=== PATIENT | female | born 1980 | race Caucasian/White ===

== ENCOUNTER → 2018-04-22 07:14 | Outpatient (CLI) | payer OTHER, SELFPAY ==
[2018-04-22 08:16] LABS: T4 Free Direct 1.27 ng/dL (0.76-1.46); Thyroid Stim Hormone (TSH) 2.04 uIU/mL (0.358-3.74)
== END ==
PROVIDERS: Family Provider Family Medicine; PCP Family Medicine; Visit Provider Family Medicine
DX: E03.9 Hypothyroidism, unspecified (principal); F32.9 Major depressive disorder, single episode, unspecified
CPT/HCPCS: 36415; 82306; 84439; 84443

== ENCOUNTER → 2019-04-21 | Outpatient (CLI) | payer OTHER, SELFPAY ==
[2018-11-03 13:17] VITALS: BMI 27.0
--- NOTE | 2019-04-21 08:15 | BI_ITS ---
MAMMOGRAPHY - BILATERAL SCREENING REASON FOR EXAM: Female, 38 years old. Routine annual screening examination. PERTINENT HISTORY: Non-contributory. Bilateral breast implants. TECHNIQUE: Digital bilateral breast denise (3D mammographic acquisition) in the CC and MLO projections. 2-D mediolateral oblique (MLO) and craniocaudad (CC) views of both breasts were obtained. CAD: Full Field Digital Mammography with Computer Added Detection was performed. COMPARISON: None. Baseline examination. FINDINGS: Breast Composition: There are scattered areas of fibroglandular density. There are no dominant masses or suspicious calcifications. The breast implants are unremarkable. No other significant abnormalities are identified. BI/SCREEN MAMM (CAD) W/DENISE BILAT IMPRESSION: Negative screening mammogram. Yearly followup mammogram recommended. (A) ASSESSMENT CATEGORY: BIRADS Category 2: Benign. A letter regarding these results will be sent to the patient by the facility within 30 days. Approximately 10% of breast cancers are not detected by mammography. A normal mammogram should not delay biopsy of a clinically suspicious abnormality. [id number] Electronically Signed: Arsh Lancaster, at 10:00 EDT , Service support ,
== END | disposition home or self-care (01) ==
LOC: OPBI 08:11
PROVIDERS: Family Provider Family Medicine; PCP Family Medicine; Referring Provider Nurse Practitioner Women's Health; Visit Provider Nurse Practitioner Women's Health
DX: Z12.31 Encounter for screening mammogram for malignant neoplasm of breast (principal)
CPT/HCPCS: 77063; 77067

== ENCOUNTER → 2019-05-07 | Outpatient (CLI) | payer OTHER, SELFPAY ==
[2018-11-03 13:17] VITALS: BMI 27.0
[2019-05-07 08:12] LABS: Thyroid Stim Hormone (TSH) 1.82 uIU/mL (0.358-3.74)
== END | disposition home or self-care (01) ==
LOC: LAB 07:04
PROVIDERS: Family Provider Family Medicine; PCP Family Medicine; Referring Provider Family Medicine; Visit Provider Family Medicine
DX: Z79.899 Other long term (current) drug therapy (principal)
CPT/HCPCS: 36415; 84443

== ENCOUNTER → 2019-11-05 10:30 | Outpatient (CLI) | payer OTHER, SELFPAY ==
[2019-11-05 08:07] VITALS: BMI 27.0
[2019-11-08 03:06] LABS: Beef <0.10 kU/L (Class 0); Corn <0.10 kU/L (Class 0); Egg, Whole <0.10 kU/L (Class 0); Milk (Cow) <0.10 kU/L (Class 0); Peanut <0.10 kU/L (Class 0); Pork <0.10 kU/L (Class 0); Soybean <0.10 kU/L (Class 0); Wheat <0.10 kU/L (Class 0)
[2019-11-08 09:10] LABS: Chocolate <0.10 kU/L (Class 0)
[2019-11-10 17:10] LABS: HPV APTIMA, High Risk Negative (Negative)
== END ==
PROVIDERS: PCP Family Medicine; Referring Provider Obstetrics & Gynecology; Visit Provider Obstetrics & Gynecology
DX: Z12.4 Encounter for screening for malignant neoplasm of cervix (principal); R14.0 Abdominal distension (gaseous)
CPT/HCPCS: 36415; 86003; 86005; 87624; 88175; G0145

== ENCOUNTER → 2020-04-06 12:48 | Outpatient (CLI) | payer OTHER, SELFPAY ==
[2019-11-05 08:07] VITALS: BMI 27.0
--- NOTE | 2020-04-06 13:02 | RAD_ITS ---
STUDY: X-RAY - RIGHT KNEE REASON FOR EXAM: Female, 39 years old. RIGHT KNEE PAIN. TECHNIQUE: 4 view(s) of the knee. COMPARISON: None. FINDINGS: Normal visualized distal femur. Normal visualized proximal tibia and fibula. Normal proximal tibiofibular articulation. Normal medial femorotibial compartment. Normal lateral femorotibial compartment. Normal patellofemoral articulation. The soft tissue structures are unremarkable. RAD/Knee 4 or More Views IMPRESSION: Normal x-ray examination of the knee. Electronically Signed: William Bonilla MD at 13:25 EDT , Service support ,
== END ==
PROVIDERS: PCP Family Medicine; Referring Provider Family Medicine; Visit Provider Family Medicine
DX: M25.561 Pain in right knee (principal)
CPT/HCPCS: 73564

== ENCOUNTER → 2020-04-20 08:59 | Outpatient (CLI) | payer OTHER, SELFPAY ==
[2020-04-11 10:43] VITALS: BMI 27.2
--- NOTE | 2020-04-20 09:05 | MRI_ITS ---
STUDY: MRI RIGHT KNEE REASON FOR EXAM: Right knee pain for 3 months, no specific injury. TECHNIQUE: Standardized fat and water weighted pulse sequences were obtained in all 3 orthogonal planes. COMPARISON: Radiographs 04/06/2020. FINDINGS: Normal medial meniscus. Normal hyaline cartilage of the medial femorotibial compartment. Normal medial femoral condyle and tibial plateau. Normal medial collateral ligamentous complex (MCL). Normal distal semimembranosus, gracilis and semitendinosus tendons. There is a small horizontal tear of the free margin of the posterior horn of the lateral meniscus (proton-density sagittal images 13, 14). Normal hyaline cartilage of the lateral femorotibial compartment. Normal lateral femoral condyle and tibial plateau. Normal proximal tibiofibular articulation. Normal lateral collateral (fibular) ligament. Normal popliteus tendon. Normal biceps femoris tendon. Normal anterior cruciate ligament (ACL). Normal posterior cruciate ligament (PCL). Normal congruent patellofemoral articulation. There is low-grade chondromalacia of the lateral patellar facet (T2 axial images 8, 9). Normal medial and lateral patellar retinaculum. Normal visualized quadriceps tendon. Normal patellar tendon. Normal Hoffa''s fat pad. There is no joint effusion. There is a small popliteal cyst (T2 sagittal images 16-19). The otherwise visualized osseous structures are unremarkable. MRI/Lower Ext Joint Only (Routine) IMPRESSION: Small lateral meniscal tear. Low-grade chondromalacia patellae. Small popliteal cyst. Electronically Signed: Cristi Youssef MD at 10:14 EDT Tel , Service support ,
--- NOTE | 2020-04-20 13:00 | BI_ITS ---
MAMMOGRAPHY - BILATERAL SCREENING REASON FOR EXAM: Female, 39 years old. Routine annual screening examination. PERTINENT HISTORY: Non-contributory. Bilateral breast implants. TECHNIQUE: Digital bilateral breast denise (3D mammographic acquisition) in the CC and MLO projections. 2-D mediolateral oblique (MLO) and craniocaudad (CC) views of both breasts were obtained. CAD: Full Field Digital Mammography with Computer Added Detection was performed. COMPARISON: Comparison is made with prior examination of 04/21/2019 FINDINGS: Breast Composition: There are scattered areas of fibroglandular density. There are no dominant masses or suspicious calcifications. Stable appearance of the bilateral breast implants. No other significant abnormalities are identified. There has been no significant change since the prior study. BI/SCREEN MAMM (CAD) W/DENISE BILAT IMPRESSION: Stable bilateral screening mammogram. Yearly follow-up mammogram recommended. (A) ASSESSMENT CATEGORY: BIRADS Category 2: Benign. A letter regarding these results will be sent to the patient by the facility within 30 days. Approximately 10% of breast cancers are not detected by mammography. A normal mammogram should not delay biopsy of a clinically suspicious abnormality. [id number] Electronically Signed: Arsh Lancaster, at 14:09 EDT , Service support ,
== END ==
PROVIDERS: PCP Family Medicine; Referring Provider Family Medicine; Visit Provider Obstetrics & Gynecology
DX: Z12.31 Encounter for screening mammogram for malignant neoplasm of breast (principal); M25.561 Pain in right knee
CPT/HCPCS: 73721; 77063; 77067

== ENCOUNTER → 2020-05-11 07:10 | Outpatient (CLI) | payer OTHER, SELFPAY ==
[2020-05-02 09:15] VITALS: BMI 27.9
[2020-05-11 11:48] LABS: T4 Free Direct 1.16 ng/dL (0.76-1.46); Thyroid Stim Hormone (TSH) 2.44 uIU/mL (0.358-3.74)
== END ==
PROVIDERS: PCP Family Medicine; Referring Provider Family Medicine; Visit Provider Family Medicine
DX: E03.9 Hypothyroidism, unspecified (principal)
CPT/HCPCS: 36415; 84439; 84443

== ENCOUNTER 2020-06-21 05:37 | Day surgery (SDC) | payer OTHER, SELFPAY ==
[2020-05-25 07:54] VITALS: BMI 27.9
[2020-06-21 06:22] LABS: Internal QC Validated? YES +Cl - CLEAR BKGD; Pregnancy, Urine Negative Negative
[2020-06-21 06:25] VITALS: BP 126/79; PULSE 69; RESP 16; TEMP 37.2; O2SAT 100; BMI 27.6
[2020-06-21] MEDS: Lactated Ringers 1,000 ML 100 ML IV (06:48)
[2020-06-21] MEDS: Cefazolin 2 GM in 0.9% Normal Saline 100 ML IV (07:13)
--- NOTE | 2020-06-21 07:22 | PCM.HP.BLA ---
History and Physical Date of Admission: 06/21/20 Intake Vital Signs 05/25/20 BMI 27.9 Intake Visit Reasons: RIGHT KNEE Chief Complaint: right knee Allergies Sulfa (Sulfonamide Antibiotics) Allergy (Verified 11/05/19 08:06) Unknown Medications pantoprazole 40 mg tablet,delayed release 40 mg PO QAM 11/13/17 [History Confirmed 05/25/20] bupropion HCl 150 mg tablet,12 hr sustained-release 150 mg PO DAILY 11/05/19 [History Confirmed 05/25/20] Lactobacillus acidophilus 1 billion cell capsule 10 mg PO DAILY 04/11/20 [History Confirmed 05/25/20] levothyroxine 13 mcg capsule 125 mcg PO DAILY cap 04/11/20 [History Confirmed 05/25/20] meloxicam 15 mg tablet 15 mg PO DAILY #30 tab 05/02/20 [Rx Confirmed 05/25/20] PFSH Social History (Updated 05/25/20 @ 16:[address] 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 Bigg Lucero, 05/25/20 [id number]. MAHESH CHING is a 39 year old F here today for F/U on right knee. States that the steroid injection was only effective for about 1 week then the pain returned. She is having painful popping of the medial and lateral knee. Denies numbness, tingling or other associated symptoms.States that the mobic has not been effective. She is unable to preform squats secondary to pain and feeling of instability of the right knee. Does have a painful pop posterior lateral knee with knee range of motion ROS Const Denies weakness Musc Reports joint pain, Reports limited joint movement, Denies numbness, Denies radiating pain into limb, Denies tingling Skin/Breast Denies lesions, Denies rash, Denies skin pain, Denies skin swelling Neuro No numbness, No tingling, No weakness Ortho Exam Right Knee Skin/Wound: No erythema, No ecchymosis, No swelling Homans Sign: No Knee ROM: Yes ROM-Extension -20 to 0, Yes ROM-Flexion 0-140 Examination: Yes Crepitus, Yes Leroy's Test (lateral) Stability: NML: Anterior Drawer, NML: Melani, NML: Posterior Drawer, NML: Valgus 30, NML: Varus 30 Patella Grind: No KNEE: no joint effusion Supplemental Info 04/20/2020 MRI right knee: small horizontal posterior horn lateral meniscus tear 04/06/2020 x-ray right knee: No acute findings Assessment & Plan Problems 1. Acute lateral meniscus tear of right knee, subsequent encounter S83.281D 2. Mechanical pain of right knee M25.561 Plan Patient educated that since the conservative measures were not effective then we can discuss the surgical options. Patient educated that the lateral sided knee pain is from the lateral meniscus tear and we can preform a right knee scope for meniscus repair vs meniscectomy. Educated that if her meniscus is repairable then she will be NWB for 6 weeks post op and she will require PT. Educated that she could be off work for any where from 2-6 weeks. She can return with restrictions of NWB if she wishes. Reviewed the pre-operative plans with the patient. Risks and benefits of the procedure were fully explained, including but not limited to infection, neurovascular injury, continued pain, arthritis, stiffness, need for further surgery, re-injury, DVT, PE, general risks of anesthesia, and loss of limb or life. The patient understands all the risks and does wish to proceed with written consent. Wishes to proceed with right knee arthroscopy lateral meniscus repair vs partial lateral meniscectomy, repair as indicated. DOS scheduled for 06/21/2020. Follow up 2 weeks post op or sooner if pain, swelling, numbness or associated symptoms, or concerns develop. All questions answered. Patient in agreement of plan. Plan Detail Goals Decrease spasm Decrease inflammation Improve HAs Coding Level of Care Code Off vis,est,level 3 Diagnoses Acute lateral meniscus tear of right knee, subsequent encounter S83.281D ??Encounter type: subsequent encounter Mechanical pain of right knee M25.561 I have re-examined the patient. There are no clinical changes since date of exam
[2020-06-21] MEDS: Bupiv/Epi 0.5% Mpf 30 ML Vial (07:31)
[2020-06-21] MEDS: Epinephrine (1 mg/ml) 1 MG/ML VIAL (07:31)
[2020-06-21] MEDS: morphine PF (epidural) 5 MG/10 ML Vial (08:00)
[2020-06-21] MEDS: Bupivacaine Mpf 0.5% 30 ML VIAL (08:00)
[2020-06-21 08:14] VITALS: BP 112/66; BP 126/79; PULSE 85; RESP 20; TEMP 36.1; O2SAT 100
--- NOTE | 2020-06-21 08:22 | DCINST_ITS ---
Discharge Diet: No Restrictions Discharge Activity: Use Crutches Weight Bearing Status: Toe touch weight bearing Call your doctor if you observe: Shortness of breath, Chest pain Suture Line Care: Avoid Pulling/Pushing Additional Instructions: Ice and elevate next 72 hours .keep dressing on clean and dry for 48 hours then may remove begin showering daily but do not submerge in tub or pool. After shower may apply Band-Aids . Encourage knee range of motion toe touch weight bearing only, use crutches . No strenuous activity. When not ambulating keep iced and elevated next 72 hours. Call with any questions or concerns. Allergies/Adverse Reactions: Allergies Sulfa (Sulfonamide Antibiotics) Allergy (Verified 06/13/20 13:48) Unknown Medications to take at Discharge pantoprazole 40 mg tablet,delayed release 40 mg PO QAM 11/13/17 bupropion HCl 150 mg tablet,12 hr sustained-release 150 mg PO DAILY 11/05/19 Lactobacillus acidophilus 1 billion cell capsule 10 mg PO DAILY 04/11/20 levothyroxine 13 mcg capsule 137 mcg PO DAILY cap 04/11/20 Oxycodone [Oxyir] 5 mg PO Q4H PRN PRN #60 tablet 06/21/20 The following prescriptions were given: Oxycodone [Oxyir] 5 mg PO Q4H PRN PRN #60 tablet PRN Reason: Pain Score 4-5/10 Transmission Status: Sent to [facility] Primary Care Physician: Sumit Reid MD [Primary Care Provider] - Test Results: Test results from this visit will be discussed in further detail at your follow- up appointment, if applicable.
[2020-06-21 08:30] VITALS: BP 126/79; BP 132/90; PULSE 75; RESP 16; O2SAT 100
[2020-06-21 08:42] VITALS: BP 126/79; BP 137/92; PULSE 72; RESP 16; TEMP 36.2; O2SAT 100
[2020-06-21] MEDS: oxyCODONE 5 MG Tablet PO (09:42)
[2020-06-21] MEDS: Acetaminophen 325 MG Tablet PO (09:43)
[2020-06-21 09:45] VITALS: BP 115/74; BP 126/79; PULSE 67; RESP 16; TEMP 36.8; O2SAT 100
[2020-06-21 10:15] VITALS: BP 126/79
--- NOTE | 2020-06-21 10:34 | OP.PCM_ITS ---
Report of Operation Date of Procedure: 06/21/20 Description of Surgical Findings:: Preop diagnosis: Right knee posterior horn lateral meniscus tear Postoperative diagnosis: Right knee cartilage defect medial femoral condyle lateral femoral condyle and posterior lateral tibial plateau Procedure: Arthroscopic evaluation microfracture of medial femoral condyle and lateral femoral condyle Anesthesia: General Estimated blood loss: 5 mL Tourniquet time: 35 minutes 300 mmHg Complications: none Indication for procedure: 39-year-old female patient who is having mechanical sided knee pain of her right knee who did have MRI which had a questionable posterior horn lateral meniscus tear the patient did wish to proceed with an elective arthroscopic surgery to attempt to alleviate the symptoms. Risk benefits and alternatives of the procedure were reviewed including risk of bleeding infection nerve artery tissue damage need for further surgery continued pain and expected postoperative course, and possibilities of weightbearing restrictions 6 weeks postop Procedure: The patient was met in the preoperative holding area. The operative extremity was identified by both patient and physician and family and marked. Patient was brought back to the operating room on a wheeled cart and transferred to the operating table in the supine position. Anesthesia was started. A well- padded tourniquet was placed on the operative extremity. A lower extremity leg hammond was secured to the operative extremity. The contralateral extremity was well-padded and the end of the bed was flexed to 90 degrees. The patient was prepped and draped in the usual sterile fashion. A timeout was called to ensure the proper patient, procedure, and extremity were being contemplated. 0.5% Marcaine with epinephrine was injected into the planned incisional areas under the skin only. An Esmarch was used to exsanguinate the extremity and the tourniquet was inflated. An 11 blade scalpel was used to make a stab incision in the anterior lateral portal. The arthroscope was inserted into the intercondylar notch and inflow and outflow tubes were attached. Arthroscopic visualization began. The medial compartment was entered. An 18-gauge spinal needle was used to establish the placement for anterior medial portal. An 11 blade scalpel was used to make a stab incision. Blunt probe was inserted followed by a meniscal probe. The meniscus was evaluated with probing and was found to be intact however there was noted to be a defect of the medial femoral condyle cartilage that was full-thickness that measured 5 mm medial to lateral on the posterior side 8 mm medial lateral on the anterior side and was about 15 mm from anterior to posterior the ACL was found to be intact. The lateral compartment was entered the lateral meniscus was thoroughly probed to evaluate for any tearing but there was not however there was grade 3 cartilage wear of the posterior aspect of the lateral tibial plateau in addition there was a full- thickness cartilage defect of the lateral femoral condyle measuring 5 x 15 mm there was good cartilage rim around both lesions and at this point microfracture awls were used to create microfracture holes within both defects The arthroscope was switched to the medial portal to complete the procedure. The medial and lateral gutters were inspected and were free of loose bodies. The patellofemoral joint was inspected and was free of cartilage pathology. There was good patellar tracking. The knee was thoroughly irrigated and drained. An intra-articular injection with 5 cc 0.5% Marcaine plain 2.5 mg of morphine was injected intra-articularly. The arthroscope was removed the portals were closed with 3-0 nylon arthroscopic stitches. Followed by Xeroform 4 x 4's ABDs web roll and an Pratik wrap. The tourniquet was let down and the drapes were removed. All counts were correct. The patient was brought back to the PACU in stable condition.
== END 2020-06-21 10:33 | disposition home or self-care (01) ==
LOC: SDC 05:37 → AC 05:37
PROVIDERS: Anesthesiology; PCP Family Medicine; Referring Provider Orthopaedic Surgery; Visit Provider Orthopaedic Surgery
PROC: (CPT 29870; principal; 2020-06-21 06:55)
DX: S83.281A Other tear of lateral meniscus, current injury, right knee, initial encounter (principal); X58.XXXA Exposure to other specified factors, initial encounter; Y93.9 Activity, unspecified; Y92.9 Unspecified place or not applicable; Z11.59 Encounter for screening for other viral diseases; Z79.899 Other long term (current) drug therapy; K21.9 Gastro-esophageal reflux disease without esophagitis; E07.9 Disorder of thyroid, unspecified; K58.9 Irritable bowel syndrome, unspecified
CPT/HCPCS: 29879; 81025; 87635; C9803; J7120; J2405; U0003

== ENCOUNTER → 2020-11-07 14:23 | Outpatient (CLI) | payer OTHER, SELFPAY ==
[2020-10-27 16:15] VITALS: BMI 27.9
[2020-11-07 17:39] LABS: T4 Free Direct 1.33 ng/dL (0.76-1.46); Thyroid Stim Hormone (TSH) 0.23 uIU/mL (0.358-3.74)
== END ==
PROVIDERS: PCP Family Medicine; Referring Provider Family Medicine; Visit Provider Family Medicine
DX: E03.9 Hypothyroidism, unspecified (principal)
CPT/HCPCS: 36415; 84439; 84443

== ENCOUNTER → 2021-02-21 07:13 | Outpatient (CLI) | payer OTHER, SELFPAY ==
[2021-01-25 11:12] VITALS: BMI 27.9
[2021-02-21 08:18] LABS: T4 Free Direct 1.18 ng/dL (0.76-1.46); Thyroid Stim Hormone (TSH) 2.36 uIU/mL (0.358-3.74)
== END ==
PROVIDERS: PCP Family Medicine; Referring Provider Family Medicine; Visit Provider Family Medicine
DX: E07.9 Disorder of thyroid, unspecified (principal)
CPT/HCPCS: 36415; 84439; 84443

== ENCOUNTER → 2021-04-24 08:34 | Outpatient (CLI) | payer OTHER, SELFPAY ==
[2020-10-27 16:15] VITALS: BMI 27.9
[2021-03-27 15:47] VITALS: BMI 27.9
--- NOTE | 2021-04-24 08:36 | BI_ITS ---
MAMMOGRAPHY - BILATERAL SCREENING REASON FOR EXAM: Female, 40 years old. Routine annual screening examination. PERTINENT HISTORY: Non-contributory. History of bilateral breast implants. TECHNIQUE: Digital bilateral breast denise (3D mammographic acquisition) in the CC and MLO projections. 2-D mediolateral oblique (MLO) and craniocaudad (CC) views of both breasts were obtained. CAD: Full Field Digital Mammography with Computer Added Detection was performed. COMPARISON: Comparison is made with prior study 04/20/2020 and 04/21/2019. FINDINGS: Breast Composition: There are scattered areas of fibroglandular density. There are no dominant masses or suspicious calcifications. Stable appearance of the bilateral breast implants. No other significant abnormalities are identified. There has been no significant change since the prior study. BI/SCRN MAMM (CAD)W/DENISE BILAT IMPRESSION: Stable bilateral screening mammogram. Yearly follow-up mammogram recommended. (A) ASSESSMENT CATEGORY: BIRADS Category 2: Benign. A letter regarding these results will be sent to the patient by the facility within 30 days. Approximately 10% of breast cancers are not detected by mammography. A normal mammogram should not delay biopsy of a clinically suspicious abnormality. [id number] Electronically Signed: Arsh Lancaster MD at 10:34 EDT , Service support ,
== END ==
PROVIDERS: PCP Family Medicine; Referring Provider Obstetrics & Gynecology; Visit Provider Obstetrics & Gynecology
DX: Z12.31 Encounter for screening mammogram for malignant neoplasm of breast (principal)
CPT/HCPCS: 77063; 77067

== ENCOUNTER 2021-10-19 07:10 | Day surgery (SDC) | payer OTHER, SELFPAY ==
[2021-10-19] VITALS (7 sets, daily range): BP systolic 103–119; BP diastolic 61–76; PULSE 50–78; RESP 15–18; TEMP 36.4–36.7; O2SAT 100; BMI 27.9
[2021-10-19] MEDS: Lactated Ringers 1,000 ML 15 ML IV (07:20)
[2021-10-19 08:12] LABS: Internal QC Validated? YES +Cl - CLEAR BKGD; Pregnancy, Serum, hCG Quali. NEGATIVE Negative
--- NOTE | 2021-10-19 08:19 | PCM.HP.BLA ---
History and Physical Date of Admission: 10/19/21 40 F who presents to the office today for Last seen 08/14/21 for initial consultation of constipation, acid reflux, LGIB. Symptoms last visit included occasional bloating, cramping and constipation alternating with normal BM. Previously prescribed Linzess 145mcg. Constipation ? Start benefiber BID with digestive enzyme with progressive increase to QID. Acid reflux ? maintain PPI therapy with future evaluation for Breen?s. LGIB ? will evaluate over the next four weeks and determine at that time if endoscopy is necessary. Feels symptoms have remained the same overall with resolution of bloating. Noticed blood three times since last visit following alcohol or grape/raisin intake. Had difficulty finding the digestive enzyme and is taking it four times a day for the last week but has not felt this made much difference. Reports that she has not started the benefiber at this time per office recommendation. Continues Protonix 20mg QD. ROS Const Constitutional: No anorexia, fatigue, fever(s), weight change or sleep problems Eyes Eyes: No change in vision ENT ENT: No abnormal hearing, difficulty swallowing, mouth lesions, tongue swelling or throat swelling Resp Respiratory: No cough or shortness of breath Cardio Cardiology: No chest pain at rest, chest pain with exertion, shortness of breath or dyspnea on exertion Gastro GI: No difficulty swallowing Genitourinary-Female: No difficulty urinating or burning urination Musc Musculoskeletal: No joint pain, joint swelling, muscle weakness or decreased muscle mass Skin Skin: No hair loss in leg, yellowing of the eye, itchy eyes, rash, skin ulcer or skin swelling Neuro Neurology: No abnormal hearing, abnormal movements, confusion, unsteady gait/balance or memory loss Psych Psychiatric: No anxiety, No confusion and No memory loss Endo Endocrine: No fatigue or weight change Aller/Imm Allergy/Immunologic: No itchy eyes, throat swelling or tongue swelling Chucky/Lymp Hematologic/Lymphatic: No easy bleeding, easy bruising or enlarged lymph nodes Exam Const General: cooperative and comfortable Nutritional Appearance: average body habitus and well nourished HENIN Head: normal to inspection Ears: hearing grossly normal bilaterally Nose: external nose normal Face and sinus: normal facial exam Mouth: oral mucosae normal Throat: posterior oropharynx normal Eyes General: appearance normal, both eyes and all related structures Neck Neck: normal visual inspection Chest Chest palpation & inspection: normal inspection of the chest and normal palpation of entire chest wall Resp Effort & Inspection: normal respiratory effort Auscultation: Bilateral: Clear to Auscultation Cardio Palpation: normal PMI Rate: regular rate Rhythm: regular rhythm GI Inspection: normal to inspection Auscultation: normal bowel sounds Percussion: normal to percussion Palpation: no hepatosplenomegaly Skin General: no rashes or lesions noted Neuro General: patient alert Extrem General: normal to inspection Psych Affect: normal affect Quality Reporting Tobacco Screening ([facility] 138) Smoking Status: Never smoker Assessment and Plan Assessment and Plan (1) Lower GI bleeding: Status: Acute Orders: Orders: Colonoscopy Today EGD Today Plan - Dr. Kirkpatrick Friend, DO: She will undergo colonoscopy to evaluate her lower GI tract. The differential diagnosis from a GI bleeding could be anal fissure, hemorrhoids, stercoral ulcer, diverticular disease or less likely neoplasia. She was explained alternatives, risk, benefits including not withstanding bleeding, infection, sepsis, perforation, need for urgent surgery and . She will have an ASA 1 (2) Constipation: Status: Acute Orders: Orders: Colonoscopy Today EGD Today Plan - Dr. Kirkpatrick Friend, DO: She will take a tablespoon of mineral oil and a tablespoon of MiraLAX q. nightly. If this makes her too loose then she will only do it Every other day. if this is not effective then she can increase it to twice a day. (3) Acid reflux: Status: Chronic Plan Details Other Medications: New: bisacodyl (Bisa-Lax (bisacodyl)) as directed for bowel prep 5 mg PO ONCE 4 tabs 0RF polyethylene glycol 3350 (Miralax) as directed for bowel prep 17 grams PO DAILY 238 grams 0RF I have re-examined the patient. There are no clinical changes since date of exam.
--- NOTE | 2021-10-19 08:30 | IMM_PTH ---
PATIENT: MAHESH CHING LOC: EN U#:[id number] AGE/SX: 40/F ROOM: RE10/19/[address]: Dr. Casimiro Deutsch DO : 1980 BED: DIS: 10/19/2021 SPEC #: [id number] RECD: 10/19/21 14:56 STATUS: BOBO REStacey #: [id number] DELBERT: 10/19/21 08:[address]: Casimiro Deutsch DEPT: IMMUNOHISTOCHEMISTRY RECD BY: Elaine Yan ENTERED: 10/19/21 14:56 SP TYPE: IMMUNO OT DR: Dr. Peyman Reid MD Tissues: B - Stomach, NOS Procedures: H Pylori (initial) PHYSICIAN & INSTITUTION [place] [id number] SPECIMEN INFORMATION: Tissue Source: B ? Antrum biopsy Clinical Info: Lower GI bleeding, constipation, acid reflux Specimen Number: [id number] CPT code: 47202 METHODOLOGY: Deparaffinized sections of prefer/formalin-fixed tissue or PAP/DQ stained slides are incubated with monoclonal/polyclonal antibodies/oligonucleotide probes. Localization is made via biotin free immunoperoxidase method. Appropriate controls are performed and reacted as expected. Results on target cell population are indicated in the following table: RESULTS: ANTIBODY / CLONE RESULT Block B H Pylori (polyclonal) negative These tests were developed and their performance characteristics determined by [facility]. They may not have been cleared or approved by the U.S. Food and Drug Administration. The FDA has determined that such clearance or approval is not necessary. INTERPRETATION: B. Antrum biopsy: Negative for Helicobacter pylori organisms. AM:ro 10/20/2021
--- NOTE | 2021-10-19 08:30 | EGD_PTH ---
PATIENT: MAHESH CHING LOC: EN U#:[id number] AGE/SX: 40/F ROOM: RE10/19/[address]: Dr. Casimiro Deutsch DO : 1980 BED: DIS: 10/19/2021 SPEC #: [id number] RECD: 10/19/21 12:19 STATUS: BOBO TEA #: [id number] DELBERT: 10/19/21 08:[address]: Casimiro Deutsch DEPT: SURGICAL PATHOLOGY RECD BY: Yolanda Aviles ENTERED: 10/19/21 13:11 SP TYPE: EGD BIOPSY OT DR: Dr. Peyman Reid MD Tissues: A - Duodenum, NOS B - Gastric mucous membrane C - Gastric mucous membrane D - Esophagus, NOS E - Esophagus, NOS F - COLON BIOPSY G - Ileum, NOS H - COLON BIOPSY Procedures: Special Stain Group II Surgery Specimen Level IV Alcian Blue/PAS (control) HEADER OPERATION: Colonoscopy, EGD ([facility]) with biopsies PRE-OP DIAGNOSIS: Lower GI bleeding, constipation, acid reflux TISSUE SUBMITTED: A ? Duodenum biopsy, B ? Antrum biopsy for H. pylori, C ? Gastric body biopsy, D ? Distal esophagus biopsy, E ? Random esophagus biopsy, F ? Splenic flexure polyp, G ? Terminal ileum biopsy, H ? Random colon biopsy MICROSCOPIC DIAGNOSIS A. 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 B. Antrum, biopsy: Chronic gastritis. C. Gastric body biopsy: Minimal chronic inflammation. D. Distal esophagus, biopsy: Junctional mucosa with mild chronic inflammation. No evidence of goblet cell metaplasia. See Comment. E. Random esophagus, biopsy: No pathologic change. F. Splenic flexure polyp: Tubular adenoma. G. Terminal ileum biopsy: No pathologic change. H. Random colon biopsy: Melanosis coli. AM/am 10/4221 COMMENT B. The results of immunohistochemistry for Helicobacter pylori will be reported separately ([id number]). D. AB/PAS stain with matched control supports the above diagnosis. MICROSCOPIC DESCRIPTION Slides are reviewed. GROSS DESCRIPTION A. Received is one container labeled with the patient name and designated duodenum. The specimen consists of two irregular fragments of light puentes soft tissue that together measure 1 x 0.2 x 0.1 cm. The specimen is totally submitted in one cassette. B. Received is one container labeled with the patient name and designated antrum. The specimen consists of multiple irregular fragments of light puentes soft tissue that together measure 1 x 0.3 x 0.1 cm. The specimen is totally submitted in one cassette. C. Received is one container labeled with the patient name and designated gastric body. The specimen consists of two irregular fragment of light puentes soft tissue that together measure 0.6 x 0.3 x 0.1 cm. The specimen is totally submitted in one cassette. D. Received is one container labeled with the patient name and designated distal esophagus. The specimen consists of two irregular fragment of light puentes soft tissue that together measure 0.7 x 0.3 x 0.1 cm. The specimen is totally submitted in one cassette. E. Received is one container labeled with the patient name and designated random esophagus. The specimen consists two irregular fragment of light puentes soft tissue that together measure 0.5 x 0.5 x 0.1 cm. The specimen is totally submitted in one cassette. F. Received is one container labeled with the patient name and designated splenic flexure polyp. The specimen consists of a single polypoid fragment of puentes tissue that together measure 1 x 0.8 x 0.5 cm. The tissue is bisected and totally submitted in one cassette. G. Received is one container labeled with the patient name and designated terminal ileum. The specimen consists of multiple irregular fragment of light puentes soft tissue that together measure 0.9 x 0.7 x 0.1 cm. The specimen is totally submitted in one cassette. H. Received is one container labeled with the patient name and designated random colon biopsy. The specimen consists of multiple irregular fragments of light puentes soft tissue that together measure 2 x 1 x 0.1 cm. The specimen is totally submitted in one cassette. /AM:cc 10/19/2021 TC:4 CPT:77171o1, 08763
--- NOTE | 2021-10-19 08:42 | OP.EGD_ITS ---
Patient Name: Oly Pepper Procedure Date: 10/19/2021 8:22 AM Date of : 1980 Age: 40 Procedure: Upper GI endoscopy Indications: Functional Dyspepsia, Heartburn Providers: Casimiro Deutsch DO Medicines: See the Anesthesia note for documentation of the administered medications Patient Profile: This is a 40 year old female. Refer to note in patient chart for documentation of history and physical. Patient has symptoms of chronic heartburn. Complications: No immediate complications. Procedure: Pre-Anesthesia Assessment: - Prior to the procedure, a History and Physical was performed, and patient medications and allergies were reviewed. The patient is competent. The risks and benefits of the procedure and the sedation options and risks were discussed with the patient. All questions were answered and informed consent was obtained. Patient identification and proposed procedure were verified in the pre-procedure area. Mental Status Examination: alert and oriented. Airway Examination: normal oropharyngeal airway and neck mobility. Respiratory Examination: clear to auscultation. CV Examination: normal. Prophylactic Antibiotics: The patient does not require prophylactic antibiotics. Prior Anticoagulants: The patient has taken no previous anticoagulant or antiplatelet agents. ASA Grade Assessment: II - A patient with mild systemic disease. After reviewing the risks and benefits, the patient was deemed in satisfactory condition to undergo the procedure. The anesthesia plan was to use moderate sedation / analgesia (conscious sedation). Immediately prior to administration of medications, the patient was re-assessed for adequacy to receive sedatives. The heart rate, respiratory rate, oxygen saturations, blood pressure, adequacy of pulmonary ventilation, and response to care were monitored throughout the procedure. The physical status of the patient was re-assessed after the procedure. After obtaining informed consent, the endoscope was passed under direct vision. Throughout the procedure, the patient's blood pressure, pulse, and oxygen saturations were monitored continuously. The Endoscope was introduced through the mouth, and advanced to the second part of duodenum. The upper GI endoscopy was accomplished without difficulty. The patient tolerated the procedure well. Moderate Sedation: Moderate (conscious) sedation was administered by the endoscopy nurse and supervised by the endoscopist. The following parameters were monitored: oxygen saturation, heart rate, blood pressure, and response to care. Total physician intraservice time was 15 minutes. Scope In: 8:31:01 AM Scope Out: 8:39:09 AM Total Procedure Duration Time 0 hours 8 minutes 8 seconds Findings: The Z-line was irregular and was found 35 cm from the incisors. Biopsies were obtained from the proximal and distal esophagus with cold forceps for histology of suspected eosinophilic esophagitis. Patchy mildly erythematous mucosa without bleeding was found in the gastric body and in the gastric antrum. Biopsies were taken with a cold forceps for histology. Verification of patient identification for the specimen was done. Estimated blood loss was minimal. The second portion of the duodenum was normal. Biopsies were taken with a cold forceps for histology. Verification of patient identification for the specimen was done. Estimated blood loss was minimal. Impression: - Z-line irregular, 35 cm from the incisors. Biopsied. - Erythematous mucosa in the gastric body and antrum. Biopsied. - Normal second portion of the duodenum. Biopsied. Recommendation: - Discharge patient to home. - Resume previous diet. - Continue present medications. - Await pathology results. - Return to my office. Procedure Code(s): --- Professional --- 01122, Esophagogastroduodenoscopy, flexible, transoral; with biopsy, single or multiple 40746, 59, Moderate sedation services provided by the same physician or other qualified health career manager performing the diagnostic or therapeutic service that the sedation supports, requiring the presence of an independent trained observer to assist in the monitoring of the patient's level of consciousness and physiological status; initial 15 minutes of intraservice time, patient age 5 years or older CPT copyright 2017 [employer]. All rights reserved. The codes documented in this report are preliminary and upon brush material preparer review may be revised to meet current compliance requirements. Casimiro Deutsch DO 10/19/2021 8:42:36 AM This report has been signed electronically. Number of Addenda: 1 Note Initiated On: 10/19/2021 8:22 AM Addendum Number: 1 Addendum Date: 06/04/2022 6:55:26 AM MAC was used for sedation during this procedure. Casimiro Deutsch DO 06/04/2022 6:55:30 AM This report has been signed electronically.
--- NOTE | 2021-10-19 08:43 | OP.CCLET_ITS ---
06/04/2022 Sumit Reid [address] [place] [address] Re : Upper GI endoscopy procedure for Oly Pepper Dear Dr. Reid This procedure was performed on October. My impressions and recommendations are as follows: Impressions : - Z-line irregular, 35 cm from the incisors. Biopsied. - Erythematous mucosa in the gastric body and antrum. Biopsied. - Normal second portion of the duodenum. Biopsied. Recommendations : - Discharge patient to home. - Resume previous diet. - Continue present medications. - Await pathology results. - Return to my office. My findings are described in the full procedure note, which is enclosed. If I can be of further assistance, please feel free to contact me at . Sincerely, Casimiro Deutsch, 10/19/2021 8:42:36 AM This report has been signed electronically.
--- NOTE | 2021-10-19 09:18 | OP.COLON_ITS ---
Patient Name: Oly Pepper Procedure Date: 10/19/2021 8:42 AM Date of : 1980 Age: 40 Procedure: Colonoscopy Indications: Hematochezia Providers: Casimiro Deutsch DO Medicines: See the Anesthesia note for documentation of the administered medications Patient Profile: This is a 40 year old female. Refer to note in patient chart for documentation of history and physical. Patient has symptoms of chronic heartburn. Last Colonoscopy: none. The patient's first colonoscopy is today. Complications: No immediate complications. Procedure: Pre-Anesthesia Assessment: - Prior to the procedure, a History and Physical was performed, and patient medications and allergies were reviewed. The patient is competent. The risks and benefits of the procedure and the sedation options and risks were discussed with the patient. All questions were answered and informed consent was obtained. Patient identification and proposed procedure were verified in the pre-procedure area. Mental Status Examination: alert and oriented. Airway Examination: normal oropharyngeal airway and neck mobility. Respiratory Examination: clear to auscultation. CV Examination: normal. Prophylactic Antibiotics: The patient does not require prophylactic antibiotics. Prior Anticoagulants: The patient has taken no previous anticoagulant or antiplatelet agents. ASA Grade Assessment: II - A patient with mild systemic disease. After reviewing the risks and benefits, the patient was deemed in satisfactory condition to undergo the procedure. The anesthesia plan was to use moderate sedation / analgesia (conscious sedation). Immediately prior to administration of medications, the patient was re-assessed for adequacy to receive sedatives. The heart rate, respiratory rate, oxygen saturations, blood pressure, adequacy of pulmonary ventilation, and response to care were monitored throughout the procedure. The physical status of the patient was re-assessed after the procedure. After I obtained informed consent, the scope was passed under direct vision. Throughout the procedure, the patient's blood pressure, pulse, and oxygen saturations were monitored continuously. The colonoscope was introduced through the anus and advanced to the terminal ileum. The colonoscopy was performed without difficulty. The patient tolerated the procedure well. The quality of the bowel preparation was good. Moderate Sedation: Moderate (conscious) sedation was administered by the endoscopy nurse and supervised by the endoscopist. The patient's oxygen saturation, heart rate, blood pressure and response to care were monitored. Total physician intraservice time was 15 minutes. Scope In: 8:45:54 AM Scope Withdrawal Time 0 hours 11 minutes 59 seconds Scope Out: 9:08:47 AM Total Procedure Duration Time 0 hours 22 minutes 53 seconds Findings: A 13 mm polyp was found in the splenic flexure. The polyp was sessile. The polyp was removed with a hot snare. Resection and retrieval were complete. Verification of patient identification for the specimen was done. Estimated blood loss was minimal. An area of mildly congested mucosa was found in the descending colon. Biopsies were taken with a cold forceps for histology. Estimated blood loss was minimal. A patchy area of the distal ileum and terminal ileum was congested. Biopsies were taken with a cold forceps for histology. Hemorrhoids were found on perianal exam. External and internal hemorrhoids were found during retroflexion, during perianal exam and during digital exam. The hemorrhoids were moderate, medium-sized and Grade II (internal hemorrhoids that prolapse but reduce spontaneously). Impression: - One 5 mm polyp in the sigmoid colon, removed with a hot snare. Resected and retrieved. - Congested mucosa in the descending colon. Biopsied. - Congested mucosa in the distal ileum and in the terminal ileum. Biopsied. - Hemorrhoids found on perianal exam. - External and internal hemorrhoids. Recommendation: - Repeat colonoscopy in 5 years for surveillance. - Return to GI office. - Continue present medications. Procedure Code(s): --- Professional --- 05188, Colonoscopy, flexible; with removal of tumor(s), polyp(s), or other lesion(s) by snare technique 36922, 59, Colonoscopy, flexible; with biopsy, single or multiple 68848, 59, Moderate sedation services provided by the same physician or other qualified health home health care respiratory therapist performing the diagnostic or therapeutic service that the sedation supports, requiring the presence of an independent trained observer to assist in the monitoring of the patient's level of consciousness and physiological status; initial 15 minutes of intraservice time, patient age 5 years or older CPT copyright 2017 [employer]. All rights reserved. The codes documented in this report are preliminary and upon physician ophthalmologist review may be revised to meet current compliance requirements. Casimiro Deutsch DO 10/19/2021 9:17:20 AM This report has been signed electronically. Number of Addenda: 1 Note Initiated On: 10/19/2021 8:42 AM Addendum Number: 1 Addendum Date: 06/04/2022 6:55:37 AM MAC was used for sedation during this procedure. Casimiro Deutsch DO 06/04/2022 6:55:41 AM This report has been signed electronically.
--- NOTE | 2021-10-19 09:18 | OP.CCLET_ITS ---
06/04/2022 Sumit Reid [address] [place] [address] Re : Colonoscopy procedure for Oly Pepper Dear Dr. Reid This procedure was performed on October. My impressions and recommendations are as follows: Impressions : - One 5 mm polyp in the sigmoid colon, removed with a hot snare. Resected and retrieved. - Congested mucosa in the descending colon. Biopsied. - Congested mucosa in the distal ileum and in the terminal ileum. Biopsied. - Hemorrhoids found on perianal exam. - External and internal hemorrhoids. Recommendations : - Repeat colonoscopy in 5 years for surveillance. - Return to GI office. - Continue present medications. My findings are described in the full procedure note, which is enclosed. If I can be of further assistance, please feel free to contact me at . Sincerely, Casimiro Deutsch, DO 10/19/2021 9:17:20 AM This report has been signed electronically.
== END 2021-10-19 23:59 | disposition home or self-care (01) ==
LOC: EN 07:11 → AC 07:11
PROVIDERS: Anesthesiology; PCP Family Medicine; Referring Provider Family Medicine; Visit Provider Internal Medicine Gastroenterology
PROC: 0DJD8ZZ Inspection of Lower Intestinal Tract, Via Natural or Artificial Opening Endoscopic (ICD-10-PCS; CPT 45378; principal; 2021-10-19 08:25)
DX: K29.50 Unspecified chronic gastritis without bleeding (principal); K31.89 Other diseases of stomach and duodenum; D12.3 Benign neoplasm of transverse colon; K64.1 Second degree hemorrhoids; K64.4 Residual hemorrhoidal skin tags; E07.9 Disorder of thyroid, unspecified; K21.00 Gastro-esophageal reflux disease with esophagitis, without bleeding; F41.9 Anxiety disorder, unspecified; K58.9 Irritable bowel syndrome, unspecified; Z86.16 Personal history of COVID-19; Z79.899 Other long term (current) drug therapy
CPT/HCPCS: 45385; 45380; 43239; 84703; 88305; 88313; 88342; J7120; J2405

== ENCOUNTER 2022-01-01 07:07 | Outpatient (CLI) | payer OTHER, SELFPAY ==
--- NOTE | 2022-01-01 07:11 | RAD_ITS ---
EXAM: XR ABDOMEN, 1 VIEW CLINICAL INDICATION: Sitz marker test day 3, constipation TECHNIQUE: Frontal supine view of the abdomen/pelvis. This report was created using [employer] report generation technology. COMPARISON: None. FINDINGS: LOWER THORAX: No acute pathology. GASTROINTESTINAL TRACT: There is a single sitz marker in the ascending colon. There are 3 sitz marker in the descending colon. There are 5 sitz marker in the rectal vault. Non-obstructive. No bowel or stomach distention. ORGANS: Unremarkable as visualized. No organomegaly. No abnormal calcifications. BONES/JOINTS: No acute pathology. SOFT TISSUES: There are bilateral tubal ligation clips. RAD/Abdomen Single View IMPRESSION: Sitz markers as noted above. There are no prior studies for comparison to detail the progression. Electronically Signed: Hung Loja MD at 14:48 EDT ,
== END 2022-01-01 23:59 | disposition home or self-care (01) ==
LOC: RAD 07:09
PROVIDERS: PCP Family Medicine; Referring Provider Nurse Practitioner Adult Health; Visit Provider Nurse Practitioner Adult Health
DX: K59.00 Constipation, unspecified (principal)
CPT/HCPCS: 74018

== ENCOUNTER → 2022-01-03 | Outpatient (CLI) | payer OTHER, SELFPAY ==
--- NOTE | 2022-01-03 07:35 | RAD_ITS ---
[employer] Unformatted Report Format: Options: n 2f 2i act cap dr barroso wm wcta sl lj Gender: Female Age: 41 years Exam: XR Abdomen 1 View Comparison: January 01, 2022 History: sitz marker day 5, constipation Contrast: Previously noted Sitz markers throughout the large bowel are no longer identified. Mild retained fecal material throughout the colon. IMPRESSION: Complete evacuation of the Sitz markers on day 5. Electronically Signed: Jez Gonzales MD at 8:23 EDT , RAD/Abdomen Single View
== END | disposition home or self-care (01) ==
LOC: RAD 07:34
PROVIDERS: PCP Family Medicine; Visit Provider Nurse Practitioner Adult Health
DX: K59.00 Constipation, unspecified (principal)
CPT/HCPCS: 74018

== ENCOUNTER → 2022-05-28 | Outpatient (CLI) | payer OTHER, SELFPAY ==
[2022-05-28 14:15] LABS: T4 Free Direct 1.18 ng/dL (0.76-1.46)
== END | disposition home or self-care (01) ==
LOC: LABSPEC 13:35
PROVIDERS: PCP Family Medicine; Visit Provider Family Medicine
DX: E03.9 Hypothyroidism, unspecified (principal)
CPT/HCPCS: 84439; 84443

== ENCOUNTER → 2022-06-07 | Outpatient (CLI) | payer OTHER, SELFPAY | END | disposition home or self-care (01) | LOC: LAB 11:06 | PROVIDERS: PCP Family Medicine; Referring Provider Internal Medicine Cardiovascular Disease; Visit Provider Internal Medicine Cardiovascular Disease | DX: E87.6 Hypokalemia (principal) | CPT/HCPCS: 36415; 83735; 84132 ==

== ENCOUNTER → 2022-07-16 | Outpatient (CLI) | payer OTHER, SELFPAY ==
--- NOTE | 2022-07-16 07:12 | BI_ITS ---
MAMMOGRAPHY - BILATERAL SCREENING REASON FOR EXAM: Female, 41 years old. Routine annual screening examination. PERTINENT HISTORY: Non-contributory. History of bilateral breast implants. TECHNIQUE: Digital bilateral breast denise (3D mammographic acquisition) in the CC and MLO projections. 2-D mediolateral oblique (MLO) and craniocaudad (CC) views of both breasts were obtained. CAD: Full Field Digital Mammography with Computer Added Detection was performed. COMPARISON: Comparison is made with prior study 04/24/2021 and 04/20/2020. FINDINGS: Breast Composition: There are scattered areas of fibroglandular density. There are no dominant masses or suspicious calcifications. Stable appearance of the bilateral breast implants. No other significant abnormalities are identified. There has been no significant change since the prior study. BI/SCRN MAMM (CAD)W/DENISE BILAT IMPRESSION: Stable bilateral screening mammogram. Yearly follow-up mammogram recommended. (A) ASSESSMENT CATEGORY: BIRADS Category 2: Benign. A letter regarding these results will be sent to the patient by the facility within 30 days. Approximately 10% of breast cancers are not detected by mammography. A normal mammogram should not delay biopsy of a clinically suspicious abnormality. [id number] Electronically Signed: Arsh Lancaster MD at 10:40 EDT ,
== END | disposition home or self-care (01) ==
LOC: OPBI 07:10
PROVIDERS: PCP Family Medicine; Visit Provider Nurse Practitioner Women's Health
DX: Z12.31 Encounter for screening mammogram for malignant neoplasm of breast (principal)
CPT/HCPCS: 77063; 77067

== ENCOUNTER 2022-12-18 09:17 | Day surgery (SDC) | payer OTHER, SELFPAY ==
[2022-12-18 09:45] VITALS: BP 128/86; PULSE 74; RESP 18; TEMP 37.1; O2SAT 100; BMI 26.8
--- NOTE | 2022-12-18 09:47 | HP.PCM_ITS ---
History and Physical Date of Admission: 12/18/22 Date of Service:? 11/20/22 MR#: [id number] Acct: [id number] Name:MAHESH HOLDEN Rep #: [id number] : 1980 ? ? Provider: Dr. Jamaica Goss MD Age/Sex:? 41/F ? ? [place] [facility] [place] [facility] [place] Status: Signed Intake Intake Visit Reasons:?HEMORRHOIDS Chief Complaint: hemorrhoids Is patient in pain?: No Allergies Sulfa (Sulfonamide Antibiotics) Allergy (Verified 11/20/22 09:15) Unknownzinc Adverse Reaction (Intermediate, Verified 11/20/22 09:15) rash Medications bupropion HCl 150 mg tablet,12 hr sustained-release (Wellbutrin SR) 150 mg PO DAILY 11/05/19 [History Confirmed 11/20/22] levothyroxine 13 mcg capsule 137 mcg PO DAILY 04/11/20 [History Confirmed 11/20/22] cetirizine 10 mg tablet (Zyrtec) 10 mg PO DAILY 10/19/21 [History Confirmed 11/20/22] pantoprazole 40 mg tablet,delayed release 40 mg PO DAILY #90 tabs 12/20/21 [Rx Confirmed 11/20/22] Saccharomyces boulardii 250 mg capsule (Daily Probiotic (S. boulardii)) 250 mg PO BID 01/31/22 [History Confirmed 11/20/22] potassium chloride 20 mEq tablet,extended release(part/cryst) 20 meq PO DAILY #90 tabs 07/09/22 [Rx Confirmed 11/20/22] Hydrocortisone 2.5%/lidocaine 5% suppository (cmpd) (hydrocortisone 2.5%/lidocaine 5% suppository (compound)) #1 ea 11/01/22 [Rx Confirmed 11/20/22] hydrocortisone 2.5 % topical cream with perineal applicator (Proctosol HC) 1 applic [place] BID-QID PRN hemorrhoids #30 grams 11/01/22 [Rx Confirmed 11/20/22] sucralfate 100 mg/mL oral suspension 10 ml PO QACHS 11/01/22 [History Confirmed 11/20/22] PFSH Medical History? Acid reflux Alcohol use Constipation Frequent headaches Gastric reflux Gastritis History of hiatal hernia Injury of left shoulder Irritable bowel syndrome Left shoulder pain Lower GI bleeding Non-smoker Other serum reaction due to vaccination Other serum reaction due to vaccination, initial encounter Thyroid disease Thyroid disease Unspecified injury of left shoulder and upper arm, initial encounter Surgical History? Breast implant status H/O right knee surgery History of delivery S/P endometrial ablation Family History? Mother Hypertension HyperlipidemiaFather Hypertension Hyperlipidemia Thyroid disorder Social History? Smoking Status:? Never smoker alcohol intake:? current details:? occasionally substance use type:? does not use caffeine:? Yes what type of physical activity do you participate in:? aerobics frequency:? 3-4 times per week seatbelt use:? always do you feel safe at home:? Yes additional social history:? 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 Patient states she did try the suppositories first it was great.? However following days patient states it was a mess patient states she had bleeding on looser stools and was having issues with leakage.? Patient states she is back to her normal but states she does have the occasional leakage still and is interested in possible hemorrhoidectomy.? Patient states she did track her fiber and she was usually around 20 daily. ROS General General: No weight change, appetite, fatigue, colon cancer, breast cancer or weakness HEENT HEENT: No difficulty swallowing, eye injury, eye surgery, swollen glands or hoarseness Endo Endocrine: No thyroid disease, diabetes mellitus, thyroid cancer, Hair loss, heat intolerance or cold intolerance Skin Skin: No rash or changing moles Breast Breast: No left breast lump, right breast lump, nipple discharge, breast pain, abnormal mammogram, abnormal US or breast enlargement Musc Musculoskeletal: No back problems, arthritis, rheumatoid arthritis, gout or joint pain Cardio Cardiovascular: No murmur, pacemaker, heart disease, atrial fibrillation, high blood pressure, heart attack, heart stent, palpitations, shortness of breat with exertion or chest pain Psych Psychiatric: Yes depression; No anxiety or hearing voices Resp Respiratory: No shortness of breath, No sleep apnea, No cough, No COPD, No asthma, No emphysema and No wheezing Gastro Gastrointestinal: No abdominal pain, No nausea or vomiting, No diarrhea, No constipation, No blood in stool, Yes acid reflux, Yes hemorrhoids, No ulcers, No gallbladder problem and No black,tarry stools Chucky Hematologic: No blood thinners, No blood disorders, No bleeding, No anemia and No blood clots Neuro Neurologic: No system reviewed and no additional complaints, except as documented, No as per HPI, No abnormal gait, No abnormal hearing, No abnormal movements, No abnormal speech, No behavioral changes, No burning sensations, No confusion, No convulsions, No disequilibrium, No dizziness, No localized weakness, No frequent falls, No headache(s), No lack of coordination, No loss of vision, No memory loss, No numbness, No other visual disturbances, No radicular pain, No restless legs, No sensory deficit, No syncope, No tingling, No tremor(s), No weakness and No other Exam Const General: cooperative, healthy appearing and no acute distress HENMT Head: normal to inspection Resp Effort & Inspection: normal respiratory effort Cardio Rate: regular rate GI Inspection: non-distended Palpation: soft Other: Rectal inspection only?right posterior external/internal component hemorrhoid, minimal residual tissue anteriorly Skin General: no rashes or lesions noted Neuro General: patient oriented x3 Extrem General: no clubbing, cyanosis or edema Psych Affect: normal affect Assessment and Plan Assessment and Plan (1) Hemorrhoids: ?Status:?Acute Plan Plan for hemorrhoidectomy.? Discussed with patient the risk including but not limited to bleeding, infection, pain, need for additional surgery if continues to have constipation/diarrhea.? Patient was agreeable with plan and wanted to proceed. Jamaica oGss M.D. Pager: [phone] [facility] [address] [place] [address], [facility], [address] [place] [address] Office: [phone] Plan Details Goals & Barriers: Goals Decrease spasm Decrease inflammation Improve HAs Coding Level of Care Code Off vis,est,level 3 Diagnoses Hemorrhoids? K64.9 11/22/22 0737 <Electronically signed by Jamaica Goss MD> Date Jamaica Goss MD
[2022-12-18] MEDS: Lactated Ringers 1,000 ML 15 ML IV ×2 (09:51→12:10)
--- NOTE | 2022-12-18 11:00 | HEM_PTH ---
PATIENT: MAHESH CHING LOC: [facility] [place] U#:[id number] AGE/SX: 41/F ROOM: RE12/18/[address]: Dr. Jamaica Goss MD : 1980 BED: DIS: 12/18/2022 SPEC #: [id number] RECD: 12/18/22 12:34 STATUS: BOBO REStacey #: [id number] DELBERT: 12/18/22 11:[address]: Jamaica Goss DEPT: SURGICAL PATHOLOGY RECD BY: Yolanda Aviles ENTERED: 12/18/22 12:56 SP TYPE: HEMORRHOID OTHR DR: Dr. Peyman Reid MD Tissues: HEMORRHOIDS Procedures: Surgery Specimen Level III HEADER OPERATION: EUA, hemorrhoidectomy PRE-OP DIAGNOSIS: Hemorrhoids TISSUE SUBMITTED: Hemorrhoids MICROSCOPIC DIAGNOSIS Hemorrhoids, hemorrhoidectomy: Pieces of anorectal mucosa with dilated and congested blood vessels, consistent with hemorrhoids. SJ:destiny 12/19/2022 MICROSCOPIC DESCRIPTION Slides are reviewed. GROSS DESCRIPTION Received in fixative is one container labeled with the patient's name and designated hemorrhoids. The specimen consists of three variable sized pieces of puentes mucosal tissue measuring in aggregate 3.0 x 3.5 x 1.5 cm. Sections reveal congested and hemorrhagic cut surfaces. Heating And Refrigeration Inspector sections are submitted in two cassettes. / COLLEEN:destiny 12/18/2022 TC:5 CPT: 21827
[2022-12-18] MEDS: BUPIVACAINE LIPOSOME/PF 20 ML VIAL OPERA.SITE (11:16)
[2022-12-18] MEDS: Dibucaine 30 GM Tube 1 APPLIC (11:38)
[2022-12-18] MEDS: Lubricating Jelly 60 GM Tube 30 GM (11:39)
--- NOTE | 2022-12-18 11:54 | OP.PCM_ITS ---
Report of Operation Date of Procedure: 12/18/22 Pre-Operative Diagnosis: Hemorrhoids external and internal?grade 3 Post-Operative Diagnosis: Same Surgery/Procedure Performed:: Hemorrhoidectomy Surgeon: Jamaica Goss global sourcing manager: Olivia Johansen Type of Anesthesia: General/Supplemental Anesthesiologist: Alex More Special Medications: None Specimen's removed: Hemorrhoid Estimated Blood Loss (mL): 10 cc Description of Procedure: The patient was brought into the operating room and general anesthesia was induced. She was placed in prone jackknife lithotomy position. A timeout was completed verifying correct patient, procedure, site, position, and special equipment prior to beginning the procedure. The buttocks were taped apart. Perineum was prepared prepped and draped in standard sterile fashion. Exparel was used for local anesthesia was injected as a perianal nerve and perianal block-total of 20 cc. Anus carefully dilated. Small Hill-Lehman retractor was introduced and 3 marginal pedicles identified. She was noted to have internal and external hemorrhoids at the right posterior location. Right posterior pedicle was excised in turn in the following fashion. 2-0 Vicryl suture was placed at the base of the pedicle and retracted externally to exteriorize the hemorrhoidal pedicles. An elliptical incision was made extending from perianal skin to anal rectal ring including both internal and external hemorrhoids and excising a minimal amount of anoderm with the hand-held harmonic. Cautery was used to separate the hemorrhoid from the underlying tissue. Careful not to involve any of the sphincter muscle. The pedicle was indicated from the base and sent to pathology. Hemostasis was achieved using electrocautery. Following the hemostasis the skin and mucosal incisions were closed with the running lock stitch of 2-0 chromic. A Surgifoam with dibucaine was placed in the anus. A gauze pad tucked between the gluteal folds and mesh underwear was placed. The patient tolerated procedure well and was extubated and taken to the posta nesthesia care unit in stable condition. Complications none
--- NOTE | 2022-12-18 11:59 | DCINST_ITS ---
Discharge Instructions Diet Discharge Diet: No restrictions Activity Discharge Activity: May Not Drive (On narcotics) Lifting Restrictions: No lifting greater than 20 pounds x 2 weeks Dressing / Incision Call your doctor if your incision/area has: Sudden Increased Bleeding, Increased Pain/ Swelling and Swelling at the incision site Call your doctor if you observe: Fever of 101 or Higher Additional Dressing/Incision Instructions:: Sitz bath's daily and as needed Follow Up Care Please Follow Up With: Jamaica Goss MD When: Call the office for follow-up appointment in about 3 weeks. Test Results: Test results from this visit will be discussed in further detail at your follow- up appointment, if applicable. Discharge Plan Admission Attending Provider: Jamaica Goss Primary Care Provider: Sumit Reid Instructions Additional Instructions / Restrictions: Sitz bath's daily and as needed. Try to avoid directly sitting straight down the on 1 side more than the other as the incisions in the midline. Take stool softeners daily and laxatives if needed. If you do have diarrhea cut back on stool softeners. Discharge Orders/Prescriptions Prescriptions: New oxycodone-acetaminophen 5-325 mg tablet 1 - 2 tab PO Q6H PRN (Reason: pain) 4 Days Qty: 20 0RF Continued levothyroxine 13 mcg capsule 13 mcg capsule 137 mcg PO DAILY bupropion HCl [Wellbutrin SR] 150 mg tablet sustained-release 12 hr 150 mg PO DAILY Saccharomyces boulardii [Daily Probiotic (S. boulardii)] 250 mg capsule 250 mg PO DAILY pantoprazole 40 mg tablet,delayed release (DR/EC) 40 mg PO DAILY Qty: 90 3RF hydrocortisone [Proctosol HC] 2.5 % cream with perineal applicator 1 applic [place] BID-QID PRN (Reason: hemorrhoids) Qty: 30 0RF (DME) hydrocortisone 2.5%/lidocaine 5% suppository (compound) Suppository See Rx Instructions .Route Qty: 1 1RF Rx Instructions: rectally BID fluticasone propionate [Flonase Allergy Relief] 50 mcg/actuation [place],Suspension 1 spray INTRANASAL DAILY Rx Instructions: administer into each nostril potassium chloride 20 mEq tablet,ER particles/crystals 20 meq PO DAILY Qty: 90 3RF Referrals / Follow Up: Sumit Reid MD [Primary Care Provider] - Disposition Disposition (needs filled in before D/C Order can be placed): Home, Self Care
[2022-12-18 12:05] VITALS: BP 128/86; BP 130/84; PULSE 76; RESP 16; TEMP 36.2; O2SAT 100
[2022-12-18 12:15] VITALS: BP 125/87; BP 128/86; PULSE 71; RESP 16; O2SAT 100
[2022-12-18 12:30] VITALS: BP 119/80; BP 128/86; PULSE 58; RESP 16; O2SAT 100
[2022-12-18 12:45] VITALS: BP 119/83; BP 128/86; PULSE 53; RESP 16; TEMP 36.3; O2SAT 100
[2022-12-18 13:28] VITALS: BP 128/86
== END 2022-12-18 13:33 | disposition home or self-care (01) ==
LOC: SDC 09:18 → AC 09:19
PROVIDERS: PCP Family Medicine; Referring Provider Surgery; Visit Provider Surgery
PROC: (CPT 46260; principal; 2022-12-18 10:45)
DX: K64.2 Third degree hemorrhoids (principal); K64.4 Residual hemorrhoidal skin tags; K21.9 Gastro-esophageal reflux disease without esophagitis; F41.9 Anxiety disorder, unspecified; M99.01 Segmental and somatic dysfunction of cervical region; M99.02 Segmental and somatic dysfunction of thoracic region; M99.03 Segmental and somatic dysfunction of lumbar region; M99.05 Segmental and somatic dysfunction of pelvic region; E07.9 Disorder of thyroid, unspecified; Z86.010 Personal history of colon polyps; Z86.16 Personal history of COVID-19; Z79.899 Other long term (current) drug therapy
CPT/HCPCS: 46260; 00902; 88304; J7120; J2405

== ENCOUNTER → 2023-02-04 | Outpatient (CLI) | payer OTHER, SELFPAY ==
[2023-02-04 15:33] LABS: Estradiol 246.2 pg/mL; Follicle Stimulating Hormone 4.5 mIU/mL; Thyroid Stim Hormone (TSH) 1.87 uIU/mL (0.358-3.74)
== END | disposition home or self-care (01) ==
LOC: LAB 13:54
PROVIDERS: PCP Family Medicine; Referring Provider Obstetrics & Gynecology; Visit Provider Obstetrics & Gynecology
DX: N94.6 Dysmenorrhea, unspecified (principal)
CPT/HCPCS: 36415; 82670; 83001; 84443

== ENCOUNTER → 2023-05-06 | Outpatient (CLI) | payer OTHER, SELFPAY ==
[2023-05-06 11:15] LABS: Thyroid Stim Hormone (TSH) 1.56 uIU/mL (0.358-3.74)
== END | disposition home or self-care (01) ==
LOC: LAB 08:57
PROVIDERS: PCP Family Medicine; Referring Provider Obstetrics & Gynecology; Visit Provider Obstetrics & Gynecology
DX: N94.6 Dysmenorrhea, unspecified (principal); E07.9 Disorder of thyroid, unspecified
CPT/HCPCS: 36415; 84443

== ENCOUNTER → 2023-05-08 | Outpatient (CLI) | payer OTHER, SELFPAY ==
--- NOTE | 2023-05-08 13:43 | US_ITS ---
EXAM: US PELVIS TRANSABDOMINAL AND TRANSVAGINAL, COMPLETE CLINICAL INDICATION: pelvic pain TECHNIQUE: Transabdominal and transvaginal pelvic ultrasound was performed with grayscale and color Doppler imaging. Transvaginal imaging was used for better evaluation of the endometrium and adnexa. COMPARISON: No relevant prior studies available. FINDINGS: UTERUS/CERVIX: Heterogeneous fibroid uterus containing at least 4 small fibroids. The largest of these measures up to 1.3 cm. The second largest measures up to 1.1 cm. These are all myometrial. Uterus measures 9.9 x 6.1 x 4.4 cm with normal endometrial complex appearance and thickness of 4 mm. Anteverted uterus. Nabothian cysts are identified. No IUD. RIGHT OVARY: Right ovary measures 3.0 x 2.2 x 1.9 cm. Blood flow is present in the right ovary. LEFT OVARY: Left ovary measures 3.0 2.6 x 1.3 cm. Blood flow is present in the left ovary. FREE FLUID: Ovaries are unremarkable with no solid masses. No adnexal masses an no significant free pelvic fluid. BLADDER: Bladder shows no wall thickening or intraluminal calculi. Bladder volume = 861 mL. US/Pelvic w/ Transvaginal IMPRESSION: 1. Fibroid uterus. 2. Normal endometrial complex. 3. No ovarian or adnexal masses or free fluid. Electronically Signed: Amador Wilburn MD at 2:32 EDT ,
== END | disposition home or self-care (01) ==
LOC: OPUS 13:42
PROVIDERS: PCP Family Medicine; Referring Provider Obstetrics & Gynecology; Visit Provider Obstetrics & Gynecology
DX: R10.2 Pelvic and perineal pain (principal)
CPT/HCPCS: 76830; 76856

== ENCOUNTER 2023-07-02 08:14 | Day surgery (SDC) | payer OTHER, SELFPAY ==
[2023-06-28 16:41] LABS: Magnesium 2.2 mg/dL (1.6-2.6)
--- NOTE | 2023-07-01 13:48 | HP.PCM_ITS ---
History and Physical Date of Admission: 07/02/23 Vital Signs 02/05/2308:48 06/03/2314:00 06/03/2314:02 Height 5 ft 8 in 5 ft 8 in 5 ft 8 in Weight: 188 lb 6 oz BMI 28.6 BP 122/79 H Intake Visit Reasons: pelvic pain Avionics Shop Supervisor Required: No Is patient in pain?: No Allergies Sulfa (Sulfonamide Antibiotics) Allergy (Verified 06/03/23 14:01) Unknownzinc Adverse Reaction (Intermediate, Verified 06/03/23 14:01) rash Medications bupropion HCl 150 mg tablet,12 hr sustained-release (Wellbutrin SR) 150 mg PO DAILY 11/05/19 [History Confirmed 06/03/23] levothyroxine 13 mcg capsule 137 mcg PO DAILY 04/11/20 [History Confirmed ] Saccharomyces boulardii 250 mg capsule (Daily Probiotic (S. boulardii)) 250 mg PO DAILY 01/31/22 [History Confirmed 06/03/23] potassium chloride 20 mEq tablet,extended release(part/cryst) 20 meq PO DAILY #90 tabs 07/09/22 [Rx Confirmed 06/03/23] Hydrocortisone 2.5%/lidocaine 5% suppository (cmpd) (hydrocortisone 2.5%/lidocaine 5% suppository (compound)) #1 ea 11/01/22 [Rx Confirmed 04/29/23] fluticasone propionate 50 mcg/actuation nasal spray,suspension (Flonase Allergy Relief) 1 spray intranasal DAILY 12/11/22 [History Confirmed 06/03/23] magnesium oxide 420 mg tablet 420 mg PO DAILY 02/04/23 [History Confirmed 06/03/23] pantoprazole 40 mg tablet,delayed release 40 mg PO DAILY #90 tabs 02/12/23 [Rx Confirmed 06/03/23] [facility] Medical History Acid reflux Alcohol use Constipation Frequent headaches Gastric reflux Gastritis History of IBS Injury of left shoulder Left shoulder pain Lower GI bleeding Non-smoker Other serum reaction due to vaccination Other serum reaction due to vaccination, initial encounter Thyroid disease Thyroid disease Unspecified injury of left shoulder and upper arm, initial encounter Surgical History Breast implant status H/O right knee surgery History of delivery Hx of colonoscopy with polypectomy S/P endometrial ablation S/P hemorrhoidectomy Family History Mother Hypertension HyperlipidemiaFather Hypertension Hyperlipidemia Thyroid disorder Social History Smoking Status: Never smoker alcohol intake: current details: occasionally substance use type: does not use caffeine: Yes what type of physical activity do you participate in: aerobics frequency: 3-4 times per week seatbelt use: always do you feel safe at home: Yes additional social history: [employer] 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 she has a history of an endometrial ablation and cycles are 1-2 weeks and painful not too heavy, more bleeding than before but not severe. lining was 4 mm. she has 4 fibroids present. she denies any pain with intercourse. History 2 Elective abortions Hx Para 2 Spontaneous abortions Hx # Term Pregnancies Ectopic pregnancies Hx # Pregnancies Multiple births # of living children Past Pregnancies Del. Date Name GA/Weeks Outcome Route Bth Weight Gen Labor Lgth Anesthesia Del Locatn Provider FOB Unknown Nicole-2001 Unknown Jamarcus-2006 ROS Const Constitutional: Denies fatigue, weight gain or weight loss ENT ENT: Reports system reviewed and no additional complaints, except as documented Cardio Card: Denies chest pain Resp Resp: Denies cough or dyspnea GI GI: Reports as per HPI; Denies abdominal pain, constipation, nausea or vomiting : Denies nipple discharge, urinary frequency, urinary incontinence, urinary hesitancy, urinary urgency, vaginal discharge, vaginal dryness, vaginal odor or vaginal pruritus Musc Musc: Denies arthralgias, back pain or muscle weakness Skin Skin/Breast: Denies alopecia, change in hair, dry skin, breast mass, breast pain, breast skin changes or nipple discharge Neuro Neuro: Reports system reviewed and no additional complaints, except as documented Psych Psych: Reports system reviewed and no additional complaints, except as documented Endo Endo: Denies cold intolerance, excessive sweating, heat intolerance or polydipsia Chucky/Lymph Hematologic/Lymphatic: Denies easy bleeding, Denies easy bruising and Denies lymphadenopathy Exam Const General: cooperative, healthy appearing, comfortable and no acute distress Orientation: alert [facility] Head: normal to inspection and normocephalic Ears: hearing grossly normal bilaterally and external ears normal Nose: external nose normal and nares normal Face and sinus: normal facial exam Neck Neck: normal visual inspection and no lymphadenopathy Thyroid: thyroid normal Chest Chest palpation & inspection: normal inspection of the chest Resp Effort & Inspection: normal respiratory effort Auscultation: clear to auscultation bilaterally Cardio Rate: regular rate Rhythm: regular rhythm Heart Sounds: S1 normal and S2 normal GI Inspection: normal to inspection and non-distended Palpation: soft and no hepatosplenomegaly Musc Other: gross motor intact no deficits, full bilateral strength Skin General: no rashes or lesions noted Neuro General: patient alert, patient awake, moves all extremities and no focal motor deficits Motor: muscle tone normal throughout Extrem General: normal to inspection and no pedal edema Psych Appearance: grossly normal Mental Status: mental status grossly normal Affect: normal affect Speech and Movement: speech and movement normal Coding Level of Care Code Off vis,est,level 5 Diagnoses Pelvic pain R10.2 Dysmenorrhea N94.6 Assessment and Plan Assessment and Plan (1) Pelvic pain: Status: Acute Comment: s/p US proceed with lavhbs. 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 (2) Dysmenorrhea: Status: Acute Comment: post ablation, discussed NSAIDs, fibroids, discussed Myfembree with LAV. proceed with LAVHBS. Plan After discussing the patient's diagnosis and treatment plan options, patient wishes to proceed with surgical management. I have discussed with the patient the risks, benefits, and alternatives of the procedure which include but are not limited to risks of anesthesia, bleeding, infection, possible damage to bowel, bladder, or surrounding vasculature which could lead to additional surgery to evaluate any complications. Patient agrees to procedure and wishes to proceed. ACOG/uptodate references given for additional information regarding procedure.
[2023-07-02] VITALS (8 sets, daily range): BP systolic 112–133; BP diastolic 64–84; PULSE 54–75; RESP 16; TEMP 36.6–36.8; O2SAT 97–100; BMI 28.6
--- NOTE | 2023-07-02 | HYST_PTH ---
PATIENT: MAHESH CHING LOC: [facility] U#:[id number] AGE/SX: 42/F ROOM: RE07/02/[address]: Dr. Tahira Russo MD : 1980 BED: DIS: 07/02/2023 SPEC #: [id number] RECD: 07/02/23 14:07 STATUS: BOBO REStacey #: [id number] DELBERT: 07/02/23 00:[address]: Tahira Russo DEPT: SURGICAL PATHOLOGY RECD BY: Yolanda Aviles ENTERED: 07/02/23 14:08 SP TYPE: HYSTERECT OTHR DR: Dr. Peyman Reid MD Tissues: Uterus, NOS Procedures: Surgery Specimen Level V HEADER OPERATION: ERAS, hysterectomy, LAVH, bilateral salpingectomy PRE-OP DIAGNOSIS: Pelvic pain, dysmenorrhea TISSUE SUBMITTED: Cervix, uterus, bilateral fallopian tubes MICROSCOPIC DIAGNOSIS Uterus, hysterectomy: Cervix - mild chronic inflammation. Endometrium - secretory endometrium. Myometrium - leiomyomas and adenomyosis. Right fallopian tube - benign paratubal cyst. Left fallopian tube - no pathologic change. AM:destiny 07/03/2023 MICROSCOPIC DESCRIPTION Slides are reviewed. GROSS DESCRIPTION Received in fixative is one container labeled with the patient's name and designated cervix, uterus, bilateral fallopian tubes. The specimen consists of a hysterectomy specimen consisting of uterus with cervix and attached left fallopian tube and detached right fallopian tube in two pieces. The uterus with cervix weighs 99 gm and measures 11.0 x 7.0 x 4.5 cm. The serosal surface is puentes, glistening. At right cornu, a Filshie clip is noted which appears intact. The ectocervical mucosa is unremarkable. The external os is oval in contour. The endocervical canal measures 4.0 cm in length and the endocervical mucosa is puentes, glistening and unremarkable. The endometrial cavity is completely obliterated. Sections of the uterine wall reveal multiple puentes, nodular masses. The largest nodular mass measures 2.0 cm in greatest dimension. Sections of the largest nodular mass reveal focal cystic area filled with clear fluid. Sections of these masses reveal puentes whorled cut surfaces without areas of hemorrhage, necrosis or cystic degeneration. The uterine wall measures up to 2.5 cm in thickness. Attached left fallopian tube measures 7.5 cm in length and 0.7 cm in diameter. The proximal portion of the left fallopian tube shows one Filshie clip which appears intact. Sections reveal unremarkable cut surfaces. The fimbrial end is identified. The detached right fallopian tube is received in two pieces and measures 6.5 cm in length and 0.5 cm in diameter. The fimbrial end is identified. Two paratubal cysts are noted measuring 0.5 to 0.7 cm in greatest dimension. They are filled with clear fluid. Assembly Manager sections are submitted in eight cassettes as follows: 1 - anterior cervix, 2 - posterior cervix, 3 & 4 - anterior uterine wall, 5 & 6 - posterior uterine wall, 7 - nodular masses, 8 - largest nodular mass with cystic changes, 9 - right fallopian tube and paratubal cyst, 10 - left fallopian tube. / SJ:destiny 07/03/2023 TC:1 CPT: 47824
[2023-07-02] MEDS: dexAMETHasone 10 MG/ML Vial 8 MG IV (08:48)
[2023-07-02] MEDS: Phenazopyridine 95 MG Tablet 190 MG PO (08:49)
[2023-07-02] MEDS: Acetaminophen 500 MG Tablet 1000 MG PO ×2 (08:49→14:43)
[2023-07-02] MEDS: Gabapentin 600 MG Tablet PO (08:49)
[2023-07-02] MEDS: Enoxaparin 40 MG/0.4 ML Syringe SC (08:50)
[2023-07-02] MEDS: Celecoxib 200 MG Capsule 400 MG PO (08:50)
[2023-07-02] MEDS: Scopolamine 1mg/72hr Patch 1 PATCH TD (08:51)
[2023-07-02] MEDS: Magnesium 1 GM over 15 mins IV (08:52)
[2023-07-02] MEDS: Lactated Ringers 1,000 ML 40 ML IV (08:53)
--- NOTE | 2023-07-02 09:06 | DCINST_ITS ---
Discharge Instructions Diet Discharge Diet: No restrictions Activity May resume sexual activity in: 6 weeks Weight Bearing Status: Full weight bearing Dressing / Incision Call your doctor if your incision/area has: Continuous Slow Oozing, Sudden Increased Bleeding, Increased Pain/ Swelling, Increased Redness and Foul Smelling Discharge Call your doctor if you observe: Fever of 101 or Higher, Using more than 1 pad per hour, Shortness of breath, Chest pain and Uncontrolled pain Suture Line Care: Avoid Pulling/Pushing and Avoid Pinching/Bending Remove Dressing in: 1 week (if present) Cleanse incision/area with: Soap & Water and Keep Dressing Clean & Dry Follow Up Care Please Follow Up With: Tahira Russo MD When: Call to make an appointment with your doctor for a postop visit in 2 and 6 weeks. Test Results: Test results from this visit will be discussed in further detail at your follow- up appointment, if applicable. Discharge Plan Admission Attending Provider: Tahira Russo Primary Care Provider: Sumit Reid Discharge Orders/Prescriptions Prescriptions: New oxycodone-acetaminophen [Percocet] 5-325 mg tablet 1 tab PO Q6H PRN (Reason: pain) 7 Days Qty: 20 0RF naproxen [naproxen] 500 mg tablet 500 mg PO BID PRN PRN (Reason: Pain) Qty: 30 1RF Continued levothyroxine 13 mcg capsule 13 mcg capsule 137 mcg PO DAILY bupropion HCl [Wellbutrin SR] 150 mg tablet sustained-release 12 hr 150 mg PO DAILY Saccharomyces boulardii [Daily Probiotic (S. boulardii)] 250 mg capsule 250 mg PO DAILY magnesium oxide 420 mg tablet 420 mg PO DAILY (DME) hydrocortisone 2.5%/lidocaine 5% suppository (compound) Suppository See Rx Instructions .Route Qty: 1 1RF Rx Instructions: rectally BID fluticasone propionate [Flonase Allergy Relief] 50 mcg/actuation [place],Suspension 1 spray INTRANASAL DAILY Rx Instructions: administer into each nostril potassium chloride 20 mEq tablet,ER particles/crystals 20 meq PO DAILY Qty: 90 3RF pantoprazole 40 mg tablet,delayed release (DR/EC) 40 mg PO DAILY Qty: 90 3RF Referrals / Follow Up: Sumit Reid MD [Primary Care Provider] - Disposition Disposition (needs filled in before D/C Order can be placed): Home, Self Care
--- NOTE | 2023-07-02 09:06 | PCM.OPRPT ---
Problems Associated Problem List Diagnoses (1) Pelvic pain: (2) Dysmenorrhea: Report of Operation Date of Procedure: 07/02/23 Pre-Operative Diagnosis: see A/P Post-Operative Diagnosis: same Surgery/Procedure Performed:: ELIAS cysto Surgeon: Tahira Russo fire hydrant operator: Ursula Pina Type of Anesthesia: General Special Medications: none Specimen's removed: uterus, tubes Drains: dobbins Estimated Blood Loss (mL): 400 Fluids Replaced: crystalloid Description of Procedure: Patient received preoperative antibiotics and SCDs were on preoperatively. Patient was taken back to the operating room and placed in the dorsal lithotomy position. General anesthesia was induced and patient was prepped and draped in normal sterile fashion. Uterine manipulator was placed inside the uterus and Dobbins catheter placed in the bladder. The umbilicus was grasped with towel clamps and an intraumbilical incision was made after injecting with quarter percent Marcaine and a Veress needle entered into the abdomen confirmed to be intra-abdominal with a low opening pressure. Abdomen was insufflated with CO2 gas and the Veress needle removed and the 5 mm trocar was placed under direct visualization without complication. Right and left lower quadrants were transilluminated and injected with quarter percent Marcaine and 5 mm ports placed under direct visualization. Pelvis was well visualized see operative findings for additional information. Bilateral fallopian tubes were identified and transected with the LigaSure device across the mesosalpinx to the level of the utero-ovarian ligament which was also transected with the LigaSure device. extensive lysis of adhesions were encoutered with over 60 minutes devoted to vesicouterine adhesiolysis due to previous 2 sections. dense adhesions encuntered and abnormal anatomy due to fibroids present. The broad ligament was opened up by transecting the round ligament bilaterally and skeletonizing the uterine vessels bilaterally and creating a bladder flap using the LigaSure device. The uterine arteries were transected bilaterally with good visualization of the bladder and the ureters were seen to be inferior lateral to the operative area. Attention was then paid to the vaginal portion of the procedure, where limited vaginal access was encountered, and the cervix was grasped with Jade clamps and circumferentially injected with dilute vasopressin. A circumferential incision was made and the vaginal mucosa was mobilized off posteriorly and the cul-de-sac entered into sharply and a longneck speculum placed. The anterior cul-de-sac was then identified and entered into sharply. The uterosacral ligaments were clamped cut and suture ligated with 0 Monocryl bilaterally followed by the cardinal ligaments which were clamped cut and suture ligated bilaterally with 0 Monocryl. The uterus serially descended and was removed without difficulty. Pelvic sidewall pedicles were checked and noted to have excellent hemostasis. The vaginal mucosa was reapproximated incorporating the posterior peritoneum. This was reapproximated using 0 Vicryl [id number] sutures. Excellent hemostasis was noted. The cystoscopy was then performed and bilateral ureteral strong spray was noted and the bladder was noted to have no abnormality or lesions seen. Dobbins catheter was replaced and then attention paid to the abdominal portion of the procedure again. The pelvis and cul-de-sac were well visualized and no significant active bleeding noted. Pressure was taken down and the areas visualized and noted of excellent hemostasis. All ports were removed under direct visualization without complication and the abdomen was desufflated of air. The instruments were removed from the abdomen and the vaginal sweep was negative. Port sites on the abdomen were closed with 4-0 Monocryl interrupted sutures and Steri's and windows were applied. She was awoken and taken recovery in stable condition. Grafts/Implants Used: none Complications none Admit VTE Documentation VTE Present on Admission: No VTE Mechan Device Prophylaxis: SCD's VTE Pharm Prophylaxis ordered?: Yes Procedures Urinary/Genital [id number]: 83115 LAVH+BS/O <250gr Uterus
[2023-07-02 09:33] LABS: Bedside Glucose 95 mg/dL (74-106)
[2023-07-02] MEDS: Cefazolin 2 GM in 0.9% Normal Saline (100mL Bag) 100 ML IV (10:08)
[2023-07-02] MEDS: Bupivacaine 0.25% 30 ML Vial (10:30)
[2023-07-02] MEDS: Vasopressin 20 UNITS/ML Vial (11:45)
[2023-07-02] MEDS: Ondansetron 4 MG/2 ML Vial IV (12:51)
[2023-07-02] MEDS: Lactated Ringers @ 70 MLS/HR 70 ML IV (13:05)
[2023-07-02] MEDS: Ketorolac 30 MG/ML Syringe IV (14:10)
[2023-07-02] MEDS: oxyCODONE 5 MG Tablet PO (15:30)
[2023-07-02 16:57] LABS: Hematocrit 43.8 % (37-47); Hemoglobin 15.2 g/dL (12.0-15.0); Mean Corp Hgb Conc 34.7 g/dL (32-36); Mean Corpuscular Hgb 31.7 pg (27.0-32.0); Mean Corpuscular Volume 91.4 fL (81-99); Platelet Count 262 K/mm3 (150-450); RBC Distribution Width CV 12.5 % (11.6-14.6); RBC Distribution Width SD 41.9 fl (35.1-43.9); Red Blood Count 4.79 M/mm3 (4.2-5.4); White Blood Count 15.9 K/mm3 (4.4-11.0)
[2023-07-02] MEDS: Ondansetron ODT 4 MG Tablet PO (17:11)
== END 2023-07-02 18:03 | disposition home or self-care (01) ==
LOC: SDC 08:15 → AC 08:17
PROVIDERS: Anesthesiology; PCP Family Medicine; Referring Provider Obstetrics & Gynecology; Visit Provider Obstetrics & Gynecology
PROC: 0UT9FZZ Resection of Uterus, Via Natural or Artificial Opening With Percutaneous Endoscopic Assistance (ICD-10-PCS; CPT 58552; principal; 2023-07-02 10:15)
DX: D25.9 Leiomyoma of uterus, unspecified (principal); N80.03 Adenomyosis of the uterus; N83.8 Other noninflammatory disorders of ovary, fallopian tube and broad ligament; N94.6 Dysmenorrhea, unspecified; E07.9 Disorder of thyroid, unspecified; K21.9 Gastro-esophageal reflux disease without esophagitis; F41.9 Anxiety disorder, unspecified; M99.01 Segmental and somatic dysfunction of cervical region; M99.02 Segmental and somatic dysfunction of thoracic region; M99.03 Segmental and somatic dysfunction of lumbar region; M99.05 Segmental and somatic dysfunction of pelvic region; Z79.899 Other long term (current) drug therapy; Z86.16 Personal history of COVID-19
CPT/HCPCS: 58552; 00840; 36415; 82962; 83735; 85027; 86850; 86900; 86901; 88307; J7120; J2405; J3475

== ENCOUNTER → 2023-08-13 | Outpatient (CLI) | payer OTHER, SELFPAY ==
--- NOTE | 2023-08-13 07:10 | BI_ITS ---
MAMMOGRAPHY - BILATERAL SCREENING REASON FOR EXAM: Female, 42 years old. Routine annual screening examination. PERTINENT HISTORY: Non-contributory. Bilateral breast implants. TECHNIQUE: Digital bilateral breast denise (3D mammographic acquisition) in the CC and MLO projections. 2-D mediolateral oblique (MLO) and craniocaudad (CC) views of both breasts were obtained. CAD: Full Field Digital Mammography with Computer Added Detection was performed. COMPARISON: Comparison is made with prior examination July 16, 2022 and April 24, 2021. FINDINGS: Breast Composition: There are scattered areas of fibroglandular density. There are no dominant masses or suspicious calcifications. Stable appearance of the bilateral breast implants. No other significant abnormalities are identified. There has been no significant change since the prior study. BI/SCRN MAMM (CAD)W/DENISE BILAT IMPRESSION: Stable bilateral screening mammogram. Yearly follow-up mammogram recommended. (A) ASSESSMENT CATEGORY: BIRADS Category 2: Benign. A letter regarding these results will be sent to the patient by the facility within 30 days. Approximately 10% of breast cancers are not detected by mammography. A normal mammogram should not delay biopsy of a clinically suspicious abnormality. [id number] Electronically Signed: Arsh Lancaster MD at 14:02 EST ,
== END | disposition home or self-care (01) ==
LOC: OPBI 07:08
PROVIDERS: PCP Family Medicine; Referring Provider Obstetrics & Gynecology; Visit Provider Obstetrics & Gynecology
DX: Z12.31 Encounter for screening mammogram for malignant neoplasm of breast (principal)
CPT/HCPCS: 77063; 77067

== ENCOUNTER → 2024-05-19 | Outpatient (CLI) | payer OTHER, SELFPAY ==
[2024-05-19 11:45] LABS: T4 Free Direct 1.21 ng/dL (0.76-1.46)
== END | disposition home or self-care (01) ==
LOC: LAB 08:51
PROVIDERS: PCP Family Medicine; Referring Provider Family Medicine; Visit Provider Family Medicine
DX: E03.9 Hypothyroidism, unspecified (principal)
CPT/HCPCS: 36415; 84439; 84443

== ENCOUNTER → 2024-08-14 | Outpatient (CLI) | payer OTHER, SELFPAY ==
--- NOTE | 2024-08-14 13:12 | BI_ITS ---
MAMMOGRAPHY - BILATERAL SCREENING REASON FOR EXAM: Female, 43 years old. Routine annual screening examination. PERTINENT HISTORY: Non-contributory. Bilateral breast implants. TECHNIQUE: Digital bilateral breast denise (3D mammographic acquisition) in the CC and MLO projections. 2-D mediolateral oblique (MLO) and craniocaudad (CC) views of both breasts were obtained. CAD: Full Field Digital Mammography with Computer Added Detection was performed. COMPARISON: Comparison is made with prior study dated August 13, 2023 and July 16, 2022. FINDINGS: Breast Composition: There are scattered areas of fibroglandular density. There are no dominant masses or suspicious calcifications. Stable appearance of the bilateral breast implants. No other significant abnormalities are identified. There has been no significant change since the prior study. BI/SCRN MAMM (CAD)W/DENISE BILAT IMPRESSION: Stable bilateral screening mammogram. Yearly follow-up mammogram recommended. (A) ASSESSMENT CATEGORY: BIRADS Category 2: Benign. A letter regarding these results will be sent to the patient by the facility within 30 days. Approximately 10% of breast cancers are not detected by mammography. A normal mammogram should not delay biopsy of a clinically suspicious abnormality. [id number] Electronically Signed: Arsh Lancaster MD at 9:25 EST ,
== END | disposition home or self-care (01) ==
LOC: OPBI 13:10
PROVIDERS: PCP Family Medicine; Referring Provider Obstetrics & Gynecology; Visit Provider Obstetrics & Gynecology
DX: Z12.31 Encounter for screening mammogram for malignant neoplasm of breast (principal)
CPT/HCPCS: 77063; 77067

== ENCOUNTER → 2025-03-17 | Outpatient (CLI) | payer OTHER, SELFPAY ==
[2025-03-17 16:15] LABS: Hematocrit 45.3 % (37-47); Hemoglobin 15.5 g/dL (12.0-15.0); Immature Granulocytes Count 0.010 X10^3/uL (0.0-0.0); Mean Corp Hgb Conc 34.2 g/dL (32-36); Mean Corpuscular Volume 91.0 fL (81-99); Mean Platelet Vol. 11.0 fl (6.2-12.0); NRBC Flagged by Analyzer 0 % (0-5); Platelet Count 266 K/mm3 (150-450); RBC Distribution Width CV 12.9 % (11.6-14.6); RBC Distribution Width SD 42.8 fl (35.1-43.9); Red Blood Count 4.98 M/mm3 (4.2-5.4); White Blood Count 5.9 K/mm3 (4.4-11.0)
[2025-03-17 16:38] LABS: AST(SGOT) 18 U/L (<=31); Alanine Aminotransfer ALT/SGPT 16 U/L (<=34); Albumin, Serum 4.3 g/dL (3.5-5.0); Alkaline Phosphatase 61 U/L (35-104); Anion Gap 12 (5-15); BUN 14 mg/dL (4-19); BUN/Creat Ratio 15.4 RATIO (10-20); Calcium,Total 9.3 mg/dL (7.6-11.0); Carbon Dioxide 22.0 mmol/L (21.0-32.0); Chloride 106 mmol/L (98-108); Globulin 2.6 g/dL (2.2-4.2); Glucose 90 mg/dL (70-99); Potassium 3.8 mmol/L (3.3-5.1)
[2025-03-17 16:42] LABS: CRP < 3.00 mg/L (0.0-3.0); Ferritin 88 ng/mL (22-378); Follicle Stimulating Hormone 2.9 mIU/mL; Uric Acid 4.7 mg/dL (2.6-6.0); Vitamin B12 576 pg/mL (180-914); Vitamin D,25 Hydroxy 22.7 ng/mL (30-100)
[2025-03-17 17:03] LABS: Free T3 2.8 pg/mL (2.18-3.98); Iron 127 ug/dL (50-170)
[2025-03-17 19:22] LABS: Creatinine, Urine (random) 29.80 mg/dL (28.00-217.00); Microalbumin,Random Urine < 12.0 mg/L (NO RANGE EST.)
--- OUTSIDE RECORDS SUMMARY | 2025-03-17 22:19 | XMS RPT_ITS | CCD ---
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 Sumit Reid Primary Care Provider Dr. Sumit Reid Referring Provider JUAN Kemp Attending Provider Friend, Dr. Kirkpatrick Attending Provider [phone] Friend, Dr. Kirkpatrick Other Provider [phone] Tawny SENIOR COMMISSARY AGENT, SENIOR COMMISSARY AGENT-C Rissa Erwin Attending Provider [phone] Dr. Richelle Moreno Attending Provider [phone] Dr. Sumit Reid Primary Care Provider [phone] Dr. Sumit Reid Referring Provider Donovan SENIOR COMMISSARY AGENT, LITO-C Izzy Attending Provider [phone] Dr. Richelle Moreno Attending Provider [phone] Dr. Sumit Reid Primary Care Provider [phone] Dr. Sumit Reid Referring Provider Dr. Richelle Moreno Attending Provider [phone] Dr. Sumit Reid Primary Care Provider Dr. Sumit Reid Referring Provider Dr. Jamaica Goss Attending Provider [phone] Dr. Richelle Moreno Attending Provider [phone] Dr. Jamaica Goss Referring Provider [phone] Dr. Jamaica Goss Other Provider Dr. Tahira Russo Attending Provider [phone] Dr. Sumit Reid Primary Care Provider [phone] Dr. Sumit Reid Referring Provider Dr. [place] Goss Attending Provider Dospatrick, Dr. Peoples Attending Provider [phone] Dr. Sumit Reid Primary Care Provider Dr. Sumit Reid Referring Provider Dospatrick, Dr. Peoples Attending Provider [phone] Dr. Tahira Russo Attending Provider [phone] Dr. Tahira Russo Other Provider [phone] Dr. Tahira Russo Referring Provider [phone] Dr. Sumit Reid Primary Care Provider Dr. Sumit Reid Referring Provider Dospatrick, Dr. Peoples Attending Provider [phone] Dr. Tahira Russo Attending Provider [phone] Dr. Tahira Russo Other Provider [phone] Tahira Russo Referring Provider [phone] Elsie Reid MD Primary Care Provider MEENA ESQUEDA Attending Unavailabl ELSIE Burger Primary Care Unavailabl e Unavailable Primary Care Provider Unavailabl e COLLEEN LARRY Attending Unavailable ELSIE REID Referring Unavailabl Dr. Elsie Burger MD Primary Care Provider Dr. Elsie Reid MD Referring Provider Dospatrick FAUSTIN, Dr. Peoples Attending Provider [phone] Elsie Reid Primary Care Unavailable Elsie Reid Referring Unavailable DosRichelle nguyen Attending Unavailable Elsie Reid Primary Care Unavailable Elsie Reid Referring Unavailable DosRichelle nguyen Attending Unavailable Elsie Reid Primary Care Unavailable DosRichelle nguyen Attending Unavailable Elsie Reid Referring Unavailable Elsie Reid Primary Care Unavailable DosRichelle nguyen Attending Unavailable [facility], [facility] Referring Unavailable [facility] Primary Care Unavailable Assessment, Health Risk Referring Unavaila ble Assessment, Health Risk Attending Unavaila ble [facility] Primary Care Unavailable [facility], [place] Referring Unavailable [facility] Attending Unavailable [facility] Care Unavailable Marcanthony, Tahira Referring Unavailable Marcglynnony, Tahira Attending Unavailable [facility] Primary Care Unavailable [facility], [place] Referring Unavailable Dossi, Richelle Attending Unavailable [facility] Primary Care Unavailable Dossi, Richelle Attending Unavailable [place] [place] Referring Unavailable [facility] Primary Care Unavailable Dossi, Richelle Attending Unavailable [facility], [place] Referring Unavailable Dossi, Richelle Attending Unavailable [facility] Care Unavailable [facility], [place] Referring Unavailable [facility] Care Unavailable [facility], [place] Referring Unavailable Luma Velasco Attending Unavailable [facility] Unavailable [facility] Referring Unavailable Dossi, Richelle Attending Unavailable [facility] Unavailable [facility] Referring Unavailable Dossi, Richelle Attending Unavailable Allergies Allergy Classification Reported Allergen(s) Allergy Type Date of Onset Reaction(s) Facility (12 sources) Sulfonamides (Antibiotic); Translations: [SULFA (SULFONAMIDE ANTIBIOTICS)] Allergy to substance 5 [facility] (11 sources) Zinc; Translations: [ZINC] Drug Allergy 6 [facility] (2 sources) Sulfonamides (Antibiotic) Propensity to adverse reactions to drug 4 [facility] (2 sources) Zinc Acetate Drug Allergy 4 [facility] (1 source) Zinc Drug Allergy 5 [facility] Repository Medications Current Medications Medication Drug Class(es) Dates Sig (Normalized) Sig (Original) 12 hr buPROPion hydrochloride 150 mg extended release oral tablet (20 sources) Aminoketone Start: 11-05-2019 take 1 tablet by mouth once daily Bupropion Hcl (Wellbutrin Sr) 150 mg tablet sustained-release 12 hr Active 150 mg PO DAILY November 05, 2019 1:00am Start: 05-15-2019 buPROPion SR ( WELLBUTRIN SR) 150 mg 12 hr tablet Start: 11-13-2017 End: 11-03-2018 take 1 tablet by mouth once daily in the morning Bupropion Hcl (Wellbutrin Xl) 300 mg tablet extended release 24 hr Discontinued 300 mg PO EVERY MORNING November 13, 2017 1:00am November 03, 2018 2:00pm take 1 tablet by fara th once daily in the morning buPROPion 150 MG tablet XL Take 1 tablet by mouth daily every morning. Active cetirizine hydrochloride 10 mg oral tablet (3 sources) Histamine-1 Receptor Antagonist Start: 10-19-2021 take 1 tablet by mouth once daily Cetirizine (Zyrtec) 10 mg Tablet Active 10 MG PO DAILY October 19, 2021 1:00am doxycycline hyclate 20 mg oral tablet (2 sources) Tetracycline-class Drug Doxycycline Hyclate 20 MG tablet Take by mouth. Active fluticasone propionate 0.05 mg/actuat metered dose nasal spray (6 sources) Corticosteroid Start: 12-11-2022 take 50 ug nasal route once daily Fluticasone Propionate (Flonase Allergy Relief) 50 mcg/actuation [place],Suspension Active 1 NMA INTRANASAL DAILY December 11, 2022 12:00am administer into each nostril Start: 12-11-2022 take 1 spray(s) nasa l route once daily Fluticasone Propionate (Flonase Allergy Relief) 50 mcg/actuation [place],Suspension Active 1 SPRAY INTRANASAL DAILY December 10, 2022 11:00pm administer into each nostril Hydrocortisone 2.5%/Lidocain e 5% Suppository (Cmpd) [Hydrocortisone 2.5%/Lidocaine 5% Suppository (Compound)] (Hydrocortisone ) suppository (6 sources) Start: 11-01-2022 Hydrocortisone 2.5%/Lidocaine 5% Suppository (Cmpd) [Hydrocortisone 2.5%/Lidocaine 5% Suppository (Compound)] (Hydrocortisone ) suppository Active 0 .Route 1 November 01, 2022 12:00am rectally BID Start: 11-01-2022 Hydrocortisone 2.5%/Lidocaine 5% Suppository (Cmpd) [Hydrocortisone 2.5%/Lidocaine 5% Suppository (Compound)] (Hydrocortisone ) suppository Active 0 .Route 1 November 01, 2022 1:00am rectally BID levothyroxine sodium 0.013 mg oral capsule (20 sources) l-Thyroxine Start: 04-11-2020 Levothyroxine 13 mcg capsule Active 137 ug PO DAILY April 11, 2020 10:28am Start: 11-03-2018 End: 04-11-2020 Levothyroxine 13 mcg capsule Discontinued 116 ug PO DAILY November 03, 2018 2:00pm April 11, 2020 10:30am Start: 11-13-2017 End: 11-03-2018 Levothyroxine 13 mcg capsule Discontinued PO November 13, 2017 1:00am November 03, 2018 2:00pm take 1 tablet by fara th once daily levothyroxine 137 MCG tablet Take 1 tablet by mouth daily. Active take 1 tablet by fara th once daily before breakfast levothyroxine (SYNTHROID) 125 mcg tablet Take 125 mcg by mouth daily before breakfast. 0 Active Comment on above: Take 125 mcg by mout h daily before breakfast. magnesium oxide 420 mg oral tablet (8 sources) Start: 02-04-2023 take 1 tablet by mouth once daily Magnesium Oxide 420 mg tablet Active 420 mg PO DAILY February 04, 2023 12:00am take 1 tablet by mouth once scott y magnesium oxide 400 MG tablet Take 1 tablet by mouth daily. Active pantoprazole 40 mg delayed release oral tablet (20 sources) Proton Pump Inhibitor Start: 12-20-2021 End: 02-12-2023 take 1 tablet by mouth once daily Pantoprazole 40 mg tablet,delayed release (DR/EC) Active 40 mg PO DAILY February 12, 2023 1:11pm Start: 05-15-2019 End: 12-20-2021 take 1 tablet by mouth once daily Pantoprazole (Protonix) 20 mg Tablet,Delayed Release (Dr/Ec) Discontinued 20 mg PO DAILY October 16, 2021 1:00am December 20, 2021 11:27am Start: 11-13-2017 End: 09-13-2021 take 1 tablet by mouth once daily in the morning Pantoprazole (Protonix) 40 mg tablet,delayed release (DR/EC) Discontinued 40 mg PO EVERY MORNING November 13, 2017 1:00am September 13, 2021 4:41pm microencapsulated potassium chloride 20 meq extended release oral tablet (19 sources) Start: 05-30-2022 End: 10-20-2024 take 1 tablet by mouth once daily Potassium Chloride 20 mEq tablet,ER particles/crystals Active 20 meq PO DAILY October 20, 2024 9:11am Potassium Chlori de ER 20 MEQ Tab CR tablet Take by mouth. Active Probiotic Product (PROBIOTIC DAILY PO) (2 sources) Probiotic Produc t (PROBIOTIC DAILY PO) Take by mouth. Active saccharomyces boulardii 250 mg oral capsule (8 sources) Start: 01-31-2022 take 1 capsule by mouth once daily Saccharomyces Boulardii (Daily Probiotic (S. Boulardii)) 250 mg capsule Active 250 mg PO DAILY January 31, 2022 12:00am Start: 01-31-2022 take 1 capsule by [facility] twice daily Saccharomyces Boulardii (Daily Probiotic (S. Boulardii)) 250 mg capsule Active 250 MG PO TWICE A DAY January 31, 2022 12:00am Completed/Discontinued Medications Medication Drug Class(es) Dates Sig (Normalized) Sig (Original) acetaminophen 325 mg / oxyCODONE hydrochloride 5 mg oral tablet (9 sources) Opioid Agonist Start: 07-02-2023 End: 07-15-2023 Oxycodone-Acetamino phen (Percocet) 5-325 mg tablet Discontinued 1 {tbl} PO EVERY 6 HOURS as needed for pain 04 04July 02, 2023 July 15, 2023 11:07am Start: 12-18-2022 End: 02-04-2023 Oxycodone-Acetaminophen 5-32 5 mg tablet Discontinued 1 - 2 {tbl} PO EVERY 6 HOURS as needed for pain 03 01December 18, 2022 February 04, 2023 8:52am Start: 12-18-2022 End: 02-04-2023 take 1 tablet by mouth every six hours Oxycodone-Acetaminophen Discontinued 1 - 2 TABLET PO EVERY 6 HOURS 03 01December 18, 2022 February 04, 2023 7:52am amoxicillin 875 mg / clavulanate 125 mg oral tablet (2 sources) Penicillin-class Antibacterial Start: 09-22-2024 End: 10-22-2024 Amoxicillin-Pot Clavulanate 875-125 mg tablet Discontinued 1 {tbl} PO TWICE A DAY September 22, 2024 1:00am October 22, 2024 4:59pm Start: 09-06-2023 End: 09-16-2023 Amoxicillin-Pot Clavulanate 875-125 mg tablet Discontinued 1 {tbl} PO TWICE A DAY 20 September 06, 2023 1:00am September 15, 2023 1:00am September 16, 2023 1:04am azithromycin 250 mg oral tablet (1 source) Macrolide Antimicrobial Start: 09-10-2024 End: 10-22-2024 Azithromycin 250 mg tablet Discontinued 0 PO .COMPLEX September 10, 2024 1:00am October 22, 2024 4:59pm For 250 mg dose pack: take 500 mg today (day 1), then 250 mg for 4 days (days 2-5) PO bisacodyl 5 mg delayed release oral tablet (9 sources) Stimulant Laxative Start: 09-13-2021 End: 11-02-2021 take 1 tablet by mouth once Bisacodyl (Bisa-Lax (Bisacodyl)) 5 mg tablet,delayed release (DR/EC) Discontinued 5 mg PO ONCE September 13, 2021 1:00am November 02, 2021 11:00am as directed for bowel prep cephalexin 500 mg oral tablet (9 sources) Cephalosporin Antibacterial Start: 07-26-2018 End: 08-02-2018 take 1 tablet by mouth every twelve hours Cephalexin 500 mg tablet Discontinued 500 mg PO Q12H 14 July 26, 2018 1:00am August 01, 2018 1:00am August 02, 2018 1:13am Esomeprazole (1 source) Proton Pump Inhibitor ESOMEPRAZOLE MAGNESIUM (NEXIUM ORAL) Take by mouth. 0 Active Comment on above: Take by mouth. fluconazole 150 mg oral tablet (9 sources) Azole Antifungal Start: 11-20-2021 End: 01-31-2022 take 1 tablet by mouth once Fluconazole (Diflucan) 150 mg tablet Discontinued 150 mg PO ONCE November 20, 2021 1:00am January 31, 2022 12:52pm as a single dose hydrocortisone 25 mg/ml topical cream (6 sources) Corticosteroid Start: 11-01-2022 End: 06-03-2023 Hydrocortisone (Proctosol Hc) 2.5 % cream with perineal applicator Discontinued 1 NMA RC 2 to 4 times per day as needed for hemorrhoids November 01, 2022 1:00am June 03, 2023 2:01pm lactobacillus acidophilus [id number] unt oral capsule (1 source) Start: 04-11-2020 lactobacillus acidophilus 100 mg (1 billion cell) cap(s) Take by mouth. 0 04/11/2020 Active Comment on above: Take by mouth. methylPREDNISolone 4 mg oral tablet (10 sources) Corticosteroid Start: 07-31-2021 End: 09-19-2021 take 1 tablet by mouth once daily Methylprednisolone (Medrol (Syd)) 4 mg tablets,dose pack Discontinued 4 mg PO DAILY July 31, 2021 1:00am September 19, 2021 7:38am Start: 05-02-2020 End: 05-02-2020 Depo-Medrol (methylprednisol one acetate) 40 mg/mL suspension for injection Discontinued 40 MG INTRAARTIC ONCE May 02, 2020 12:54pm May 02, 2020 1:32pm naproxen 500 mg oral tablet (3 sources) Nonsteroidal Anti-inflammatory Drug Start: 07-02-2023 End: 08-13-2023 take 1 tablet by mouth twice daily as needed for pain Naproxen 500 mg tablet Discontinued 500 mg PO TWICE DAILY NEEDED as needed for Pain July 02, 2023 12:00am August 13, 2023 12:08pm nitrofurantoin, macrocrystals 100 mg oral capsule (8 sources) Nitrofuran Antibacterial Start: 01-31-2022 End: 02-07-2022 take 1 capsule by mouth twice daily at mealtime Nitrofurantoin Macrocrystal 100 mg capsule Discontinued 100 mg PO TWICE A DAY 14 January 31, 2022 12:00am February 06, 2022 12:00am February 07, 2022 12:03am administer with food (meal or snack) nitrofurantoin, macrocrystals 25 mg / nitrofurantoin, monohydrate 75 mg oral capsule (18 sources) Nitrofuran Antibacterial Start: 12-26-2017 End: 12-31-2017 take 1 capsule by mouth every twelve hours at mealtime Nitrofurantoin Monohyd/M-Cryst (Macrobid) 100 mg capsule Discontinued 1 NMA PO Q12H 10 5 December 26, 2017 12:00am December 30, 2017 12:00am December 31, 2017 12:06am administer with a meal/food; swallow whole; do not open, crush, dissolve , or chew Start: 11-13-2017 End: 11-18-2017 take 1 capsule by mouth every twelve hours at mealtime Nitrofurantoin Monohyd/M-Cryst (Macrobid) 100 mg capsule Discontinued 100 mg PO Q12H 10 5 November 13, 2017 1:00am November 17, 2017 1:00am November 18, 2017 1:06am administer with a meal/food; swallow whole; do not open, crush, dissolve , or chew oxyCODONE hydrochloride 5 mg oral tablet (9 sources) Opioid Agonist Start: 06-21-2020 End: 01-10-2021 take 1-2 tablets by mouth every four hours as needed for pain Oxycodone 5 MG tablet Discontinued 5 mg PO EVERY 4 HOURS NEEDED as needed for Pain Score 4-5/10 60 June 21, 2020 January 10, 2021 8:38am 1-2 tabs by mouth every 4 hrs as needed for pain polyethylene glycol 3350 27348 mg powder for oral solution (9 sources) Osmotic Laxative Start: 09-13-2021 End: 11-02-2021 Polyethylene Glycol 3350 (Miralax) 17 gram/dose powder Discontinued 17 g PO DAILY September 13, 2021 1:00am November 02, 2021 11:00am as directed for bowel prep sucralfate 100 mg/ml oral suspension (16 sources) Aluminum Complex Start: 06-04-2022 End: 11-01-2022 take 1 mL by mouth at bedtime Sucralfate 100 mg/mL suspension Discontinued 10 mL PO before meals and at bedtime 999June 04, 2022 12:00am November 01, 2022 11:50am Start: 06-04-2022 End: 11-01-2022 take 1 mL by mouth at bedtime Sucralfate Discontinued 10 ML PO before meals and at bedtime 999June 03, 2022 11:00pm November 01, 2022 10:50am Start: 11-09-2021 End: 12-20-2021 take 1 mL by mouth 1 hour(s) before mealtime Sucralfate 100 mg/mL suspension Discontinued 10 mL PO before meals 999November 09, 2021 1:00am December 20, 2021 11:26am take one hour before meals on an empty stomach for thirty days. Start: 11-09-2021 End: 12-20-2021 take 1 mL by mouth 1 hour(s) before mealtime Sucralfate Discontinued 10 ML PO before meals 1000 November 09, 2021 12:00am December 20, 2021 10:26am take one hour before meals on an empty stomach for thirty days. tropicamide 5 mg/ml ophthalmic solution (1 source) Anticholinergic Start: 12-16-2023 End: 12-16-2023 tropicamide 0.5 % 1 Drop (MYDRIACYL) Problems Active Problems Problem Classification Problem Date Documented Da te Episodic/Chronic Abdominal pain (9 sources) Pain in pelvis; Translations: [Pelvic and perineal pain] 05-02-2023 Episodic Comment on above: s/p US proceed with lavhbs. 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 Anxiety disorders (9 sources) Anxiety; Translations: [Anxiety disorder, unspecified] 01-10-2021 Chronic Blindness and vision defects (4 sources) Bilateral hyperopia of eyes; Translations: [Hypermetropia, bilateral] Onset: 6 12-16-2023 Episodic Complications of surgical procedures or medical care (9 sources) Transfusion reaction due to serum protein reaction; Translations: [Other serum reaction due to vaccination, initial encounter] 07-31-2021 Episodic Esophageal disorders (9 sources) Gastroesophageal reflux disease; Translations: [Gastro-esophageal reflux disease without esophagitis] 06-21-2020 Chronic Fluid and electrolyte disorders (7 sources) Hypokalemia; Translations: [Hypokalemia] 06-07-2022 Episodic Gastritis and duodenitis (10 sources) Gastritis; Translations: [Gastritis, unspecified, without bleeding] Episodic Gastrointestinal hemorrhage (9 sources) Lower gastrointestinal hemorrhage; Translations: [Gastrointestinal hemorrhage, unspecified] 08-14-2021 Episodic Hemorrhoids (16 sources) Hemorrhoids; Translations: [Unspecified hemorrhoids] 11-02-2022 Episodic Immunizations and screening for infectious disease (2 sources) Patient encounter status; Translations: [Encounter for screening for human papillomavirus (HPV)] Onset: 9 05-26-2009 Episodic Influenza (1 source) Influenza due to Influenza A virus; Translations: [Influenza due to other identified influenza virus with other respiratory manifestations] 10-30-2023 Episodic Menstrual disorders (13 sources) Dysmenorrhea; Translations: [Dysmenorrhea, unspecified] 02-04-2023 Chronic Comment on above: post ablation, discu ssed NSAIDs, fibroids, discussed Myfembree with LAVH. proceed with LAVHBS. Other aftercare (2 sources) Encounter for follow-up examination after completed treatment for conditions other than malignant neoplasm; Translations: [Follow-up examination, following surgery, unspecified] 07-15-2023 Episodic Other and unspecified benign neoplasm (9 sources) History of polyp of colon; Translations: [Personal history of colonic polyps] 11-02-2021 Episodic Other and unspecified benign neoplasm (1 source) Personal history of colonic polyps; Translations: [Personal history of colonic polyps] Episodic Other bone disease and musculoskeletal deformities (20 sources) Segmental and somatic dysfunction; Translations: [Segmental and somatic dysfunction of cervical region] 06-21-2020 Episodic Other bone disease and musculoskeletal deformities (18 sources) Segmental and somatic dysfunction of cervical region; Translations: [Nonallopathic lesions, cervical region] Onset: 5 Episodic Other bone disease and musculoskeletal deformities (18 sources) Segmental and somatic dysfunction of lumbar region; Translations: [Nonallopathic lesions, lumbar region] Onset: 5 Episodic Other bone disease and musculoskeletal deformities (12 sources) Segmental and somatic dysfunction of pelvic region; Translations: [Nonallopathic lesions, pelvic region] Onset: 5 Episodic Other bone disease and musculoskeletal deformities (18 sources) Segmental and somatic dysfunction of thoracic region; Translations: [Nonallopathic lesions, thoracic region] Onset: 5 Episodic Other congenital anomalies (1 source) Congenital anomaly of skin; Translations: [Other specified congenital malformations of skin] Onset: 7 12-30-2006 Chronic Other female genital disorders (1 source) Premenstrual tension syndrome; Translations: [Premenstrual tension syndrome] Onset: 9 05-26-2009 Chronic Other gastrointestinal disorders (9 sources) Abdominal bloating; Translations: [Abdominal distension (gaseous)] 06-21-2020 Episodic Comment on above: RAST testing and dis cussed food avoidance Other gastrointestinal disorders (9 sources) Constipation; Translations: [Constipation, unspecified] 08-14-2021 Episodic Other gastrointestinal disorders (1 source) Abdominal distension (gaseous); Translations: [Flatulence, eructation, and gas pain] Episodic Other gastrointestinal disorders (2 sources) Constipation, unspecified; Translations: [Constipation, unspecified] Episodic Other injuries and conditions due to external causes (9 sources) Unspecified injury of left shoulder and upper arm, initial encounter; Translations: [Unspecified injury of left shoulder and upper arm, initial encounter] 07-31-2021 Episodic Other non-traumatic joint disorders (4 sources) Shoulder pain; Translations: [Pain in left shoulder] 07-31-2021 Episodic Other non-traumatic joint disorders (5 sources) Pain in left shoulder; Translations: [Left shoulder pain] 07-31-2021 Episodic Other upper respiratory disease (9 sources) Nasal congestion; Translations: [Nasal congestion] 09-19-2021 Episodic Residual codes; unclassified (3 sources) History of vaginal hysterectomy; Translations: [Acquired absence of both cervix and uterus] 07-02-2023 Episodic Residual codes; unclassified (2 sources) Insomnia; Translations: [Insomnia, unspecified] 07-02-2024 Episodic Thyroid disorders (3 sources) Non-toxic uninodular goiter; Translations: [Nontoxic single thyroid nodule] Onset: 7 10-31-2006 Chronic Thyroid disorders (9 sources) Disorder of thyroid gland; Translations: [Disorder of thyroid, unspecified] 11-03-2018 Episodic Comment on above: ON MED Unclassified (2 sources) Sleep Problem; Translations: [Sleep Problem] Onset: Urinary tract infections (9 sources) Urinary tract infectious disease; Translations: [Urinary tract infection, site not specified] 12-26-2017 Episodic Viral infection (10 sources) Disease caused by 2019-nCoV; Translations: [COVID-19] Episodic Past or Other Problems Problem Classification Problem Date Documented Da te Episodic/Chronic Other screening for suspected conditions (not mental disorders or infectious disease) (1 source) Encounter for screening mammogram for malignant neoplasm of breast; Translations: [Encounter for screening mammogram for malignant neoplasm of breast] Onset: 09-14-2024 Episodic Spondylosis; intervertebral disc disorders; other back problems (20 sources) Backache; Translations: [Dorsalgia, unspecified] Onset: 07-20-2024 Episodic Results Test Name Value Interpretation Reference Range Facility Chiropractic Reporton 2024 Chiropractic Report [id number] [place] [address] OFFICE VISIT Date of Service: 02/01/25 MR#: [id number] Acct: [id number] Name: MAHESH PEPPER Rep #: [id number] : 1980 Provider: ROXIE Padilla Age/Sex: 44/F Location: [facility] Status: Signed Intake Vital Signs 06/30/24 08:48 Height 5 ft 8 in Intake Visit Reasons: Back pain Chief Complaint: neck and low back pain Is patient in pain?: Yes (neck and low back ) Pain scale (1-10): 2 Allergies Sulfa (Sulfonamide Antibiotics) Allergy (Verified 02/01/25 16:35) Unknown zinc Adverse Reaction (Intermediate, Verified 02/01/25 16:35) rash Medications ???Medication ???Instructions ???Recorded ???Confirmed ???Type bupropion HCl 150 mg tablet,12 hr 150 mg PO DAILY 11/05/19 02/01/25 History sustained-release (Wellbutrin SR) levothyroxine 13 mcg capsule 137 mcg PO DAILY 04/11/20 02/01/25 History Saccharomyces boulardii 250 mg 250 mg PO DAILY 01/31/22 02/01/25 History capsule (Daily Probiotic (S. boulardii)) Hydrocortisone 2.5%/lidocaine 5% #1 ea 11/01/22 02/01/25 Rx suppository (cmpd) (hydrocortisone 2.5%/lidocaine 5% suppository (compound)) fluticasone propionate 50 1 spray intranasal DAILY 12/11/22 02/01/25 History mcg/actuation nasal spray,suspension (Flonase Allergy Relief) magnesium oxide 420 mg tablet 420 mg PO DAILY 02/04/23 02/01/25 History pantoprazole 40 mg tablet,delayed 40 mg PO DAILY #90 tabs 02/12/23 02/01/25 Rx release potassium chloride 20 mEq 20 meq PO DAILY #90 tabs 10/20/24 02/01/25 Rx tablet,extended release(part/cryst) [facility] Medical History History of IBS Gastritis Alcohol use Thyroid disease Gastric reflux Non-smoker Lower GI bleeding Constipation Other serum reaction due to vaccination Unspecified injury of left shoulder and upper arm, initial encounter Other serum reaction due to vaccination, initial encounter Injury of left shoulder Left shoulder pain Frequent headaches Acid reflux Thyroid disease Surgical History S/P laparoscopic assisted vaginal hysterectomy (LAVH) S/P hemorrhoidectomy Hx of colonoscopy with polypectomy H/O right knee surgery History of delivery S/P endometrial ablation Breast implant status Family History Mother Hypertension Hyperlipidemia Father Hypertension Hyperlipidemia Thyroid disorder Social History Smoking Status: Never smoker alcohol intake: current details: occasionally substance use type: does not use caffeine: Yes what type of physical activity do you participate in: aerobics frequency: 3-4 times per week seatbelt use: always do you feel safe at home: Yes additional social history: Nctheaq-Vcxk-Scxhr 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 Pt. c/o neck and low back pain. She states she has been helping her daughter who had twins 12 weeks ago which has aggravated her neck and low back. She states her neck pain and tightness is equal bilaterally and extends into her upper back. She also complains of low back pain that is slightly worse on the left side. She rates her overall pain 2/10. She has been using her posture pump for her neck pain and discomfort and treats back pain at home with heat, stretching and Ibuprofen as needed. She denies new injury, numbness, tingling, or radiculopathy at this time. Pt. reports chiropractic adjustments are helpful in relieving her pain and discomfort but it gradually returns. Location: Low back/neck Duration: frequent Aggravating or associated factors: bending, lifting,ROM Relieving factors: chiro Pain Quality: aching, dull and sharp Exam Musc General: Yes normal posture, normal gait, joint tenderness and decreased range of motion Cervical Spine: Yes loss of normal cervical lordosis, Yes cervical muscular tenderness right greater than left diffuse , Yes cervical spasm left greater than right lower trapezius and Yes misalignment misalignment: C6 and C7 Thoracic/Lumber: Yes thoracic and lumbar spine normal to inspection, Yes paraspinal tenderness on the left greater than right (thoracic,lumbar), Yes thoraco-lumbar spasm on the left greater than right (trap, paraspinal (L2-L5)) and Yes misalignment T1, T2, T3, T4, L4, L5 and LIL Other: +inhalation Office Procedures Procedures - Chiropractic Procedures Manipulation: Cervical C7, Lumbar L4, Thoracic T1 and T4 and Pelvis LIL Manipulation: 3-4 regions Traction, Mechanical: Yes (more content not included)... Normal [facility] Chiropractic Reporton 2024 Chiropractic Report [facility] [address] [place] [address] OFFICE VISIT Date of Service: 12/21/24 MR#: [id number] Acct: [id number] Name: MAHESH PEPPER MAXIMILIAN Rep #: [id number] : 1980 Provider: ROXIE Padilla Age/Sex: 43/F Location[facility] Status: Signed Intake Vital Signs 06/30/24 08:48 Height 5 ft 8 in Intake Visit Reasons: Back pain Chief Complaint: Back pain Is patient in pain?: Yes (Neck) Pain scale (1-10): 2 Allergies Sulfa (Sulfonamide Antibiotics) Allergy (Verified 12/21/24 16:28) Unknown zinc Adverse Reaction (Intermediate, Verified 12/21/24 16:28) rash Medications ???Medication ???Instructions ???Recorded ???Confirmed ???Type bupropion HCl 150 mg tablet,12 hr 150 mg PO DAILY 11/05/19 12/21/24 History sustained-release (Wellbutrin SR) levothyroxine 13 mcg capsule 137 mcg PO DAILY 04/11/20 12/21/24 History Saccharomyces boulardii 250 mg 250 mg PO DAILY 01/31/22 12/21/24 History capsule (Daily Probiotic (S. boulardii)) Hydrocortisone 2.5%/lidocaine 5% #1 ea 11/01/22 12/21/24 Rx suppository (cmpd) (hydrocortisone 2.5%/lidocaine 5% suppository (compound)) fluticasone propionate 50 1 spray intranasal DAILY 12/11/22 12/21/24 History mcg/actuation nasal spray,suspension (Flonase Allergy Relief) magnesium oxide 420 mg tablet 420 mg PO DAILY 02/04/23 12/21/24 History pantoprazole 40 mg tablet,delayed 40 mg PO DAILY #90 tabs 02/12/23 12/21/24 Rx release potassium chloride 20 mEq 20 meq PO DAILY #90 tabs 10/20/24 12/21/24 Rx tablet,extended release(part/cryst) [facility] Medical History History of IBS Gastritis Alcohol use Thyroid disease Gastric reflux Non-smoker Lower GI bleeding Constipation Other serum reaction due to vaccination Unspecified injury of left shoulder and upper arm, initial encounter Other serum reaction due to vaccination, initial encounter Injury of left shoulder Left shoulder pain Frequent headaches Acid reflux Thyroid disease Surgical History S/P laparoscopic assisted vaginal hysterectomy (LAVH) S/P hemorrhoidectomy Hx of colonoscopy with polypectomy H/O right knee surgery History of delivery S/P endometrial ablation Breast implant status Family History Mother Hypertension Hyperlipidemia Father Hypertension Hyperlipidemia Thyroid disorder Social History Smoking Status: Never smoker alcohol intake: current details: occasionally substance use type: does not use caffeine: Yes what type of physical activity do you participate in: aerobics frequency: 3-4 times per week seatbelt use: always do you feel safe at home: Yes additional social history: Jqbpudj-Nsik-Stqeg 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 She reports increased pain in her neck and upper back over the last few weeks. She has twin 6 week old grandsons and she has been helping to care for them. She has been holding and rocking them which has exacerbated her pain and stiffness. She rates her neck pain 2/10. She also complains of low back pain but states it is minimal. She has been using her posture pump for her neck pain and discomfort and treats back pain at home with heat, stretching and Ibuprofen as needed. She denies new injury, numbness, tingling, or radiculopathy at this time. Pt. reports chiropractic adjustments are helpful in relieving her pain and discomfort. Location: L upper back/neck Duration: frequent Aggravating or associated factors: bending, lifting,ROM Relieving factors: chiro Pain Quality: aching, dull, cramping and sharp Exam Musc General: Yes normal posture, normal gait, joint tenderness and decreased range of motion Cervical Spine: Yes loss of normal cervical lordosis, Yes cervical muscular tenderness bilateral diffuse , Yes cervical spasm left greater than right lower trapezius and Yes misalignment misalignment: C6 and C7 Thoracic/Lumber: Yes thoracic and lumbar spine normal to inspection, Yes paraspinal tenderness on the left greater than right (thoracic,lumbar), Yes thoraco-lumbar spasm on the left greater than right (trap, paraspinal (L2-L5)) and Yes misalignment T1, T2, T3, T4, L4, L5 and LIL Other: +inhalation Office Procedures Procedures - Chiropractic Procedures Manipulation: Cervical C7, Lumbar L4, Thoracic T1 and T4 and Pelvis LIL Manipulation: 3-4 regions Traction, Mechanical: Yes Patient Response: positive Assessment and Plan A (more content not included)... Normal [facility] Chiropractic Reporton 2024 Chiropractic Report [facility] [address] [place] [address] OFFICE VISIT Date of Service: 10/22/24 MR#: [id number] Acct: [id number] Name: MAHESH PEPPER MAXIMILIAN Rep #: [id number] : 1980 Provider: ROXIE Padilla Age/Sex: 43/F [place] [facility] Status: Signed Intake Vital Signs 06/30/24 08:48 Height 5 ft 8 in Intake Visit Reasons: Back pain Chief Complaint: Back pain Allergies Sulfa (Sulfonamide Antibiotics) Allergy (Verified 10/22/24 15:56) Unknown zinc Adverse Reaction (Intermediate, Verified 10/22/24 15:56) rash Medications ???Medication ???Instructions ???Recorded ???Confirmed ???Type bupropion HCl 150 mg tablet,12 hr 150 mg PO DAILY 11/05/19 10/22/24 History sustained-release (Wellbutrin SR) levothyroxine 13 mcg capsule 137 mcg PO DAILY 04/11/20 10/22/24 History Saccharomyces boulardii 250 mg 250 mg PO DAILY 01/31/22 10/22/24 History capsule (Daily Probiotic (S. boulardii)) Hydrocortisone 2.5%/lidocaine 5% #1 ea 11/01/22 09/14/24 Rx suppository (cmpd) (hydrocortisone 2.5%/lidocaine 5% suppository (compound)) fluticasone propionate 50 1 spray intranasal DAILY 12/11/22 10/22/24 History mcg/actuation nasal spray,suspension (Flonase Allergy Relief) magnesium oxide 420 mg tablet 420 mg PO DAILY 02/04/23 10/22/24 History pantoprazole 40 mg tablet,delayed 40 mg PO DAILY #90 tabs 02/12/23 10/22/24 Rx release potassium chloride 20 mEq 20 meq PO DAILY #90 tabs 10/20/24 10/22/24 Rx tablet,extended release(part/cryst) [facility] Medical History History of IBS Gastritis Alcohol use Thyroid disease Gastric reflux Non-smoker Lower GI bleeding Constipation Other serum reaction due to vaccination Unspecified injury of left shoulder and upper arm, initial encounter Other serum reaction due to vaccination, initial encounter Injury of left shoulder Left shoulder pain Frequent headaches Acid reflux Thyroid disease Surgical History S/P laparoscopic assisted vaginal hysterectomy (LAVH) S/P hemorrhoidectomy Hx of colonoscopy with polypectomy H/O right knee surgery History of delivery S/P endometrial ablation Breast implant status Family History Mother Hypertension Hyperlipidemia Father Hypertension Hyperlipidemia Thyroid disorder Social History Smoking Status: Never smoker alcohol intake: current details: occasionally substance use type: does not use caffeine: Yes what type of physical activity do you participate in: aerobics frequency: 3-4 times per week seatbelt use: always do you feel safe at home: Yes additional social history: Dirtumi-Ibok-Hcjwj 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 She rates her neck pain 3/10. She also c/o left knee pain that she believes is caused from her low back and hips being out of alignment. She has been using her posture pump for her neck pain and discomfort and treats back pain at home with heat, stretching and Ibuprofen as needed. She denies new injury, numbness, tingling, or radiculopathy at this time. Pt. reports chiropractic adjustments are helpful in relieving her pain and discomfort. Location: L upper back/neck Duration: frequent Aggravating or associated factors: bending, lifting,ROM Relieving factors: chiro Pain Quality: aching, dull, cramping and sharp Exam Musc General: Yes normal posture, normal gait, joint tenderness and decreased range of motion Cervical Spine: Yes loss of normal cervical lordosis, Yes cervical muscular tenderness left greater than right diffuse , Yes cervical spasm left greater than right lower trapezius and Yes misalignment misalignment: C6 and C7 Thoracic/Lumber: Yes thoracic and lumbar spine normal to inspection, Yes paraspinal tenderness on the left greater than right (thoracic,lumbar), Yes thoraco-lumbar spasm on the left greater than right (trap, paraspinal (L2-L5), glute max) and Yes misalignment T1, T2, T3, T4, L4, L5 and LIL Other: +inhalation Office Procedures Procedures - Chiropractic Procedures Manipulation: Cervical C7, Lumbar L4, Thoracic T1 and T4 and Pelvis LIL Manipulation: 3-4 regions Traction, Mechanical: Yes Patient Response: positive Assessment and Plan Assessment and Plan (1) Segmental and somatic dysfunction of lumbar region: Status: Acute (2) Segmental and somatic dysfunction of cervical region: (more content not included)... Normal [facility] Chiropractic Reporton 2023 Chiropractic Report [facility] [place] [address] OFFICE VISIT Date of Service: 09/14/24 MR#: [id number] Acct: [id number] Name: MAHESH PEPPER Rep #: [id number] : 1980 Provider: ROXIE Padilla Age/Sex: 43/F Location[place] [facility] Status: Signed Intake Vital Signs 06/30/24 08:48 Height 5 ft 8 in Intake Visit Reasons: Back pain Chief Complaint: left neck pain Is patient in pain?: Yes (neck) Pain scale (1-10): 3 Allergies Sulfa (Sulfonamide Antibiotics) Allergy (Verified 09/14/24 16:02) Unknown zinc Adverse Reaction (Intermediate, Verified 09/14/24 16:02) rash Medications ???Medication ???Instructions ???Recorded ???Confirmed ???Type bupropion HCl 150 mg tablet,12 hr 150 mg PO DAILY 11/05/19 09/14/24 History sustained-release (Wellbutrin SR) levothyroxine 13 mcg capsule 137 mcg PO DAILY 04/11/20 09/14/24 History Saccharomyces boulardii 250 mg 250 mg PO DAILY 01/31/22 09/14/24 History capsule (Daily Probiotic (S. boulardii)) Hydrocortisone 2.5%/lidocaine 5% #1 ea 11/01/22 09/14/24 Rx suppository (cmpd) (hydrocortisone 2.5%/lidocaine 5% suppository (compound)) fluticasone propionate 50 1 spray intranasal DAILY 12/11/22 09/14/24 History mcg/actuation nasal spray,suspension (Flonase Allergy Relief) magnesium oxide 420 mg tablet 420 mg PO DAILY 02/04/23 09/14/24 History pantoprazole 40 mg tablet,delayed 40 mg PO DAILY #90 tabs 02/12/23 09/14/24 Rx release potassium chloride 20 mEq 20 meq PO DAILY #90 tabs 09/20/23 09/14/24 Rx tablet,extended release(part/cryst) azithromycin 250 mg tablet See Rx Instructions PO .COMPLEX #6 09/10/24 09/14/24 Rx tabs PFSH Medical History History of IBS Gastritis Alcohol use Thyroid disease Gastric reflux Non-smoker Lower GI bleeding Constipation Other serum reaction due to vaccination Unspecified injury of left shoulder and upper arm, initial encounter Other serum reaction due to vaccination, initial encounter Injury of left shoulder Left shoulder pain Frequent headaches Acid reflux Thyroid disease Surgical History S/P laparoscopic assisted vaginal hysterectomy (LAVH) S/P hemorrhoidectomy Hx of colonoscopy with polypectomy H/O right knee surgery History of delivery S/P endometrial ablation Breast implant status Family History Mother Hypertension Hyperlipidemia Father Hypertension Hyperlipidemia Thyroid disorder Social History Smoking Status: Never smoker alcohol intake: current details: occasionally substance use type: does not use caffeine: Yes what type of physical activity do you participate in: aerobics frequency: 3-4 times per week seatbelt use: always do you feel safe at home: Yes additional social history: Zcbiwgw-Lryn-Mnxny 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 Pt. reports a flare up of neck pain after her last adjustment. She states she was experiencing sharp shooting pains from the right side of her neck into her right ear. She complains of tension on the left side of the base of her neck today. She rates her neck pain 3/10. She also c/o left knee pain that she believes is caused from her low back and hips being out of alignment. She has been using her posture pump for her neck pain and discomfort and treats back pain at home with heat, stretching and Ibuprofen as needed. She denies new injury, numbness, tingling, or radiculopathy at this time. Pt. reports chiropractic adjustments are helpful in relieving her pain and discomfort. Location: L upper back/rib 1-5 Duration: frequent Aggravating or associated factors: bending, lifting,ROM Relieving factors: chiro Pain Quality: aching, dull, cramping and sharp Exam Musc General: Yes normal posture, normal gait, joint tenderness and decreased range of motion Cervical Spine: Yes loss of normal cervical lordosis, Yes cervical muscular tenderness left greater than right lower , Yes cervical spasm left greater than right lower trapezius and Yes misalignment misalignment: C6 and C7 Thoracic/Lumber: Yes thoracic and lumbar spine normal to inspection, Yes paraspinal tenderness on the left greater than right (thoracic,lumbar), Yes thoraco-lumbar spasm on the left greater than right (trap, paraspinal (L2-L5), glute max) and Yes misalignment T1, T2, T3, T4, L4, L5 and LIL Other: +inhalation Office Procedures Procedures - Chiropractic Procedures Manipulation: Cervical C7, Lumb (more content not included)... [facility] SCRN MAMM (CAD)W/DENISE BILATo n 08-14-2024 SCRN MAMM (CAD)W/DENISE BILAT [facility] Imaging Services [address] [place], [place] [address] SCRN MAMM (CAD)W/DENISE BILAT MR#: [id number] Acct: [id number] Name: MAHESH PEPPER Rep #: [id number] : 1980 F 43 From: Arsh nielsen MD PCP: Dr. Elsie Reid MD Status: [facility] Study: SCRN MAMM (CAD)W/DENISE BILAT Date of Exam: 07/18 06/09 Exam# [id number] Ordering Dr: Tahira Russo [id number] MAMMOGRAPHY - BILATERAL SCREENING REASON FOR EXAM: Female, 43 years old. Routine annual screening examination. PERTINENT HISTORY: Non-contributory. Bilateral breast implants. TECHNIQUE: Digital bilateral breast denise (3D mammographic acquisition) in the CC and MLO projections. 2-D mediolateral oblique (MLO) and craniocaudad (CC) views of both breasts were obtained. CAD: Full Field Digital Mammography with Computer Added Detection was performed. COMPARISON: Comparison is made with prior study dated August 13, 2023 and July 16, 2022. FINDINGS: Breast Composition: There are scattered areas of fibroglandular density. There are no dominant masses or suspicious calcifications. Stable appearance of the bilateral breast implants. No other significant abnormalities are identified. There has been no significant change since the prior study. BI/SCRN MAMM (CAD)W/DENISE BILAT IMPRESSION: Stable bilateral screening mammogram. Yearly follow-up mammogram recommended. (A) ASSESSMENT CATEGORY: BIRADS Category 2: Benign. A letter regarding these results will be sent to the patient by the facility within 30 days. Approximately 10% of breast cancers are not detected by mammography. A normal mammogram should not delay biopsy of a clinically suspicious abnormality. [id number] Electronically Signed: Arsh Lancaster MD at 9:25 EST Reading Location ID and State: [address] [place] [address] , Service support , CC: Dr. Elsie Reid MD; Dr. Tahira Russo MD Workers Compensation Coordinator: Signed [facility] Chiropractic Reporton 2023 Chiropractic Report [facility] [address] [place] [address] OFFICE VISIT Date of Service: 07/20/24 MR#: [id number] Acct: [id number] Name: HUMZAMAHESHROYCE YAO Rep #: [id number] : 1980 Provider: ROXIE Padilla Age/Sex: 43/F Location[place] [facility] Status: Signed Intake Vital Signs 08/13/23 11:08 06/30/24 08:48 Height 5 ft 8 in 5 ft 8 in Intake Visit Reasons: Back pain Chief Complaint: left upper back/chest/rib pain Allergies Sulfa (Sulfonamide Antibiotics) Allergy (Verified 06/30/24 10:03) Unknown zinc Adverse Reaction (Intermediate, Verified 06/30/24 10:03) rash PFSH Medical History History of IBS Gastritis Alcohol use Thyroid disease Gastric reflux Non-smoker Lower GI bleeding Constipation Other serum reaction due to vaccination Unspecified injury of left shoulder and upper arm, initial encounter Other serum reaction due to vaccination, initial encounter Injury of left shoulder Left shoulder pain Frequent headaches Acid reflux Thyroid disease Surgical History S/P laparoscopic assisted vaginal hysterectomy (LAVH) S/P hemorrhoidectomy Hx of colonoscopy with polypectomy H/O right knee surgery History of delivery S/P endometrial ablation Breast implant status Family History Mother Hypertension Hyperlipidemia Father Hypertension Hyperlipidemia Thyroid disorder Social History Smoking Status: Never smoker alcohol intake: current details: occasionally substance use type: does not use caffeine: Yes what type of physical activity do you participate in: aerobics frequency: 3-4 times per week seatbelt use: always do you feel safe at home: Yes additional social history: Nbipncx-Gxua-Eecdm 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 She complains of left upper back pain that extends into her left upper ribs and shoulder. This pain has improved since her last visit. She states it is a sharp pain especially when she breaths deep, coughs or laughs. She also complains of a sharp stabbing pain in her left low back. She rates her pain 5/10. Pt. treats pain at home with heat, stretching and Ibuprofen as needed. She denies new injury, numbness, tingling, or radiculopathy at this time. Pt. reports chiropractic adjustments are effective in relieving her pain and discomfort. Location: L upper back/rib 1-5 Duration: frequent Aggravating or associated factors: bending, lifting,ROM, breathing Relieving factors: chiro Pain Quality: aching, dull, cramping and sharp Exam Musc General: Yes normal posture, normal gait, joint tenderness and decreased range of motion Cervical Spine: Yes loss of normal cervical lordosis, Yes cervical muscular tenderness left greater than right lower , Yes cervical spasm left greater than right lower trapezius and Yes misalignment misalignment: C6 and C7 Thoracic/Lumber: Yes thoracic and lumbar spine normal to inspection, Yes paraspinal tenderness on the left greater than right (thoracic,lumbar), Yes thoraco-lumbar spasm on the left greater than right (trap, rhomboid, paraspinal (L2-L5)) and Yes misalignment T1, T2, T3, T4, L4 and L5 Other: +inhalation Office Procedures Procedures - Chiropractic Procedures Manipulation: Cervical C7, Lumbar L5 and Thoracic T1 and T4 Manipulation: 3-4 regions Electronic Stimulation: Yes Electrical Stimulation: Cervical 15 mins (17) mA Therapy Performed by:: Sabina Chow, Mechanical: Yes Hot and/or cold packs: Yes Patient Response: positive Assessment and Plan Assessment and Plan (1) Segmental and somatic dysfunction of lumbar region: Status: Acute (2) Segmental and somatic dysfunction of cervical region: Status: Acute (3) Segmental and somatic dysfunction of thoracic region: Status: Acute (4) Thoracic neuritis: Status: Acute Orders: Orders Chiropractic Treatments 07/20/24 M54.5 - Low back pain, M99.01 - Segmental and somatic dysfunction of cervical region, M99.02 - Segmental and somatic dysfunction of thoracic region, M99.03 - Segmental and somatic dysfunction of lumbar region Plan Patient was treated without incident. She is showing improvement, but has not reached symptom stabilization. Plan Details Goals Barriers: Goals Decrease spasm Decrease inflammation Decrease pain Follow Up: PRN Coding Level of Care Code No Charge Diagnoses Segmental and somatic dysfunction of lumbar region M99.03 Segmental and somatic dysfunction of c (more content not included)... [facility] Chiropractic Reporton 2023 Chiropractic Report [facility] [address] [place] [address] OFFICE VISIT Date of Service: 06/30/24 MR#: [id number] Acct: [id number] Name: HUMZAMAHESHROYCE YAO Rep #: [id number] : 1980 Provider: ROXIE Padilla Age/Sex: 43/F Location: [facility] Status: Signed Intake Vital Signs 08/13/23 11:08 06/30/24 08:48 Height 5 ft 8 in 5 ft 8 in Intake Visit Reasons: Back pain Chief Complaint: left upper back/chest/rib pain Is patient in pain?: Yes (left upper back/ left chest/rib) Pain scale (1-10): 7 Allergies Sulfa (Sulfonamide Antibiotics) Allergy (Verified 06/30/24 10:03) Unknown zinc Adverse Reaction (Intermediate, Verified 06/30/24 10:03) rash Medications ???Medication ???Instructions ???Recorded ???Confirmed ???Type bupropion HCl 150 mg tablet,12 hr 150 mg PO DAILY 11/05/19 06/30/24 History sustained-release (Wellbutrin SR) levothyroxine 13 mcg capsule 137 mcg PO DAILY 04/11/20 06/30/24 History Saccharomyces boulardii 250 mg 250 mg PO DAILY 01/31/22 06/30/24 History capsule (Daily Probiotic (S. boulardii)) Hydrocortisone 2.5%/lidocaine 5% #1 ea 11/01/22 06/30/24 Rx suppository (cmpd) (hydrocortisone 2.5%/lidocaine 5% suppository (compound)) fluticasone propionate 50 1 spray intranasal DAILY 12/11/22 06/30/24 History mcg/actuation nasal spray,suspension (Flonase Allergy Relief) magnesium oxide 420 mg tablet 420 mg PO DAILY 02/04/23 06/30/24 History pantoprazole 40 mg tablet,delayed 40 mg PO DAILY #90 tabs 02/12/23 06/30/24 Rx release potassium chloride 20 mEq 20 meq PO DAILY #90 tabs 09/20/23 06/30/24 Rx tablet,extended release(part/cryst) PFSH Medical History History of IBS Gastritis Alcohol use Thyroid disease Gastric reflux Non-smoker Lower GI bleeding Constipation Other serum reaction due to vaccination Unspecified injury of left shoulder and upper arm, initial encounter Other serum reaction due to vaccination, initial encounter Injury of left shoulder Left shoulder pain Frequent headaches Acid reflux Thyroid disease Surgical History S/P laparoscopic assisted vaginal hysterectomy (LAVH) S/P hemorrhoidectomy Hx of colonoscopy with polypectomy H/O right knee surgery History of delivery S/P endometrial ablation Breast implant status Family History Mother Hypertension Hyperlipidemia Father Hypertension Hyperlipidemia Thyroid disorder Social History Smoking Status: Never smoker alcohol intake: current details: occasionally substance use type: does not use caffeine: Yes what type of physical activity do you participate in: aerobics frequency: 3-4 times per week seatbelt use: always do you feel safe at home: Yes additional social history: [id number] 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 She states it was a sharp pain and her was able to crack it and give her some relief. Last night she was feeling better so she decided to do some pilates to stretch the area. She states she flared her pain again and states the pain is from her left upper back scapula area and extends into her left upper chest/ rib area. She states it is a sharp pain especially when she breaths deep, coughs or laughs. She took a muscle relaxer and applied heat last night and rates her pain 7/10 today. Pt. treats pain at home with stretching and Ibuprofen as needed. She denies new injury, numbness, tingling, or radiculopathy at this time. Pt. reports chiropractic adjustments are effective in relieving her pain and discomfort. Location: L upper back/rib 1-5 Duration: frequent Aggravating or associated factors: bending, lifting,ROM, breathing Relieving factors: chiro Pain Quality: aching, dull, cramping and sharp Exam Musc General: Yes normal posture, normal gait, joint tenderness and decreased range of motion Cervical Spine: Yes loss of normal cervical lordosis, Yes cervical muscular tenderness left greater than right lower , Yes cervical spasm left greater than right lower trapezius and Yes misalignment misalignment: C7 Thoracic/Lumber: Yes thoracic and lumbar spine normal to inspection, Yes pain with thoraco-lumbar ROM with forward flexion, with lateral flexion to the right, with lateral flexion to the left, with rotation to the right and with rotation to the left, Yes paraspinal tenderness on the left greater than right (thoracc), Yes thoraco-lumbar spasm on the left greater (more content not included)... Normal [facility] Chiropractic Reporton 2023 Chiropractic Report [facility] [place] [address] OFFICE VISIT Date of Service: 06/16/24 MR#: [id number] Acct: [id number] Name: MAHESH PEPPER Rep #: [id number] : 1980 Provider: ROXIE Padilla Age/Sex: 43/F Location[facility] Status: Signed Intake Vital Signs 08/13/23 11:08 Height 5 ft 8 in Intake Visit Reasons: Back pain Chief Complaint: neck and low back pain Is patient in pain?: Yes (neck and low back ) Pain scale (1-10): 3 Allergies Sulfa (Sulfonamide Antibiotics) Allergy (Verified 06/16/24 16:01) Unknown zinc Adverse Reaction (Intermediate, Verified 06/16/24 16:01) rash Medications ???Medication ???Instructions ???Recorded ???Confirmed ???Type bupropion HCl 150 mg tablet,12 hr 150 mg PO DAILY 11/05/19 06/16/24 History sustained-release (Wellbutrin SR) levothyroxine 13 mcg capsule 137 mcg PO DAILY 04/11/20 06/16/24 History Saccharomyces boulardii 250 mg 250 mg PO DAILY 01/31/22 06/16/24 History capsule (Daily Probiotic (S. boulardii)) Hydrocortisone 2.5%/lidocaine 5% #1 ea 11/01/22 06/16/24 Rx suppository (cmpd) (hydrocortisone 2.5%/lidocaine 5% suppository (compound)) fluticasone propionate 50 1 spray intranasal DAILY 12/11/22 06/16/24 History mcg/actuation nasal spray,suspension (Flonase Allergy Relief) magnesium oxide 420 mg tablet 420 mg PO DAILY 02/04/23 06/16/24 History pantoprazole 40 mg tablet,delayed 40 mg PO DAILY #90 tabs 02/12/23 06/16/24 Rx release potassium chloride 20 mEq 20 meq PO DAILY #90 tabs 09/20/23 06/16/24 Rx tablet,extended release(part/cryst) [facility] Medical History History of IBS Gastritis Alcohol use Thyroid disease Gastric reflux Non-smoker Lower GI bleeding Constipation Other serum reaction due to vaccination Unspecified injury of left shoulder and upper arm, initial encounter Other serum reaction due to vaccination, initial encounter Injury of left shoulder Left shoulder pain Frequent headaches Acid reflux Thyroid disease Surgical History S/P laparoscopic assisted vaginal hysterectomy (LAVH) S/P hemorrhoidectomy Hx of colonoscopy with polypectomy H/O right knee surgery History of delivery S/P endometrial ablation Breast implant status Family History Mother Hypertension Hyperlipidemia Father Hypertension Hyperlipidemia Thyroid disorder Social History Smoking Status: Never smoker alcohol intake: current details: occasionally substance use type: does not use caffeine: Yes what type of physical activity do you participate in: aerobics frequency: 3-4 times per week seatbelt use: always do you feel safe at home: Yes additional social history: Njkwgch-Ftrb-Vifaw 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 Pt. advises her low back is a constant dull ache and catches on the left side from time to time. She states the pain extends into her left SI joint and rates her low back pain 3/10. She is also experiencing neck pain which has caused a VALLEJO today on the left side of her head and she has had them more frequently. 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 Pt. treats pain at home with stretching and Ibuprofen as needed. She denies new injury, numbness, tingling, or radiculopathy at this time. Pt. reports chiropractic adjustments are effective in relieving her pain and discomfort but it gradually returns. Location: neck, low back Duration: intermittent Aggravating or associated factors: bending, lifting, work Relieving factors: chiro Pain Quality: aching, dull and cramping Exam Musc General: Yes normal posture, normal gait, joint tenderness and decreased range of motion Cervical Spine: Yes loss of normal cervical lordosis, Yes cervical muscular tenderness bilateral upper paracervical muscle, bilateral lower trapezius, Yes cervical spasm (suboccipital, trap) bilateral upper intrinsics (suboccipital), bilateral lower trapezius and Yes misalignment misalignment: C1, C2, C6 and C7 Thoracic/Lumber: Yes thoracic and lumbar spine normal to inspection, Yes paraspinal tenderness bilaterally in the upper thoracic and in the mid thoracic and on the left greater than right (lumbopelvic), Yes thoraco-lumbar spasm bilaterally (trap, levator) in the upper thoracic and in the mid thoracic and on the left greater than right (paraspinal L2-L5) and Yes misalignment T1, T2, T3, T6, T7, L4, L5 and LIL Sacro (more content not included)... Normal [facility] CBC, Employeeon 05-19-2024 Absolute Lymph 1.68 X10 3/uL Normal 0.83-4.51 [facility] Comment on above: Performed By: #### L 500.2900, L100.0200, L400.0100 #### [facility] [address] [place], [address] Absolute Neut 3.6 X10 3/uL Normal 2.0-7.7 [facility] Comment on above: Performed By: #### L 500.2900, L100.0200, L400.0100 #### [facility] [address] [place], [address] Basophils/100 WBC (Bld) 0.5 % Normal 0-1 [facility] Comment on above: Performed By: #### L 500.2900, L100.0200, L400.0100 #### [facility] [address] [place], [address] Eosinophils/100 WBC (Bld) 0.5 % Normal 0-5 [facility] Comment on above: Performed By: #### L 500.2900, L100.0200, L400.0100 #### [facility] [address] [place], [address] Erythrocyte distribution width (RBC) [Ratio] 13.0 % Normal 11.6-14.6 [facility] Comment on above: Performed By: #### L 500.2900, L100.0200, L400.0100 #### [facility] [address] [place], [address] Hematocrit (Bld) [Volume fraction] 44.6 % Normal 37-47 [facility] Comment on above: Performed By: #### L 500.2900, L100.0200, L400.0100 #### [facility] [address] [place], [address] Hemoglobin (Bld) [Mass/Vol] 14.8 g/dL Normal 12.0-15.0 [facility] Comment on above: Performed By: #### L 500.2900, L100.0200, L400.0100 #### [facility] [address] [place], [address] Lymphocytes/100 WBC (Bld) 28.6 % Normal 19-41 [facility] Comment on above: Performed By: #### L 500.2900, L100.0200, L400.0100 #### [facility] [address] [place], [address] MCH (RBC) [Entitic mass] 30.9 pg Normal 27.0-32.0 [facility] Comment on above: Performed By: #### L 500.2900, L100.0200, L400.0100 #### [facility] [address] [place], [address] MCHC (RBC) [Mass/Vol] 33.2 g/dL Normal 32-36 [facility] Comment on above: Performed By: #### L 500.2900, L100.0200, L400.0100 #### [facility] [address] [place], [address] MCV (RBC) [Entitic vol] 93.1 fL Normal 81-99 [facility] Comment on above: Performed By: #### L 500.2900, L100.0200, L400.0100 #### [facility] [address] [place], [address] Monocytes/100 WBC (Bld) 8.3 % Normal 0-10 [facility] Comment on above: Performed By: #### L 500.2900, L100.0200, L400.0100 #### [facility] [address] [place], [address] Neutrophils/100 WBC (Bld) 61.9 % Normal 47-70 [facility] Comment on above: Performed By: #### L 500.2900, L100.0200, L400.0100 #### [facility] [address] [place], [address] NRBC # 0.00 10 3/uL Normal 0-5 [facility] Comment on above: Performed By: #### L 500.2900, L100.0200, L400.0100 #### [facility] [address] [place], [address] Nucleated RBC (Bld) [#/Vol] 0 10*3/uL Normal 0-5 [facility] Comment on above: Performed By: #### L 500.2900, L100.0200, L400.0100 #### [facility] [address] [place], [address] Platelet mean volume (Bld) [Entitic vol] 10.3 fL Normal 6.2-12.0 [facility] Comment on above: Performed By: #### L 500.2900, L100.0200, L400.0100 #### [facility] [address] [place], [address] Platelets (Bld) [#/Vol] 250 10*3/uL Normal 150-450 [facility] Comment on above: Performed By: #### L 500.2900, L100.0200, L400.0100 #### [facility] [address] [place], [address] RBC (Bld) [#/Vol] 4.79 10*6/uL Normal 4.2-5.4 [facility] Comment on above: Performed By: #### L 500.2900, L100.0200, L400.0100 #### [facility] [address] [place], [address] RDW SD 44.5 fl High 35.1-43.9 [facility] Comment on above: Performed By: #### L 500.2900, L100.0200, L400.0100 #### [facility] [address] [place], [address] WBC (Bld) [#/Vol] 5.9 10*3/uL Normal 4.4-11.0 [facility] Comment on above: Performed By: #### L 500.2900, L100.0200, L400.0100 #### [facility] [address] [place], [address] Employee Profileon 4 Albumin [Mass/Vol] 3.7 g/dL Normal 3.2-5.0 [facility] Comment on above: Performed By: #### L 500.2900, L100.0200, L400.0100 #### [facility] [address] [place], [address] Albumin/Globulin [Mass ratio] 1.2 {ratio} Normal 0.9-2.4 [facility] Comment on above: Performed By: #### L 500.2900, L100.0200, L400.0100 #### [facility] [address] [place], [address] ALK P 60 U/L Normal 45-117 [facility] Comment on above: Performed By: #### L 500.2900, L100.0200, L400.0100 #### [facility] [address] [place], [address] ALT [Catalytic activity/Vol] 17 U/L Normal 13-56 [facility] Comment on above: Performed By: #### L 500.2900, L100.0200, L400.0100 #### [facility] [address] [place], [address] AST [Catalytic activity/Vol] 15 U/L Normal 15-37 [facility] Comment on above: Performed By: #### L 500.2900, L100.0200, L400.0100 #### [facility] [address] [place], [address] Bilirubin [Mass/Vol] 0.50 mg/dL Normal 0.20-1.00 [facility] Comment on above: Result Comment: For patients on eltrombopag therapy, use of Dimension [place] TBIL is not recommended. Performed By: #### L 500.2900, L100.0200, L400.0100 #### [facility] [address] [place], [address] Bilirubin.direct [Mass/Vol] 0.15 mg/dL Normal 0.00-0.30 [facility] Comment on above: Performed By: #### L 500.2900, L100.0200, L400.0100 #### [facility] [address] [place], [address] BUN/CRE 18.9 RATIO Normal 10-20 [facility] Comment on above: Performed By: #### L 500.2900, L100.0200, L400.0100 #### [facility] [address] [place], [address] CA,Total 9.0 mg/dL Normal 8.5-10.1 [facility] Comment on above: Performed By: #### L 500.2900, L100.0200, L400.0100 #### [facility] [address] [place], [address] Chloride [Moles/Vol] 107 mmol/L Normal 98-107 [facility] Comment on above: Performed By: #### L 500.2900, L100.0200, L400.0100 #### [facility] [address] [place], [address] CHOL:HDL 3.30 Normal [facility] Comment on above: Performed By: #### L 500.2900, L100.0200, L400.0100 #### [facility] [address] [place], [address] Cholesterol [Mass/Vol] 199 mg/dL Normal 200 [facility] Comment on above: Result Comment: <200 mg/dL Desirable 200-240 mg/dL Borderline >240 mg/dL High Risk Performed By: #### L 500.2900, L100.0200, L400.0100 #### [facility] [address] [place], [address] Cholesterol in HDL [Mass/Vol] 60 mg/dL Normal [facility] Comment on above: Result Comment: The drugs N-Acetylcysteine and Metamizole may falsely depress this assay. Reference Range HDL <40 mg/dL Low HDL Cholesterol HDL >or= 60 mg/dL High HDL Cholesterol Performed By: #### L 500.2900, L100.0200, L400.0100 #### [facility] [address] [place], [address] Cholesterol in LDL [Mass/Vol] 127 mg/dL Normal 0-130 [facility] Comment on above: Performed By: #### L 500.2900, L100.0200, L400.0100 #### [facility] [address] [place], [address] Cholesterol in VLDL [Mass/Vol] 12 mg/dL Normal 5-40 [facility] Comment on above: Performed By: #### L 500.2900, L100.0200, L400.0100 #### [facility] [address] [place], [address] CO2 [Moles/Vol] 27.0 mmol/L Normal 21.0-32.0 [facility] Comment on above: Performed By: #### L 500.2900, L100.0200, L400.0100 #### [facility] [address] [place], [address] Creatinine [Mass/Vol] 0.95 mg/dL Normal 0.55-1.02 [facility] Comment on above: Result Comment: The validity of the calculated GFR GFRAA in patients over 70 years has not been determined. Clinical correlation is essential. Performed By: #### L 500.2900, L100.0200, L400.0100 #### [facility] [address] [place], [address] EST GFR - AA 82 mL/min Normal >60 [facility] Comment on above: Result Comment: Afri can Kyrgyz GFR Calc Performed By: #### L 500.2900, L100.0200, L400.0100 #### [facility] [address] [place], [address] GAP 5 Normal 5-15 [facility] Comment on above: Performed By: #### L 500.2900, L100.0200, L400.0100 #### [facility] [address] [place], [address] GFR/1.73 sq M.predicted among non-blacks MDRD (S/P/Bld) [Vol rate/Area] 67 mL/min/{1.73_m2} Normal >60 [facility] Comment on above: Result Comment: Non- GFR Calc Performed By: #### L 500.2900, L100.0200, L400.0100 #### [facility] [address] [place], [address] Globulin (S) [Mass/Vol] 3.1 g/dL Normal 2.2-4.2 [facility] Comment on above: Performed By: #### L 500.2900, L100.0200, L400.0100 #### [facility] [address] [place], [address] Glucose [Mass/Vol] 94 mg/dL Normal 74-106 [facility] Comment on above: Performed By: #### L 500.2900, L100.0200, L400.0100 #### [facility] [address] [place], [address] LDH 152 U/L Normal 84-246 [facility] Comment on above: Performed By: #### L 500.2900, L100.0200, L400.0100 #### [facility] [address] [place], [address] Phosphate [Mass/Vol] 2.9 mg/dL Normal 2.5-4.9 [facility] Comment on above: Performed By: #### L 500.2900, L100.0200, L400.0100 #### [facility] [address] [place], [address] Potassium [Moles/Vol] 4.0 mmol/L Normal 3.5-5.1 [facility] Comment on above: Performed By: #### L 500.2900, L100.0200, L400.0100 #### [facility] [address] [place], [address] Sodium [Moles/Vol] 139 mmol/L Normal 136-145 [facility] Comment on above: Performed By: #### L 500.2900, L100.0200, L400.0100 #### [facility] [address] [place], [address] T PROT 6.8 g/dL Normal 6.4-8.2 [facility] Comment on above: Performed By: #### L 500.2900, L100.0200, L400.0100 #### [facility] [address] [place], [address] Triglyceride [Mass/Vol] 61 mg/dL Normal [facility] Comment on above: Result Comment: The drugs N-Acetylcysteine and Metamizole may falsely depress this assay. Serum Triglycerides Reference Interval Normal <150 mg/dL Borderline high 150 - 199 mg/dL High 200 - 499 mg/dL Very High > or = 500 mg/dL Performed By: #### L 500.2900, L100.0200, L400.0100 #### [facility] [address] [place], [address] Urea nitrogen [Mass/Vol] 18 mg/dL Normal 7-18 [facility] Comment on above: Performed By: #### L 500.2900, L100.0200, L400.0100 #### [facility] [address] [place], [address] URIC 4.1 mg/dL Normal 2.6-6.0 [facility] Comment on above: Result Comment: The drugs N-Acetylcysteine and Metamizole may falsely depress this assay. Performed By: #### L 500.2900, L100.0200, L400.0100 #### [facility] [address] [place], [address] T4 Free Directon 05-19-2024 T4 FREE DIRECT 1.21 ng/dL Normal 0.76-1.46 [facility] Comment on above: Order Comment: Order Date: 05/04/24 Order Info: [id number] - TSH Order Info: [id number] - T4F Performed By: #### L 501.9520, L506.0400 #### [facility] [address] [place], [address] Thyroid Stim Hormone (TSH)on 05-19-2024 TSH 1.730 uIU/mL Normal 0.358-3.740 [facility] Comment on above: Order Comment: Order Date: 05/04/24 Order Info: [id number] - TSH Order Info: [id number] - T4F Performed By: #### L 501.9520, L506.0400 #### [facility] [address] [place], [address] Urinalysis, Employeeon 05-19 BILIRUBIN URINE Negative Normal Negative [facility] Comment on above: Performed By: #### L 500.2900, L100.0200, L400.0100 #### [facility] [address] [place], [address] Clarity (U) Clear Normal Clear [facility] Comment on above: Performed By: #### L 500.2900, L100.0200, L400.0100 #### [facility] [address] [place], [address] Color (U) Yellow Normal Yellow [facility] Comment on above: Performed By: #### L 500.2900, L100.0200, L400.0100 #### [facility] [address] [place], [address] GLUCOSE, UR Normal Normal Normal [facility] Comment on above: Performed By: #### L 500.2900, L100.0200, L400.0100 #### [facility] [address] [place], [address] KETONE UR Negative Normal Negative [facility] Comment on above: Performed By: #### L 500.2900, L100.0200, L400.0100 #### [facility] [address] [place], [address] LEUK ESTERASE Negative Normal Negative [facility] Comment on above: Performed By: #### L 500.2900, L100.0200, L400.0100 #### [facility] [address] [place], [address] Nitrite Ql (U) Negative Normal Negative [facility] Comment on above: Performed By: #### L 500.2900, L100.0200, L400.0100 #### [facility] [address] [place], [address] OCCULT BLOOD-UR Negative Normal Negative [facility] Comment on above: Performed By: #### L 500.2900, L100.0200, L400.0100 #### [facility] [address] [place], [address] pH UR 6.5 Normal 5.0 - 8.0 [facility] Comment on above: Performed By: #### L 500.2900, L100.0200, L400.0100 #### [facility] [address] [place], [address] PROT DIPSTX Negative Normal Negative [facility] Comment on above: Performed By: #### L 500.2900, L100.0200, L400.0100 #### [facility] [address] [place], [address] SP.GR. DIPSTX 1.010 Normal 1.002-1.030 [facility] Comment on above: Performed By: #### L 500.2900, L100.0200, L400.0100 #### [facility] [address] [place], [address] UROBILI Normal Normal Normal [facility] Comment on above: Performed By: #### L 500.2900, L100.0200, L400.0100 #### [facility] [address]. [place], [place], [id number] Chiropractic Reporton 2023 Chiropractic Report [facility] [address] [place] [address] OFFICE VISIT Date of Service: 05/04/24 MR#: [id number] Acct: [id number] Name: MAHESH PEPPER MAXIMILIAN Rep #: [id number] : 1980 Provider: ROXIE Padilla Age/Sex: 43/F Location[facility] Status: Signed Intake Vital Signs 08/13/23 11:08 Height 5 ft 8 in Intake Visit Reasons: Back pain Chief Complaint: neck and low back pain Allergies Sulfa (Sulfonamide Antibiotics) Allergy (Verified 03/23/24 15:54) Unknown zinc Adverse Reaction (Intermediate, Verified 03/23/24 15:54) rash PFSH Medical History History of IBS Gastritis Alcohol use Thyroid disease Gastric reflux Non-smoker Lower GI bleeding Constipation Other serum reaction due to vaccination Unspecified injury of left shoulder and upper arm, initial encounter Other serum reaction due to vaccination, initial encounter Injury of left shoulder Left shoulder pain Frequent headaches Acid reflux Thyroid disease Surgical History S/P laparoscopic assisted vaginal hysterectomy (LAVH) S/P hemorrhoidectomy Hx of colonoscopy with polypectomy H/O right knee surgery History of delivery S/P endometrial ablation Breast implant status Family History Mother Hypertension Hyperlipidemia Father Hypertension Hyperlipidemia Thyroid disorder Social History Smoking Status: Never smoker alcohol intake: current details: occasionally substance use type: does not use caffeine: Yes what type of physical activity do you participate in: aerobics frequency: 3-4 times per week seatbelt use: always do you feel safe at home: Yes additional social history: Qevbpzy-Pdrg-Inugm 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 Pt. advises her low back is a constant dull ache and catches with certain movements.She states it has been catching on the left side from time to time. She rates her low back pain 3/10. She is also experiencing neck stiffness which causes VALLEJO's from time to time. 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 Pt. treats pain at home with stretching and Ibuprofen as needed. She denies new injury, numbness, tingling, or radiculopathy at this time. Pt. reports chiropractic adjustments are effective in relieving her pain and discomfort but it gradually returns. Location: neck, low back Duration: intermittent Aggravating or associated factors: bending, lifting, work Relieving factors: chiro Pain Quality: aching, dull and cramping Exam Musc General: Yes normal posture, normal gait, joint tenderness and decreased range of motion Cervical Spine: Yes loss of normal cervical lordosis, Yes cervical muscular tenderness bilateral upper paracervical muscle, bilateral lower trapezius, Yes cervical spasm (suboccipital, trap) bilateral upper intrinsics (suboccipital), bilateral lower trapezius and Yes misalignment misalignment: C1, C2, C6 and C7 Thoracic/Lumber: Yes thoracic and lumbar spine normal to inspection, Yes paraspinal tenderness bilaterally in the upper thoracic and in the mid thoracic and on the left greater than right (lumbopelvic), Yes thoraco-lumbar spasm bilaterally (trap, levator) in the upper thoracic and in the mid thoracic and on the left greater than right (paraspinal L2-L5) and Yes misalignment T1, T2, T3, T6, T7, L4, L5 and LIL Sacroiliac joints: on the left tender to palpation Office Procedures Procedures - Chiropractic Procedures Manipulation: Cervical C1 and C6, Lumbar L4, Thoracic T5 and Pelvis LIL Manipulation: 3-4 regions Traction, Mechanical: Yes Patient Response: positive Assessment and Plan Assessment and Plan (1) Back pain: Status: Acute Qualifiers: Back pain laterality: right Back pain location: low back pain Chronicity: acute Sciatica presence: without sciatica Qualified Code(s): M54.5 - Low back pain (2) Segmental and somatic dysfunction of lumbar region: Status: Acute (3) Segmental and somatic dysfunction of cervical region: Status: Acute (4) Segmental and somatic dysfunction of thoracic region: Status: Acute (5) Segmental and somatic dysfunction of pelvic region: Status: Acute Orders: Orders Chiropractic Treatments Today M54.5 - Low back pain, M99.01 - Segmental and somatic dysfunction of cervical region, M99.02 - Segmental and somatic dysfunction of thoracic region, M99.03 - Segmental and somatic dysfunction of lumbar region, M99.05 - Segmental and somatic dysfunction of pelvic region (more content not included)... Normal [facility] Chiropractic Reporton 2023 Chiropractic Report [facility] [address] [place] [address] OFFICE VISIT Date of Service: 03/23/24 MR#: [id number] Acct: [id number] Name: MAHESH PEPPER MAXIMILIAN Rep #: [id number] : 1980 Provider: ROXIE Padilla Age/Sex: 43/F Location: [facility] Status: Signed Intake Vital Signs 08/13/23 11:08 Height 5 ft 8 in Intake Visit Reasons: Back pain Chief Complaint: neck and low back pain Is patient in pain?: Yes (neck and low back ) Pain scale (1-10): 3 Allergies Sulfa (Sulfonamide Antibiotics) Allergy (Verified 03/23/24 15:54) Unknown zinc Adverse Reaction (Intermediate, Verified 03/23/24 15:54) rash Medications ???Medication ???Instructions ???Recorded ???Confirmed ???Type bupropion HCl 150 mg tablet,12 hr 150 mg PO DAILY 11/05/19 03/23/24 History sustained-release (Wellbutrin SR) levothyroxine 13 mcg capsule 137 mcg PO DAILY 04/11/20 03/23/24 History Saccharomyces boulardii 250 mg 250 mg PO DAILY 01/31/22 03/23/24 History capsule (Daily Probiotic (S. boulardii)) Hydrocortisone 2.5%/lidocaine 5% #1 ea 11/01/22 03/23/24 Rx suppository (cmpd) (hydrocortisone 2.5%/lidocaine 5% suppository (compound)) fluticasone propionate 50 1 spray intranasal DAILY 12/11/22 03/23/24 History mcg/actuation nasal spray,suspension (Flonase Allergy Relief) magnesium oxide 420 mg tablet 420 mg PO DAILY 02/04/23 03/23/24 History pantoprazole 40 mg tablet,delayed 40 mg PO DAILY #90 tabs 02/12/23 03/23/24 Rx release potassium chloride 20 mEq 20 meq PO DAILY #90 tabs 09/20/23 03/23/24 Rx tablet,extended release(part/cryst) PFSH Medical History History of IBS Gastritis Alcohol use Thyroid disease Gastric reflux Non-smoker Lower GI bleeding Constipation Other serum reaction due to vaccination Unspecified injury of left shoulder and upper arm, initial encounter Other serum reaction due to vaccination, initial encounter Injury of left shoulder Left shoulder pain Frequent headaches Acid reflux Thyroid disease Surgical History S/P laparoscopic assisted vaginal hysterectomy (LAVH) S/P hemorrhoidectomy Hx of colonoscopy with polypectomy H/O right knee surgery History of delivery S/P endometrial ablation Breast implant status Family History Mother Hypertension Hyperlipidemia Father Hypertension Hyperlipidemia Thyroid disorder Social History Smoking Status: Never smoker alcohol intake: current details: occasionally substance use type: does not use caffeine: Yes what type of physical activity do you participate in: aerobics frequency: 3-4 times per week seatbelt use: always do you feel safe at home: Yes additional social history: [id number]-Xjwm-Twykx 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 Pt. advises she is experiencing neck stiffness which causes VALLEJO's from time to time. She rates her neck pain 1/10. She also c/o low back pain especially on the left side. She rates her low back pain 3/10 today. She states her low back is a constant dull ache and catches with certain movements. 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 Pt. treats pain at home with stretching and Ibuprofen as needed. She denies new injury, numbness, tingling, or radiculopathy at this time. Pt. reports chiropractic adjustments are effective in relieving her pain and discomfort but it gradually returns. Location: neck, low back Duration: intermittent Aggravating or associated factors: bending, lifting, looking up Relieving factors: chiro Pain Quality: aching, dull and cramping Exam Musc General: Yes normal posture, normal gait, joint tenderness and decreased range of motion Cervical Spine: Yes loss of normal cervical lordosis, Yes cervical muscular tenderness bilateral upper paracervical muscle, bilateral lower trapezius, Yes cervical spasm (suboccipital, trap) bilateral upper intrinsics (suboccipital), bilateral lower trapezius and Yes misalignment misalignment: C1, C2, C6 and C7 Thoracic/Lumber: Yes thoracic and lumbar spine normal to inspection, Yes paraspinal tenderness bilaterally in the upper thoracic and in the mid thoracic and on the left greater than right (lumbopelvic), Yes thoraco-lumbar spasm bilaterally (trap, levator) in the upper thoracic and in the mid thoracic and on the left greater than right (paraspinal L2-L5) and Yes misalignment T1, T2, T3, T6, T7, L4, L5 and LIL Sacroiliac joints: on the left tender to palpa (more content not included)... Normal [facility] Urgent Care Visit Reporton 0 03-04-2024 Urgent Care Visit Report [facility] 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 Chief Complaint: painful hemorrhoid Allergies Sulfa (Sulfonamide Antibiotics) Allergy (Verified 03/02/24 09:36) Unknown zinc Adverse Reaction (Intermediate, Verified 03/02/24 09:36) rash [facility] Medical History History of IBS Gastritis Alcohol use Thyroid disease Gastric reflux Non-smoker Lower GI bleeding Constipation Other serum reaction due to vaccination Unspecified injury of left shoulder and upper arm, initial encounter Other serum reaction due to vaccination, initial encounter Injury of left shoulder Left shoulder pain Frequent headaches Acid reflux Thyroid disease Surgical History S/P laparoscopic assisted vaginal hysterectomy (LAVH) S/P hemorrhoidectomy Hx of colonoscopy with polypectomy H/O right knee surgery History of delivery S/P endometrial ablation Breast implant status Family History Mother Hypertension Hyperlipidemia Father Hypertension Hyperlipidemia Thyroid disorder Social History Smoking Status: Never smoker alcohol intake: current details: occasionally substance use type: does not use caffeine: Yes what type of physical activity do you participate in: aerobics frequency: 3-4 times per week seatbelt use: always do you feel safe at home: Yes additional social history: [id number]-Mqpdm 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 Chief Complaint: painful hemorrhoid Details: MAHESH PEPPER, is a 43 F who presents to the office today for Results POC CEPH COV,FluAB,RSV PCR CEPHEID COVID PCR Not DETECTED Last Edit by Mariella Warren on 10/30/23 08:40 CEPHEID FLU AB PCR ONLY FLU A DETECTED Last Edit by Mariella Warren on 10/30/23 08:40 CEPHEID RSV PCR NOT DETECTED Last Edit by Mariella Warren on 10/30/23 08:40 Coding Level of Care Code No Charge CPT Codes Covid - Covid Swab-Rapid: Yes (C19PCR) Assessment and Plan Plan Details Goals Barriers: Goals Decrease spasm Decrease inflammation [facility] Billing Sheet Covid Covid Swab-Rapid: Yes 03/12/24 0959 Date Wood Cyr Signature: Date (if applicable) CC: Normal [facility] Surgery Visit Reporton 03-02 Surgery Visit Report [facility] 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 boulardii)) Hydrocortisone 2.5%/lidocaine 5% #1 ea 11/01/22 03/02/24 Rx suppository (cmpd) (hydrocortisone 2.5%/lidocaine 5% suppository (compound)) fluticasone propionate 50 1 spray intranasal DAILY 12/11/22 03/02/24 History mcg/actuation nasal spray,suspension (Flonase Allergy Relief) magnesium oxide 420 mg tablet 420 mg PO DAILY 02/04/23 03/02/24 History pantoprazole 40 mg tablet,delayed 40 mg PO DAILY #90 tabs 02/12/23 03/02/24 Rx release potassium chloride 20 mEq 20 meq PO DAILY #90 tabs 09/20/23 03/02/24 Rx tablet,extended release(part/cryst) PFSH Medical History History of IBS Gastritis Alcohol use Thyroid disease Gastric reflux Non-smoker Lower GI bleeding Constipation Other serum reaction due to vaccination Unspecified injury of left shoulder and upper arm, initial encounter Other serum reaction due to vaccination, initial encounter Injury of left shoulder Left shoulder pain Frequent headaches Acid reflux Thyroid disease Surgical History S/P laparoscopic assisted vaginal hysterectomy (LAVH) S/P hemorrhoidectomy Hx of colonoscopy with polypectomy H/O right knee surgery History of delivery S/P endometrial ablation Breast implant status Family History Mother Hypertension Hyperlipidemia Father Hypertension Hyperlipidemia Thyroid disorder Social History Smoking Status: Never smoker alcohol intake: current details: occasionally substance use type: does not use caffeine: Yes what type of physical activity do you participate in: aerobics frequency: 3-4 times per week seatbelt use: always do you feel safe at home: Yes additional social history: Ejrgzzi-Eyql-Nvhsm 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 Patient notes having a hemorrhoidectomy with Dr. Goss approximately 1 year ago. She notes keeping her bowels on the softer side. Patient notes she has been sitting a little more which may have caused the hemorrhoid to flare up. She denies any drainage form the hemorrhoid until today after having a bowel movement, she noted some blood. Patient denies any fever related to her symptoms. She notes the lump has been present for several days. She attempted to try hydrocortisone with lidocaine ointment without any success. ROS General General: Yes weight change; No appetite, fatigue, colon cancer, breast cancer or weakness HEENT HEENT: No difficulty swallowing, eye injury, eye surgery, swollen glands or hoarseness Endo Endocrine: No thyroid disease, diabetes mellitus, thyroid cancer, Hair loss, heat intolerance or cold intolerance Skin Skin: No rash or changing moles Breast Breast: No left breast lump, right breast lump, nipple discharge, breast pain, abnormal mammogram, abnormal US or breast enlargement Musc Musculoskeletal: No back problems, arthritis, rheumatoid arthritis, gout or joint pain Cardio Cardiovascular: No murmur, pacemaker, heart disease, atrial fibrillation, high blood pressure, heart attack, heart stent, palpitations, shortness of breat with exertion or chest pain Psych Psychiatric: Yes depression; No anxiety or hearing voices Resp Respiratory: No shortness of breath, No sleep apnea, No cough, No COPD, No asthma, No emphysema and No wheezing Gastro Gastrointestinal: No abdominal pain, No nausea or vomiting, No diarrhea, No constipation, No blood in stool, Yes acid reflux, Yes hemorrhoids, No ulcers, No gallbladder problem and No black,tarry sto (more content not included)... Normal [facility] Basophil percentageOrdered B y: Tahira Russo on 07-02-2023 WBC (Bld) [#/Vol] 15.9 10*3/uL 4.4-11.0 [facility] Blood erythrocytes count (nu mber/volume)Ordered By: Tahira Russo on 07-02-2023 RBC (Bld) [#/Vol] 4.79 10*6/uL 4.2-5.4 [facility] Blood hemoglobin measurement (mass/volume)Ordered By: Tahira Russo on 07-02-2023 Hemoglobin (Bld) [Mass/Vol] 15.2 g/dL 12.0-15.0 [facility] Blood platelet mean volumeOr dered By: Tahira Russo on 07-02-2023 Platelet mean volume (Bld) [Entitic vol] 10.0 fL 6.2-12.0 [facility] Determination of erythrocyte mean corpuscular volume (MCV)Ordered By: Tahira Russo on 07-02-2023 MCV (RBC) [Entitic vol] 91.4 fL 81-99 [facility] Glucose Glucometer (BldC) [M ass/Vol]Ordered By: Tahira Russo on 07-02-2023 Glucose [Mass/Vol] 95 mg/dL 74-106 [facility] Comment on above: MANAGEMENT OF PATIEN T CARE PER NURSING PROTOCOL Hematocrit Auto (Bld) [Volum e fraction]Ordered By: Tahira Russo on 07-02-2023 Hematocrit (Bld) [Volume fraction] 43.8 % 37-47 [facility] - Hematology and Cell countsOrdered By: Tahira Russo on 07-02-2023 Erythrocyte distribution width (RBC) [Entitic vol] 41.9 fL 35.1-43.9 [facility] Erythrocyte distribution width (RBC) [Ratio] 12.5 % 11.6-14.6 [facility] MCH (RBC) [Entitic mass] 31.7 pg 27.0-32.0 [facility] MCHC Auto (RBC) [Mass/Vol]Or dered By: Tahira Russo on 07-02-2023 MCHC (RBC) [Mass/Vol] 34.7 g/dL 32-36 [facility] Platelets bldOrdered By: Singh Russo on 07-02-2023 Platelets (Bld) [#/Vol] 262 10*3/uL 150-450 [facility] - Chemistry and C hemistry - challengeOrdered By: Angel Hogan on 06-28-2023 Magnesium [Mass/Vol] 2.2 mg/dL 1.6-2.6 [facility] Absolute lymphocyte countOrd ered By: HEALTH ASSESSMENT on 05-06-2023 Lymphocytes Auto (Unsp spec) [#/Vol] 2.02 10*3/uL 0.83-4.51 [facility] Absolute reticulocyte countO rdered By: HEALTH ASSESSMENT on 05-06-2023 Reticulocytes (Bld) [#/Vol] 0.00 10*3/uL 0-5 [facility] Basophil percentageOrdered B y: HEALTH ASSESSMENT on 05-06-2023 Basophil percentage 3.3 mg/dL 2.5-4.9 [facility] Bilirubin [Mass/Vol] 0.70 mg/dL 0.20-1.00 [facility] Comment on above: For patients on eltr ombopag therapy, use of Dimension Cocoa TBIL is not recommended. Chloride [Moles/Vol] 107 mmol/L 98-107 [facility] Cholesterol [Mass/Vol] 180 mg/dL <200 [facility] Comment on above: <200 mg/dL Desirable 200-240 mg/dL Borderline >240 mg/dL High Risk Glucose [Mass/Vol] 90 mg/dL 74-106 [facility] LDH [Catalytic activity/Vol] 141 U/L 84-246 [facility] Neutrophils (Bld) [#/Vol] 3.4 10*3/uL 2.0-7.7 [facility] Potassium [Moles/Vol] 3.9 mmol/L 3.5-5.1 [facility] Protein [Mass/Vol] 7.0 g/dL 6.4-8.2 [facility] Sodium [Moles/Vol] 137 mmol/L 136-145 [facility] Triglyceride [Mass/Vol] 54 mg/dL <199 [facility] Comment on above: The drugs N-Acetylcy steine and Metamizole may falsely depress this assay.Serum Triglycerides Reference Interval Normal <150 mg/dL Borderline high 150 - 199 mg/dL High 200 - 499 mg/dL Very High > or = 500 mg/dL WBC (Bld) [#/Vol] 5.9 10*3/uL 4.4-11.0 [facility] Bilirubin Test strip Ql (U)O rdered By: HEALTH ASSESSMENT on 05-06-2023 Bilirubin Ql (U) Negative Negative [facility] Blood erythrocytes count (nu mber/volume)Ordered By: HEALTH ASSESSMENT on 05-06-2023 RBC (Bld) [#/Vol] 4.82 10*6/uL 4.2-5.4 [facility] Blood hemoglobin measurement (mass/volume)Ordered By: HEALTH ASSESSMENT on 05-06-2023 Hemoglobin (Bld) [Mass/Vol] 15.3 g/dL 12.0-15.0 [facility] Blood platelet mean volumeOr dered By: HEALTH ASSESSMENT on 05-06-2023 Platelet mean volume (Bld) [Entitic vol] 10.2 fL 6.2-12.0 [facility] Determination of erythrocyte mean corpuscular volume (MCV)Ordered By: HEALTH ASSESSMENT on 05-06-2023 MCV (RBC) [Entitic vol] 93.2 fL 81-99 [facility] Direct bilirubinOrdered By: HEALTH ASSESSMENT on 05-06-2023 Bilirubin.direct [Mass/Vol] 0.15 mg/dL 0.00-0.30 [facility] Hematocrit Auto (Bld) [Volum e fraction]Ordered By: HEALTH ASSESSMENT on 05-06-2023 Hematocrit (Bld) [Volume fraction] 44.9 % 37-47 [facility] Ketones Test strip Ql (U)Ord ered By: HEALTH ASSESSMENT on 05-06-2023 Ketones Ql (U) Negative Negative [facility] - Chemistry and C hemistry - challengeOrdered By: HEALTH ASSESSMENT on 05-06-2023 ALP [Catalytic activity/Vol] 55 U/L 45-117 [facility] ALT [Catalytic activity/Vol] 18 U/L 13-56 [facility] Cholesterol.total/Choles terol in HDL [Mass ratio] 3.00 {ratio} [facility] CO2 [Moles/Vol] 28.0 mmol/L 21.0-32.0 [facility] Globulin (S) [Mass/Vol] 3.2 g/dL 2.2-4.2 [facility] Urea nitrogen/Creatinine [Mass ratio] 18.5 mg/mg 10-20 [facility] - Hematology and Cell countsOrdered By: HEALTH ASSESSMENT on 05-06-2023 Erythrocyte distribution width (RBC) [Entitic vol] 43.2 fL 35.1-43.9 [facility] Erythrocyte distribution width (RBC) [Ratio] 12.6 % 11.6-14.6 [facility] MCH (RBC) [Entitic mass] 31.7 pg 27.0-32.0 [facility] Nucleated RBC/100 WBC (Bld) [Ratio] 0 % 0-5 [facility] MCHC Auto (RBC) [Mass/Vol]Or dered By: HEALTH ASSESSMENT on 05-06-2023 MCHC (RBC) [Mass/Vol] 34.1 g/dL 32-36 [facility] Nitrite Test strip Ql (U)Ord ered By: HEALTH ASSESSMENT on 05-06-2023 Nitrite Ql (U) Negative Negative [facility] No Panel InformationOrdered By: HEALTH ASSESSMENT on 05-06-2023 Estimated GFR (MDRD) Amer 85 mL/min >60 [facility] Comment on above: GFR Calc Estimated GFR (MDRD) Non-Af Amer 70 mL/min >60 [facility] Comment on above: Non- GFR Calc No Panel InformationOrdered By: Tahira Russo on 05-06-2023 Thyroid Stimulating Hormone (TSH) 1.56 uIU/mL 0.358-3.74 [facility] Platelets bldOrdered By: KE LT ASSESSMENT on 05-06-2023 Platelets (Bld) [#/Vol] 245 10*3/uL 150-450 [facility] Protein Test strip Ql (U)Ord ered By: HEALTH ASSESSMENT on 05-06-2023 Protein Ql (U) Negative Negative [facility] Segmented neutrophils/100 WB C Auto (Bld)Ordered By: HEALTH ASSESSMENT on 05-06-2023 Segmented neutrophils/100 WBC (Bld) 56.8 % 47-70 [facility] Serum or plasma albumin ewa urement (mass/volume)Ordered By: HEALTH ASSESSMENT on 05-06-2023 Albumin [Mass/Vol] 3.8 g/dL 3.2-5.0 [facility] Serum or plasma albumin/glob ulin mass ratioOrdered By: HEALTH ASSESSMENT on 05-06-2023 Albumin/Globulin [Mass ratio] 1.2 {ratio} 0.9-2.4 [facility] Serum or plasma calcium ewa urement (mass/volume)Ordered By: HEALTH ASSESSMENT on 05-06-2023 Calcium [Mass/Vol] 8.8 mg/dL 8.5-10.1 [facility] Serum or plasma cholesterol in HDL measurement (mass/volume)Ordered By: HEALTH ASSESSMENT on 05-06-2023 Cholesterol in HDL [Mass/Vol] 61 mg/dL >40 [facility] Comment on above: The drugs N-Acetylcy steine and Metamizole may falsely depress this assay. Reference Range HDL <40 mg/dL Low HDL Cholesterol HDL >or= 60 mg/dL High HDL Cholesterol Serum or plasma cholesterol in VLDL measurement (mass/volume)Ordered By: HEALTH ASSESSMENT on 05-06-2023 Cholesterol in VLDL [Mass/Vol] 11 mg/dL 5-40 [facility] Serum or plasma creatinine m easurement (mass/volume)Ordered By: HEALTH ASSESSMENT on 05-06-2023 Creatinine [Mass/Vol] 0.92 mg/dL 0.55-1.02 [facility] Comment on above: The validity of the calculated GFR & GFRAA in patients over 70 years has not been determined. Clinical correlation is essential. Serum or plasma low density lipoprotein (LDL) cholesterol measurement (mass/volume)Ordered By: HEALTH ASSESSMENT on 05-06-2023 Cholesterol in LDL [Mass/Vol] 108 mg/dL 0-130 [facility] Serum or plasma urea nitroge n measurement (mass/volume)Ordered By: HEALTH ASSESSMENT on 05-06-2023 Urea nitrogen [Mass/Vol] 17 mg/dL 7-18 [facility] Serum or plasma uric acid me asurement (mass/volume)Ordered By: HEALTH ASSESSMENT on 05-06-2023 Urate [Mass/Vol] 4.1 mg/dL 2.6-6.0 [facility] Comment on above: The drugs N-Acetylcy steine and Metamizole may falsely depress this assay. Thin prep Papanicolaou smear with manual screeningOrdered By: HEALTH ASSESSMENT on 05-06-2023 Thin prep Papanicolaou smear with manual screening 12 U/L 15-37 [facility] Thin prep Papanicolaou smear with manual screening 2 5-15 [facility] Urine blood detectionOrdered By: HEALTH ASSESSMENT on 05-06-2023 RBC Ql (U) Negative Negative [facility] Urine clarityOrdered By: [facility] ASSESSMENT on 05-06-2023 Clarity (U) Sl. Cloudy Clear [facility] Urine color determinationOrd ered By: HEALTH ASSESSMENT on 05-06-2023 Color (U) Yellow Yellow [facility] Urine glucose detectionOrder ed By: HEALTH ASSESSMENT on 05-06-2023 Glucose Ql (U) Normal mg/dl Normal [facility] Urine leukocyte esterase det ection by dipstickOrdered By: HEALTH ASSESSMENT on 05-06-2023 Leukocyte esterase Test strip Ql (U) 25 /ul Negative [facility] Urine pHOrdered By: HEALTH A SSESSMENT on 05-06-2023 pH (U) 6.5 [pH] 5.0 - 8.0 [facility] Urine specific gravity measu rementOrdered By: HEALTH ASSESSMENT on 05-06-2023 Specific gravity (U) [Rel density] 1.005 1.002-1.030 [facility] Urobilinogen Auto test strip Ql (U)Ordered By: HEALTH ASSESSMENT on 05-06-2023 Urobilinogen Ql (U) Normal mg/dl Normal [facility] No Panel InformationOrdered By: Dr. Russo on 02-04-2023 Follicle Stimulating Hormone 4.5 mIU/mL [facility] Comment on above: NORMAL REFERENCE RAN GES FEMALE FOLLICULAR 2.3 - 12.6 mIU/mL MID-CYCLE PEAK 5.2 - 17.5 mIU/mL LUTEAL 1.7 - 12.9 mIU/mL POST-MENOPAUSAL ON MHT 5.9 - 72.8 mIU/mL NOT ON MHT 12.7 - 132.2 mlU/mL MALE 0.7 - 10.8 mIU/mL Thyroid Stimulating Hormone (TSH) 1.87 uIU/mL 0.358-3.74 [facility] Serum or plasma estradiol (E 2) measurement (mass/volume)Ordered By: Dr. Russo on 02-04-2023 E2 [Mass/Vol] 246.2 pg/mL [facility] Comment on above: NORMAL REFERENCE RAN GES FEMALE FOLLICULAR 21.4 - 164.8 pg/mL MID-CYCLE PEAK 49.9 - 367.2 pg/mL LUTEAL 40.2 - 259.0 pg/mL POST-MENOPAUSAL ON MHT <11.0 - 462.1 pg/mL NOT ON MHT <11.0 - 58.3 pg/mL MALE <11.0 - 52.5 pg/mL NOTE:[employer] HAS CONFIRMED THE DRUG FULVETRANT (FASLODEX) MAY CAUSE FALSELY ELEVATED ESTRADIOL RESULTS WHEN USING THIS TEST METHOD. IF PATIENT IS TAKING FULVESTRANT AN ALTERNATIVE METHOD SHOULD BE USED TO DETERMINE ESTRADIOL CONCENTRATION. Basophil percentageon 2021 Potassium [Moles/Vol] 4.0 mmol/L 3.5-5.1 [facility] Work Phone: Laboratory - Chemistry and C hemistry - challengeon 06-07-2022 Magnesium [Mass/Vol] 2.0 mg/dL 1.6-2.6 [facility] Work Phone: Absolute lymphocyte counton 05-28-2022 Lymphocytes Auto (Unsp spec) [#/Vol] 1.75 10*3/uL 0.83-4.51 [facility] Work Phone: Absolute reticulocyte counto n 05-28-2022 Reticulocytes (Bld) [#/Vol] 0.00 10*3/uL 0-5 [facility] Work Phone: Basophil percentageon 2021 Basophil percentage 3.4 mg/dL 2.5-4.9 [facility]: Bilirubin [Mass/Vol] 0.60 mg/dL 0.20-1.00 [facility] Work Phone: Comment on above: For patients on eltr ombopag therapy, use of Dimension Cocoa TBIL is not recommended. Chloride [Moles/Vol] 106 mmol/L 98-107 [facility] Work Phone: Cholesterol [Mass/Vol] 200 mg/dL <200 [facility] Work Phone: Comment on above: <200 mg/dL Desirable 200-240 mg/dL Borderline >240 mg/dL High Risk Glucose [Mass/Vol] 89 mg/dL 74-106 [facility] Work Phone: Neutrophils (Bld) [#/Vol] 3.4 10*3/uL 2.0-7.7 [facility] Work Phone: Potassium [Moles/Vol] 3.3 mmol/L 3.5-5.1 [facility] Work Phone: Protein [Mass/Vol] 7.2 g/dL 6.4-8.2 [facility] Work Phone: Sodium [Moles/Vol] 141 mmol/L 136-145 [facility] Work Phone: Triglyceride [Mass/Vol] 82 mg/dL <199 [facility] Work Phone: Comment on above: The drugs N-Acetylcy steine and Metamizole may falsely depress this assay.Serum Triglycerides Reference Interval Normal <150 mg/dL Borderline high 150 - 199 mg/dL High 200 - 499 mg/dL Very High > or = 500 mg/dL WBC (Bld) [#/Vol] 5.6 10*3/uL 4.4-11.0 [facility] Work Phone: Bilirubin Test strip Ql (U)o n 05-28-2022 Bilirubin Ql (U) Negative Negative [facility] Work Phone: Blood erythrocytes count (nu mber/volume)on 05-28-2022 RBC (Bld) [#/Vol] 4.63 10*6/uL 4.2-5.4 [facility] Work Phone: Blood hemoglobin measurement (mass/volume)on 05-28-2022 Hemoglobin (Bld) [Mass/Vol] 15.0 g/dL 12.0-15.0 [facility] Work Phone: Blood platelet mean volumeon 05-28-2022 Platelet mean volume (Bld) [Entitic vol] 10.6 fL 6.2-12.0 [facility] Work Phone: Determination of erythrocyte mean corpuscular volume (MCV)on 05-28-2022 MCV (RBC) [Entitic vol] 93.7 fL 81-99 [facility] Work Phone: Direct bilirubinon 2 Bilirubin.direct [Mass/Vol] 0.14 mg/dL 0.00-0.30 [facility] Work Phone: Hematocrit Auto (Bld) [Volum e fraction]on 05-28-2022 Hematocrit (Bld) [Volume fraction] 43.4 % 37-47 [facility] Work Phone: Ketones Test strip Ql (U)on 05-28-2022 Ketones Ql (U) Negative Negative [facility] Work Phone: Laboratory - Chemistry and C hemistry - challengeon 05-28-2022 Free T4 [Mass/Vol] 1.18 ng/dL 0.76-1.46 [facility] Work Phone: ALP [Catalytic activity/Vol] 59 U/L 45-117 [facility] Work Phone: ALT [Catalytic activity/Vol] 21 U/L 13-56 [facility] Work Phone: Cholesterol.total/Choles terol in HDL [Mass ratio] 3.40 {ratio} [facility] Work Phone: CO2 [Moles/Vol] 29.0 mmol/L 21.0-32.0 [facility] Work Phone: [phone] Globulin (S) [Mass/Vol] 3.4 g/dL 2.2-4.2 [facility] Work Phone: Urea nitrogen/Creatinine [Mass ratio] 16.7 mg/mg 10-20 [facility] Work Phone: Laboratory - Hematology and Cell countson 05-28-2022 Erythrocyte distribution width (RBC) [Entitic vol] 43.8 fL 35.1-43.9 [facility] Work Phone: Erythrocyte distribution width (RBC) [Ratio] 12.7 % 11.6-14.6 [facility] Work Phone: MCH (RBC) [Entitic mass] 32.4 pg 27.0-32.0 [facility] Work Phone: Nucleated RBC/100 WBC (Bld) [Ratio] 0 % 0-5 [facility] Work Phone: MCHC Auto (RBC) [Mass/Vol]on 05-28-2022 MCHC (RBC) [Mass/Vol] 34.6 g/dL 32-36 [facility] Work Phone: Nitrite Test strip Ql (U)on 05-28-2022 Nitrite Ql (U) Negative Negative [facility] Work Phone: [phone] No Panel Informationon 05-28 Thyroid Stimulating Hormone (TSH) 1.10 uIU/mL 0.358-3.74 [facility] Work Phone: Estimated GFR (MDRD) Amer 82 mL/min >60 [facility] Work Phone: Comment on above: GFR Calc Estimated GFR (MDRD) Non-Af Amer 67 mL/min >60 [facility] Work Phone: Comment on above: Non- GFR Calc Platelets bldon 05-28-2022 Platelets (Bld) [#/Vol] 256 10*3/uL 150-450 [facility] Work Phone: Protein Test strip Ql (U)on 05-28-2022 Protein Ql (U) Negative Negative [facility] Work Phone: Segmented neutrophils/100 WB C Auto (Bld)on 05-28-2022 Segmented neutrophils/100 WBC (Bld) 59.5 % 47-70 [facility] Work Phone: Serum or plasma albumin ewa urement (mass/volume)on 05-28-2022 Albumin [Mass/Vol] 3.8 g/dL 3.2-5.0 [facility] Work Phone: Serum or plasma albumin/glob ulin mass ratioon 05-28-2022 Albumin/Globulin [Mass ratio] 1.1 {ratio} 0.9-2.4 [facility] Work Phone: Serum or plasma calcium ewa urement (mass/volume)on 05-28-2022 Calcium [Mass/Vol] 8.9 mg/dL 8.5-10.1 [facility] Work Phone: Serum or plasma cholesterol in HDL measurement (mass/volume)on 05-28-2022 Cholesterol in HDL [Mass/Vol] 58 mg/dL >40 [facility] Work Phone: Comment on above: The drugs N-Acetylcy steine and Metamizole may falsely depress this assay. Reference Range HDL <40 mg/dL Low HDL Cholesterol HDL >or= 60 mg/dL High HDL Cholesterol Serum or plasma cholesterol in VLDL measurement (mass/volume)on 05-28-2022 Cholesterol in VLDL [Mass/Vol] 16 mg/dL 5-40 [facility] Work Phone: Serum or plasma creatinine m easurement (mass/volume)on 05-28-2022 Creatinine [Mass/Vol] 0.96 mg/dL 0.55-1.02 [facility] Work Phone: Comment on above: The validity of the calculated GFR & GFRAA in patients over 70 years has not been determined. Clinical correlation is essential. Serum or plasma low density lipoprotein (LDL) cholesterol measurement (mass/volume)on 05-28-2022 Cholesterol in LDL [Mass/Vol] 126 mg/dL 0-130 [facility] Work Phone: Serum or plasma urea nitroge n measurement (mass/volume)on 05-28-2022 Urea nitrogen [Mass/Vol] 16 mg/dL 7-18 [facility] Work Phone: Serum or plasma uric acid me asurement (mass/volume)on 05-28-2022 Urate [Mass/Vol] 4.2 mg/dL 2.6-6.0 [facility] Work Phone: Comment on above: The drugs N-Acetylcy steine and Metamizole may falsely depress this assay. Thin prep Papanicolaou smear with manual screeningon 05-28-2022 Thin prep Papanicolaou smear with manual screening 12 U/L 15-37 [facility] Work Phone: Thin prep Papanicolaou smear with manual screening 6 5-15 [facility] Work Phone: Thin prep Papanicolaou smear with manual screening 128 U/L 84-246 [facility] Work Phone: Urine blood detectionon 05-17 RBC Ql (U) 10 /ul Negative [facility] Work Phone: Urine clarityon 05-28-2022 Clarity (U) Clear Clear [facility] Work Phone: Urine color determinationon 05-28-2022 Color (U) Straw Yellow [facility] Work Phone: Urine glucose detectionon Glucose Ql (U) Normal mg/dl Normal [facility] Work Phone: Urine leukocyte esterase det ection by dipstickon 05-28-2022 Leukocyte esterase Test strip Ql (U) Negative Negative [facility] Work Phone: Urine pHon 05-28-2022 pH (U) 6.5 [pH] 5.0 - 8.0 [facility] Work Phone: Urine specific gravity measu rementon 05-28-2022 Specific gravity (U) [Rel density] 1.010 1.002-1.030 [facility] Work Phone: Urobilinogen Auto test strip Ql (U)on 05-28-2022 Urobilinogen Ql (U) Normal mg/dl Normal [facility] Work Phone: Beta hCG serum qualon 2021 Beta HCG ( test) Ql Negative [facility] Work Phone: Laboratory - Microbiology an d Antimicrobial susceptibilityon 09-19-2021 SARS-CoV-2 (COVID-19) RNA SUHAIL+probe Ql (Unsp spec) Detected [facility] Work Phone: Vital Signs Date Time Vital Sign Value Performing Clinician Faci lity 06-30-2024 13:58-0400 Body height 172.7 cm Colleen Larry MD Work Phone: [facility] 06-30-2024 13:58-0400 Body mass index (BMI) [Ratio] 29.19 kg/m2 Colleen Larry MD Work Phone: [facility] 06-30-2024 13:58-0400 Body weight 87.09 kg Colleen Larry MD Work Phone: [facility] 08-13-2023 11:08-0500 Body height 172.[address] Sumit Reid Work Phone: [facility] 08-13-2023 11:07-0500 Body mass index (BMI) [Ratio] 28.7 kg/m2 Dr. Sumit Reid Work Phone: [facility] 08-13-2023 11:07-0500 Body weight 85.[address] Sumit Reid Work Phone: [facility] 08-13-2023 11:07-0500 Diastolic blood pressure 76 mm[Hg] Dr. Sumit Reid Work Phone: [facility] 08-13-2023 11:07-0500 Systolic blood pressure 130 mm[Hg] Dr. Sumit Reid Work Phone: [facility] 07-15-2023 11:06-0400 Body mass index (BMI) [Ratio] 28.6 kg/m2 Dr. Sumit Reid Work Phone: [facility] 07-15-2023 11:06-0400 Body weight 85.[address] Sumit Reid Work Phone: [facility] 07-15-2023 11:06-0400 Diastolic blood pressure 80 mm[Hg] Dr. Sumit Reid Work Phone: [facility] 07-15-2023 11:06-0400 Systolic blood pressure 120 mm[Hg] Dr. Sumit Reid Work Phone: [facility] 07-02-2023 17:51-0400 Body temperature 97.9 [degF] Dr. Sumit Reid Work Phone: [facility] 07-02-2023 17:51-0400 Diastolic blood pressure 74 mm[Hg] Dr. Sumit Reid Work Phone: [facility] 07-02-2023 17:51-0400 Heart rate 72 /min Dr. Sumit Reid Work Phone: [facility] 07-02-2023 17:51-0400 Respiratory rate 16 /min Dr. Sumit Reid Work Phone: [facility] 07-02-2023 17:51-0400 SaO2% (BldA) [Mass fraction] 97 % Dr. Sumit Reid Work Phone: [facility] 07-02-2023 17:51-0400 Systolic blood pressure 121 mm[Hg] Dr. Sumit Reid Work Phone: 6(282)226-403187 [place] [address] 07-02-2023 13:45-0400 Inhaled oxygen flow rate 4 L/min Dr. Sumit Reid Work Phone: 7(546)238-940033 [address] 07-02-2023 08:58-0400 Body height 172.[address] Sumit Reid Work Phone: 7(130)539-900287 [place] [address] 07-02-2023 08:58-0400 Body mass index (BMI) [Ratio] 28.6 kg/m2 Dr. Sumit Reid Work Phone: 1(209)476-354297 [place] [address] 07-02-2023 08:58-0400 Body weight 85.[address] Sumit Reid Work Phone: 5(351)886-165197 [place] [address] 06-03-2023 14:00-0400 Body mass index (BMI) [Ratio] 28.6 kg/m2 Dr. Sumit Reid Work Phone: 0(920)490-636597 [place] [address] 06-03-2023 14:00-0400 Body weight 85.[address] Sumit Reid Work Phone: 2(140)021-762797 [place] [address] 06-03-2023 14:00-0400 Diastolic blood pressure 79 mm[Hg] Dr. Sumit Reid Work Phone: 5(952)950-721787 [place] [address] 06-03-2023 14:00-0400 Systolic blood pressure 122 mm[Hg] Dr. Sumit Reid Work Phone: 5(232)912-696287 [place] [address] 02-04-2023 08:48-0400 Body height 172.[address] Sumit Reid Work Phone: 0(897)951-898097 [place] [address] 02-04-2023 08:48-0400 Body mass index (BMI) [Ratio] 27.8 kg/m2 Dr. Sumit Reid Work Phone: 9(052)535-770497 [place] [address] 02-04-2023 08:48-0400 Body weight [address] Sumit Reid Work Phone: [facility] 02-04-2023 08:48-0400 Diastolic blood pressure 77 mm[Hg] Dr. Sumit Reid Work Phone: [facility] 02-04-2023 08:48-0400 Systolic blood pressure 127 mm[Hg] Dr. Sumit Reid Work Phone: [facility] 12-18-2022 12:45-0400 Body temperature 97.4 [degF] Dr. Sumit Reid Work Phone: [facility] 12-18-2022 12:45-0400 Diastolic blood pressure 83 mm[Hg] Dr. Sumit Reid Work Phone: [facility] 12-18-2022 12:45-0400 Heart rate 53 /min Dr. Sumit Reid Work Phone: [facility] 12-18-2022 12:45-0400 Respiratory rate 16 /min Dr. Sumit Reid Work Phone: [facility] 12-18-2022 12:45-0400 SaO2% (BldA) [Mass fraction] 100 % Dr. Sumit Reid Work Phone: [facility] 12-18-2022 12:45-0400 Systolic blood pressure 119 mm[Hg] Dr. Sumit Reid Work Phone: [facility] 12-18-2022 09:45-0400 Body mass index (BMI) [Ratio] 26.8 kg/m2 Dr. Sumit Reid Work Phone: [facility] 12-18-2022 09:45-0400 Body weight 80.[address] Sumit Reid Work Phone: [facility] 11-01-2022 10:59-0500 Body mass index (BMI) [Ratio] 27 kg/m2 Dr. Sumit Reid Work Phone: [facility] 11-01-2022 10:59-0500 Body weight 80.[address] Sumit Reid Work Phone: [facility] 11-01-2022 10:59-0500 Diastolic blood pressure 98 mm[Hg] Dr. Sumit Reid Work Phone: [facility] 11-01-2022 10:59-0500 Systolic blood pressure 158 mm[Hg] Dr. Sumit Reid Work Phone: [facility] 01-31-2022 12:54-0400 Body height 172.[address] Sumit Reid Work Phone: [facility] Work Phone: 01-31-2022 12:54-0400 Body mass index (BMI) [Ratio] 28.5 kg/m2 Dr. Sumit Reid Work Phone: [facility] Work Phone: 01-31-2022 12:54-0400 Body weight 85.[address] Sumit Reid Work Phone: [facility] Work Phone: 01-31-2022 12:54-0400 Diastolic blood pressure 76 mm[Hg] Dr. Sumit Reid Work Phone: [facility] Work Phone: 01-31-2022 12:54-0400 Systolic blood pressure 118 mm[Hg] Dr. Sumit Reid Work Phone: [facility] Work Phone: 12-20-2021 11:16-0400 Body height 172.[address] Sumit Reid Work Phone: [facility] Work Phone: 12-20-2021 11:16-0400 Body mass index (BMI) [Ratio] 28.1 kg/m2 Dr. Sumit Reid Work Phone: [facility] Work Phone: 12-20-2021 11:16-0400 Body weight 84.[address] Sumit Reid Work Phone: [facility] Work Phone: 12-20-2021 11:16-0400 Diastolic blood pressure 82 mm[Hg] Dr. Sumit Reid Work Phone: [facility] Work Phone: 12-20-2021 11:16-0400 Heart rate 100 /min Dr. Sumit Reid Work Phone: [facility] Work Phone: 12-20-2021 11:16-0400 Respiratory rate 18 /min Dr. Sumit Reid Work Phone: [facility] Work Phone: 12-20-2021 11:16-0400 SaO2% (BldA) [Mass fraction] 98 % Dr. Sumit Reid Work Phone: [facility] Work Phone: 12-20-2021 11:16-0400 Systolic blood pressure 121 mm[Hg] Dr. Sumit Reid Work Phone: [facility] Work Phone: 10-19-2021 08:30-0500 Body temperature 97.6 [degF] Dr. Sumit Reid Work Phone: [facility] Work Phone: 10-19-2021 08:30-0500 Diastolic blood pressure 76 mm[Hg] Dr. Sumit Reid Work Phone: [facility] Work Phone: 10-19-2021 08:30-0500 Heart rate 50 /min Dr. Sumit Reid Work Phone: [facility] Work Phone: 10-19-2021 08:30-0500 Respiratory rate 16 /min Dr. Sumit Reid Work Phone: [facility] Work Phone: 10-19-2021 08:30-0500 SaO2% (BldA) [Mass fraction] 100 % Dr. Sumit Reid Work Phone: [facility] Work Phone: 10-19-2021 08:30-0500 Systolic blood pressure 119 mm[Hg] Dr. Sumit Reid Work Phone: [facility] Work Phone: 10-19-2021 06:41-0500 Body mass index (BMI) [Ratio] 27.9 kg/m2 Dr. Sumit Reid Work Phone: [facility] Work Phone: 10-19-2021 06:41-0500 Body weight 83.[address] Sumit Reid Work Phone: [facility] Work Phone: 09-19-2021 05:37-0500 Body temperature 98.3 [degF] Dr. Sumit Reid Work Phone: [facility] Work Phone: 09-19-2021 05:37-0500 Diastolic blood pressure 86 mm[Hg] Dr. Sumit Reid Work Phone: [facility] Work Phone: 09-19-2021 05:37-0500 Heart rate 84 /min Dr. Sumit Reid Work Phone: [facility] Work Phone: 09-19-2021 05:37-0500 Respiratory rate 16 /min Dr. Sumit Reid Work Phone: [facility] Work Phone: 09-19-2021 05:37-0500 SaO2% (BldA) [Mass fraction] 98 % Dr. Sumit Reid Work Phone: [facility] Work Phone: 09-19-2021 05:37-0500 Systolic blood pressure 126 mm[Hg] Dr. Sumit Reid Work Phone: [facility] Work Phone: Encounters Encounter Date Encounter Type Care Provider Facility Start: 02-01-2025 End: 02-01-[address] Richelle Moreno [place] -[facility] Work Phone: Start: 02-01-2025 End: 02-01-[address] Elsie Reid MD Work Phone: [facility] Work Phone: Start: 12-21-2024 End: 12-21-[address] Richelle Moreno [place] -[facility] Work Phone: Start: 12-21-2024 End: 12-21-2024 ambulatory Elsie Reid Facility:[facility] Start: 10-22-2024 End: 10-22-[address] Richelle Moreno [place] -[facility] Work Phone: Start: 10-22-2024 End: 10-22-2024 ambulatory Elsie Reid Facility:[facility] Start: 09-14-2024 End: 09-14-2024 ambulatory Elsie Reid [facility] Start: 08-14-2024 End: 08-14-2024 [facility] Facility:[facility] Start: 07-20-2024 End: 07-20-2024 ambulatory [facility] Facility:[facility] Start: 07-06-2024 [facility] Fac[facility]ity[facility] Start: 07-02-2024 End: 07-02-2024 Office consultation new/estab patient 60 min Colleen Larry MD Work Phone: Sleep Medicine [facility] Comment on above: Insomnia, unspecifie d type (Primary Dx) Start: 07-02-2024 ambulatory COLLEEN Sommer lity:[facility] Start: 06-30-2024 End: 06-30-2024 ambulatory Elsie Reid Facility:[facility] Start: 06-16-2024 End: 06-16-2024 ambulatory Elsie Reid Facility:[facility] Start: 05-19-2024 ambulatory Elsie Reid Faci lity:[facility] Start: 05-19-2024 End: 05-19-2024 ambulatory Elsie Reid Facility:[facility] Start: 05-04-2024 End: 05-04-2024 ambulatory Elsie Reid Facility:[facility] Start: 03-23-2024 End: 03-23-2024 ambulatory Elsie Reid Facility:[facility] Start: 03-02-2024 End: 03-02-2024 ambulatory Elsie Reid Facility:[facility] Start: 12-16-2023 End: 12-16-2023 ambulatory MEENA ESQUEDA Facility:[place] Start: 12-16-2023 End: 12-16-2023 Patient encounter procedure Meena Esqueda OD Work Phone: Optometry Comment on above: Hyperopia of both ey es (Primary Dx); Regular astigmatism of both eyes Start: 08-13-2023 End: 08-13-[address] Sumit Reid Work Phone: [facility] Work Phone: Start: 08-13-2023 End: 08-13-[address] Sumit Reid Work Phone: [facility] Work Phone: Start: 08-13-2023 End: 08-13-[address] Sumit Reid Work Phone: [facility] Work Phone: Start: 07-15-2023 End: 07-15-[address] Sumit Reid Work Phone: [facility] Work Phone: Start: 07-02-2023 Non-patient / Non-visit Dr. Sumit Reid Work Phone: [facility] Start: 07-02-2023 End: 07-02-2023 Admission to same day surgery center Dr. Sumit Reid Work Phone: [facility] Start: 07-02-2023 End: 07-02-[address] Sumit Reid Work Phone: [facility] Work Phone: Start: 07-01-2023 Non-patient / Non-visit Dr. Sumit Reid Work Phone: [facility] Start: 06-10-2023 End: 06-10-[address] Sumit Reid Work Phone: [facility] Work Phone: Start: 06-03-2023 End: 06-03-[address] Sumit Reid [facility] Phone[facility] Start: 05-08-2023 End: 05-08-[address] Sumit Reid Work Phone: [facility] Work Phone: Start: 05-08-2023 End: 05-08-[address] Sum[facility] Phone[facility] [facility] Work Phone: Start: 05-06-2023 End: 05-06-[address] Sumit Reid Work Phone: [facility] Work Phone: Start: 05-06-2023 End: 05-06-[address] Sumit Reid Work Phone: [facility] Work Phone: Start: 05-06-[address] Allen Reid Work Phone: [facility] Start: 04-29-2023 End: 04-29-[address] Sumit Reid Work Phone: [facility] Work Phone: Start: 02-18-2023 End: 02-18-[address] Sumit Reid Work Phone: [facility] Work Phone: Start: 02-13-2023 End: 02-13-[address] Sumit Reid Work Phone: [facility] Start: 02-04-2023 End: 02-04-[address] Sumit Reid Work Phone: [facility] Work Phone: Start: 02-04-2023 End: 02-04-[address] Sumit Reid Work Phone: [facility] Start: 02-04-2023 End: 02-04-[address] Sumit Reid Work Phone: [facility] Start: 01-17-2023 End: 01-17-[address] Sumit Reid Work Phone: [facility] Start: 01-07-2023 End: 01-07-[address] Sumit Reid Work Phone: [facility] Start: 12-27-2022 End: 12-27-[address] Sumit Reid Work Phone: [facility] Start: 12-18-2022 Non-patient / Non-visit Dr. Sumit Reid Work Phone: [facility] Start: 12-18-2022 End: 12-18-2022 Admission to same day surgery center Dr. Sumit Reid Work Phone: [facility] Start: 11-20-2022 End: 11-20-[address] Sumit Reid Work Phone: [facility] Start: 11-19-2022 End: 11-19-[address] Sumit Reid Work Phone: [facility] Start: 11-01-2022 End: 11-01-[address] Sumit Reid Work Phone: [facility] Start: 07-16-2022 End: 07-16-[address] Sumit Reid Work Phone: [facility] Work Phone: Start: 07-16-2022 End: 07-16-[address] Sumit Reid Work Phone: [facility] Start: 07-02-2022 End: 07-02-[address] Sumit Reid Work Phone: [facility] Start: 06-07-2022 End: 06-07-[address] Sumit Reid Work Phone: [facility] Start: 05-28-2022 End: 05-28-[address] Sumit Reid Work Phone: [facility] Work Phone: Start: 05-28-2022 End: 05-28-[address] Sumit Reid Work Phone: [facility], Specimen Start: 05-28-[address] Allen Reid Work Phone: [facility] Start: 05-14-2022 End: 05-14-[address] Sumit Reid Work Phone: [facility] Start: 04-03-2022 End: 04-03-[address] Sumit Reid Work Phone: [facility] Start: 02-19-2022 End: 02-19-[address] Sumit Reid Work Phone: [facility] Start: 01-31-2022 End: 01-31-[address] Sumit Reid Work Phone: [facility] Start: 01-10-2022 End: 01-10-[address] Sumit Reid Work Phone: [facility] Start: 01-03-2022 End: 01-03-[address] Sumit Reid Work Phone: [facility] Start: 01-01-2022 End: 01-01-[address] Sumit Reid Work Phone: [facility] Start: 12-20-2021 End: 12-20-[address] Sumit Reid Work Phone: [facility] Start: 11-02-2021 End: 11-02-[address] Sumit Reid Work Phone: [facility] Start: 10-19-2021 Non-patient / Non-visit Dr. Sumit Reid Work Phone: [facility] Start: 10-19-2021 End: 10-19-2021 Admission to same day surgery center Dr. Sumit Reid Work Phone: [facility] Start: 09-19-2021 End: 09-19-[address] Sumit Reid Work Phone: [facility] Procedures Date Procedure Procedure Detail Performing Clinician Start: 08-13-2023 Screening mammography Nawaf Reid Work Phone: Start: 07-02-[address] Pete Reid Work Phone: Start: 05-08-[address] Justina Reid Work Phone: Start: 07-16-2022 Screening mammography Nawaf Reid Work Phone: Start: 01-03-2022 Diagnostic radiograp hy of abdomen Dr. Sumit Reid Work Phone: Start: 01-01-2022 Diagnostic radiograp hy of abdomen Dr. Sumit Reid Work Phone: Plan of Treatment Date Care Activity Detail Author Start: 05-29-2026 Tetanus vaccination TETANUS [facility] Start: 05-29-2026 Urine microalbumin profile DTaP,Tdap,Td Vaccine (2 - Td or Tdap) [facility] Start: 05-17-2024 COVID-19 VACCINE ( season) COVID-19 VACCINE () [facility] Start: 05-17-2024 Influenza vaccination INFLUENZA VACCINE (#1) [facility] Start: 12-25-2023 Screening for malignant neoplasm of colon COLORECTAL CANCER SCREENING DISCUSSION [facility] Start: 09-16-2023 Depression Assessment Depression Assessment [facility] Start: 07-02-2023 Anesthesia intraperitoneal lower abd w/laps nos ANESTH SURG LOWER ABDOMEN [facility] Start: 07-02-2023 Laps w/vag hysterect 250 gm/&rmvl tube&/ovaries LAPARO-VAG HYST INCL T/O [facility] Start: 07-02-2023 Introduction of urinary catheter [facility] Start: 07-02-2023 Ambulation therapy management [facility] Start: 07-02-2023 Continuous pulse oximetry [facility] Start: 07-02-2023 Elevation of head of bed [facility] Start: 07-02-2023 Incentive spirometry [facility] Start: 07-02-2023 Measuring intake and output [facility] Start: 07-02-2023 Notification of physician [facility] Start: 07-02-2023 End: 07-02-2023 Oxygen therapy [facility] Start: 07-02-2023 Patient education [facility] Start: 07-02-2023 Procedures relating to eating and drinking [facility] Start: 07-02-2023 Taking patient vital signs [facility] Start: 07-02-2023 [facility] Start: 07-02-2023 Patient discharge [facility] Start: 05-17-2023 Covid-19 Vaccine () Covid-19 Vaccine () [facility] Start: 12-18-2022 Anesthesia anorectal procedure ANESTH ANORECTAL SURGERY [facility] Start: 12-18-2022 Hemorrhoidectomy int & xtrnl 2/> column/natividad REMOVE IN/EX HEM GROUPS 2+ [facility] Start: 12-18-2022 Patient discharge [facility] Start: 10-19-2021 Colonoscopy w/biopsy single/multiple COLONOSCOPY AND BIOPSY [facility] Work Phone: Start: 10-19-2021 Colsc flx w/rmvl of tumor polyp lesion snare tq COLONOSCOPY W/LESION REMOVAL [facility] Work Phone: Start: 10-19-2021 Egd transoral biopsy single/multiple EGD BIOPSY SINGLE/MULTIPLE [facility] Work Phone: Start: 2018 Lipid panel LIPID SCREENING [facility] Start: 2018 Screening for malignant neoplasm of breast [facility] Start: 01-29-2018 Screening for malignant neoplasm of cervix [facility] Start: 12-25-1999 Screening for malignant neoplasm of cervix CERVICAL CANCER SCREENING DISCUSSION [facility] Start: 1997 Hepatitis B vaccination HEP B VACCINE (1 of 3 - 19+ 3-dose series) [facility] Start: 1997 Hepatitis B Vaccine (1 of 3 - 19+ 3-dose series) Hepatitis B Vaccine (1 of 3 - 19+ 3-dose series) [facility] Start: 1996 Annual PCP Team Chronic Disease Visit Annual PCP Team Chronic Disease Visit [facility] Start: 1996 Hepatitis C screening Hepatitis C Screening [facility] Start: 1996 HIV screening HIV Screening [facility] Start: 1993 HIV screening HIV SCREENING DISCUSSION [facility] Start: 1978 Hepatitis C screening HEPATITIS C VIRUS SCREENING [facility] Start: 1978 Thyroid stimulating hormone measurement TSH [facility] MG Breast - bilatera l Screening [facility] Work Phone: MG Breast - bilatera l Screening [facility] Patient referral [facility] Work Phone: Immunizations Immunization Date Immunization Notes Care Provider [facility] 07-23-2024 influenza, seasonal, injectable, preservative free Dr. Elsie Reid MD Work Phone: [facility] 08-14-2023 influenza, injectabl e, quadrivalent, preservative free Dr. Sumit Reid Work Phone: [facility] 08-14-2023 influenza virus vaccine, unspecified formulation Colleen Larry MD Work Phone: [facility] 07-23-2022 influenza, injectabl e, quadrivalent, preservative free Dr. Sumit Reid Work Phone: [facility] 07-23-2022 influenza, seasonal, injectable Dr. Sumit Reid Work Phone: [facility] 07-19-2021 influenza, injectabl e, quadrivalent, preservative free Dr. Sumit Reid Work Phone: [facility] 07-19-2021 influenza, seasonal, injectable Dr. Sumit Reid Work Phone: [facility] 10-25-2020 Covid (Moderna) Dr. Felecia Reid Work Phone: [facility] 09-27-2020 Covid (Moderna) Dr. Felecia Reid Work Phone: [facility] 06-14-2020 influenza, injectabl e, quadrivalent, preservative free Dr. Sumit Reid Work Phone: [facility] 06-14-2020 influenza, seasonal, injectable Dr. Sumit Reid Work Phone: [facility] 07-20-2019 influenza, injectabl e, quadrivalent, preservative free Dr. Sumit Reid Work Phone: [facility] 07-20-2019 influenza, seasonal, injectable Dr. Sumit Reid Work Phone: [facility] 07-16-2018 influenza, injectabl e, quadrivalent, preservative free Dr. Sumit Reid Work Phone: [facility] 07-16-2018 influenza, seasonal, injectable Dr. Sumit Reid Work Phone: [facility] 07-10-2017 influenza, injectabl e, quadrivalent, preservative free Dr. Sumit Reid Work Phone: [facility] 07-10-2017 influenza, seasonal, injectable Dr. Sumit Reid Work Phone: [facility] 06-14-2016 influenza, injectabl e, quadrivalent, preservative free Dr. Sumit Reid Work Phone: [facility] 06-14-2016 influenza, seasonal, injectable Dr. Sumit Reid Work Phone: [facility] 06-16-2015 influenza, injectabl e, quadrivalent, preservative free Dr. Sumit Reid Work Phone: [facility] 06-16-2015 influenza, seasonal, injectable Dr. Sumit Reid Work Phone: [facility] 06-16-2014 influenza, injectabl e, quadrivalent, preservative free Dr. Sumit Reid Work Phone: [facility] 06-16-2014 influenza, seasonal, injectable Dr. Sumit Reid Work Phone: [facility] 08-10-[address] Sumit Reid Work Phone: [facility] 04-16-2009 tetanus and diphther ia toxoids, not adsorbed, for adult use Meena Esqueda OD Work Phone: [facility] Payers Date Payer Category Payer Self-pay [id number] 2023 Private Health Insurance [employer] [id number] 2023-Present [address] [place] [address] [id number] 2023 Unknown [id number] 2015 Unknown [employer] P [employer] VISION [id number] 2015-Present [address] [place] [address] Indemnity [id number] 2015 Unknown [id number] 2013 Unknown [id number] 1978 Unknown [id number] 594 Unknown [id number]. 462 Unknown [id number]. 462 Unknown [id number]. 462 Unknown [id number]. 462 Unknown [id number]. 462 Unknown [id number]. 462 Unknown [id number]. 462 Unknown [id number]. 462 Unknown [id number] [id number]. 462 Unknown [id number] [id number]. 462 Unknown [id number] [id number]. 462 Unknown [id number] [id number]. 462 Unknown [id number]. 462 Unknown [id number]. 462 Social History Date Type Detail Facility [facility] Work Phone: Start: 01-10-2022 End: 08-13-2023 Tobacco smoking status DEIS Unknown if ever smoked [facility] Start: 06-13-2020 Non-smoker [facility] Start: 1980 Sex Assigned At Female [facility] Start: 12-16-2023 End: 06-30-2024 Tobacco smoking status NHIS Never smoked tobacco [facility] Start: 12-16-2023 End: 06-30-2024 Tobacco use and exposure Smokeless tobacco non-user [facility] Start: 12-16-2023 End: 10-17-2024 Alcohol intake Current drinker of alcohol (finding) [facility] Start: 05-15-2021 End: 06-30-2024 History of Social function [facility] Start: 05-15-2021 End: 06-30-2024 Tobacco use panel [facility] National Score (1-100), lower number is lower risk 59 [facility] Start: 07-17-2016 Alcohol Comment Socially Karina [facility] Start: 1980 Sex Assigned At Not on file [facility] Start: 06-30-2024 Alcohol Comment occ [facility] NEGATED: Highlighted row [facility] Goals Date Patient Goal Desired Activity /State Mental Status Date Assessment Result Facility 07-02-2023 Cognitive function Voice/Name [facility] Work Phone: 12-18-2022 Cognitive function Voice/Name [facility] Work Phone: 10-19-2021 Cognitive function Voice/Name [facility] Work Phone: Clinical Notes 05-26-2009 to 10-22-2024 Note Date & Type Note Facility 10-22-2024 Evaluation note Diagnosis Onset Date Resolution Segmental and somatic dysfunction of cervical region acute October 22 3:50pm Segmental and somatic dysfunction of lumbar region acute October 22 3:50pm Segmental and somatic dysfunction of pelvic region acute October 22 3:50pm Segmental and somatic dysfunction of thoracic region acute October 22 3:50pm Segmental and somatic dysfunction of cervical region acute December 21, 2024 4:14pm Segmental and somatic dysfunction of lumbar region acute December 21, 2024 4:14pm Segmental and somatic dysfunction of pelvic region acute December 21, 2024 4:14pm Segmental and somatic dysfunction of thoracic region acute December 21, 2024 4:14pm Segmental and somatic dysfunction of cervical region acute February 01, 2025 4 :18pm Segmental and somatic dysfunction of lumbar region acute February 01, 2025 4 :18pm Segmental and somatic dysfunction of thoracic region acute February 01, 2025 4 :18pm [facility] Work Phone: [phone]) 736-373610-17-2024 History of Present illness Narrative* Cheli Preston MA - 07/02/2024 1:00 PM EDT I contacted patient on 06/30/2024 2:10 PM. Answers were put into visit during pre-charting. Will the patient be in the [facility] at the time of the telehealth visit? Yes If no, notify your optimization manager & clinical optimization manager of potential issue Confirm mode for the visit is Operative Mindhart Video visit: Operative Mindhart Operative Mindhart - confirm patients knows to login 15 min in advance. Yes I entered/confirmed pharmacy and updated on chart. Yes I reviewed allergies and marked reviewed on chart: Yes I reviewed tobacco use and updated on chart: Yes I reviewed medications and asked patient to have them available at time of visit. Additional medications not in med list added to list. Medications patient no longer taking removed from list. Yes Any refills needed (if yes, please queue up)? No I asked for any home vitals listed in the visit notes such as weight, blood pressure, etc and entered them into vitals. If patient is on Oxygen I documented their most recent oxygen level in the [id number].Yes Informed patient that if they do not receive link for their video visit within 15 minutes of scheduled appointment time, to contact that office directly to see if clinic is running late? Yes Sleep Patients Only I completed the flowsheets for the [place] Sleepines Scale and FOSQ. No -stated wanted to complete via [employer] bc she is at work. * Colleen Larry MD - 07/02/2024 1:00 PM EDT Images from the original note were not included. I have had the pleasure of seeing Ms. Mahesh Pepper for evaluation at the [facility] clinic today. Impresssion: Mahesh Pepper has chronic insomnia- sleep onset and sleep-maintenance. Plan: We discussed that chronic insomnia most often is a result of high levels of arousal overpowering the sleep drive at bedtime. Cognitive behavioral therapy for Insomnia (CBT-I) is the cornerstone of treatment for chronic insomnia. It consists of the following components which we discussed: Sleep hygiene education Relaxation exercises Stimulus Control Sleep Restriction, if appropriate We discussed that chronic insomnia most often is a result of high levels of arousal overpowering the sleep drive at bedtime. Depending on your response to the measures that we discussed below, we candecide in the future whether a formal referral to a program for cognitive behavioral therapy (CBT) with one of our behavioral experts will be needed. At the end of the visit, we discussed the following regarding your insomnia: STEPS TO INCREASE SLEEP DRIVE: 1. Cut down on your time in bed. We will take advantage of the fact that the longer one is awake, the sleep drive increases (see picture below). It will be difficult in the beginning to cut down on your bedtime to no more than 6.5 hours per 24 hour period, as we discussed, because your body is usedto getting more time in bed than that. Start this on a weekend that you know you will not be driving to work. If you can endure the shorter bedtime hours for a few weeks, I predict your sleep will become considerably deeper and more refreshing. Obviously, the time out of bed has to be spent active and alert. If you simply substitute dozing somewhere else for time spent in bed, this will not help.Also, the time spent napping during the day is included in the above total. Sleep from 1030 pm- 5 am. Please wake up at the same time every day, including weekends. If you notice that you are sleeping better, then gradually increase your sleep hours by 15 minutes weekly until you obtain your regular amount of sleep (typically anywhere from 7-8 hours per day). 2. We agreed that you will try an on-line CBT-I program. If the initial sleep restriction does not work (after 3 weeks). This is a 6-week program designed to help you with insomnia. The Path to Better Sleep Course was developed by the Department of [employer] Affairs ([employer]) Mental Health Services, but the information applies to anyone with insomnia. Work your way through the program before the next appointment. Go to the following web site on a computer: www.[employer].[place].gov/insomnia/ On the web site, start the program by finding and clicking the button below: I will see you in 4 months time. Please note that if you need to cancel your follow up appointment, you need to call [phone] tore-schedule the appointment. Let me know if you have any questions. Colleentammi Larry M.D. Professor of Internal Medicine and Neuroscience Division of Pulmonary, Allergy, Critical Care, and Sleep Medicine [facility] FAX: [phone] Email: [email or web address] HPI: Subjective Chief complaint: hypersomnia and insomnia. Previous sleep study: No Positive airway pressure (PAP) device use: She goes to bed at 2130 on weekdays and 2230 on weekends. She awakens at 0500 on weekdays and 0630 on weekends. She estimates a total sleep time of 5 hours each night. She falls asleep in 20 minutes,and awakens 4 times per night. Naps: No ( [ ] per week for [ ] min). Abnormal work hours (outside 6am-7 pm): Yes. Sleep disordered breathing symptoms (last month) Loud Snoring Never Snorting or gasping Never Breathing stops, chokes, or struggles Never Sleepiness and fatigue frequency (last month) Tired upon awakening 3-4 times a week Very sleepy during the day 5-7 times a week Involuntarialy falling asleep Never Tired or Fatigued 5-7 times a week Fallen asleep driving Never Insomnia severity (last month). Currently having any of the following: Yes Difficulty falling asleep Mild Difficulty staying asleep Very Severe Problems waking up too early Very Severe Abnormal behaviors frequency (last month) Problems disturb bed partner s sleep 3-4 times a week Unusual behaviors during sleep Never Kicking while asleep Never Acting out dreams Never Violent behaviors while asleep Never Hypnagogic hallucinations Never Sleep paralysis Never Cataplexy (ever experienced) No Restless Leg Symptoms (Ever had these symptoms) Unpleasant sensations in legs and urge to move No Feelings in your legs occur mainly or only at rest Feelings in your legs improve with movement Feelings worse in the evening or night than in the morning Past Medical History: Diagnosis Date GERD (gastroesophageal reflux disease) Hypothyroidism Past Surgical History: Procedure Laterality Date HYSTERECTOMY 2022 KNEE SURGERY Right 2019 AUGMENTATION BREAST 2006 Allergies Allergen Reactions Sulfa Antibiotics Zinc Acetate High doses will get red faced Current Outpatient Medications Medication Instructions buPROPion (WELLBUTRIN) 150 mg, Oral, DAILY EVERY MORNING Doxycycline Hyclate 20 MG tablet Oral levothyroxine (SYNTHROID) 137 mcg, Oral, DAILY magnesium oxide (MAG-OX) 400 mg, Oral, DAILY Pantoprazole (PROTONIX) 40 mg, Oral, DAILY Potassium Chloride ER 20 MEQ Tab CR tablet Oral Probiotic Product (PROBIOTIC DAILY PO) Oral Social History Tobacco Use Smoking status: Never Smokeless tobacco: Never Vaping Use Vaping status: Never Used Substance Use Topics Alcohol use: Yes Comment: occ Drug use: Never Caffeine intake is [ 2 ] drinks per day, up until [ 4 ] hours before bed. Family History Problem Relation Age of Onset Hypertension Mother Lipid Disorder Mother Sleep Apnea Mother Hypertension Father Lipid Disorder Father Sleep Apnea Father Known family history of sleep disorders: None Review of Systems Weight has had [ 17 lbs gained], [ lbs lost] in the last year. Patient reported positive symptoms in the past month include: Morning headaches, Trouble concentrating, Memory problems All other systems are negative. Physical Exam Ht 1.727 m (5' 8) Wt 87.1 kg (192 lb) BMI 29.19 kg/m Smoking Status Never Body mass index is29.19 kg/m . Appears the stated age Not in distress, answered questions appropriately, affect is normal Laboratory and others: Previous medical records from [facility] were reviewed. Serum Chemistry:No results found for: SODIUM, POTASSIUM, CHLORIDE, CO2, BUN, CREATSERUM, GLUCOSE HBA1c: No results found for: HGBA1C Thyroid function tests:No results found for: TSH, XUS10CYD, CLK96MAE, TSHBASELINE, TSHULTRASEN, TSHRFT4 Lipid profile: No results found for: CHOLESTEROL, TRIG, HDL, LDLCALC No results found for: FERRITIN ECHO: No results found for this or any previous visit. Diagnostic Review: ESS 8 FOSQ 14 ODILON 20 IRLS MVAP 0.125 [place] Sleepiness Score (ESS) > 10 indicates daytime sleepiness but should not be the sole criteria for sleepiness. FOSQ-10 < 17.9 indicates decreased of quality of life due to impact sleepiness. IRLS score interpretation: 1-10: mild 11-20: moderate 21-30: severe 31-40: very severe Total ODILON score interpretation: 0-7 = No clinically significant insomnia 8-14 = Subthreshold insomnia 15-21 = Clinical insomnia (moderate severity) 22-28 = Clinical insomnia (severe) This telehealth visit is a real time video visit communication. During the scheduling process, thispatient has verbally consented to the submission of Telehealth visits and the patient is aware of the risks, benefits, and possible coinsurance/copay costs. Patient Location: [facility]* Patient Instructions* Colleen Larry MD - 07/02/2024 1:00 PM EDT Images from the original note were not included. 07/02/2024 Dear Ольга: It was good discussing your sleep problems with you on 07/02/2024 . This letter is simply to summarize our discussion and to remind you of the recommendations that were made at the time of your visit. We discussed that chronic insomnia most often is a result of high levels of arousal overpowering the sleep drive at bedtime. Depending on your response to the measures that we discussed below, we candecide in the future whether a formal referral to a program for cognitive behavioral therapy (CBT) with one of our behavioral experts will be needed. At the end of the visit, we discussed the following regarding your insomnia: STEPS TO INCREASE SLEEP DRIVE: 1. Cut down on your time in bed. We will take advantage of the fact that the longer one is awake, the sleep drive increases (see picture below). It will be difficult in the beginning to cut down on your bedtime to no more than 6.5 hours per 24 hour period, as we discussed, because your body is usedto getting more time in bed than that. Start this on a weekend that you know you will not be driving to work. If you can endure the shorter bedtime hours for a few weeks, I predict your sleep will become considerably deeper and more refreshing. Obviously, the time out of bed has to be spent active and alert. If you simply substitute dozing somewhere else for time spent in bed, this will not help.Also, the time spent napping during the day is included in the above total. Sleep from 1030 pm- 5 am. Please wake up at the same time every day, including weekends. If you notice that you are sleeping better, then gradually increase your sleep hours by 15 minutes weekly until you obtain your regular amount of sleep (typically anywhere from 7-8 hours per day). 2. We agreed that you will try an on-line CBT-I program. If the initial sleep restriction does not work (after 3 weeks). This is a 6-week program designed to help you with insomnia. The Path to Better Sleep Course was developed by the [facility] [place] [facility], but the information applies to anyone with insomnia. Work your way through the program before the next appointment. Go to the following web site on a computer: www.veter[employer]raining.[place].gov/insomnia/ On the web site, start the program by finding and clicking the button below: I will see you in 4 months time. Please note that if you need to cancel your follow up appointment, you need to call [phone] tore-schedule the appointment. Let me know if you have any questions. Colleen Larry M.D. Professor of Internal Medicine and Neuroscience Division of Pulmonary, Allergy, Critical Care, and Sleep Medicine [facility] FAX: [phone] Email: [email or web address] documented in this [facility]04-01-2024 NoteHNO ID: [id number] Author: MEENA ESQUEDA OD Service: ? Author Type: CV/CVN CV TSC SYSTEM OPERATOR Type: Progress Notes Filed: 12/16/2023 15:58 Note Text: ASSESSMENT/PLAN: 1. Hyperopia of both eyes - ICD9: 367.0, ICD10: H52.03 (primary diagnosis) 2. Regular astigmatism of both eyes - ICD9: 367.21, ICD10: H52.223 Glasses are an option if she desires. Continue to monitor her ocular health Recommended yearly exams. [facility] [place] Instructions* Patient Instructions* Meena Esqueda, OD - 12/16/2023 3:57 PM EDT ASSESSMENT/PLAN: 1. Hyperopia of both eyes - ICD9: 367.0, ICD10: H52.03 (primary diagnosis) 2. Regular astigmatism of both eyes - ICD9: 367.21, ICD10: H52.223 Glasses are an option if she desires. Continue to monitor her ocular health Recommended yearly exams. [facility] History of Present illness Narrative* Meena Esqueda OD - 12/16/2023 3:51 PM EDT ASSESSMENT/PLAN: 1. Hyperopia of both eyes - ICD9: 367.0, ICD10: H52.03 (primary diagnosis) 2. Regular astigmatism of both eyes - ICD9: 367.21, ICD10: H52.223 Glasses are an option if she desires. Continue to monitor her ocular health Recommended yearly exams. Meena Esqueda OD [facility] Discharge summary Author Tahira Russo [facility] July 02, 2023 12:54pm Note Date/Time July 02, 2023 9 :07am [facility] Medical Records Department [address] [place] [id number] Instructions for Home/Discharge Instructions 07/02/23 0906 MR#: [id number] Acct: [id number] Name: MAHESH PEPPER MAXIMILIAN Rep #:[id number] : 1980 42 From: Tahira león MD PCP: Dr. Sumit Reid MD Status: REG [facility] Discharge Instructions Diet Discharge Diet: No restrictions Activity May resume sexual activity in: 6 weeks Weight Bearing Status: Full weight bearing Dressing / Incision Call your doctor if your incision/area has: Continuous Slow Oozing, Sudden Increased Bleeding, Increased Pain/ Swelling, Increased Redness and Foul Smelling Discharge Call your doctor if you observe: Fever of 101 or Higher, Using more than 1 pad per hour, Shortness of breath, Chest pain and Uncontrolled pain Suture Line Care: Avoid Pulling/Pushing and Avoid Pinching/Bending Remove Dressing in: 1 week (if present) Cleanse incision/area with: Soap & Water and Keep Dressing Clean & Dry Follow Up Care Please Follow Up With: Tahira Russo MD When: Call to make an appointment with your doctor for a postop visit in 2 and 6weeks. Test Results: Test results from this visit will be discussed in further detail at your follow- up appointment, if applicable. Discharge Plan Admission Attending Provider: Tahira Russo Primary Care Provider: Sumit Reid Discharge Orders/Prescriptions Prescriptions: New oxycodone-acetaminophen [Percocet] 5-325 mg tablet 1 tab PO Q6H PRN (Reason: pain) 7 Days Qty: 20 0RF naproxen [naproxen] 500 mg tablet 500 mg PO BID PRN PRN (Reason: Pain) Qty: 30 1RF Continued levothyroxine 13 mcg capsule 13 mcg capsule 137 mcg PO DAILY bupropion HCl [Wellbutrin SR] 150 mg tablet sustained-release 12 hr 150 mg PO DAILY Saccharomyces boulardii [Daily Probiotic (S. boulardii)] 250 mg capsule 250 mg PO DAILY magnesium oxide 420 mg tablet 420 mg PO DAILY (DME) hydrocortisone 2.5%/lidocaine 5% suppository (compound) Suppository See Rx Instructions .Route Qty: 1 1RF Rx Instructions: rectally BID fluticasone propionate [Flonase Allergy Relief] 50 mcg/actuation [place],Suspension 1 spray INTRANASAL DAILY Rx Instructions: administer into each nostril potassium chloride 20 mEq tablet,ER particles/crystals 20 meq PO DAILY Qty: 90 3RF pantoprazole 40 mg tablet,delayed release (DR/EC) 40 mg PO DAILY Qty: 90 3RF Referrals / Follow Up: Sumit Reid MD [Primary Care Provider] - Disposition Disposition (needs filled in before D/C Order can be placed): Home, Self Care 07/02/23 5677<Electronically signed by Tahira Russo MD>Tahira Russo MD CC: Dr. Sumit Reid MD ~ Signed [facility] Work Phone: 1(804) 707-850410-17-2023 Procedure [facility] 07-02-2023 History and physical note Author Tahira Russo [facility] July 02, 2023 9:06am Note Date/Time July 01, 2023 1 :48pm [facility] Medical Records Department [address] [place] [address] History & Physical Exam 07/01/23 1348 MR#: [id number] Acct: [id number] Name: MAHESH PEPPER Rep #:[id number] : 1980 42 From: Tahira león MD PCP: Dr. Sumit Reid MD Status: [facility] Location: [place] [address] History and Physical Date of Admission: 07/02/23 Vital Signs 02/05/2308:48 06/03/2314:00 06/03/2314:02 Height 5 ft 8 in 5 ft 8 in 5 ft 8 in Weight: 188 lb 6 oz BMI 28.6 BP 122/79 H Intake Visit Reasons: pelvic pain Wafer Mounter Required: No Is patient in pain?: No Allergies Sulfa (Sulfonamide Antibiotics) Allergy (Verified 06/03/23 14:01) Unknownzinc Adverse Reaction (Intermediate, Verified 06/03/23 14:01) rash Medications bupropion HCl 150 mg tablet,12 hr sustained-release (Wellbutrin SR) 150 mg PO DAILY 11/05/19 [History Confirmed 06/03/23] levothyroxine 13 mcg capsule 137 mcg PO DAILY 04/11/20 [History Confirmed 06/03/23] Saccharomyces boulardii 250 mg capsule (Daily Probiotic (S. boulardii)) 250 mg PO DAILY 01/31/22 [History Confirmed 06/03/23] potassium chloride 20 mEq tablet,extended release(part/cryst) 20 meq PO DAILY #90 tabs 07/09/22 [Rx Confirmed 06/03/23] Hydrocortisone 2.5%/lidocaine 5% suppository (cmpd) (hydrocortisone 2.5%/lidocaine 5% suppository (compound)) #1 ea 11/01/22 [Rx Confirmed 04/29/23] fluticasone propionate 50 mcg/actuation nasal spray,suspension (Flonase Allergy Relief) 1 spray intranasal DAILY 12/11/22 [History Confirmed 06/03/23] magnesium oxide 420 mg tablet 420 mg PO DAILY 02/04/23 [History Confirmed 06/03/23] pantoprazole 40 mg tablet,delayed release 40 mg PO DAILY #90 tabs 02/12/23 [Rx Confirmed 06/03/23] PFSH Medical History Acid reflux Alcohol use Constipation Frequent headaches Gastric reflux Gastritis History of IBS Injury of left shoulder Left shoulder pain Lower GI bleeding Non-smoker Other serum reaction due to vaccination Other serum reaction due to vaccination, initial encounter Thyroid disease Thyroid disease Unspecified injury of left shoulder and upper arm, initial encounter Surgical History Breast implant status H/O right knee surgery History of delivery Hx of colonoscopy with polypectomy S/P endometrial ablation S/P hemorrhoidectomy Family History Mother Hypertension HyperlipidemiaFather Hypertension Hyperlipidemia Thyroid disorder Social History Smoking Status: Never smoker alcohol intake: current details: occasionally substance use type: does not use caffeine: Yes what type of physical activity do you participate in: aerobics frequency: 3-4 times per week seatbelt use: always do you feel safe at home: Yes additional social history: Yqmnacc-Yetg-Lmmhn 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 she has a history of an endometrial ablation and cycles are 1-2 weeks and painful not too heavy, more bleeding than before but not severe. lining was 4 mm. she has 4 fibroids present. she denies any pain with intercourse. History 2 Elective abortions Hx Para 2 Spontaneous abortions Hx # Term Pregnancies Ectopic pregnancies Hx # Pregnancies Multiple births # of living children Past Pregnancies Del. Date Name GA/Weeks Outcome Route Bth Weight Infant Gen Labor Lgth Anesthesia Del Locatn Provider FOB Unknown Nicole-2001 Unknown Jamarcus-2005 ROS Const Constitutional: Denies fatigue, weight gain or weight loss ENT ENT: Reports system reviewed and no additional complaints, except as documented Cardio Card: Denies chest pain Resp Resp: Denies cough or dyspnea GI GI: Reports as per HPI; Denies abdominal pain, constipation, nausea or vomiting : Denies nipple discharge, urinary frequency, urinary incontinence, urinary hesitancy, urinary urgency, vaginal discharge, vaginal dryness, vaginal odor or vaginal pruritus Musc Musc: Denies arthralgias, back pain or muscle weakness Skin Skin/Breast: Denies alopecia, change in hair, dry skin, breast mass, breast pain, breast skin changes or nipple discharge Neuro Neuro: Reports system reviewed and no additional complaints, except as documented Psych Psych: Reports system reviewed and no additional complaints, except as documented Endo Endo: Denies cold intolerance, excessive sweating, heat intolerance or polydipsia Chucky/Lymph Hematologic/Lymphatic: Denies easy bleeding, Denies easy bruising and Denies lymphadenopathy Exam Const General: cooperative, healthy appearing, comfortable and no acute distress Orientation: alert HENMN Head: normal to inspection and normocephalic Ears: hearing grossly normal bilaterally and external ears normal Nose: external nose normal and nares normal Face and sinus: normal facial exam Neck Neck: normal visual inspection and no lymphadenopathy Thyroid: thyroid normal Chest Chest palpation & inspection: normal inspection of the chest Resp Effort & Inspection: normal respiratory effort Auscultation: clear to auscultation bilaterally Cardio Rate: regular rate Rhythm: regular rhythm Heart Sounds: S1 normal and S2 normal GI Inspection: normal to inspection and non-distended Palpation: soft and no hepatosplenomegaly Musc Other: gross motor intact no deficits, full bilateral strength Skin General: no rashes or lesions noted Neuro General: patient alert, patient awake, moves all extremities and no focal motor deficits Motor: muscle tone normal throughout Extrem General: normal to inspection and no pedal edema Psych Appearance: grossly normal Mental Status: mental status grossly normal Affect: normal affect Speech and Movement: speech and movement normal Coding Level of Care Code Off vis,est,level 5 Diagnoses Pelvic pain R10.2 Dysmenorrhea N94.6 Assessment and Plan Assessment and Plan (1) Pelvic pain: Status: Acute Comment: s/p US proceed with lavhbs. 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 (2) Dysmenorrhea: Status: Acute Comment: post ablation, discussed NSAIDs, fibroids, discussed Myfembree with LAV. proceed with LAVHBS. Plan After discussing the patient's diagnosis and treatment plan options, patient wishes to proceed with surgical management. I have discussed with the patient the risks, benefits, and alternatives of the procedure which include but are notlimited to risks of anesthesia, bleeding, infection, possible damage to bowel, bladder, or surrounding vasculature which could lead to additional surgery to evaluate any complications. Patient agrees to procedure and wishes to proceed. ACOG/uptodate references given for additional information regarding procedure. 07/01/23 1348 <Electronically signed by Tahira Russo MD> Cosigner Signature (if applicable): CC: Dr. Sumit Reid MD; Dr. Tahira Russo MD~ Signed ADDENDUM by Dr. Thaira Russo MD on 07/02/23 at 0906 Addendum UPDATE- I have seen the patient and performed any clinically relevant updates to the history and physical exam. Tahira Russo MD 07/02/23 0906<Electronically signed by Tahira Russo MD> Cosigner Signature (if applicable): cc: Dr. Sumit Reid MD; Dr. Tahira Russo MD ~* Signed [facility] Work Phone: [phone]) 186-845909-10-2009 History of Past illness Narrative* Problem Noted Date Diagnosed Date Resolved Date Irregular menstrual cycle 05/26/2009 Excessive or frequent menstruation 05/26/2009 05/31/2010 documented as of this encounter (statuses as of 12/17/2023) [facility] Diagnosis Onset Date Resolution Status COVID-19 acute Abdominal bloating acute Constipation acute Personal history of colonic polyps acute Constipation acute Gastritis acute Back pain acute Segmental and somatic dysfunction of cervical region acute Segmental and somatic dysfunction of lumbar region acute Segmental and somatic dysfunction of pelvic region acute Segmental and somatic dysfunction of thoracic region acute [facility] Work Phone: Evaluation note* Diagnosis Onset Date Resolution Status Encounter for routine gynecological examination noneactive Back pain acute Segmental and somatic dysfunction of cervical region acute Segmental and somatic dysfunction of lumbar region acute Segmental and somatic dysfunction of thoracic region acute Back pain acute Segmental and somatic dysfunction of cervical region acute Segmental and somatic dysfunction of lumbar region acute Segmental and somatic dysfunction of thoracic region acute Back pain acute Segmental and somatic dysfunction of cervical region acute Segmental and somatic dysfunction of lumbar region acute Segmental and somatic dysfunction of thoracic region acute [facility] Work Phone: Evaluation note* Diagnosis Onset Date Resolution Status Back pain acute Segmental and somatic dysfunction of cervical region acute Segmental and somatic dysfunction of lumbar region acute Segmental and somatic dysfunction of thoracic region acute Back pain acute Segmental and somatic dysfunction of cervical region acute Segmental and somatic dysfunction of lumbar region acute Segmental and somatic dysfunction of thoracic region acute Back pain acute Segmental and somatic dysfunction of cervical region acute Segmental and somatic dysfunction of lumbar region acute Segmental and somatic dysfunction of thoracic region acute [facility] Work Phone: Evaluation note* Diagnosis Onset Date Resolution Status Hemorrhoids acute Back pain acute Segmental and somatic dysfunction of cervical region acute Segmental and somatic dysfunction of lumbar region acute Segmental and somatic dysfunction of pelvic region acute Segmental and somatic dysfunction of thoracic region acute Hemorrhoids acute Hemorrhoids acute Back pain acute Segmental and somatic dysfunction of cervical region acute Segmental and somatic dysfunction of lumbar region acute Segmental and somatic dysfunction of pelvic region acute Segmental and somatic dysfunction of thoracic region acute Hemorrhoids acute Dysmenorrhea acute Encounter for routine gynecological examination noneactive Hemorrhoids acute [facility] Work Phone: Evaluation note* Diagnosis Onset Date Resolution Status Hemorrhoids acute Dysmenorrhea acute Encounter for routine gynecological examination noneactive Hemorrhoids acute Back pain acute Segmental and somatic dysfunction of cervical region acute Segmental and somatic dysfunction of lumbar region acute Segmental and somatic dysfunction of pelvic region acute Segmental and somatic dysfunction of thoracic region acute Back pain acute Segmental and somatic dysfunction of cervical region acute Segmental and somatic dysfunction of lumbar region acute Segmental and somatic dysfunction of pelvic region acute Segmental and somatic dysfunction of thoracic region acute [facility] Work Phone: Evaluation note* Diagnosis Onset Date Resolution Status Back pain acute Segmental and somatic dysfunction of cervical region acute Segmental and somatic dysfunction of lumbar region acute Segmental and somatic dysfunction of pelvic region acute Segmental and somatic dysfunction of thoracic region acute Dysmenorrhea acute Pelvic pain acute Back pain acute Segmental and somatic dysfunction of cervical region acute Segmental and somatic dysfunction of lumbar region acute Segmental and somatic dysfunction of pelvic region acute Segmental and somatic dysfunction of thoracic region acute Dysmenorrhea acute Pelvic pain acute [facility] Work Phone: Evaluation note* Diagnosis Onset Date Resolution Status Back pain acute Segmental and somatic dysfunction of cervical region acute Segmental and somatic dysfunction of lumbar region acute Segmental and somatic dysfunction of pelvic region acute Segmental and somatic dysfunction of thoracic region acute Dysmenorrhea resolved Pelvic pain resolved Back pain acute Segmental and somatic dysfunction of cervical region acute Segmental and somatic dysfunction of lumbar region acute Segmental and somatic dysfunction of pelvic region acute Segmental and somatic dysfunction of thoracic region acute Dysmenorrhea resolved Pelvic pain resolved Postoperative examination no neactive Postoperative examination no neactive [facility] Work Phone: Evaluation note* Diagnosis Hyperopia of both eyes- Primary Regular astigmatism of both eyes Regular astigmatism [facility] Diagnosis Insomnia, unspecified type- Primary [facility] Additional Instructions Implant Used?: [facility] Work Phone: Reason for referral (narrative)No reason for referral information [facility] Work Phone: Chief Complaint and Reason for Visit Chief Complaint DRAINAGE, COUGH COVID TEST 2 wk fu 6 WK FU SITZ DAY 3 ABD PAIN LBP Reason for Visit COVID-19 Abdominal bloating Constipation Personal history of colonic polyps Constipation Gastritis Back pain Segmental and somatic dysfunction of cervical region Segmental and somatic dysfunction of lumbar region Segmental and somatic dysfunction of pelvic region Segmental and somatic dysfunction of thoracic region 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 Reason for Visit Encounter for routin e gynecological examination Back pain Segmental and somatic dysfunction of cervical region Segmental and somatic dysfunction of lumbar region Segmental and somatic dysfunction of thoracic region Back pain Segmental and somatic dysfunction of cervical region Segmental and somatic dysfunction of lumbar region Segmental and somatic dysfunction of thoracic region Back pain Segmental and somatic dysfunction of cervical region Segmental and somatic dysfunction of lumbar region Segmental and somatic dysfunction of thoracic region Chief Complaint 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 Back pain SCREENING Reason for Visit Back pain Segmental and somatic dysfunction of cervical region Segmental and somatic dysfunction of lumbar region Segmental and somatic dysfunction of thoracic region Back pain Segmental and somatic dysfunction of cervical region Segmental and somatic dysfunction of lumbar region Segmental and somatic dysfunction of thoracic region Back pain Segmental and somatic dysfunction of cervical region Segmental and somatic dysfunction of lumbar region Segmental and somatic dysfunction of thoracic region Chief Complaint HEMORRHOIDS Back pain HEMORRHOIDS EUA, 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 EUA, 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 4/4 Back pain S/P 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 Reason for Visit Hemorrhoids Back pain Segmental and somatic dysfunction of cervical region Segmental and somatic dysfunction of lumbar region Segmental and somatic dysfunction of pelvic region Segmental and somatic dysfunction of thoracic region Hemorrhoids Hemorrhoids Back pain Segmental and somatic dysfunction of cervical region Segmental and somatic dysfunction of lumbar region Segmental and somatic dysfunction of pelvic region Segmental and somatic dysfunction of thoracic region Hemorrhoids Dysmenorrhea Encounter for routine gynecological examination Hemorrhoids Chief Complaint S/P 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 Back pain Back pain Pelvic and perineal pain Reason for Visit Hemorrhoids Dysmenorrhea Encounter for routine gynecological examination Hemorrhoids Back pain Segmental and somatic dysfunction of cervical region Segmental and somatic dysfunction of lumbar region Segmental and somatic dysfunction of pelvic region Segmental and somatic dysfunction of thoracic region Back pain Segmental and somatic dysfunction of cervical region Segmental and somatic dysfunction of lumbar region Segmental and somatic dysfunction of pelvic region Segmental and somatic dysfunction of thoracic region Chief Complaint Back pain Pelvic and perineal pain pelvic pain Back pain Hysterectomy,LAVH, bilateral salpingectomy Hysterectomy,LAVH, bilateral salpingectomy Hysterectomy,LAVH, bilateral salpingectomy Reason for Visit Back pain Segmental and somatic dysfunction of cervical region Segmental and somatic dysfunction of lumbar region Segmental and somatic dysfunction of pelvic region Segmental and somatic dysfunction of thoracic region Dysmenorrhea Pelvic pain Back pain Segmental and somatic dysfunction of cervical region Segmental and somatic dysfunction of lumbar region Segmental and somatic dysfunction of pelvic region Segmental and somatic dysfunction of thoracic region Dysmenorrhea Pelvic pain Chief Complaint Back pain Pelvic and perineal pain pelvic pain Back pain Hysterectomy,LAVH, bilateral salpingectomy Hysterectomy,LAVH, bilateral salpingectomy Hysterectomy,LAVH, bilateral salpingectomy 2 wk LAVHBS SCREENING 6 wk LAVHBS Reason for Visit Back pain Segmental and somatic dysfunction of cervical region Segmental and somatic dysfunction of lumbar region Segmental and somatic dysfunction of pelvic region Segmental and somatic dysfunction of thoracic region Dysmenorrhea Pelvic pain Back pain Segmental and somatic dysfunction of cervical region Segmental and somatic dysfunction of lumbar region Segmental and somatic dysfunction of pelvic region Segmental and somatic dysfunction of thoracic region Dysmenorrhea Pelvic pain Postoperative examination Postoperative examination Chief Complaint Admit Date Back pain October 22, 2024 3 :50pm BACK PAIN December 21, 2024 4:14 pm BACK PAIN February 01, 2025 4:18p m Reason for Visit Admit Date Segmental and somatic dysfunction of cer vical region October 22, 2024 3:50pm Segmental and somatic dysfunction of lum bar region October 22, 2024 3:50pm Segmental and somatic dysfunction of pel [place] region October 22, 2024 3:50pm Segmental and somatic dysfunction of tho racic region October 22, 2024 3:50pm Segmental and somatic dysfunction of cer vical region December 21, 2024 4:14pm Segmental and somatic dysfunction of lum bar region December 21, 2024 4:14pm Segmental and somatic dysfunction of pel [place] region December 21, 2024 4:14pm Segmental and somatic dysfunction of tho racic region December 21, 2024 4:14pm Segmental and somatic dysfunction of cer vical region February 01, 2025 4:18pm Segmental and somatic dysfunction of lum bar region February 01, 2025 4:18pm Segmental and somatic dysfunction of tho racic region February 01, 2025 4:18pm Family History No Family History Records Found Relationship Condition Age at Onset Recorded Date/T snow mother Hypertension Unknown Hyperlipidemia Unknown father Hypertension Unknown Disorder of thyroid Unknown Advance Directives No Advanced Directives Records Found Advance Directive Response Recorded Date/ Time Living Will No October 16 3:09pm Power of Equipment Operating Engineer No October 16, 2021 3:09pm Advance Directive Response Recorded Date/ Time Living Will No December 11, 2022 10:55am Power of Equipment Operating Engineer No December 11 10:55am Advance Directive Response Recorded Date/ Time Living Will No June 28 8:12am Power of Equipment Operating Engineer No June 28, 2023 8:12am Advance Directive Response Recorded Date/ Time Living Will No June 28 7:12am Power of Equipment Operating Engineer No June 28, 2023 7:12am Summary Purpose Additional Source Comments Care Teams (unrecognized sec tion and content) Team Status: Active Member Role Status Dates Dr. Sumit Reid MD Family Provider Active Dr. Sumit Reid MD Primary Care Provider Activ e Team Status: Inactive Member Role Status Dates Dr. Sumit Reid MD Primary Care Provider, Refjesse junioring Provider Active Dr. Tahira Russo MD Attending Provider Active Team Status: Inactive Member Role Status Dates Dr. Sumit Reid MD Primary Care Provider, Refe rring Provider Active Dr. Richelle Moreno DC Attending Provider Active Team Status: Inactive Member Role Status Dates Dr. Sumit Reid MD Primary Care Provider, Refe rring Provider Active Dr. [place] Goss MD Attending Provider Active Team Status: Active Member Role Status Dates Dr. Sumit Reid MD Primary Care Provider Activ e Dr. [place] Goss MD Attending Provi daria, Referring Provider, Other Provider Active Team Status: Inactive Member Role Status Dates Dr. Sumit Reid MD Primary Care Provider Activ e Dr. [place] Goss MD Attending Provider, Referring Provider Active Team Status: Inactive Member Role Status Dates Dr. Sumit Reid MD Primary Care Provider Activ e Dr. Tahira Russo MD Attending Provider, Referr ing Provider Active Team Status: Active Member Role Status Dates Dr. Sumit Reid MD Primary Care Provider Activ e Dr. Tahira Russo MD Attending Provider, Referr ing Provider Active Team Status: Active Member Role Status Dates Dr. Sumit Reid MD Primary Care Provider Activ e Health Risk Assessment Attending Provider Active Team Status: Active Member Role Status Dates Dr. Sumit Reid MD Primary Care Provider Activ e Dr. Tahira Russo MD Attending Provider, Other Provider Active Team Status: Active Member Role Status Dates Dr. Sumit Reid MD Primary Care Provider Activ e Dr. 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 Elsie Reid MD Family Provider Active Dr. Elsie Reid MD Primary Care Provider Acti ve Team Status: Inactive Member Role Status Dates Dr. Elsie Reid MD Primary Care Provider Acti ve Start: October 22, 2024 End: October 22, 2024 Dr. Elsie Reid MD Referring Provider Active Start: October 22, 2024 End: October 22, 2024 Dr. Richelle Moreno DC Attending Provider Active S tart: October 22, 2024 End: October 22, 2024 Team Status: Inactive Member Role Status Dates Dr. Elsie Reid MD Primary Care Provider Acti ve Start: December 21, 2024 End: December 21, 2024 Dr. Elsie Reid MD Referring Provider Active Start: December 21, 2024 End: December 21, 2024 Dr. Richelle Moreno DC Attending Provider Active S tart: December 21, 2024 End: December 21, 2024 Team Status: Inactive Member Role Status Dates Dr. Elsie Reid MD Primary Care Provider Acti ve Start: February 01, 2025 End: February 01, 2025 Dr. Elsie Reid MD Referring Provider Active Start: February 01, 2025 End: February 01, 2025 Dr. Richelle Moreno DC Attending Provider Active S tart: February 01, 2025 End: February 01, 2025 Source Comments (unrecognize d section and content) In the event this informatio n is protected by the Federal Confidentiality of Alcohol and Drug Abuse Patient Records regulations: The Federal rules restrict any use of the information to criminally investigate or prosecute any alcohol or drug abuse patient.[facility] Reason for Visit (unrecogniz ed section and content) Reason Comments Yearly Exam Reason Comments Sleep Problem Waking up multiple t imes during the night. Wakes up tired Outside Orders [facility] sleep referral for (first available) Unspecified sleep disorder Specialty Diagnoses / Procedures Referred By Contac t Referred To Contact Sleep Medicine Diagnoses Sleep disorder, unspecified Elsie Reid MD [address] [place] [address] [facility] [address] [place] [address] Referral ID Status Reason Start Date Expiration Date V isits Requested Visits Authorized [id number] New Request 06/22/2024 07/17/2025 1 1 Inactive Administered Medications - up to 3 most recent administrations Administered Medications (un recognized section and content) Medication Order MAR Action Action Date Dose Rate Site tropicamide 0.5 % 1 Drop (MYDRIACYL) 1 Drop, BOTH EYES, ONCE, 1 dose, On 12/16/23 at 1600, FOR THE EYE Given 12/16/2023 4:00 PM EDT 1 Drop INFORMATION SOURCE (unrecogn ized section and content) DATE CREATED AUTHOR 12/17/2023 [facility] DATE CREATED AUTHOR AUTHOR'S ORGANIZ ATION 07/05/2024 [facility] DATE CREATED AUTHOR AUTHOR'S ORGANIZ ATION 02/02/2025 [facility] FOR RECORDS PERTAINING TO PATIENTS WHO ARE OR HAVE BEEN ENROLLED IN A CHEMICAL DEPENDENCY/SUBSTANCEABUSE PROGRAM, SOME INFORMATION MAY BE OMITTED. This clinical summary was aggregated from multiple sources. Caution should be exercised in using it in the provision of clinical care. This summary normalizes information from multiple sources, and as a consequence, information in this document may materially change the coding, format and clinical context of patient data. In addition, data may be omitted in some cases. CLINICAL DECISIONS SHOULD BE BASED ON THE PRIMARY CLINICAL RECORDS. [employer] provides no warranty or guarantee of the accuracy or completeness of information in this document.
[2025-03-19 15:08] LABS: ANTINUCLEAR ANTIBODIES DIRECT Positive (Negative); Anti-Chromatin <0.2 AI (0.0-0.9); Anti-Jo <0.2 AI (0.0-0.9); Anti-dsDNA Ab 1 IU/mL (0-9); SJOGREN'S Anti-SS-A test < 0.2 AI (0.0-0.9); SJOGREN'S Anti-SS-B test < 0.2 AI (0.0-0.9)
[2025-03-19 17:07] LABS: PROEL- A/G Ratio 1.4 (0.7-1.7); PROEL- Albumin 3.9 g/dL (2.9-4.4); PROEL- Alpha-1 Globulin 0.2 g/dL (0.0-0.4); PROEL- Alpha-2 Globulin 0.6 g/dL (0.4-1.0); PROEL- Beta Globulin 0.8 g/dL (0.7-1.3); PROEL- Gamma Globulin 1.0 g/dL (0.4-1.8); PROEL- Globulin, Total 2.7 g/dL (2.2-3.9); PROEL- TOTAL PROTEIN 6.6 g/dL (6.0-8.5); PROEL-M-Spike Not Observed g/dL (Not Observed)
== END | disposition home or self-care (01) ==
LOC: MTLAB 12:55
PROVIDERS: PCP Family Medicine; Referring Provider Family Medicine; Visit Provider Family Medicine
DX: M25.50 Pain in unspecified joint (principal); E03.9 Hypothyroidism, unspecified; R03.0 Elevated blood-pressure reading, without diagnosis of hypertension; R53.83 Other fatigue
CPT/HCPCS: 36415; 80053; 82043; 82306; 82570; 82607; 82728; 83001; 83002; 83540; 84165; 84432; 84439; 84443; 84481; 84550; 85025; 85652; 86038; 86140; 86225; 86235; 86431; 86800

== ENCOUNTER → 2025-06-01 | Outpatient (CLI) | payer OTHER, SELFPAY ==
--- OUTSIDE RECORDS SUMMARY | 2025-06-01 06:52 | XMS RPT_ITS | CCD ---
Author Organization [facility] Care Team Providers Care E Learning Manager Name Role Phone Dr. Sumit Reid Primary Care Provider [phone] Dr. Sumit Reid Referring Provider JUAN Kemp Attending Provider Friend, Dr. Kirkpatrick Attending Provider [phone] Friend, Dr. Kirkpatrick Other Provider [phone] Tawny SUSHI CHEF, SUSHI CHEF-C Rissa Erwin Attending Provider [phone] Dr. Richelle Moreno Attending Provider [phone] Dr. Sumit Reid Primary Care Provider [phone] Dr. Sumit Reid Referring Provider Donovan MORSE, SUSHI CHEF-C Izzy Attending Provider [phone] Dr. Richelle Moreno Attending Provider [phone] Dr. Sumit Reid Primary Care Provider [phone] Dr. Sumit Reid Referring Provider Dr. Richelle Moreno Attending Provider [phone] Dr. Sumit Reid Primary Care Provider [phone] Dr. Sumit Reid Referring Provider Dr. Jamaica Goss Attending Provider [phone] Dr. Richelle Moreno Attending Provider [phone] Dr. Jamaica Goss Referring Provider [phone] Dr. Jamaica Goss Other Provider Dr. Tahira Russo Attending Provider [phone] Dr. Sumit Reid Primary Care Provider Dr. Sumit Reid Referring Provider Dr. Jamaica Goss Attending Provider Dossi, Dr. Peoples Attending Provider [phone] Dr. Sumit Reid Primary Care Provider Dr. Sumit Reid Referring Provider Dossi, Dr. Peoples Attending Provider [phone] Dr. Tahira Russo Attending Provider [phone] Dr. Tahira Russo Other Provider [phone] Dr. Tahira Russo Referring Provider [phone] Dr. Sumit Reid Primary Care Provider Dr. Sumit Reid Referring Provider Dossi, Dr. Peoples Attending Provider [phone] Dr. Tahira Russo Attending Provider [phone] Dr. Tahira Russo Other Provider [phone] Dr. Tahira Russo Referring Provider [phone] Elsie Reid MD Primary Care Provider DODIE ESQUEDA Attending ELSIE Parson Primary Care Unavailabl e Unavailable Primary Care Provider UnavailELAN Camacho Attending Unavailable ELSIE REID Referring Unavaildalila Reid MD, Dr. Morley Primary Care Provider Dr. Elsie Reid MD Referring Provider [phone] Dossi ROXIE, Dr. Peoples Attending Provider [phone] Franklin ROBERTS, Dr. Morley Primary Care Provider Franklin ROBERTS, Dr. Morley Referring Provider Dossi ROXIE, Dr. Peoples Attending Provider [phone] Franklin ROBERTS, Dr. Morley Attending Provider [phone] Franklin ROBERTS, Dr. Morley Primary Care Provider Franklin ROBERTS, Dr. Morley Referring Provider Tiffanie FAUSTIN, Dr. Peoples Attending Provider Franklin, Becket Primary Care Unavailable Ranbrijesh, Jorgeer Referring Unavailable Dossi, Richelle Attending Unavailable Ranbrijesh, [place]et Primary Care Unavailable [facility]esh, [facility] Referring Unavailable Dossi, Richelle Attending Unavailable Ranney, Becket Primary Care Unavailable Ranney, [facility] Referring Unavailable Dossi, Richelle Attending Unavailable Ranstrathcona, Becket Primary Care Unavailable Assessment, Health Risk Referring Unavaila ble Assessment, Health Risk Attending Unavaila ble Ranbrijesh, Becket Primary Care Unavailable Ranney, Christopher Referring Unavailable Ranney, Christopher Attending Unavailable Ranney, Becket Primary Care Unavailable Ranney, Christopher Referring Unavailable Ranney, Christopher Attending Unavailable Ranney, Becket Primary Care Unavailable Marcanthony, Tahira Referring Unavailable Marcanthony, Tahira Attending Unavailable Ranstrathcona, Becket Primary Care Unavailable Dossi, Richelle Attending Unavailable Ranbrijesh, [facility] Referring Unavailable Ranney, Becket Primary Care Unavailable Ranney, Christleeer Referring Unavailable Dossi, Richelle Attending Unavailable Ranstrathcona, Becket Primary Care Unavailable Ranney, Jorgeer Referring Unavailable Dossi, Richelle Attending Unavailable Dossi, Richelle Attending Unavailable Ranstrathcona, Becket Primary Care Unavailable Ranney, Christleeer Referring Unavailable Dossi, Richelle Attending Unavailable Ranstrathcona, Becket Primary Care Unavailable Ranstrathcona, [facility] Referring Unavailable Ranstrathcona, Becket Primary Care Unavailable Ranney, [facility] Referring Unavailable Dossi, Richelle Attending Unavailable Ranstrathcona, Becket Primary Care Unavailable Ranney, [facility] Referring Unavailable Dossi, Richelle Attending Unavailable Allergies Allergy Classification Reported Allergen(s) Allergy Type Date of Onset Reaction(s) Facility (15 sources) Sulfonamides (Antibiotic); Translations: [SULFA (SULFONAMIDE ANTIBIOTICS)] Allergy to substance 5 [facility] (14 sources) Zinc; Translations: [ZINC] Drug Allergy 6 rash [facility] (2 sources) Sulfonamides (Antibiotic) Propensity to adverse reactions to drug 4 [facility] (2 sources) Zinc Acetate Drug Allergy 4 [facility] (1 source) Zinc Drug Allergy 5 [facility] Repository Medications Current Medications Medication Drug Class(es) [...] propionate 0.05 mg/actuat metered dose nasal spray (9 sources) Corticosteroid Start: 12-11-2022 take 50 ug nasal route once daily Fluticasone Propionate (Flonase Allergy Relief) 50 mcg/actuation [place],Suspension Active 1 NMA INTRANASAL DAILY December 11, 2022 12:00am administer into each nostril Start: 12-11-2022 take 1 spray(s) nasa l route once daily Fluticasone Propionate (Flonase Allergy Relief) 50 mcg/actuation [place],Suspension Active 1 SPRAY INTRANASAL DAILY December 10, 2022 11:00pm administer into each nostril Hydrocortisone 2.5%/Lidocain e 5% Suppository (Cmpd) [Hydrocortisone 2.5%/Lidocaine 5% Suppository (Compound)] (Hydrocortisone ) suppository (9 sources) Start: 11-01-2022 Hydrocortisone 2.5%/Lidocaine 5% Suppository (Cmpd) [Hydrocortisone 2.5%/Lidocaine 5% Suppository (Compound)] (Hydrocortisone ) suppository Active 0 .Route 1 1 November 01, 2022 1:00am rectally BID Start: 11-01-2022 Hydrocortisone 2.5%/Lidocaine 5% [...] mcg capsule Active 137 ug PO DAILY 0 April 11, 2020 10:28am Start: 11-03-2018 End: 04-11-2020 Levothyroxine 13 mcg capsule Discontinued 116 ug PO DAILY 0 November 03, 2018 2:00pm April 11, 2020 10:30am Start: 11-13-2017 End: 11-03-2018 Levothyroxine 13 mcg capsule Discontinued PO 0 November 13, 2017 1:00am November 03, 2018 [...] breakfast. magnesium oxide 420 mg oral tablet (11 sources) Start: 02-04-2023 take 1 tablet by [...] release (DR/EC) Active 40 mg PO DAILY 90 3 February 12, 2023 1:11pm Start: 05-15-2019 End: [...] 13, 2017 1:00am September 13, 2021 4:41pm Probiotic Product (PROBIOTIC DAILY PO) (2 sources) Probiotic Produc t (PROBIOTIC DAILY PO) Take by mouth. Active saccharomyces boulardii 250 mg oral capsule (11 sources) Start: 01-31-2022 take 1 capsule by mouth once daily Saccharomyces Boulardii (Daily Probiotic (S. Boulardii)) 250 mg capsule Active 250 mg PO DAILY January 31, 2022 12:00am Start: 01-31-2022 take 1 capsule by [facility] twice daily Saccharomyces Boulardii (Daily Probiotic (S. Boulardii)) 250 mg capsule Active 250 MG PO TWICE A DAY January 31, 2022 12:00am Completed/Discontinued Medications Medication Drug Class(es) Dates Sig (Normalized) Sig (Original) acetaminophen 325 mg / oxyCODONE hydrochloride 5 mg oral tablet (15 sources) Opioid Agonist Start: 07-02-2023 End: 07-15-2023 Oxycodone-Acetamino phen (Percocet) 5-325 mg tablet Discontinued 1 {tbl} PO EVERY 6 HOURS as needed for pain 20 7 0 July 02, 2023 July 15, 2023 11:07am Status post laparoscopy-assiste d vaginal hysterectomy Acquired absence of both cervix and uterus Start: 12-18-2022 End: 02-04-2023 Oxycodone-Acetaminophen 5-32 5 mg tablet Discontinued 1 - 2 {tbl} PO EVERY 6 HOURS as needed for pain 20 4 0 December 18, 2022 February 04, 2023 8:52am Postoperative pain Other acute postprocedural pain Start: 12-18-2022 End: 02-04-2023 take 1 tablet by mouth every six hours Oxycodone-Acetaminophen Discontinued 1 - 2 TABLET PO EVERY 6 HOURS 20 4 December 18, 2022 February 04, 2023 7:52am amoxicillin 875 mg / clavulanate 125 mg oral tablet (8 sources) Penicillin-class Antibacterial Start: 09-22-2024 End: 10-22-2024 Amoxicillin-Pot Clavulanate 875-125 mg tablet Discontinued 1 {tbl} PO TWICE A DAY 14 1 September 22, 2024 1:00am October 22, 2024 4:59pm Start: 09-06-2023 End: 09-16-2023 Amoxicillin-Pot Clavulanate 875-125 mg tablet Discontinued 1 {tbl} PO TWICE A DAY 20 10 0 September 06, 2023 1:00am September 15, 2023 1:00am September 16, 2023 1:04am azithromycin 250 mg oral tablet (4 sources) Macrolide Antimicrobial Start: 09-10-2024 End: 10-22-2024 Azithromycin 250 mg tablet Discontinued 0 PO .COMPLEX 6 0 September 10, 2024 1:00am October 22, 2024 4:59pm For 250 mg dose pack: take 500 mg today (day 1), then 250 mg for 4 days (days 2-5) PO bisacodyl 5 mg delayed release oral tablet (12 sources) Stimulant Laxative Start: 09-13-2021 End: 11-02-2021 take 1 tablet by mouth once Bisacodyl (Bisa-Lax (Bisacodyl)) 5 mg tablet,delayed release (DR/EC) Discontinued 5 mg PO ONCE 4 0 September 13, 2021 1:00am November 02, 2021 11:00am as directed for bowel prep cephalexin 500 mg oral tablet (12 sources) Cephalosporin Antibacterial Start: 07-26-2018 End: 08-02-2018 take 1 tablet by mouth every twelve hours Cephalexin 500 mg tablet Discontinued 500 mg PO Q12H 14 7 0 July 26, 2018 1:00am August 01, 2018 1:00am August 02, 2018 1:13am Esomeprazole (1 source) Proton Pump Inhibitor ESOMEPRAZOLE MAGNESIUM (NEXIUM ORAL) Take by mouth. 0 Active Comment on above: Take by mouth. fluconazole 150 mg oral tablet (12 sources) Azole Antifungal Start: 11-20-2021 End: 01-31-2022 take 1 tablet by mouth once Fluconazole (Diflucan) 150 mg tablet Discontinued 150 mg PO ONCE 1 0 November 20, 2021 1:00am January 31, 2022 12:52pm as a single dose hydrocortisone 25 mg/ml topical cream (9 sources) Corticosteroid Start: 11-01-2022 End: 06-03-2023 Hydrocortisone (Proctosol Hc) 2.5 % cream with perineal applicator Discontinued 1 NMA RC 2 to 4 times per day as needed for hemorrhoids 30 November 01, 2022 1:00am June 03, 2023 2:01pm lactobacillus acidophilus [id number] unt oral capsule (1 source) Start: 04-11-2020 lactobacillus acidophilus 100 mg (1 billion cell) cap(s) Take by mouth. 0 04/11/2020 Active Comment on above: Take by mouth. methylPREDNISolone 4 mg oral tablet (13 sources) Corticosteroid Start: 07-31-2021 End: 09-19-2021 take 1 tablet by mouth once daily Methylprednisolone (Medrol (Syd)) 4 mg tablets,dose pack Discontinued 4 mg PO DAILY 21 July 31, 2021 1:00am September 19, 2021 7:38am Start: 05-02-2020 End: 05-02-2020 Depo-Medrol (methylprednisol one acetate) 40 mg/mL suspension for injection Discontinued 40 MG INTRAARTIC ONCE May 02, 2020 12:54pm May 02, 2020 1:32pm naproxen 500 mg oral tablet (6 sources) Nonsteroidal Anti-inflammatory Drug Start: 07-02-2023 End: 08-13-2023 take 1 tablet by mouth twice daily as needed for pain Naproxen 500 mg tablet Discontinued 500 mg PO TWICE DAILY NEEDED as needed for Pain 30 July 02, 2023 12:00am August 13, 2023 12:08pm nitrofurantoin, macrocrystals 100 mg oral capsule (11 sources) Nitrofuran Antibacterial Start: 01-31-2022 End: 02-07-2022 take 1 capsule by mouth twice daily at mealtime Nitrofurantoin Macrocrystal 100 mg capsule Discontinued 100 mg PO TWICE A DAY 14 7 0 January 31, 2022 12:00am February 06, 2022 12:00am February 07, 2022 12:03am administer with food (meal or snack) nitrofurantoin, macrocrystals 25 mg / nitrofurantoin, monohydrate 75 mg oral capsule (20 sources) Nitrofuran Antibacterial Start: 12-26-2017 End: 12-31-2017 take 1 capsule by mouth every twelve hours at mealtime Nitrofurantoin Monohyd/M-Cryst (Macrobid) 100 mg capsule Discontinued 1 NMA PO Q12H 10 5 0 December 26, 2017 12:00am December 30, 2017 12:00am December 31, 2017 12:06am administer with a meal/food; swallow whole; do not open, crush, dissolve , or chew Start: 11-13-2017 End: 11-18-2017 take 1 capsule by mouth every twelve hours at mealtime Nitrofurantoin Monohyd/M-Cryst (Macrobid) 100 mg capsule Discontinued 100 mg PO Q12H 10 5 0 November 13, 2017 1:00am November 17, 2017 1:00am November 18, 2017 1:06am administer with a meal/food; swallow whole; do not open, crush, dissolve , or chew oxyCODONE hydrochloride 5 mg oral tablet (12 sources) Opioid Agonist Start: 06-21-2020 End: 01-10-2021 take 1-2 tablets by mouth every four hours as needed for pain Oxycodone 5 MG tablet Discontinued 5 mg PO EVERY 4 HOURS NEEDED as needed for Pain Score 4-5/10 60 0 June 21, 2020 January 10, 2021 8:38am Other acute postprocedural pain 1-2 tabs by mouth every 4 hrs as needed for pain polyethylene glycol 3350 60668 mg powder for oral solution (12 sources) Osmotic Laxative Start: 09-13-2021 End: 11-02-2021 Polyethylene Glycol 3350 (Miralax) 17 gram/dose powder Discontinued 17 g PO DAILY 238 0 September 13, 2021 1:00am November 02, 2021 11:00am as directed for bowel prep microencapsulated potassium chloride 20 meq extended release oral tablet (20 sources) Start: 05-30-2022 End: 10-20-2024 take 1 tablet by mouth once daily Potassium Chloride 20 mEq tablet,ER particles/crystals Discontinued 20 meq PO DAILY 90 3 September 20, 2023 10:48am October 20, 2024 9:11am Potassium Chlori de ER 20 MEQ Tab CR tablet Take by mouth. Active sucralfate 100 mg/ml oral suspension (20 sources) Aluminum Complex Start: 06-04-2022 End: 11-01-2022 take 1 mL by mouth at bedtime Sucralfate 100 mg/mL suspension Discontinued 10 mL PO before meals and at bedtime 1000 0 June 04, 2022 12:00am November 01, 2022 11:50am Start: 06-04-2022 End: 11-01-2022 take 1 mL by mouth at bedtime Sucralfate Discontinued 10 ML PO before meals and at bedtime 1000 June 03, 2022 11:00pm November 01, 2022 10:50am Start: 11-09-2021 End: 12-20-2021 take 1 mL by mouth 1 hour(s) before mealtime Sucralfate 100 mg/mL suspension Discontinued 10 mL PO before meals 1000 0 November 09, 2021 1:00am December 20, 2021 11:26am [...] Date Documented Da te Episodic/Chronic Abdominal pain (12 sources) Pain in pelvis; Translations: [Pelvic and perineal pain] 05-02-2023 Episodic Comment on above: s/p US proceed with lavhbs. 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 Anxiety disorders (12 sources) Anxiety; Translations: [Anxiety disorder, unspecified] 01-10-2021 Chronic Blindness and vision defects (4 sources) Bilateral hyperopia of eyes; Translations: [Hypermetropia, bilateral] Onset: 6 12-16-2023 Episodic Complications of surgical procedures or medical care (12 sources) Transfusion reaction due to serum protein reaction; Translations: [Other serum reaction due to vaccination, initial encounter] 07-31-2021 Episodic Esophageal disorders (12 sources) Gastroesophageal reflux disease; Translations: [Gastro-esophageal reflux disease without esophagitis] 06-21-2020 Chronic Fluid and electrolyte disorders (10 sources) Hypokalemia; Translations: [Hypokalemia] 06-07-2022 Episodic Gastritis and duodenitis (13 sources) Gastritis; Translations: [Gastritis, unspecified, without bleeding] Episodic Gastrointestinal hemorrhage (12 sources) Lower gastrointestinal hemorrhage; Translations: [Gastrointestinal hemorrhage, unspecified] 08-14-2021 Episodic Hemorrhoids (20 sources) Hemorrhoids; Translations: [Unspecified hemorrhoids] 11-02-2022 Episodic Immunizations and screening for infectious disease (5 sources) Patient encounter status; Translations: [Encounter for screening for human papillomavirus (HPV)] Onset: 9 05-26-2009 Episodic Influenza (4 sources) Influenza due to Influenza A virus; Translations: [Influenza due to other identified influenza virus with other respiratory manifestations] 10-30-2023 Episodic Menstrual disorders (16 sources) Dysmenorrhea; Translations: [Dysmenorrhea, unspecified] 02-04-2023 Chronic Comment on above: post ablation, discu ssed NSAIDs, fibroids, discussed Myfembree with LAV. proceed with [facility]. Other aftercare (2 sources) Encounter for follow-up examination after completed treatment for conditions other than malignant neoplasm; Translations: [Follow-up examination, following surgery, unspecified] 07-15-2023 Episodic Other and unspecified benign neoplasm (12 sources) History of polyp of colon; Translations: [...] Onset: 9 05-26-2009 Chronic Other gastrointestinal disorders (14 sources) Abdominal bloating; Translations: [Abdominal distension (gaseous)] 06-21-2020 Episodic Comment on above: RAST testing and dis cussed food avoidance Other gastrointestinal disorders (12 sources) Constipation; Translations: [Constipation, unspecified] 08-14-2021 Episodic Other gastrointestinal disorders (2 sources) Abdominal distension (gaseous); Translations: [Flatulence, eructation, and gas pain] Onset: 5 Episodic Other gastrointestinal disorders (2 sources) Constipation, unspecified; Translations: [Constipation, unspecified] Episodic Other injuries and conditions due to external causes (12 sources) Unspecified injury of left shoulder and upper arm, initial encounter; Translations: [Unspecified injury of left shoulder and upper arm, initial encounter] 07-31-2021 Episodic Other non-traumatic joint disorders (4 sources) Shoulder pain; Translations: [Pain in left shoulder] 07-31-2021 Episodic Other non-traumatic joint disorders (8 sources) Pain in left shoulder; Translations: [Left shoulder pain] 07-31-2021 Episodic Other non-traumatic joint disorders (1 source) Pain in unspecified joint; Translations: [Pain in unspecified joint] Onset: 5 Episodic Other upper respiratory disease (12 sources) Nasal congestion; Translations: [Nasal congestion] 09-19-2021 Episodic Residual codes; unclassified (6 sources) History of vaginal hysterectomy; Translations: [Acquired absence of both cervix and uterus] 07-02-2023 Episodic Residual codes; unclassified (2 sources) Insomnia; Translations: [Insomnia, unspecified] 07-02-2024 Episodic Spondylosis; intervertebral disc disorders; other back problems (20 sources) Backache; Translations: [Dorsalgia, unspecified] Onset: 4 Episodic Thyroid disorders (3 sources) Non-toxic uninodular goiter; Translations: [Nontoxic single thyroid nodule] Onset: 7 10-31-2006 Chronic Thyroid disorders (12 sources) Disorder of thyroid gland; Translations: [Disorder of thyroid, unspecified] 11-03-2018 Episodic Comment on above: ON MED Unclassified (2 sources) Sleep Problem; Translations: [Sleep Problem] Onset: 4 Urinary tract infections (12 sources) Urinary tract infectious disease; Translations: [Urinary tract infection, site not specified] 12-26-2017 Episodic Viral infection (13 sources) Disease caused by 2019-nCoV; Translations: [COVID-19] Episodic Past or Other Problems Problem Classification Problem Date Documented Da te Episodic/Chronic Other screening for suspected conditions (not mental disorders or infectious disease) (1 source) Encounter for screening mammogram for malignant neoplasm of breast; Translations: [Encounter for screening mammogram for malignant neoplasm of breast] Onset: 09-14-2024 Episodic Results Test Name Value Interpretation Reference Range Facility Chiropractic Reporton 2024 Chiropractic Report [facility] [address] [place] [address] OFFICE VISIT Date of Service: 05/03/25 MR#: [id number] Acct: [id number] Name: HUMZAMAHESH MAXIMILIAN Rep #: [id number] : 1980 Provider: ROXIE Padilla Age/Sex: 44/F [place] [facility] [place]: S[place] Intake Vital Signs 06/30/24 08:48 Height 5 ft 8 in Intake Visit Reasons: Back pain Chief Complaint: neck and low back pain Allergies Sulfa (Sulfonamide Antibiotics) Allergy (Verified 05/03/25 16:18) Unknown zinc Adverse Reaction (Intermediate, Verified 05/03/25 16:18) rash Medications ???Medication ???Instructions ???Recorded ???Confirmed ???Type bupropion HCl 150 mg tablet,12 hr 150 mg PO DAILY 11/05/19 05/03/25 History sustained-release (Wellbutrin SR) levothyroxine 13 mcg capsule 137 mcg PO DAILY 04/11/20 05/03/25 History Saccharomyces boulardii 250 mg 250 mg PO DAILY 01/31/22 05/03/25 History capsule (Daily Probiotic (S. boulardii)) Hydrocortisone 2.5%/lidocaine 5% #1 ea 11/01/22 05/03/25 Rx suppository (cmpd) (hydrocortisone 2.5%/lidocaine 5% suppository (compound)) fluticasone propionate 50 1 spray intranasal DAILY 12/11/22 05/03/25 History mcg/actuation nasal spray,suspension (Flonase Allergy Relief) magnesium oxide 420 mg tablet 420 mg PO DAILY 02/04/23 05/03/25 History pantoprazole 40 mg tablet,delayed 40 mg PO DAILY #90 tabs 02/12/23 05/03/25 Rx release potassium chloride 20 mEq 20 meq PO DAILY #90 tabs 10/20/24 05/03/25 Rx tablet,extended release(part/cryst) [facility] Medical History History of IBS Gastritis Alcohol [...] safe at home: Yes additional 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 Pt. c/o neck tension that extends down into and across her shoulder blades. She denies recent VALLEJO's. She also states her low back is sore and achy and is slightly worse on the left side. She states she helps her daughter with her twins often and holding them contributes to her discomfort. She has been using her posture pump for her neck pain and discomfort and treats back pain at home with heat, stretching and Ibuprofen as needed. She denies new injury, numbness, tingling, or radiculopathy. Pt. reports chiropractic adjustments are helpful in [...] right lower trapezius and Yes misalignment misalignment: C4, C5 and C6 Thoracic/Lumber: Yes thoracic and lumbar spine normal to inspection, Yes paraspinal tenderness on the left greater than right (thoracic,lumbar), Yes thoraco-lumbar spasm on the left greater than rig ht (trap, paraspinal (L2-L5)) and Yes misalignment T1, T2, T3, T4, L4, L5 and LIL Other: +inhalation Office Procedures Procedures - Chiropractic Procedures Manipulation: Lumbar L4, Thoracic T1 and T4 and Pelvis LIL Manipulation: 3-4 regions Traction, Mechanical: Yes Patient Response: positive Assessment and Plan Assessment and Plan (1) Segmental and somatic dysfunction of lumbar region: Status: Acute (2 (more content not included)... Normal [facility] Chiropractic Reporton 2024 Chiropractic Report [facility] [address] [place], [place] [id number] OFFICE VISIT Date of Service: 03/22/25 MR#: [id number] Acct: [id number] Name: MAHESH PEPPER Rep #: [id number] : 1980 Provider: ROXIE Padilla Age/Sex: 44/F Location: [facility] [place] Status: Signed Intake Vital Signs 06/30/24 08:48 Height 5 ft 8 in Intake Visit Reasons: Back pain Chief Complaint: neck and low back pain Is patient in pain?: Yes (neck and low back) Pain scale (1-10): 2 Allergies Sulfa (Sulfonamide Antibiotics) Allergy (Verified 03/22/25 16:32) Unknown zinc Adverse Reaction (Intermediate, Verified 03/22/25 16:32) rash Medications ???Medication ???Instructions ???Recorded ???Confirmed ???Type [...] #90 tabs 10/20/24 02/01/25 Rx tablet,extended release(part/cryst) [facility] Medical History History of IBS Gastritis Alcohol [...] safe at home: Yes additional social history: [employer] 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 Pt. c/o neck and low back pain. She c/o neck tension that extends down into and across her shoulder blades. She also complains of low back achiness and pain that is slightly worse on the left side. She rates her overall pain 2/10. She has been using her posture pump for her neck pain and discomfort and treats back pain at home with heat, stretching and Ibuprofen as needed. She denies new injury, numbness, tingling, or radiculopathy. Pt. reports chiropractic adjustments are helpful in [...] lordosis, Yes cervical muscular tenderness bilateral diffuse and Yes cervical spasm left greater than right lower trapezius Thoracic/Lumber: Yes thoracic and lumbar spine normal to inspection, Yes paraspinal tenderness on the left greater than right (thoracic,lumbar), Yes thoraco-lumbar spasm on the left greater than right (trap, paraspinal (L2-L5)) and Yes misalignment T1, T2, T3, T4, L4, L5 and LIL Other: +inhalation Office Procedures Procedures - Chiropractic Procedures Manipulation: Lumbar L4, Thoracic T1 and T4 and Pelvis LIL Manipulation: 3-4 regions Traction, Mechanical: Yes Patient Response: positive Assessment and Plan Assessment and Plan (1) Segmental and somatic dysfunction of lumbar region: Status: Acute (2) Segmental and somatic dysfunction of thoracic region (more content not included)... Normal [facility] MARILIA w/ Reflex Mult Confirmon 03-19-2025 MARILIA,DIRECT Positive Abnormal Negative [facility] Comment on above: Performed By: #### L 506.0400, L501.9520 #### [facility] [address] [place], [address] ANTI-DNA (DS)AB 1 IU/mL Normal 0-9 [facility] Comment on above: Result Comment: Nega tive <5 Equivocal 5 - 9 Positive >9 Performed By: #### L 506.0400, L501.9520 #### [facility] [address] [place], [address] ANTI-SS-A < 0.2 Normal 0.0-0.9 [facility] Comment on above: Performed By: #### L 506.0400, L501.9520 #### [facility] [address] [place], [address] ANTI-SS-B < 0.2 Normal 0.0-0.9 [facility] Comment on above: Performed By: #### L 506.0400, L501.9520 #### [facility] [address] [place], [address] Protein Electroph, Son 03-19 Albumin [Mass/Vol] 3.9 g/dL Normal 2.9-4.4 [facility] Comment on above: Order Comment: Order Date: 05/04/24 Order Info: 3016-3 - TSH Order Info: 3024-7 - T4F Performed By: #### L 506.0400, L501.9520 #### [facility] [address] [place], [address] Albumin/Globulin [Mass ratio] 1.4 {ratio} Normal 0.7-1.7 [facility] Comment on above: Order Comment: Order Date: 05/04/24 Order Info: 3016-3 - TSH Order Info: 3024-7 - T4F Performed By: #### L 506.0400, L501.9520 #### [facility] [address] [place], [address] ALPHA-1 GLOBUL 0.2 g/dL Normal 0.0-0.4 [facility] Comment on above: Order Comment: Order Date: 05/04/24 Order Info: 3016-3 - TSH Order Info: 3024-7 - T4F Performed By: #### L 506.0400, L501.9520 #### [facility] [address] [place], [address] ALPHA-2 GLOBUL 0.6 g/dL Normal 0.4-1.0 [facility] Comment on above: Order Comment: Order Date: 05/04/24 Order Info: 3016-3 - TSH Order Info: 3024-7 - T4F Performed By: #### L 506.0400, L501.9520 #### [facility] [address] [place], [address] BETA GLOBULIN 0.8 g/dL Normal 0.7-1.3 [facility] Comment on above: Order Comment: Order Date: 05/04/24 Order Info: 3016-3 - TSH Order Info: 3024-7 - T4F Performed By: #### L 506.0400, L501.9520 #### [facility] [address] [place], [address] GAMMA GLOBULIN 1.0 g/dL Normal 0.4-1.8 [facility] Comment on above: Order Comment: Order Date: 05/04/24 Order Info: 3016-3 - TSH Order Info: 3024-7 - T4F Performed By: #### L 506.0400, L501.9520 #### [facility] [address] [place], [place], [phone] Globulin (S) [Mass/Vol] 2.7 g/dL Normal 2.2-3.9 [facility] Comment on above: Order Comment: Order Date: 05/04/24 Order Info: 3016-3 - TSH Order Info: 3024-7 - T4F Performed By: #### L 506.0400, L501.9520 #### [facility] [address] [place], [place], [phone] INTERPRETATION Comment Normal . [facility] Comment on above: Order Comment: Order Date: 05/04/24 Order Info: 3016-3 - TSH Order Info: 3024-7 - T4F Result Comment: Prot ein electrophoresis scan will follow via computer, mail, or office manager delivery. Performed By: #### L 506.0400, L501.9520 #### [facility] [address] [place], [place], [id number] M-SPIKE Not Observed Normal Not Observed [facility] Comment on above: Order Comment: Order Date: 05/04/24 Order Info: 3016-3 - TSH Order Info: 3024-7 - T4F Performed By: #### L 506.0400, L501.9520 #### [facility] [address] [place], [address] NOTE: Comment Normal . [facility] Comment on above: Order Comment: Order Date: 05/04/24 Order Info: 3016-3 - TSH Order Info: 3024-7 - T4F Result Comment: The SPE pattern appears unremarkable. Evidence of monoclonal protein is not apparent. Performed at: [address] [id number] Build Technician: Rashid Malave PhD, Phone: [phone] Performed By: #### L 506.0400, L501.9520 #### [facility] [address] [place], [place], [phone] Protein [Mass/Vol] 6.6 g/dL Normal 6.0-8.5 [facility] Comment on above: Order Comment: Order Date: 05/04/24 Order Info: 3016-3 - TSH Order Info: 3024-7 - T4F Performed By: #### L 506.0400, L501.9520 #### [facility] [address] [place], [address] Absolute lymphocyte countOrd ered By: Elsie Reid on 03-17-2025 Lymphocytes Auto (Unsp spec) [#/Vol] 1.69 10*3/uL 0.83-4.51 [facility] Absolute neutrophil countOrd ered By: Elsie Reid on 03-17-2025 Neutrophils (Bld) [#/Vol] 3.8 10*3/uL 2.0-7.7 [facility] Albumin Elph [Mass/Vol]Order ed By: Elsie Reid on 03-17-2025 Albumin [Mass/Vol] 3.9 g/dL 2.9-4.4 [facility] Anion gap in Serum or Plasma Ordered By: Elsie Reid on 03-17-2025 Anion gap [Moles/Vol] 12 mmol/L 5-15 [facility] Automated lymphocyte count a s percentage of total leukocytesOrdered By: Elsie Reid on 03-17-2025 Lymphocytes/100 WBC Auto (Unsp spec) 28.6 % 19-41 [facility] BUN/creatinine ratioOrdered By: Elsie Reid on 03-17-2025 Urea nitrogen/Creatinine [Mass ratio] 15.4 mg/mg 10-20 [facility] Basophil percentageOrdered B y: Elsie Reid on 03-17-2025 Basophils/100 WBC (Bld) 0.3 % 0-1 [facility] Bilirubin, totalOrdered By: Elsie Reid on 03-17-2025 Bilirubin [Mass/Vol] 0.49 mg/dL 0.00-1.30 [facility] CBC W/Diff, Automatedon 07- Absolute Lymph 1.69 X10 3/uL Normal 0.83-4.51 [facility] Comment on above: Order Comment: Order Date: 03/17/25 Order Info: 0184- - CBCD Order Info: 63144-5 - SED Performed By: #### L 3100.3450, L500.4050, L501.6710, L505.7010, L101.9900, L501.9520, L503.6550, L503.6150, L501.1400, L100.0100 #### [facility] [address] [place], [address] Absolute Neut 3.8 X10 3/uL Normal 2.0-7.7 [facility] Comment on above: Order Comment: Order Date: 03/17/25 Order Info: 0184- - CBCD Order Info: 67198-3 - SED Performed By: #### L 3100.3450, L500.4050, L501.6710, L505.7010, L101.9900, L501.9520, L503.6550, L503.6150, L501.1400, L100.0100 #### [facility] [address] [place], [address] Basophils/100 WBC (Bld) 0.3 % Normal 0-1 [facility] Comment on above: Order Comment: Order Date: 03/17/25 Order Info: 0184- - CBCD Order Info: 58567-7 - SED Performed By: #### L 3100.3450, L500.4050, L501.6710, L505.7010, L101.9900, L501.9520, L503.6550, L503.6150, L501.1400, L100.0100 #### [facility] [address] [place], [address] Eosinophils/100 WBC (Bld) 0.5 % Normal 0-5 [facility] Comment on above: Order Comment: Order Date: 03/17/25 Order Info: 183-09 - CBCD Order Info: 30486-4 - SED Performed By: #### L 3100.3450, L500.4050, L501.6710, L505.7010, L101.9900, L501.9520, L503.6550, L503.6150, L501.1400, L100.0100 #### [facility] [address] [place], [place], [phone]) Erythrocyte distribution width (RBC) [Ratio] 12.9 % Normal 11.6-14.6 [facility] Comment on above: Order Comment: Order Date: 03/17/25 Order Info: 183-09 - CBCD Order Info: 72771-6 - SED Performed By: #### L 3100.3450, L500.4050, L501.6710, L505.7010, L101.9900, L501.9520, L503.6550, L503.6150, L501.1400, L100.0100 #### [facility] [address] [place], [place], [phone]) Hematocrit (Bld) [Volume fraction] 45.3 % Normal 37-47 [facility] Comment on above: Order Comment: Order Date: 03/17/25 Order Info: 183-09 - CBCD Order Info: 16073-2 - SED Performed By: #### L 3100.3450, L500.4050, L501.6710, L505.7010, L101.9900, L501.9520, L503.6550, L503.6150, L501.1400, L100.0100 #### [facility] [address] [place], [place], [phone] ([phone]) Hemoglobin (Bld) [Mass/Vol] 15.5 g/dL High 12.0-15.0 [facility] Comment on above: Order Comment: Order Date: 03/17/25 Order Info: 183-09 - CBCD Order Info: 45050-0 - SED Performed By: #### L 3100.3450, L500.4050, L501.6710, L505.7010, L101.9900, L501.9520, L503.6550, L503.6150, L501.1400, L100.0100 #### [facility] [address] [place], [address] IG% 0.200 Normal 0.0-0.9 [facility] Comment on above: Order Comment: Order Date: 03/17/25 Order Info: 01812-15 - CBCD Order Info: 63325-4 - SED Result Comment: IG% - Immature Granulocytes (promyelocytes, myelocytes and metamyelocytes) > 1% indicates that a LEFT SHIFT is Present. Performed By: #### L 3100.3450, L500.4050, L501.6710, L505.7010, L101.9900, L501.9520, L503.6550, L503.6150, L501.1400, L100.0100 #### [facility] [address] [place], [address] Lymphocytes/100 WBC (Bld) 28.6 % Normal 19-41 [facility] Comment on above: Order Comment: Order Date: 03/17/25 Order Info: 01812-15 - CBCD Order Info: 99536-0 - SED Performed By: #### L 3100.3450, L500.4050, L501.6710, L505.7010, L101.9900, L501.9520, L503.6550, L503.6150, L501.1400, L100.0100 #### [facility] [address] [place], [address] MCH (RBC) [Entitic mass] 31.1 pg Normal 27.0-32.0 [facility] Comment on above: Order Comment: Order Date: 03/17/25 Order Info: 01812-15 - CBCD Order Info: 76567-6 - SED Performed By: #### L 3100.3450, L500.4050, L501.6710, L505.7010, L101.9900, L501.9520, L503.6550, L503.6150, L501.1400, L100.0100 #### [facility] [address] [place], [address] MCHC (RBC) [Mass/Vol] 34.2 g/dL Normal 32-36 [facility] Comment on above: Order Comment: Order Date: 03/17/25 Order Info: 0184- - CBCD Order Info: 89063-5 - SED Performed By: #### L 3100.3450, L500.4050, L501.6710, L505.7010, L101.9900, L501.9520, L503.6550, L503.6150, L501.1400, L100.0100 #### [facility] [address] [place], [place], [phone] MCV (RBC) [Entitic vol] 91.0 fL Normal 81-99 [facility] Comment on above: Order Comment: Order Date: 03/17/25 Order Info: 0184- - CBCD Order Info: 00227-9 - SED Performed By: #### L 3100.3450, L500.4050, L501.6710, L505.7010, L101.9900, L501.9520, L503.6550, L503.6150, L501.1400, L100.0100 #### [facility] [address] [place], [address] Monocytes/100 WBC (Bld) 6.6 % Normal 0-10 [facility] Comment on above: Order Comment: Order Date: 03/17/25 Order Info: 0184- - CBCD Order Info: 84809-9 - SED Performed By: #### L 3100.3450, L500.4050, L501.6710, L505.7010, L101.9900, L501.9520, L503.6550, L503.6150, L501.1400, L100.0100 #### [facility] [address] [place], [address] Neutrophils/100 WBC (Bld) 63.8 % Normal 47-70 [facility] Comment on above: Order Comment: Order Date: 03/17/25 Order Info: 0184- - CBCD Order Info: 43852-8 - SED Performed By: #### L 3100.3450, L500.4050, L501.6710, L505.7010, L101.9900, L501.9520, L503.6550, L503.6150, L501.1400, L100.0100 #### [facility] [address] [place], [address] Nucleated RBC (Bld) [#/Vol] 0 10*3/uL Normal 0-5 [facility] Comment on above: Order Comment: Order Date: 03/17/25 Order Info: 0184- - CBCD Order Info: 90233-9 - SED Performed By: #### L 3100.3450, L500.4050, L501.6710, L505.7010, L101.9900, L501.9520, L503.6550, L503.6150, L501.1400, L100.0100 #### [facility] [address] [place], [address] Platelet mean volume (Bld) [Entitic vol] 11.0 fL Normal 6.2-12.0 [facility] Comment on above: Order Comment: Order Date: 03/17/25 Order Info: 0184- - CBCD Order Info: 12537-7 - SED Performed By: #### L 3100.3450, L500.4050, L501.6710, L505.7010, L101.9900, L501.9520, L503.6550, L503.6150, L501.1400, L100.0100 #### [facility] [address] [place], [address] Platelets (Bld) [#/Vol] 266 10*3/uL Normal 150-450 [facility] Comment on above: Order Comment: Order Date: 03/17/25 Order Info: 0184-1 - CBCD Order Info: 18108-9 - SED Performed By: #### L 3100.3450, L500.4050, L501.6710, L505.7010, L101.9900, L501.9520, L503.6550, L503.6150, L501.1400, L100.0100 #### [facility] [address] [place], [address] RBC (Bld) [#/Vol] 4.98 10*6/uL Normal 4.2-5.4 [facility] Comment on above: Order Comment: Order Date: 03/17/25 Order Info: 0184-1 - CBCD Order Info: 99285-7 - SED Performed By: #### L 3100.3450, L500.4050, L501.6710, L505.7010, L101.9900, L501.9520, L503.6550, L503.6150, L501.1400, L100.0100 #### [facility] [address] [place], [address] RDW SD 42.8 fl Normal 35.1-43.9 [facility] Comment on above: Order Comment: Order Date: 03/17/25 Order Info: 0184-1 - CBCD Order Info: 99748-0 - SED Performed By: #### L 3100.3450, L500.4050, L501.6710, L505.7010, L101.9900, L501.9520, L503.6550, L503.6150, L501.1400, L100.0100 #### [facility] [address] [place], [address] WBC (Bld) [#/Vol] 5.9 10*3/uL Normal 4.4-11.0 [facility] Comment on above: Order Comment: Order Date: 03/17/25 Order Info: 0184-1 - CBCD Order Info: 59887-2 - SED Performed By: #### L 3100.3450, L500.4050, L501.6710, L505.7010, L101.9900, L501.9520, L503.6550, L503.6150, L501.1400, L100.0100 #### [facility] [address] [place], [place], [phone] CRPon 03-17-2025 C-REACTIVE PROT < 3.00 Normal 0.0-3.0 [facility] Comment on above: Order Comment: Order Date: 03/17/25 Order Info: 0786-1 - CMP Order Info: 3084-1 - URIC Order Info: 64700-2 - CRP Order Info: 3051-0 - T3F Order Info: 3016-3 - TSH Order Info: 2498-4 - FE Order Info: 2276-4 - JOVANA Order Info: 15808-6 - RA Order Info: 3024-7 - T4F Order Info: 0553-1 - FSHLH Performed By: #### L 3100.3450, L500.4050, L501.6710, L505.7010, L101.9900, L501.9520, L503.6550, L503.6150, L501.1400, L100.0100 #### [facility] [address] [place], [place], [address] Carbon dioxide, total [Moles /volume] in Central venous bloodOrdered By: Elsie Reid on 03-17-2025 CO2 [Moles/Vol] 22.0 mmol/L 21.0-32.0 [facility] Chloride assayOrdered By: Chrissy Reid on 03-17-2025 Chloride [Moles/Vol] 106 mmol/L 98-108 [facility] Comprehensive Metabolic Prof ilon 03-17-2025 Albumin [Mass/Vol] 4.3 g/dL Normal 3.5-5.0 [facility] Comment on above: Order Comment: Order Date: 03/17/25 Order Info: 785-1 - CMP Order Info: 3083-1 - URIC Order Info: 95377-1 - CRP Order Info: 3051-0 - T3F Order Info: 3 - TSH Order Info: 2497-12 - FE Order Info: 2275-12 - JOVANA Order Info: 51660-6 - RA Order Info: 3024-03 - T4F Order Info: 0553-1 - FSHLH Performed By: #### L 3100.3450, L500.4050, L501.6710, L505.7010, L101.9900, L501.9520, L503.6550, L503.6150, L501.1400, L100.0100 #### [facility] [address] [place], [address] Albumin/Globulin [Mass ratio] 1.6 {ratio} Normal 0.9-2.4 [facility] Comment on above: Order Comment: Order Date: 03/17/25 Order Info: 785-09 - CMP Order Info: 3083-09 - URIC Order Info: 81908-3 - CRP Order Info: 0 - T3F Order Info: 3015-11 - TSH Order Info: 2497-12 - FE Order Info: 2275-12 - JOVANA Order Info: 27354-6 - RA Order Info: 3024-03 - T4F Order Info: 0553 - FSHLH Performed By: #### L 3100.3450, L500.4050, L501.6710, L505.7010, L101.9900, L501.9520, L503.6550, L503.6150, L501.1400, L100.0100 #### [facility] [address] [place], [address] ALK PHOS 61 U/L Normal 35-104 [facility] Comment on above: Order Comment: Order Date: 03/17/25 Order Info: 86-1 - CMP Order Info: 41 - URIC Order Info: 90417-9 - CRP Order Info: 30510 - T3F Order Info: 3 - TSH Order Info: 2497-12 - FE Order Info: 2275-12 - JOVANA Order Info: 09021-7 - RA Order Info: 7 - T4F Order Info: 0553-1 - FSHLH Performed By: #### L 3100.3450, L500.4050, L501.6710, L505.7010, L101.9900, L501.9520, L503.6550, L503.6150, L501.1400, L100.0100 #### [facility] [address] [place], [place], [id number] ALT [Catalytic activity/Vol] 16 U/L Normal <=34 [facility] Comment on above: Order Comment: Order Date: 03/17/25 Order Info: 86-1 - CMP Order Info: 4-1 - URIC Order Info: 28572-7 - CRP Order Info: 3051-0 - T3F Order Info: 3015-11 - TSH Order Info: 2497-12 - FE Order Info: 2275-12 - JOVANA Order Info: - RA Order Info: 3024-03 - T4F Order Info: 0553-1 - FSHLH Performed By: #### L 3100.3450, L500.4050, L501.6710, L505.7010, L101.9900, L501.9520, L503.6550, L503.6150, L501.1400, L100.0100 #### [facility] [address] [place], [place], [phone] AST [Catalytic activity/Vol] 18 U/L Normal <=31 [facility] Comment on above: Order Comment: Order Date: 03/17/25 Order Info: 86-1 - CMP Order Info: 3084-1 - URIC Order Info: 58550-3 - CRP Order Info: 3051-0 - T3F Order Info: 3015-3 - TSH Order Info: 4 - FE Order Info: 4 - JOVANA Order Info: 59728-0 - RA Order Info: 3027 - T4F Order Info: 0553-1 - FSHLH Performed By: #### L 3100.3450, L500.4050, L501.6710, L505.7010, L101.9900, L501.9520, L503.6550, L503.6150, L501.1400, L100.0100 #### [facility] [address] [place], [place], [phone] Bilirubin [Mass/Vol] 0.49 mg/dL Normal 0.00-1.30 [facility] Comment on above: Order Comment: Order Date: 03/17/25 Order Info: 07-1 - CMP Order Info: 3083-09 - URIC Order Info: 00799-2 - CRP Order Info: 0 - T3F Order Info: 3015-11 - TSH Order Info: 2497-12 FE Order Info: 2275-12 - JOVANA Order Info: - RA Order Info: 3024-03 T4F Order Info: 552-1 - FSHLH Performed By: #### L 3100.3450, L500.4050, L501.6710, L505.7010, L101.9900, L501.9520, L503.6550, L503.6150, L501.1400, L100.0100 #### [facility] [address] [place], [place], [phone] BUN/CRE 15.4 RATIO Normal 10-20 [facility] Comment on above: Order Comment: Order Date: 03/17/25 Order Info: 785- - CMP Order Info: 1 - URIC Order Info: 97137-7 - CRP Order Info: 3050-0 - T3F Order Info: 3 - TSH Order Info: 2497-12 - FE Order Info: 2275-12 - JOVANA Order Info: - RA Order Info: 3024-03 - T4F Order Info: 0553-1 - FSHLH Performed By: #### L 3100.3450, L500.4050, L501.6710, L505.7010, L101.9900, L501.9520, L503.6550, L503.6150, L501.1400, L100.0100 #### [facility] [address] [place], [address] Calcium [Mass/Vol] 9.3 mg/dL Normal 7.6-11.0 [facility] Comment on above: Order Comment: Order Date: 03/17/25 Order Info: 0786-1 - CMP Order Info: 3083-1 - URIC Order Info: 34345-1 - CRP Order Info: 305-0 - T3F Order Info: 3015-3 - TSH Order Info: 2497-12 - FE Order Info: 2275-12 - JOVANA Order Info: 33696-9 - RA Order Info: 7 - T4F Order Info: 0553-1 - FSHLH Performed By: #### L 3100.3450, L500.4050, L501.6710, L505.7010, L101.9900, L501.9520, L503.6550, L503.6150, L501.1400, L100.0100 #### [facility] [address] [place], [address] Chloride [Moles/Vol] 106 mmol/L Normal 98-108 [facility] Comment on above: Order Comment: Order Date: 03/17/25 Order Info: 785-1 - CMP Order Info: 3083-1 - URIC Order Info: 58014-7 - CRP Order Info: 3050-0 - T3F Order Info: 3 - TSH Order Info: 2497-12 - FE Order Info: 2275-12 - JOVANA Order Info: 22833-0 - RA Order Info: 3027 - T4F Order Info: 0553-1 - FSHLH Performed By: #### L 3100.3450, L500.4050, L501.6710, L505.7010, L101.9900, L501.9520, L503.6550, L503.6150, L501.1400, L100.0100 #### [facility] [address] [place], [address] CO2 [Moles/Vol] 22.0 mmol/L Normal 21.0-32.0 [facility] Comment on above: Order Comment: Order Date: 03/17/25 Order Info: 0786-1 - CMP Order Info: 3084-1 - URIC Order Info: 00356-6 - CRP Order Info: 3051-0 - T3F Order Info: 63 - TSH Order Info: 4 - FE Order Info: 2275-12 - JOVANA Order Info: 70878-1 - RA Order Info: 3024-03 - T4F Order Info: 0553-1 - FSHLH Performed By: #### L 3100.3450, L500.4050, L501.6710, L505.7010, L101.9900, L501.9520, L503.6550, L503.6150, L501.1400, L100.0100 #### [facility] [address] [place], [place], [phone] Creatinine [Mass/Vol] 0.91 mg/dL Normal 0.70-1.20 [facility] Comment on above: Order Comment: Order Date: 03/17/25 Order Info: 07-1 - CMP Order Info: 1 - URIC Order Info: 98063-6 - CRP Order Info: 3051-0 - T3F Order Info: 3 - TSH Order Info: 2497-12 - FE Order Info: 2275-12 - JOVANA Order Info: - RA Order Info: 3024-03 T4F Order Info: 0553-1 - FSHLH Performed By: #### L 3100.3450, L500.4050, L501.6710, L505.7010, L101.9900, L501.9520, L503.6550, L503.6150, L501.1400, L100.0100 #### [facility] [address] [place], [place], [phone] GAP 12 Normal 5-15 [facility] Comment on above: Order Comment: Order Date: 03/17/25 Order Info: 0786-1 - CMP Order Info: 3084-1 - URIC Order Info: 93418-5 - CRP Order Info: 1-0 - T3F Order Info: 3 - TSH Order Info: 2497-12 - FE Order Info: 2275-12 - JOVANA Order Info: 21242-7 - RA Order Info: 3024-03 T4F Order Info: 0553 - FSHLH Performed By: #### L 3100.3450, L500.4050, L501.6710, L505.7010, L101.9900, L501.9520, L503.6550, L503.6150, L501.1400, L100.0100 #### [facility] [address] [place], [address] GFR/1.73 sq M.predicted among non-blacks MDRD (S/P/Bld) [Vol rate/Area] 79 mL/min/{1.73_m2} Normal >60 [facility] Comment on above: Order Comment: Order Date: 03/17/25 Order Info: 0786-1 - CMP Order Info: 3083-09 - URIC Order Info: - CRP Order Info: 0 - T3F Order Info: [id number] - TSH Order Info: 2497-12 - FE Order Info: 2275-12 - JOVANA Order Info: 23565-3 - RA Order Info: 3024-03 - T4F Order Info: [id number] - FSHLH Result Comment: mL/m in/1.73m2 CKD-EPI Creatinine Equation (2020) Performed By: #### L 3100.3450, L500.4050, L501.6710, L505.7010, L101.9900, L501.9520, L503.6550, L503.6150, L501.1400, L100.0100 #### [facility] [address] [place], [address] Globulin (S) [Mass/Vol] 2.6 g/dL Normal 2.2-4.2 [facility] [place] Comment on above: Order Comment: Order Date: 03/17/25 Order Info: 86-1 - CMP Order Info: 4-1 - URIC Order Info: 64541-8 - CRP Order Info: 3051-0 - T3F Order Info: 3015-3 - TSH Order Info: 2497-12 - FE Order Info: 2275-12 - JOVANA Order Info: - RA Order Info: 3024-03 - T4F Order Info: 0553 - FSHLH Performed By: #### L 3100.3450, L500.4050, L501.6710, L505.7010, L101.9900, L501.9520, L503.6550, L503.6150, L501.1400, L100.0100 #### [facility] [address] [place], [place], [id number] Glucose [Mass/Vol] 90 mg/dL Normal 70-99 [facility] Comment on above: Order Comment: Order Date: 03/17/25 Order Info: 785-1 - CMP Order Info: 1 - URIC Order Info: 51597-2 - CRP Order Info: 0 - T3F Order Info: 3015-11 - TSH Order Info: 2497-12 - FE Order Info: 2275-12 - JOVANA Order Info: - RA Order Info: 3024-03 - T4F Order Info: 0553 - FSHLH Performed By: #### L 3100.3450, L500.4050, L501.6710, L505.7010, L101.9900, L501.9520, L503.6550, L503.6150, L501.1400, L100.0100 #### [facility] [address] [place], [address] Potassium [Moles/Vol] 3.8 mmol/L Normal 3.3-5.1 [facility] Comment on above: Order Comment: Order Date: 03/17/25 Order Info: 86-1 - CMP Order Info: 3084-1 - URIC Order Info: 65927-4 - CRP Order Info: 3051-0 - T3F Order Info: 3 - TSH Order Info: 24974 - FE Order Info: 4 - JOVANA Order Info: 85646-8 - RA Order Info: 7 - T4F Order Info: 0553-1 - FSHLH Performed By: #### L 3100.3450, L500.4050, L501.6710, L505.7010, L101.9900, L501.9520, L503.6550, L503.6150, L501.1400, L100.0100 #### [facility] [address] [place], [address] Sodium [Moles/Vol] 139 mmol/L Normal 133-145 [facility] Comment on above: Order Comment: Order Date: 03/17/25 Order Info: 785- - CMP Order Info: 3083-09 - URIC Order Info: 33018-9 - CRP Order Info: 3051-0 - T3F Order Info: 3015-11 - TSH Order Info: 2497-12 - FE Order Info: 2275-12 - JOVANA Order Info: 98844-5 - RA Order Info: 3024-03 - T4F Order Info: 0553-1 - FSHLH Performed By: #### L 3100.3450, L500.4050, L501.6710, L505.7010, L101.9900, L501.9520, L503.6550, L503.6150, L501.1400, L100.0100 #### [facility] [address] [place], [address] T PROT 7.0 g/dL Normal 5.9-8.4 [facility] Comment on above: Order Comment: Order Date: 03/17/25 Order Info: 86-1 - CMP Order Info: 3083- - URIC Order Info: 74769-6 - CRP Order Info: 3051-0 - T3F Order Info: 3 - TSH Order Info: 24984 - FE Order Info: 2275-4 - JOAVNA Order Info: 91117-2 - RA Order Info: 3027 - T4F Order Info: 0553-1 - FSHLH Performed By: #### L 3100.3450, L500.4050, L501.6710, L505.7010, L101.9900, L501.9520, L503.6550, L503.6150, L501.1400, L100.0100 #### [facility] [address] [place], [address] Urea nitrogen [Mass/Vol] 14 mg/dL Normal 4-19 [facility] Comment on above: Order Comment: Order Date: 03/17/25 Order Info: 0786-1 - CMP Order Info: 3084-1 - URIC Order Info: 41739-2 - CRP Order Info: 3051-0 - T3F Order Info: 3016-3 - TSH Order Info: 2498-4 - FE Order Info: 2276-4 - JOVANA Order Info: 35251-9 - RA Order Info: 3024-7 - T4F Order Info: 0553-1 - FSHLH Performed By: #### L 3100.3450, L500.4050, L501.6710, L505.7010, L101.9900, L501.9520, L503.6550, L503.6150, L501.1400, L100.0100 #### [facility] [address] [place], [place], [address] Eosinophil percentageOrdered By: Elsie Reid on 03-17-2025 Eosinophils/100 WBC (Bld) 0.5 % 0-5 [facility] Erythrocyte Sed Rateon 03-17 SED RATE 3 mm/hr Normal 0-30 [facility] Comment on above: Order Comment: Order Date: 03/17/25 Order Info: 0184-1 - CBCD Order Info: 51327-7 - SED Performed By: #### L 3100.3450, L500.4050, L501.6710, L505.7010, L101.9900, L501.9520, L503.6550, L503.6150, L501.1400, L100.0100 #### [facility] [address] [place], [place], [id number] Erythrocyte distribution wid th ratioOrdered By: Elsie Reid on 03-17-2025 Erythrocyte distribution width (RBC) [Ratio] 12.9 % 11.6-14.6 [facility] Erythrocyte distribution wid th standard deviationOrdered By: Elsie Reid on 03-17-2025 Erythrocyte distribution width (RBC) [Ratio] 42.8 fl 35.1-43.9 [facility] Erythrocyte sedimentation ra teOrdered By: Elsie Reid on 03-17-2025 ESR (Bld) [Velocity] 3 mm/h 0-30 [facility] FSH and LHon 03-17-2025 FSH 2.9 mIU/mL Normal [facility] Comment on above: Order Comment: Order Date: 03/17/25 Order Info: 0184-1 - CBCD Order Info: 74082-7 - SED Result Comment: FEMA LE: Follicular: 1.4 - 18.1 mIU/mL Midcycle: 3.4 - 33.4 mIU/mL Luteal: 1.5 - 9.1 mIU/mL Post Menopause: 23.0 - 116.3 mIU/mL MALE: 1.4 - 18.1 mIU/mL Performed By: #### L 3100.3450, L500.4050, L501.6710, L505.7010, L101.9900, L501.9520, L503.6550, L503.6150, L501.1400, L100.0100 #### [facility] [address] [place], [place], [id number] LH 0.9 mIU/mL Normal [facility] Comment on above: Order Comment: Order Date: 03/17/25 Order Info: 0184-1 - CBCD Order Info: 24119-1 - SED Result Comment: FEMA LE: Follicular: 1.9-12.5 mIU/mL Midcycle: 8.7-76.3 mIU/mL Luteal: 0.5-16.9 mIU/mL Post Menopause: 15.9-54.0 mIU/mL MALE: 20-70 Years: 1.5-9.3 mIU/mL >70 Years: 3.1-34.6 mIU/mL Performed By: #### L 3100.3450, L500.4050, L501.6710, L505.7010, L101.9900, L501.9520, L503.6550, L503.6150, L501.1400, L100.0100 #### [facility] [address] [place], [place], [id number] Ferritinon 03-17-2025 Ferritin [Mass/Vol] 88 ng/mL Normal 22-378 [facility] Comment on above: Order Comment: Order Date: 03/17/25 Order Info: 0786-1 - CMP Order Info: 3084-1 - URIC Order Info: 88976-8 - CRP Order Info: 3051-0 - T3F Order Info: 3016-3 - TSH Order Info: 2498-4 - FE Order Info: 2276-4 - JOVANA Order Info: 76911-9 - RA Order Info: 3024-7 - T4F Order Info: 0553-1 - FSHLH Performed By: #### L 3100.3450, L500.4050, L501.6710, L505.7010, L101.9900, L501.9520, L503.6550, L503.6150, L501.1400, L100.0100 #### [facility] [address] [place], [place], [phone] Free T3on 03-17-2025 Free T3 [Mass/Vol] 2.8 pg/mL Normal 2.18-3.98 [facility] Comment on above: Order Comment: Order Date: 03/17/25 Order Info: 0184-1 - CBCD Order Info: 80211-2 - SED Performed By: #### L 3100.3450, L500.4050, L501.6710, L505.7010, L101.9900, L501.9520, L503.6550, L503.6150, L501.1400, L100.0100 #### [facility] [address] [place], [address] Free M2Pceajdu By: Jorge Reid on 03-17-2025 Free T3 [Mass/Vol] 2.8 pg/mL 2.18-3.98 [facility] Glomerular filtration rate ( GFR) estimation/1.73 sq m using serum, plasma, or whole bOrdered By: Elsie Reid on 03-17-2025 GFR/1.73 sq M.predicted among non-blacks MDRD (S/P/Bld) [Vol rate/Area] 79 mL/min/{1.73_m2} >60 [facility] Comment on above: mL/min/1.73m2 CKD-EP I Creatinine Equation (2020) Hematocrit Auto (Bld) [Volum e fraction]Ordered By: Elsie Reid on 03-17-2025 Hematocrit (Bld) [Volume fraction] 45.3 % 37-47 [facility] Hemoglobin measurementOrdere d By: Elsie Reid on 03-17-2025 Hemoglobin (Bld) [Mass/Vol] 15.5 g/dL High 12.0-15.0 [facility] Immature granulocytes/100 WB C Auto (Bld)Ordered By: Elsie Reid on 03-17-2025 Immature granulocytes/100 WBC (Bld) 0.200 % 0.0-0.9 [facility] Comment on above: IG% - Immature Granu locytes (promyelocytes, myelocytes and metamyelocytes) > 1% indicates that a LEFT SHIFT is Present. Ironon 03-17-2025 Iron [Mass/Vol] 127 ug/dL Normal 50-170 [facility] Comment on above: Order Comment: Order Date: 05/04/24 Order Info: 3016-3 - TSH Order Info: 3024-7 - T4F Performed By: #### L 506.0400, L501.9520 #### [facility] [address] [place], [place], [id number] Iron measurement (mass/mass) Ordered By: Elsie Reid on 03-17-2025 Iron (Unsp spec) [Mass/Mass] 127 ug/dL 50-170 [facility] LH ser/plasOrdered By: Jim Reid on 03-17-2025 Lutropin Qn 0.9 m[IU]/mL [facility] Comment on above: FEMALE:Follicular: 1 .9-12.5 mIU/mLMidcycle: 8.7-76.3 mIU/mLLuteal: 0.5-16.9 mIU/mLPost Menopause: 15.9-54.0 mIU/mLMALE:20-70 Years: 1.5-9.3 mIU/mL>70 Years: 3.1-34.6 mIU/mL Laboratory - Chemistry and C hemistry - challengeOrdered By: Elsie Reid on 03-17-2025 AST [Catalytic activity/Vol] 18 U/L <32 [facility] MCV (mean corpuscular volume ) determinationOrdered By: Elsie Reid on 03-17-2025 MCV (RBC) [Entitic vol] 91.0 fL 81-99 [facility] [place] Mean corpuscular hemoglobin (MCH) determinationOrdered By: Elsie Reid on 03-17-2025 MCH (RBC) [Entitic mass] 31.1 pg 27.0-32.0 [facility] Mean corpuscular hemoglobin concentration (MCHC) determinationOrdered By: Elsie Reid on 03-17-2025 MCHC (RBC) [Mass/Vol] 34.2 g/dL 32-36 [facility] Mean platelet volume determi nationOrdered By: Elsie Reid on 03-17-2025 Platelet mean volume (Bld) [Entitic vol] 11.0 fL 6.2-12.0 [facility] Microalb:Creat Ratio,Random URon 03-17-2025 Creatinine [Mass/Vol] 29.80 mg/dL Normal 28.00-217.00 [facility] Comment on above: Performed By: #### L 506.0400, L5.20 #### [facility] [address] [place], [place], [address] MALB:CREAT UNABLE TO CALCULATE Normal [facility] Comment on above: Performed By: #### L 506.0400, L5.20 #### [facility] [address] [place], [address] MICROALBUMIN,UR < 12.0 Normal NO RANGE EST. [facility] Comment on above: Performed By: #### L 506.0400, L501.9520 #### [facility] [address] [place], [place], [address] Microalbumin/creat ratio urO rdered By: Elsie Reid on 03-17-2025 Urine microalbumin/creatinine ratio measurement UNABLE TO CALCULATE mg/g CRE [facility] Monocyte percentageOrdered B y: Elsie Reid on 03-17-2025 Monocytes/100 WBC (Bld) 6.6 % 0-10 [facility] [place] Neutrophil percentageOrdered By: Elsie Reid on 03-17-2025 Neutrophils/100 WBC (Bld) 63.8 % 47-70 [facility] No Panel InformationOrdered By: Elsie Reid on 03-17-2025 Addendum Document Comment . [facility] Comment on above: The SPE pattern appe ars unremarkable. Evidence ofmonoclonal protein is not apparent.Performed at: [facility] - [facility] [id number] Director: Rashid Malave PhD, Phone: [phone] Nucleated red blood cell per centageOrdered By: Elsie Reid on 03-17-2025 Nucleated RBC/100 WBC (Bld) [Ratio] 0 % 0-5 [facility] Platelet countOrdered By: Chrissy Reid on 03-17-2025 Platelets (Bld) [#/Vol] 266 10*3/uL 150-450 [facility] Potassium measurement (mass/ volume)Ordered By: Elsie Reid on 03-17-2025 Potassium (Unsp spec) [Mass/Vol] 3.8 mmol/L 3.3-5.1 [facility] Protein Fractions Elph [Inte rp]Ordered By: Elsie Reid on 03-17-2025 Protein Fractions [Interp] Comment . [facility] Comment on above: Protein electrophore sis scan will follow via computer,mail, or office manager delivery. RBC Auto (Bld) [#/Vol]Ordere d By: Elsie Reid on 03-17-2025 RBC (Bld) [#/Vol] 4.98 10*6/uL 4.2-5.4 [facility] Random urine creatinine ewa urement (mass/volume)Ordered By: Elsie Reid on 03-17-2025 Creatinine Unsp time (U) [Mass/Vol] 29.80 mg/dL 28.00-217.00 [facility] Rheumatoid Factoron 03-17-20 RHEUMATOID FAC < 10.0 Normal <15 [facility] Comment on above: Order Comment: Order Date: 03/17/25 Order Info: 0786-1 - CMP Order Info: 3084-1 - URIC Order Info: 85116-2 - CRP Order Info: 3051-0 - T3F Order Info: 3016-3 - TSH Order Info: 2498-4 - FE Order Info: 2276-4 - JOVANA Order Info: 04166-0 - RA Order Info: 3024-7 - T4F Order Info: 0553-1 - FSHLH Performed By: #### L 3100.3450, L500.4050, L501.6710, L505.7010, L101.9900, L501.9520, L503.6550, L503.6150, L501.1400, L100.0100 #### [facility] [address], [place], [id number] Serum DNA double strand anti body assay (units/volume)Ordered By: Elsie Reid on 03-17-2025 DNA double strand Ab Qn (S) 1 [IU]/mL 0-9 [facility] Comment on above: Negative <5 Equivoca l 5 - 9 Positive >9 Serum Scl-70 antibody assay (units/volume)Ordered By: Elsie Reid on 03-17-2025 SCL-70 extractable nuclear Ab Qn (S) 4.0 AI High 0.0-0.9 [facility] Comment on above: Previous reported re sult: TNP AIEdited by: ROLAN on 03/19/25:1508 AMENDED REPORT 03/19/25 1508 ANTISCLER previously reported as: Test not performed Serum albumin to globulin ra fletcher by protein electrophoresisOrdered By: Elsie Reid on 03-17-2025 Albumin/Globulin Elph [Mass ratio] 1.4 0.7-1.7 [facility] Serum creatinine measurement (mass/volume)Ordered By: Elsie Reid on 03-17-2025 Creatinine [Mass/Vol] 0.91 mg/dL 0.70-1.20 [facility] Serum globulin measurementOr dered By: Elsie Reid on 03-17-2025 Globulin (S) [Mass/Vol] 2.6 g/dL 2.2-4.2 [facility] [place] Serum globulin measurement ( mass/volume)Ordered By: Elsie Reid on 03-17-2025 Globulin (S) [Mass/Vol] 2.7 g/dL 2.2-3.9 [facility] [place] Serum glucose measurement (m ass/volume)Ordered By: Elsie Reid on 03-17-2025 Glucose [Mass/Vol] 90 mg/dL 70-99 [facility] Serum or plasma C reactive p rotein measurement (mass/volume)Ordered By: Elsie Reid on 03-17-2025 CRP [Mass/Vol] mg/L 0.0-3.0 [facility] Serum or plasma alanine macias otransferase (ALT) measurementOrdered By: Elsie Reid on 03-17-2025 ALT [Catalytic activity/Vol] 16 U/L <35 [facility] Serum or plasma albumin ewa urement (mass/volume)Ordered By: Elsie Reid on 03-17-2025 Albumin [Mass/Vol] 4.3 g/dL 3.5-5.0 [facility] Serum or plasma albumin/glob ulin mass ratioOrdered By: Elsie Reid on 03-17-2025 Albumin/Globulin [Mass ratio] 1.6 {ratio} 0.9-2.4 [facility] Serum or plasma alkaline robinson sphatase measurementOrdered By: Elsie Reid on 03-17-2025 ALP [Catalytic activity/Vol] 61 U/L 35-104 [facility] Serum or plasma beta globuli n measurement by electrophoresis (mass/volume)Ordered By: Elsie Reid on 03-17-2025 Beta globulin Elph [Mass/Vol] 0.8 g/dL 0.7-1.3 [facility] Serum or plasma calcium ewa urement (mass/volume)Ordered By: Elise Reid on 03-17-2025 Calcium [Mass/Vol] 9.3 mg/dL 7.6-11.0 [facility] Serum or plasma ferritin arti surement (mass/volume)Ordered By: Elsie Reid on 03-17-2025 Ferritin [Mass/Vol] 88 ng/mL 22-378 [facility] Serum or plasma protein ewa urement (mass/volume)Ordered By: Elsie Reid on 03-17-2025 Protein [Mass/Vol] 6.6 g/dL 6.0-8.5 [facility] Serum or plasma protein mono clonal measurement by electrophoresis (mass/volume)Ordered By: Elsie Reid on 03-17-2025 Protein.monoclonal Elph [Mass/Vol] Not Observed g/dL Not Observed [facility] Serum or plasma urea nitroge n measurement (mass/volume)Ordered By: Elsie Reid on 03-17-2025 Urea nitrogen [Mass/Vol] 14 mg/dL 4-19 [facility] Serum or plasma uric acid me asurement (mass/volume)Ordered By: Elsie Reid on 03-17-2025 Urate [Mass/Vol] 4.7 mg/dL 2.6-6.0 [facility] Comment on above: The drugs N-Acetylcy steine and Metamizole may falsely depress this assay. Serum rheumatoid factor dete ctionOrdered By: Elsie Reid on 03-17-2025 Rheumatoid factor Ql (S) < 10.0 IU/mL <15 [facility] Sodium levelOrdered By: Lucie Reid on 03-17-2025 Sodium [Moles/Vol] 139 mmol/L 133-145 [facility] T4 Free Directon 03-17-2025 T4 FREE DIRECT 1.50 ng/dL High 0.76-1.46 [facility] Comment on above: Order Comment: Order Date: 05/04/24 Order Info: 3016-3 - TSH Order Info: 3024-7 - T4F Performed By: #### L 506.0400, L501.9520 #### [facility] [address] [place], [address] T4 freeOrdered By: Jorge Reid on 03-17-2025 Free T4 [Mass/Vol] 1.50 ng/dL High 0.76-1.46 [facility] TSH DL <= 0.005 mIU/L QnOrde red By: Elsie Reid on 03-17-2025 TSH Qn 0.272 uIU/mL Low 0.300-4.200 [facility] Thyroid Stim Hormone (TSH)on 03-17-2025 TSH 0.272 uIU/mL Low 0.300-4.200 [facility] Comment on above: Order Comment: Order Date: 03/17/25 Order Info: 0786-1 - CMP Order Info: 308-1 - URIC Order Info: 97817-0 - CRP Order Info: 3051-0 - T3F Order Info: 3016-3 - TSH Order Info: 2498-4 - FE Order Info: 2276-4 - JOVANA Order Info: 32733-6 - RA Order Info: 3024-7 - T4F Order Info: 0553-1 - FSHLH Performed By: #### L 3100.3450, L500.4050, L501.6710, L505.7010, L101.9900, L501.9520, L503.6550, L503.6150, L501.1400, L100.0100 #### [facility] [address] [place], [address] Total proteinOrdered By: Graham Reid on 03-17-2025 Protein [Mass/Vol] 7.0 g/dL 5.9-8.4 [facility] Uric Acidon 03-17-2025 URIC 4.7 mg/dL Normal 2.6-6.0 [facility] Comment on above: Order Comment: Order Date: 03/17/25 Order Info: 0786-1 - CMP Order Info: 308-1 - URIC Order Info: [id number] - CRP Order Info: 3051-0 - T3F Order Info: 3015-3 - TSH Order Info: 2498-4 - FE Order Info: 2276-4 - JOVANA Order Info: 54521-8 - RA Order Info: 3024-03 - T4F Order Info: 0553-1 - FSHLH Result Comment: The drugs N-Acetylcysteine and Metamizole may falsely depress this assay. Performed By: #### L 3100.3450, L500.4050, L501.6710, L505.7010, L101.9900, L501.9520, L503.6550, L503.6150, L501.1400, L100.0100 #### [facility] [address] [place], [place], [id number] Urine albumin measurement [facility] detection limit of 20 mg/L or less (mass/volume)Ordered By: Elsie Reid on 03-17-2025 Albumin DL <= 20 mg/L (U) [Mass/Vol] < 12.0 mg/L NO RANGE EST. [facility] Vitamin B12on 03-17-2025 Cobalamin (Vitamin B12) [Mass/Vol] 576 pg/mL Normal 180-914 [facility] Comment on above: Order Comment: Order Date: 05/04/24 Order Info: 3 - TSH Order Info: 3024-03 - T4F Performed By: #### L 506.0400, L501.9520 #### [facility] [address] [place], [place], [address] Vitamin B12 ser/plasOrdered By: Elsie Reid on 03-17-2025 Cobalamin (Vitamin B12) [Mass/Vol] 576 pg/mL 180-914 [facility] Vitamin D,25 Hydroxyon 03-17 Vitamin D 25-OH 22.7 ng/mL Low 30-100 [facility] Comment on above: Order Comment: Order Date: 05/04/24 Order Info: 3015-3 - TSH Order Info: 3024-03 - T4F Result Comment: Celine min D Status Deficiency: <20 ng/mL (50nmol/L) Insufficiency: 20-30 ng/mL (50-75 nmol/L) Sufficiency: 30-100 ng/mL (75-250 nmol/L) Toxicity: >100 ng/mL (>250 nmol/L) Performed By: #### L 506.0400, L501.9520 #### [facility] [address] [place], [address] White blood cell (WBC) count Ordered By: Elsie Reid on 03-17-2025 WBC (Bld) [#/Vol] 5.9 10*3/uL 4.4-11.0 [facility] Chiropractic Reporton 2024 Chiropractic Report [facility] [address] [place] [address] OFFICE VISIT Date of Service: 02/01/25 MR#: [id number] Acct: [id number] Name: HUMZAMAHESH MAXIMILIAN Rep #: [id number] : 1980 Provider: ROXIE Padilla Age/Sex: 44/F Location: [facility] Status: Signed Intake Vital Signs 06/30/24 08:48 [...] #90 tabs 10/20/24 02/01/25 Rx tablet,extended release(part/cryst) [facility] Medical History History of IBS Gastritis Alcohol [...] safe at home: Yes additional social history: Wqmcgli-Yfmu-Ysfby 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 Normal [facility] Chiropractic Reporton 2024 Chiropractic Report [facility] [address] [id number] OFFICE VISIT Date of Service: 12/21/24 MR#: [id number] Acct: [id number] Name: MAHESH PEPPER MAXIMILIAN Rep #: [id number] : 1980 Provider: ROXIE Padilla Age/Sex: 43/F Location: [facility] Status: Signed Intake Vital Signs 06/30/24 08:48 [...] #90 tabs 10/20/24 12/21/24 Rx tablet,extended release(part/cryst) [facility] Medical History History of IBS Gastritis Alcohol [...] safe at home: Yes additional social history: Glbbopi-Qbqf-Iiezd 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 Normal [facility] Chiropractic Reporton 2024 Chiropractic Report [facility] [place] [address] OFFICE VISIT Date of Service: 10/22/24 MR#: [id number] Acct: [id number] Name: MAHESH PEPPER Rep #: [id number] : 1980 Provider: ROXIE Padilla Age/Sex: 43/F Location: [facility] Status: Signed Intake Vital Signs 06/30/24 08:48 [...] #90 tabs 10/20/24 10/22/24 Rx tablet,extended release(part/cryst) [facility] Medical History History of IBS Gastritis Alcohol [...] safe at home: Yes additional social history: Mxrktdl-Kkue-Jcxpr 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 Normal [facility] Chiropractic Reporton 2023 Chiropractic Report [facility] [address] [place] [address] OFFICE VISIT Date of Service: 09/14/24 MR#: [id number] Acct: [id number] Name: MAHESH PEPPER MAXIMILIAN Rep #: [id number] : 1980 Provider: ROXIE Padilla Age/Sex: 43/F [place] [facility] [place]: Signed Intake Vital Signs 06/30/24 08:48 [...] 420 mg tablet 420 mg PO DAILY 05/22/23 12/30/24 History pantoprazole 40 mg tablet,delayed 40 mg [...] safe at home: Yes additional social history: Hyffasz-Jpde-Jrbwx 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 Normal [facility] SCRN MAMM (CAD)W/DENISE BILATo n 08-14-2024 SCRN MAMM (CAD)W/DENISE BILAT [facility] [address] [place] [address] SCRN MAMM (CAD)W/DENISE BILAT MR#: [id number] Acct: [id number] Name: MAHESH PEPPER MAXIMILIAN Rep #: [id number] : 1980 F 43 From: Arsh nielsen MD PCP: Dr. Elsie Reid MD Status: REG [facility] Study: SCRN MAMM (CAD)W/DENISE BILAT Date of Exam: 07/18 06/09 Exam# [id number] Ordering Dr: Tahira Russo [id number] MAMMOGRAPHY - BILATERAL SCREENING REASON FOR EXAM: [...] delay biopsy of a clinically suspicious abnormality. [id number] Electronically Signed: Arsh Lancaster MD at 9:25 EST Reading Location ID and State: [facility] / [place] , Service support , CC: Dr. Elsie Reid MD; Dr. 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 Normal [facility] Reporton 2023 Chiropractic Report [facility] [address] [place] [address] OFFICE VISIT Date of Service: 06/30/24 MR#: [id number] Acct: [id number] Name: MAHESH PEPPER Rep #: [id number] : 1980 Provider: ROXIE Padilla Age/Sex: 43/F Location: [facility] Status: Signed Intake Vital Signs 08/13/23 11:08 [...] #90 tabs 09/20/23 06/30/24 Rx tablet,extended release(part/cryst) [facility] Medical History History of IBS Gastritis Alcohol [...] safe at home: Yes additional social history: Ttvtsga-Gvst-Hxqgu 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 Normal [facility]ic Reporton 2023 Chiropractic Report [facility] [address] [place] [id number] OFFICE VISIT Date of Service: 06/16/24 MR#: [id number] Acct: [id number] Name: MAHESH PEPPER MAXIMILIAN Rep #: [id number] : 1980 Provider: ROXIE Padilla Age/Sex: 43/F [place] [facility]: Signed Intake Vital Signs 08/13/23 11:08 [...] #90 tabs 09/20/23 06/16/24 Rx tablet,extended release(part/cryst) [facility] Medical History History of IBS Gastritis Alcohol [...] safe at home: Yes additional social history: Iejqsvk-Aunm-Uyfbx 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 Normal [facility] CBC, Employeeon 05-19-2024 Absolute Lymph 1.68 X10 3/uL Normal 0.83-4.51 [facility] Comment on above: Performed By: #### L 506.0400, L501.9520 #### [facility] [address] [place], [place], [address] Absolute Neut 3.6 X10 3/uL Normal 2.0-7.7 [facility] Comment on above: Performed By: #### L 506.0400, L501.9520 #### [facility] [address] [place], [address] Basophils/100 WBC (Bld) 0.5 % Normal 0-1 [facility] Comment on above: Performed By: #### L 506.0400, L501.20 #### [facility] [address] [place], [address] Eosinophils/100 WBC (Bld) 0.5 % Normal 0-5 [facility] Comment on above: Performed By: #### L 506.0400, L501.9520 #### [facility] [address] [place], [address] Erythrocyte distribution width (RBC) [Ratio] 13.0 % Normal 11.6-14.6 [facility] Comment on above: Performed By: #### L 506.0400, L501.9520 #### [facility] [address] [place], [address] Hematocrit (Bld) [Volume fraction] 44.6 % Normal 37-47 [facility] Comment on above: Performed By: #### L 506.0400, L501.20 #### [facility] [address] [place], [address] Hemoglobin (Bld) [Mass/Vol] 14.8 g/dL Normal 12.0-15.0 [facility] Comment on above: Performed By: #### L 506.0400, L501.9520 #### [facility] [address] [place], [address] Lymphocytes/100 WBC (Bld) 28.6 % Normal 19-41 [facility] Comment on above: Performed By: #### L 506.0400, [id number] #### [facility] [address] [place], [address] MCH (RBC) [Entitic mass] 30.9 pg Normal 27.0-32.0 [facility] Comment on above: Performed By: #### L 506.0400, L501.9520 #### [facility] [address] [place], [address] MCHC (RBC) [Mass/Vol] 33.2 g/dL Normal 32-36 [facility] Comment on above: Performed By: #### L 506.0400, L501.20 #### [facility] [address] [place], [address] MCV (RBC) [Entitic vol] 93.1 fL Normal 81-99 [facility] Comment on above: Performed By: #### L 506.0400, L5.20 #### [facility] [address] [place], [address] Monocytes/100 WBC (Bld) 8.3 % Normal 0-10 [facility] Comment on above: Performed By: #### L 506.0400, L5.20 #### [facility] [address] [place], [address] Neutrophils/100 WBC (Bld) 61.9 % Normal 47-70 [facility] Comment on above: Performed By: #### L 506.0400, L501.20 #### [facility] [address] [place], [address] NRBC # 0.00 10 3/uL Normal 0-5 [facility] Comment on above: Performed By: #### L 506.0400, L5.20 #### [facility] [address] [place], [address] Nucleated RBC (Bld) [#/Vol] 0 10*3/uL Normal 0-5 [facility] Comment on above: Performed By: #### L 506.0400, L501.20 #### [facility] [address] [place], [address] Platelet mean volume (Bld) [Entitic vol] 10.3 fL Normal 6.2-12.0 [facility] Comment on above: Performed By: #### L 506.0400, L5.20 #### [facility] [address] [place], [address] Platelets (Bld) [#/Vol] 250 10*3/uL Normal 150-450 [facility] Comment on above: Performed By: #### L 506.0400, L501.9520 #### [facility] [address] [place], [address] RBC (Bld) [#/Vol] 4.79 10*6/uL Normal 4.2-5.4 [facility] Comment on above: Performed By: #### L 506.0400, [id number] #### [facility] [address] [place], [address] RDW SD 44.5 fl High 35.1-43.9 [facility] Comment on above: Performed By: #### L 506.0400, [id number] #### [facility] [address] [place], [address] WBC (Bld) [#/Vol] 5.9 10*3/uL Normal 4.4-11.0 [facility] Comment on above: Performed By: #### L 506.0400, L501.9520 #### [facility] [address] [place], [address] Employee Profileon 4 Albumin [Mass/Vol] 3.7 g/dL Normal 3.2-5.0 [facility] Comment on above: Performed By: #### L 506.0400, L501.9520 #### [facility] [address] [place], [address] Albumin/Globulin [Mass ratio] 1.2 {ratio} Normal 0.9-2.4 [facility] Comment on above: Performed By: #### L 506.0400, L501.9520 #### [facility] [address] [place], [address] ALK P 60 U/L Normal 45-117 [facility] Comment on above: Performed By: #### L 506.0400, L501.20 #### [facility] [address] [place], [address] ALT [Catalytic activity/Vol] 17 U/L Normal 13-56 [facility] Comment on above: Performed By: #### L 506.0400, L501.9520 #### [facility] [address] [place], [address] AST [Catalytic activity/Vol] 15 U/L Normal 15-37 [facility] Comment on above: Performed By: #### L 506.0400, L5.9520 #### [facility] [address] [place], [address] Bilirubin [Mass/Vol] 0.50 mg/dL Normal 0.20-1.00 [facility] Comment on above: Result Comment: For patients on eltrombopag therapy, use of Dimension Picher TBIL is not recommended. Performed By: #### L 506.0400, L5.9520 #### [facility] [address] [place], [address] Bilirubin.direct [Mass/Vol] 0.15 mg/dL Normal 0.00-0.30 [facility] Comment on above: Performed By: #### L 506.0400, L501.9520 #### [facility] [address] [place], [address] BUN/CRE 18.9 RATIO Normal 10-20 [facility] Comment on above: Performed By: #### L 506.0400, [id number] #### [facility] [address] [place], [address] CA,Total 9.0 mg/dL Normal 8.5-10.1 [facility] Comment on above: Performed By: #### L 506.0400, L501.9520 #### [facility] [address] [place], [address] Chloride [Moles/Vol] 107 mmol/L Normal 98-107 [facility] Comment on above: Performed By: #### L 506.0400, L501.9520 #### [facility] [address] [place], [address] CHOL:HDL 3.30 Normal [facility] Comment on above: Performed By: #### L 506.0400, L501.9520 #### [facility] [address] [place], [address] Cholesterol [Mass/Vol] 199 mg/dL Normal 200 [facility] Comment on above: Result Comment: <200 mg/dL Desirable 200-240 mg/dL Borderline >240 mg/dL High Risk Performed By: #### L 506.0400, L501.9520 #### [facility] [address] [place], [address] Cholesterol in HDL [Mass/Vol] 60 mg/dL Normal [facility] Comment on above: Result Comment: The drugs N-Acetylcysteine and Metamizole may falsely depress this assay. Reference Range HDL <40 mg/dL Low HDL Cholesterol HDL >or= 60 mg/dL High HDL Cholesterol Performed By: #### L 506.0400, L501.20 #### [facility] [address] [place], [address] Cholesterol in LDL [Mass/Vol] 127 mg/dL Normal 0-130 [facility] Comment on above: Performed By: #### L 506.0400, L501.9520 #### [facility] [address] [place], [address] Cholesterol in VLDL [Mass/Vol] 12 mg/dL Normal 5-40 [facility] Comment on above: Performed By: #### L 506.0400, L501.9520 #### [facility] [address] [place], [address] CO2 [Moles/Vol] 27.0 mmol/L Normal 21.0-32.0 [facility] Comment on above: Performed By: #### L 506.0400, L501.9520 #### [facility] [address] [place], [address] Creatinine [Mass/Vol] 0.95 mg/dL Normal 0.55-1.02 [facility] Comment on above: Result Comment: The validity of the calculated GFR GFRAA in patients over 70 years has not been determined. Clinical correlation is essential. Performed By: #### L 506.0400, L501.9520 #### [facility] [address] [place], [address] EST GFR - AA 82 mL/min Normal >60 [facility] Comment on above: Result Comment: Afri can [place] GFR Calc Performed By: #### L 506.0400, L501.9520 #### [facility] [address] [place], [address] GAP 5 Normal 5-15 [facility] Comment on above: Performed By: #### L 506.0400, L501.9520 #### [facility] [address] [place], [address] GFR/1.73 sq M.predicted among non-blacks MDRD (S/P/Bld) [Vol rate/Area] 67 mL/min/{1.73_m2} Normal >60 [facility] Comment on above: Result Comment: Non- GFR Calc Performed By: #### L 506.0400, L501.9520 #### [facility] [address] [place], [address] Globulin (S) [Mass/Vol] 3.1 g/dL Normal 2.2-4.2 [facility] Comment on above: Performed By: #### L 506.0400, L501.9520 #### [facility] [address] [place], [address] Glucose [Mass/Vol] 94 mg/dL Normal 74-106 [facility] Comment on above: Performed By: #### L 506.0400, L501.9520 #### [facility] [address] [place], [address] LDH 152 U/L Normal 84-246 [facility] Comment on above: Performed By: #### L 506.0400, L501.9520 #### [facility] [address] [place], [address] Phosphate [Mass/Vol] 2.9 mg/dL Normal 2.5-4.9 [facility] Comment on above: Performed By: #### L 506.0400, L501.9520 #### [facility] [address] [place], [address] Potassium [Moles/Vol] 4.0 mmol/L Normal 3.5-5.1 [facility] Comment on above: Performed By: #### L 506.0400, L501.9520 #### [facility] [address] [place], [address] Sodium [Moles/Vol] 139 mmol/L Normal 136-145 [facility] Comment on above: Performed By: #### L 506.0400, L501.9520 #### [facility] [address] [place], [address] T PROT 6.8 g/dL Normal 6.4-8.2 [facility] Comment on above: Performed By: #### L 506.0400, L501.9520 #### [facility] [address] [place], [address] Triglyceride [Mass/Vol] 61 mg/dL Normal [facility] Comment on above: Result Comment: The drugs N-Acetylcysteine and Metamizole may falsely depress this assay. Serum Triglycerides Reference Interval Normal <150 mg/dL Borderline high 150 - 199 mg/dL High 200 - 499 mg/dL Very High > or = 500 mg/dL Performed By: #### L 506.0400, L501.9520 #### [facility] [address] [place], [address] Urea nitrogen [Mass/Vol] 18 mg/dL Normal 7-18 [facility] Comment on above: Performed By: #### L 506.0400, L501.9520 #### [facility] [address] [place], [address] URIC 4.1 mg/dL Normal 2.6-6.0 [facility] Comment on above: Result Comment: The drugs N-Acetylcysteine and Metamizole may falsely depress this assay. Performed By: #### L 506.0400, L501.9520 #### [facility] [address] [place], [address] T4 Free Directon 05-19-2024 T4 FREE DIRECT 1.21 ng/dL Normal 0.76-1.46 [facility] Comment on above: Order Comment: Order Date: 05/04/24 Order Info: [id number] - TSH Order Info: [id number] - T4F Performed By: #### L 506.0400, L501.9520 #### [facility] [address] [place], [address] Thyroid Stim Hormone (TSH)on 05-19-2024 TSH 1.730 uIU/mL Normal 0.358-3.740 [facility] Comment on above: Order Comment: Order Date: 05/04/24 Order Info: [id number] - TSH Order Info: [id number] - T4F Performed By: #### L 506.0400, L501.9520 #### [facility] [address] [place], [address] Urinalysis, Employeeon 05-19 BILIRUBIN URINE Negative Normal Negative [facility] Comment on above: Performed By: #### L 506.0400, L501.20 #### [facility] [address] [place], [address] Clarity (U) Clear Normal Clear [facility] Comment on above: Performed By: #### L 506.0400, L501.9520 #### [facility] [address] [place], [address] Color (U) Yellow Normal Yellow [facility] Comment on above: Performed By: #### L 506.0400, L501.20 #### [facility] [address] [place], [address] GLUCOSE, UR Normal Normal Normal [facility] Comment on above: Performed By: #### L 506.0400, L501.20 #### [facility] [address] [place], [address] KETONE UR Negative Normal Negative [facility] Comment on above: Performed By: #### L 506.0400, L501.20 #### [facility] [address] [place], [address] LEUK ESTERASE Negative Normal Negative [facility] Comment on above: Performed By: #### L 506.0400, L501.20 #### [facility] [address] [place], [address] Nitrite Ql (U) Negative Normal Negative [facility] Comment on above: Performed By: #### L 506.0400, L501.9520 #### [facility] [address] [place], [address] OCCULT BLOOD-UR Negative Normal Negative [facility] Comment on above: Performed By: #### L 506.0400, L501.20 #### [facility] [address] [place], [address] pH UR 6.5 Normal 5.0 - 8.0 [facility] Comment on above: Performed By: #### L 506.0400, L501.9520 #### [facility] [address] [place], [address] PROT DIPSTX Negative Normal Negative [facility] Comment on above: Performed By: #### L 506.0400, L501.9520 #### [facility] [address] [place], [address] SP.GR. DIPSTX 1.010 Normal 1.002-1.030 [facility] Comment on above: Performed By: #### L 506.0400, L501.9520 #### [facility] [address] [place], [address] UROBILI Normal Normal Normal [facility] Comment on above: Performed By: #### L 506.0400, L501.9520 #### [facility] [address] [place], [address] Basophil percentageOrdered B y: Tahira Russo on 07-02-2023 WBC (Bld) [#/Vol] 15.9 10*3/uL 4.4-11.0 [facility] Blood erythrocytes count (nu mber/volume)Ordered By: Tahira Russo on 07-02-2023 RBC (Bld) [#/Vol] 4.79 10*6/uL 4.2-5.4 [facility] Blood hemoglobin measurement (mass/volume)Ordered By: Tahira Russo on 07-02-2023 Hemoglobin (Bld) [Mass/Vol] 15.2 g/dL 12.0-15.0 [facility] Blood platelet mean volumeOr dered By: Tahira Russo on 07-02-2023 Platelet mean volume (Bld) [Entitic vol] 10.0 fL 6.2-12.0 [facility] Determination of erythrocyte mean corpuscular volume (MCV)Ordered By: Tahira Russo on 07-02-2023 MCV (RBC) [Entitic vol] 91.4 fL 81-99 [facility] Glucose Glucometer (BldC) [M ass/Vol]Ordered By: Tahira Russo on 07-02-2023 Glucose [Mass/Vol] 95 mg/dL 74-106 [facility] Comment on above: MANAGEMENT OF PATIEN T CARE PER NURSING PROTOCOL Hematocrit Auto (Bld) [Volum e fraction]Ordered By: Tahira Russo on 07-02-2023 Hematocrit (Bld) [Volume fraction] 43.8 % 37-47 [facility] Laboratory - Hematology and Cell countsOrdered By: Tahira Russo on 07-02-2023 Erythrocyte distribution width (RBC) [Entitic vol] 41.9 fL 35.1-43.9 [facility] Erythrocyte distribution width (RBC) [Ratio] 12.5 % 11.6-14.6 [facility] MCH (RBC) [Entitic mass] 31.7 pg 27.0-32.0 [facility] MCHC Auto (RBC) [Mass/Vol]Or dered By: Tahira Russo on 07-02-2023 MCHC (RBC) [Mass/Vol] 34.7 g/dL 32-36 [facility] Platelets bldOrdered By: Singh Russo on 07-02-2023 Platelets (Bld) [#/Vol] 262 10*3/uL 150-450 [facility] Laboratory - Chemistry and C hemistry - challengeOrdered By: Angel Hogan on 06-28-2023 Magnesium [Mass/Vol] 2.2 mg/dL 1.6-2.6 [facility] Absolute lymphocyte countOrd ered By: HEALTH ASSESSMENT on 05-06-2023 Lymphocytes Auto (Unsp spec) [#/Vol] 2.02 10*3/uL 0.83-4.51 [facility] Absolute reticulocyte countO rdered By: HEALTH ASSESSMENT on 05-06-2023 Reticulocytes (Bld) [#/Vol] 0.00 10*3/uL 0-5 [facility] Basophil percentageOrdered B y: HEALTH ASSESSMENT on 05-06-2023 Basophil percentage 3.3 mg/dL 2.5-4.9 [facility] Bilirubin [Mass/Vol] 0.70 mg/dL 0.20-1.00 [facility] Comment on above: For patients on eltr ombopag therapy, use of Dimension Picher TBIL is not recommended. Chloride [Moles/Vol] 107 mmol/L 98-107 [facility] Cholesterol [Mass/Vol] 180 mg/dL <200 [facility] Comment on above: <200 mg/dL Desirable 200-240 mg/dL Borderline >240 mg/dL High Risk Glucose [Mass/Vol] 90 mg/dL 74-106 [facility] LDH [Catalytic activity/Vol] 141 U/L 84-246 [facility] Neutrophils (Bld) [#/Vol] 3.4 10*3/uL 2.0-7.7 [facility] Potassium [Moles/Vol] 3.9 mmol/L 3.5-5.1 [facility] Protein [Mass/Vol] 7.0 g/dL 6.4-8.2 [facility] Sodium [Moles/Vol] 137 mmol/L 136-145 [facility] Triglyceride [Mass/Vol] 54 mg/dL <199 [facility] Comment on above: The drugs N-Acetylcy steine and Metamizole may falsely depress this assay.Serum Triglycerides Reference Interval Normal <150 mg/dL Borderline high 150 - 199 mg/dL High 200 - 499 mg/dL Very High > or = 500 mg/dL WBC (Bld) [#/Vol] 5.9 10*3/uL 4.4-11.0 [facility] Bilirubin Test strip Ql (U)O rdered By: HEALTH ASSESSMENT on 05-06-2023 Bilirubin Ql (U) Negative Negative [facility] Blood erythrocytes count (nu mber/volume)Ordered By: HEALTH ASSESSMENT on 05-06-2023 RBC (Bld) [#/Vol] 4.82 10*6/uL 4.2-5.4 [facility] Blood hemoglobin measurement (mass/volume)Ordered By: HEALTH ASSESSMENT on 05-06-2023 Hemoglobin (Bld) [Mass/Vol] 15.3 g/dL 12.0-15.0 [facility] Blood platelet mean volumeOr dered By: HEALTH ASSESSMENT on 05-06-2023 Platelet mean volume (Bld) [Entitic vol] 10.2 fL 6.2-12.0 [facility] Determination of erythrocyte mean corpuscular volume (MCV)Ordered By: HEALTH ASSESSMENT on 05-06-2023 MCV (RBC) [Entitic vol] 93.2 fL 81-99 [facility] Direct bilirubinOrdered By: HEALTH ASSESSMENT on 05-06-2023 Bilirubin.direct [Mass/Vol] 0.15 mg/dL 0.00-0.30 [facility] Hematocrit Auto (Bld) [Volum e fraction]Ordered By: HEALTH ASSESSMENT on 05-06-2023 Hematocrit (Bld) [Volume fraction] 44.9 % 37-47 [facility] Ketones Test strip Ql (U)Ord ered By: HEALTH ASSESSMENT on 05-06-2023 Ketones Ql (U) Negative Negative [facility] Laboratory - Chemistry and C hemistry - challengeOrdered By: HEALTH ASSESSMENT on 05-06-2023 ALP [Catalytic activity/Vol] 55 U/L 45-117 [facility] ALT [Catalytic activity/Vol] 18 U/L 13-56 [facility] Cholesterol.total/Choleste rol in HDL [Mass ratio] 3.00 {ratio} [facility] CO2 [Moles/Vol] 28.0 mmol/L 21.0-32.0 [facility] Globulin (S) [Mass/Vol] 3.2 g/dL 2.2-4.2 [facility] Urea nitrogen/Creatinine [Mass ratio] 18.5 mg/mg 10-20 [facility] Laboratory - Hematology and Cell countsOrdered By: HEALTH ASSESSMENT on 05-06-2023 Erythrocyte distribution width (RBC) [Entitic vol] 43.2 fL 35.1-43.9 [facility] Erythrocyte distribution width (RBC) [Ratio] 12.6 % 11.6-14.6 [facility] MCH (RBC) [Entitic mass] 31.7 pg 27.0-32.0 [facility] Nucleated RBC/100 WBC (Bld) [Ratio] 0 % 0-5 [facility] MCHC Auto (RBC) [Mass/Vol]Or dered By: HEALTH ASSESSMENT on 05-06-2023 MCHC (RBC) [Mass/Vol] 34.1 g/dL 32-36 [facility] Nitrite Test strip Ql (U)Ord ered By: HEALTH ASSESSMENT on 05-06-2023 Nitrite Ql (U) Negative Negative [facility] No Panel InformationOrdered By: HEALTH ASSESSMENT on 05-06-2023 Estimated GFR (MDRD) Amer 85 mL/min >60 [facility] Comment on above: GFR Calc Estimated GFR (MDRD) Non-Af Amer 70 mL/min >60 [facility] Comment on above: Non- GFR Calc No Panel InformationOrdered By: Tahira Russo on 05-06-2023 Thyroid Stimulating Hormone (TSH) 1.56 uIU/mL 0.358-3.74 [facility] Platelets bldOrdered By: [facility] ASSESSMENT on 05-06-2023 Platelets (Bld) [#/Vol] 245 10*3/uL 150-450 [facility] Protein Test strip Ql (U)Ord ered By: HEALTH ASSESSMENT on 05-06-2023 Protein Ql (U) Negative Negative [facility] Segmented neutrophils/100 WB C Auto (Bld)Ordered By: HEALTH ASSESSMENT on 05-06-2023 Segmented neutrophils/100 WBC (Bld) 56.8 % 47-70 [facility] Serum or plasma albumin ewa urement (mass/volume)Ordered By: HEALTH ASSESSMENT on 05-06-2023 Albumin [Mass/Vol] 3.8 g/dL 3.2-5.0 [facility] Serum or plasma albumin/glob ulin mass ratioOrdered By: HEALTH ASSESSMENT on 05-06-2023 Albumin/Globulin [Mass ratio] 1.2 {ratio} 0.9-2.4 [facility] Serum or plasma calcium ewa urement (mass/volume)Ordered By: HEALTH ASSESSMENT on 05-06-2023 Calcium [Mass/Vol] 8.8 mg/dL 8.5-10.1 [facility] Serum or plasma cholesterol in HDL measurement (mass/volume)Ordered By: HEALTH ASSESSMENT on 05-06-2023 Cholesterol in HDL [Mass/Vol] 61 mg/dL >40 [facility] Comment on above: The drugs N-Acetylcy steine and Metamizole may falsely depress this assay. Reference Range HDL <40 mg/dL Low HDL Cholesterol HDL >or= 60 mg/dL High HDL Cholesterol Serum or plasma cholesterol in VLDL measurement (mass/volume)Ordered By: HEALTH ASSESSMENT on 05-06-2023 Cholesterol in VLDL [Mass/Vol] 11 mg/dL 5-40 [facility] Serum or plasma creatinine m easurement (mass/volume)Ordered By: HEALTH ASSESSMENT on 05-06-2023 Creatinine [Mass/Vol] 0.92 mg/dL 0.55-1.02 [facility] Comment on above: The validity of the calculated GFR & GFRAA in patients over 70 years has not been determined. Clinical correlation is essential. Serum or plasma low density lipoprotein (LDL) cholesterol measurement (mass/volume)Ordered By: HEALTH ASSESSMENT on 05-06-2023 Cholesterol in LDL [Mass/Vol] 108 mg/dL 0-130 [facility] Serum or plasma urea nitroge n measurement (mass/volume)Ordered By: HEALTH ASSESSMENT on 05-06-2023 Urea nitrogen [Mass/Vol] 17 mg/dL 7-18 [facility] Serum or plasma uric acid me asurement (mass/volume)Ordered By: HEALTH ASSESSMENT on 05-06-2023 Urate [Mass/Vol] 4.1 mg/dL 2.6-6.0 [facility] Comment on above: The drugs N-Acetylcy steine and Metamizole may falsely depress this assay. Thin prep Papanicolaou smear with manual screeningOrdered By: HEALTH ASSESSMENT on 05-06-2023 Thin prep Papanicolaou smear with manual screening 12 U/L 15-37 [facility] Thin prep Papanicolaou smear with manual screening 2 5-15 [facility] Urine blood detectionOrdered By: HEALTH ASSESSMENT on 05-06-2023 RBC Ql (U) Negative Negative [facility] Urine clarityOrdered By: [facility] ASSESSMENT on 05-06-2023 Clarity (U) Sl. Cloudy Clear [facility] Urine color determinationOrd ered By: HEALTH ASSESSMENT on 05-06-2023 Color (U) Yellow Yellow [facility] Urine glucose detectionOrder ed By: HEALTH ASSESSMENT on 05-06-2023 Glucose Ql (U) Normal mg/dl Normal [facility] Urine leukocyte esterase det ection by dipstickOrdered By: HEALTH ASSESSMENT on 05-06-2023 Leukocyte esterase Test strip Ql (U) 25 /ul Negative [facility] Urine pHOrdered By: HEALTH A SSESSMENT on 05-06-2023 pH (U) 6.5 [pH] 5.0 - 8.0 [facility] Urine specific gravity measu rementOrdered By: HEALTH ASSESSMENT on 05-06-2023 Specific gravity (U) [Rel density] 1.005 1.002-1.030 [facility] Urobilinogen Auto test strip Ql (U)Ordered By: HEALTH ASSESSMENT on 05-06-2023 Urobilinogen Ql (U) Normal mg/dl Normal [facility] No Panel InformationOrdered By: Dr. Russo on 02-04-2023 Follicle Stimulating Hormone 4.5 mIU/mL [facility] Comment on above: NORMAL REFERENCE RAN [facility] FEMALE FOLLICULAR 2.3 - 12.6 mIU/mL MID-CYCLE PEAK 5.2 - 17.5 mIU/mL LUTEAL 1.7 - 12.9 mIU/mL POST-MENOPAUSAL ON MHT 5.9 - 72.8 mIU/mL NOT ON MHT 12.7 - 132.2 mlU/mL MALE 0.7 - 10.8 mIU/mL Thyroid Stimulating Hormone (TSH) 1.87 uIU/mL 0.358-3.74 [facility] Serum or plasma estradiol (E 2) measurement (mass/volume)Ordered By: Dr. Russo on 02-04-2023 E2 [Mass/Vol] 246.2 pg/mL [facility] Comment on above: NORMAL REFERENCE RAN GES [...] percentageon 2021 Potassium [Moles/Vol] 4.0 mmol/L 3.5-5.1 [facility] Work Phone: Laboratory - Chemistry and C hemistry - challengeon 06-07-2022 Magnesium [Mass/Vol] 2.0 mg/dL 1.6-2.6 [facility] Work Phone: Absolute lymphocyte counton 05-28-2022 Lymphocytes Auto (Unsp spec) [#/Vol] 1.75 10*3/uL 0.83-4.51 [facility] Work Phone: Absolute reticulocyte counto n 05-28-2022 Reticulocytes (Bld) [#/Vol] 0.00 10*3/uL 0-5 [facility] Work Phone: Basophil percentageon 2021 Basophil percentage 3.4 mg/dL 2.5-4.9 [facility] Work Phone: Bilirubin [Mass/Vol] 0.60 mg/dL 0.20-1.00 [facility] Work Phone: Comment on above: For patients on eltr ombopag therapy, use of Dimension Picher TBIL is not recommended. Chloride [Moles/Vol] 106 mmol/L 98-107 [facility] Work Phone: Cholesterol [Mass/Vol] 200 mg/dL <200 [facility] Work Phone: Comment on above: <200 mg/dL Desirable 200-240 mg/dL Borderline >240 mg/dL High Risk Glucose [Mass/Vol] 89 mg/dL 74-106 [facility] Work Phone: Neutrophils (Bld) [#/Vol] 3.4 10*3/uL 2.0-7.7 [facility] Work Phone: Potassium [Moles/Vol] 3.3 mmol/L 3.5-5.1 [facility] Work Phone: Protein [Mass/Vol] 7.2 g/dL 6.4-8.2 [facility] Work Phone: Sodium [Moles/Vol] 141 mmol/L 136-145 [facility] Work Phone: [phone] Triglyceride [Mass/Vol] 82 mg/dL <199 [facility] [place] Work Phone: [phone] Comment on above: The drugs N-Acetylcy steine and Metamizole may falsely depress this assay.Serum Triglycerides Reference Interval Normal <150 mg/dL Borderline high 150 - 199 mg/dL High 200 - 499 mg/dL Very High > or = 500 mg/dL WBC (Bld) [#/Vol] 5.6 10*3/uL 4.4-11.0 [facility] Work Phone: [phone] Bilirubin Test strip Ql (U)o n 05-28-2022 Bilirubin Ql (U) Negative Negative [facility] Work Phone: [phone] Blood erythrocytes count (nu mber/volume)on 05-28-2022 RBC (Bld) [#/Vol] 4.63 10*6/uL 4.2-5.4 [facility] Work Phone: [phone] Blood hemoglobin measurement (mass/volume)on 05-28-2022 Hemoglobin (Bld) [Mass/Vol] 15.0 g/dL 12.0-15.0 [facility] Work Phone: [phone] Blood platelet mean volumeon 05-28-2022 Platelet mean volume (Bld) [Entitic vol] 10.6 fL 6.2-12.0 [facility] Work Phone: [phone] Determination of erythrocyte mean corpuscular volume (MCV)on 05-28-2022 MCV (RBC) [Entitic vol] 93.7 fL 81-99 [facility] [place] Work Phone: [phone] Direct bilirubinon Bilirubin.direct [Mass/Vol] 0.14 mg/dL 0.00-0.30 [facility] Work Phone: [phone] Hematocrit Auto (Bld) [Volum e fraction]on 05-28-2022 Hematocrit (Bld) [Volume fraction] 43.4 % 37-47 [facility] Work Phone: Ketones Test strip Ql (U)on 05-28-2022 Ketones Ql (U) Negative Negative [facility] Work Phone: Laboratory - Chemistry and C hemistry - challengeon 05-28-2022 Free T4 [Mass/Vol] 1.18 ng/dL 0.76-1.46 [facility] Work Phone: [phone] ALP [Catalytic activity/Vol] 59 U/L 45-117 [facility] Work Phone: [phone] ALT [Catalytic activity/Vol] 21 U/L 13-56 [facility] Work Phone: [phone] Cholesterol.total/Choleste rol in HDL [Mass ratio] 3.40 {ratio} [facility] Work Phone: [phone] CO2 [Moles/Vol] 29.0 mmol/L 21.0-32.0 [facility] Work Phone: [phone] Globulin (S) [Mass/Vol] 3.4 g/dL 2.2-4.2 [facility] [place] Work Phone: [phone] Urea nitrogen/Creatinine [Mass ratio] 16.7 mg/mg 10-20 [facility] Work Phone: Laboratory - Hematology and Cell countson 05-28-2022 Erythrocyte distribution width (RBC) [Entitic vol] 43.8 fL 35.1-43.9 [facility] Work Phone: [phone] Erythrocyte distribution width (RBC) [Ratio] 12.7 % 11.6-14.6 [facility] Work Phone: [phone] MCH (RBC) [Entitic mass] 32.4 pg 27.0-32.0 [facility] Work Phone: Nucleated RBC/100 WBC (Bld) [Ratio] 0 % 0-5 [facility] Work Phone: MCHC Auto (RBC) [Mass/Vol]on 05-28-2022 MCHC (RBC) [Mass/Vol] 34.6 g/dL 32-36 [facility] Work Phone: Nitrite Test strip Ql (U)on 05-28-2022 Nitrite Ql (U) Negative Negative [facility] Work Phone: No Panel Informationon 05-28 Thyroid Stimulating Hormone (TSH) 1.10 uIU/mL 0.358-3.74 [facility] Work Phone: Estimated GFR (MDRD) Amer 82 mL/min >60 [facility] Work Phone: Comment on above: GFR Calc Estimated GFR (MDRD) Non-Af Amer 67 mL/min >60 [facility] Work Phone: Comment on above: Non- GFR Calc Platelets bldon 05-28-2022 Platelets (Bld) [#/Vol] 256 10*3/uL 150-450 [facility] Work Phone: Protein Test strip Ql (U)on 05-28-2022 Protein Ql (U) Negative Negative [facility] Work Phone: Segmented neutrophils/100 WB C Auto (Bld)on 05-28-2022 Segmented neutrophils/100 WBC (Bld) 59.5 % 47-70 [facility] Work Phone: Serum or plasma albumin ewa urement (mass/volume)on 05-28-2022 Albumin [Mass/Vol] 3.8 g/dL 3.2-5.0 [facility] Work Phone: [phone] Serum or plasma albumin/glob ulin mass ratioon 05-28-2022 Albumin/Globulin [Mass ratio] 1.1 {ratio} 0.9-2.4 [facility] Work Phone: [phone] Serum or plasma calcium ewa urement (mass/volume)on 05-28-2022 Calcium [Mass/Vol] 8.9 mg/dL 8.5-10.1 [facility] Work Phone: [phone] Serum or plasma cholesterol in HDL measurement (mass/volume)on 05-28-2022 Cholesterol in HDL [Mass/Vol] 58 mg/dL >40 [facility] Work Phone: [phone] Comment on above: The drugs N-Acetylcy steine and Metamizole may falsely depress this assay. Reference Range HDL <40 mg/dL Low HDL Cholesterol HDL >or= 60 mg/dL High HDL Cholesterol Serum or plasma cholesterol in VLDL measurement (mass/volume)on 05-28-2022 Cholesterol in VLDL [Mass/Vol] 16 mg/dL 5-40 [facility] Work Phone: Serum or plasma creatinine m easurement (mass/volume)on 05-28-2022 Creatinine [Mass/Vol] 0.96 mg/dL 0.55-1.02 [facility] Work Phone: Comment on above: The validity of the calculated GFR & GFRAA in patients over 70 years has not been determined. Clinical correlation is essential. Serum or plasma low density lipoprotein (LDL) cholesterol measurement (mass/volume)on 05-28-2022 Cholesterol in LDL [Mass/Vol] 126 mg/dL 0-130 [facility] Work Phone: Serum or plasma urea nitroge n measurement (mass/volume)on 05-28-2022 Urea nitrogen [Mass/Vol] 16 mg/dL 7-18 [facility] Work Phone: Serum or plasma uric acid me asurement (mass/volume)on 05-28-2022 Urate [Mass/Vol] 4.2 mg/dL 2.6-6.0 [facility] Work Phone: Comment on above: The drugs N-Acetylcy steine and Metamizole may falsely depress this assay. Thin prep Papanicolaou smear with manual screeningon 05-28-2022 Thin prep Papanicolaou smear with manual screening 12 U/L 15-37 [facility] Work Phone: [phone] Thin prep Papanicolaou smear with manual screening 6 5-15 [facility] Work Phone: [phone] Thin prep Papanicolaou smear with manual screening 128 U/L 84-246 [facility] Work Phone: [phone] Urine blood detectionon 05-17 RBC Ql (U) 10 /ul Negative [facility] Work Phone: [phone] Urine clarityon 05-28-2022 Clarity (U) Clear Clear [facility] Work Phone: Urine color determinationon 05-28-2022 Color (U) Straw Yellow [facility] Work Phone: Urine glucose detectionon Glucose Ql (U) Normal mg/dl Normal [facility] Work Phone: Urine leukocyte esterase det ection by dipstickon 05-28-2022 Leukocyte esterase Test strip Ql (U) Negative Negative [facility] Work Phone: Urine pHon 05-28-2022 pH (U) 6.5 [pH] 5.0 - 8.0 [facility] Work Phone: Urine specific gravity measu rementon 05-28-2022 Specific gravity (U) [Rel density] 1.010 1.002-1.030 [facility] Work Phone: Urobilinogen Auto test strip Ql (U)on 05-28-2022 Urobilinogen Ql (U) Normal mg/dl Normal [facility] Work Phone: Beta hCG serum qualon 2021 Beta HCG ( test) Ql Negative [facility] Work Phone: Laboratory - Microbiology an d Antimicrobial susceptibilityon 09-19-2021 SARS-CoV-2 (COVID-19) RNA SUHAIL+probe Ql (Unsp spec) Detected [facility] Work Phone: Vital Signs Date Time Vital Sign Value Performing Clinician Faci lity 06-30-2024 13:58-0400 Body height 172.7 cm Elan Larry MD Work Phone: [facility] 06-30-2024 13:58-0400 Body mass index (BMI) [Ratio] 29.19 kg/m2 Elan Larry MD Work Phone: [facility] 06-30-2024 13:58-0400 Body weight 87.09 kg Elan Larry MD Work Phone: [facility] 08-13-2023 11:08-0500 Body height 172.[address] Sumit Reid Work Phone: [facility] 08-13-2023 11:07-0500 Body mass index (BMI) [Ratio] 28.7 kg/m2 Dr. Sumit Reid Work Phone: [facility] 08-13-2023 11:07-0500 Body weight 85.[address] Sumit Reid Work Phone: [facility] 08-13-2023 11:07-0500 Diastolic blood pressure 76 mm[Hg] Dr. Sumit Reid Work Phone: [facility] 08-13-2023 11:07-0500 Systolic blood pressure 130 mm[Hg] Dr. Sumit Reid Work Phone: [facility] 07-15-2023 11:06-0400 Body mass index (BMI) [Ratio] 28.6 kg/m2 Dr. Sumit Reid Work Phone: [facility] 07-15-2023 11:06-0400 Body weight 85.[address] Sumit Reid Work Phone: [facility] 07-15-2023 11:06-0400 Diastolic blood pressure 80 mm[Hg] Dr. Sumit Reid Work Phone: [facility] 07-15-2023 11:06-0400 Systolic blood pressure 120 mm[Hg] Dr. Sumit Reid Work Phone: [facility] 07-02-2023 17:51-0400 Body temperature 97.9 [degF] Dr. Sumit Reid Work Phone: [facility] 07-02-2023 17:51-0400 Diastolic blood pressure 74 mm[Hg] Dr. Sumit Reid Work Phone: [facility] 07-02-2023 17:51-0400 Heart rate 72 /min Dr. Sumit Reid Work Phone: [facility] 07-02-2023 17:51-0400 Respiratory rate 16 /min Dr. Sumit Reid Work Phone: [facility] 07-02-2023 17:51-0400 SaO2% (BldA) [Mass fraction] 97 % Dr. Sumit Reid Work Phone: [phone] [place] [address] 07-02-2023 17:51-0400 Systolic blood pressure 121 mm[Hg] Dr. Sumit Reid Work Phone: [phone] [address] 07-02-2023 13:45-0400 Inhaled oxygen flow rate 4 L/min Dr. Sumit Reid Work Phone: [phone] [place] [address] 07-02-2023 08:58-0400 Body height 172.[address] Sumit Reid Work Phone: [phone] [place] [address] 07-02-2023 08:58-0400 Body mass index (BMI) [Ratio] 28.6 kg/m2 Dr. Sumit Reid Work Phone: [phone] [address] 07-02-2023 08:58-0400 Body weight 85.[address] Sumit Reid Work Phone: [phone] [address] 06-03-2023 14:00-0400 Body mass index (BMI) [Ratio] 28.6 kg/m2 Dr. Sumit Reid Work Phone: [phone] [place] [address] 06-03-2023 14:00-0400 Body weight 85.[address] Sumit Reid Work Phone: [facility] 06-03-2023 14:00-0400 Diastolic blood pressure 79 mm[Hg] Dr. Sumit Reid Work Phone: [facility] 06-03-2023 14:00-0400 Systolic blood pressure 122 mm[Hg] Dr. Sumit Reid Work Phone: [phone] [place] [address] 02-04-2023 08:48-0400 Body height 172.[address] Sumit Reid Work Phone: [facility] 02-04-2023 08:48-0400 Body mass index (BMI) [Ratio] 27.8 kg/m2 Dr. Sumit Reid Work Phone: [facility] 02-04-2023 08:48-0400 Body weight [address] Sumit Reid Work Phone: [facility] 02-04-2023 08:48-0400 Diastolic blood pressure 77 mm[Hg] Dr. Sumit Reid Work Phone: [facility] 02-04-2023 08:48-0400 Systolic blood pressure 127 mm[Hg] Dr. Sumit Reid Work Phone: [facility] 12-18-2022 12:45-0400 Body temperature 97.4 [degF] Dr. Sumit Reid Work Phone: [facility] 12-18-2022 12:45-0400 Diastolic blood pressure 83 mm[Hg] Dr. Sumit Reid Work Phone: [facility] 12-18-2022 12:45-0400 Heart rate 53 /min Dr. Sumit Reid Work Phone: [facility] 12-18-2022 12:45-0400 Respiratory rate 16 /min Dr. Sumit Reid Work Phone: [facility] 12-18-2022 12:45-0400 SaO2% (BldA) [Mass fraction] 100 % Dr. Sumit Reid Work Phone: [facility] 12-18-2022 12:45-0400 Systolic blood pressure 119 mm[Hg] Dr. Sumit Reid Work Phone: [facility] 12-18-2022 09:45-0400 Body mass index (BMI) [Ratio] 26.8 kg/m2 Dr. Sumit Reid Work Phone: [facility] 12-18-2022 09:45-0400 Body weight 80.[address] Sumit Reid Work Phone: [facility] 11-01-2022 10:59-0500 Body mass index (BMI) [Ratio] 27 kg/m2 Dr. Sumit Reid Work Phone: [facility] 11-01-2022 10:59-0500 Body weight 80.[address] Sumit Reid Work Phone: [facility] 11-01-2022 10:59-0500 Diastolic blood pressure 98 mm[Hg] Dr. Sumit Reid Work Phone: [facility] 11-01-2022 10:59-0500 Systolic blood pressure 158 mm[Hg] Dr. Sumit Reid Work Phone: [facility] 01-31-2022 12:54-0400 Body height 172.[address] Sumit Reid Work Phone: [facility] Work Phone: 01-31-2022 12:54-0400 Body mass index (BMI) [Ratio] 28.5 kg/m2 Dr. Sumit Reid Work Phone: [facility] Work Phone: 01-31-2022 12:54-0400 Body weight 85.[address] Sumit Reid Work Phone: [facility] Work Phone: 01-31-2022 12:54-0400 Diastolic blood pressure 76 mm[Hg] Dr. Sumit Reid Work Phone: [facility] Work Phone: 01-31-2022 12:54-0400 Systolic blood pressure 118 mm[Hg] Dr. Sumit Reid Work Phone: [facility] Work Phone: 12-20-2021 11:16-0400 Body height 172.[address] Sumit Reid Work Phone: [facility] Work Phone: 12-20-2021 11:16-0400 Body mass index (BMI) [Ratio] 28.1 kg/m2 Dr. Sumit Reid Work Phone: [facility] Work Phone: 12-20-2021 11:16-0400 Body weight 84.[address] Sumit Reid Work Phone: [facility] Work Phone: 12-20-2021 11:16-0400 Diastolic blood pressure 82 mm[Hg] Dr. Sumit Reid Work Phone: [facility] Work Phone: 12-20-2021 11:16-0400 Heart rate 100 /min Dr. Sumit Reid Work Phone: [facility] Work Phone: 12-20-2021 11:16-0400 Respiratory rate 18 /min Dr. Sumit Reid Work Phone: [facility] Work Phone: 12-20-2021 11:16-0400 SaO2% (BldA) [Mass fraction] 98 % Dr. Sumit Reid Work Phone: [facility] Work Phone: 12-20-2021 11:16-0400 Systolic blood pressure 121 mm[Hg] Dr. Sumit Reid Work Phone: [facility] Work Phone: 10-19-2021 08:30-0500 Body temperature 97.6 [degF] Dr. Sumit Reid Work Phone: [facility] Work Phone: 10-19-2021 08:30-0500 Diastolic blood pressure 76 mm[Hg] Dr. Sumit Reid Work Phone: [facility] Work Phone: 10-19-2021 08:30-0500 Heart rate 50 /min Dr. Sumit Reid Work Phone: [facility] Work Phone: 10-19-2021 08:30-0500 Respiratory rate 16 /min Dr. Sumit Reid Work Phone: [facility] Work Phone: 10-19-2021 08:30-0500 SaO2% (BldA) [Mass fraction] 100 % Dr. Sumit Reid Work Phone: [facility] Work Phone: 10-19-2021 08:30-0500 Systolic blood pressure 119 mm[Hg] Dr. Sumit Reid Work Phone: [facility] Work Phone: 10-19-2021 06:41-0500 Body mass index (BMI) [Ratio] 27.9 kg/m2 Dr. Sumit Reid Work Phone: [facility] Work Phone: 10-19-2021 06:41-0500 Body weight 83.[address] Sumit Reid Work Phone: [facility] Work Phone: 09-19-2021 05:37-0500 Body temperature 98.3 [degF] Dr. Sumit Reid Work Phone: [facility] Work Phone: 09-19-2021 05:37-0500 Diastolic blood pressure 86 mm[Hg] Dr. Sumit Reid Work Phone: [facility] Work Phone: 09-19-2021 05:37-0500 Heart rate 84 /min Dr. Sumit Reid Work Phone: [facility] Work Phone: 09-19-2021 05:37-0500 Respiratory rate 16 /min Dr. Sumit Reid Work Phone: [facility] Work Phone: 09-19-2021 05:37-0500 SaO2% (BldA) [Mass fraction] 98 % Dr. Sumit Reid Work Phone: [facility] Work Phone: 09-19-2021 05:37-0500 Systolic blood pressure 126 mm[Hg] Dr. Sumit Reid Work Phone: [facility] Work Phone: Encounters Encounter Date Encounter Type Care Provider Facility Start: 05-03-2025 End: 05-03-[address] Richelle Moreno DC -[facility] Work Phone: Start: 05-03-2025 End: 05-03-[address] Elsie Reid MD Work Phone: [facility] Start: 03-22-2025 End: 03-22-[address] Richelle Moreno DC -[facility] Work Phone: Start: 03-22-2025 End: 03-22-[address] Elsie Reid MD Work Phone: [facility] Start: 03-17-2025 End: 03-17-[address] Elsie Reid MD Work Phone: -[facility] Start: 03-17-2025 End: 03-17-[address] [facility] Work Phone: Start: 03-17-2025 End: 03-17-2025 ambulatory Elsie Reid Facility:[facility] Start: 02-01-2025 End: 02-01-[address] Richelle Moreno DC -[facility] Work Phone: Start: 02-01-2025 End: 02-01-[address] Elsie Reid MD Work Phone: [facility] Work Phone: Start: 12-21-2024 End: 12-21-[address] Richelle Moreno [place] -[facility] Work Phone: Start: 12-21-2024 End: 12-21-2024 ambulatory Elsie Reid Facility:[facility] Start: 10-22-2024 End: 10-22-[address] Richelle Moreno DC -[facility] Work Phone: Start: 10-22-2024 End: 10-22-2024 ambulatory Elsie Reid Facility:[facility] Start: 09-14-2024 End: 09-14-2024 ambulatory Elsie Reid Facility:[facility] Start: 08-14-2024 End: 08-14-2024 ambulatory Elsie Reid Facility:[facility] Start: 07-20-2024 End: 07-20-2024 ambulatory Elsie Reid Facility:[facility] Start: 07-06-2024 ambulatory Elsie Reid Faci lity:[facility] Start: 07-02-2024 End: 07-02-2024 Office consultation new/estab patient 60 min Elan Laryr MD Work Phone: Sleep Medicine [facility] Comment on above: Insomnia, unspecifie d type (Primary Dx) Start: 07-02-2024 ambulatory ELAN LARRY Facshyanne lity:[facility] Start: 06-30-2024 End: 06-30-2024 ambulatory Elsie Reid Facility:[facility] Start: 06-16-2024 End: 06-16-2024 [facility]ulatory [facility] Start: 05-19-2024 ambulatory Becket Farnklin Faci lity:[facility] Start: 05-19-2024 End: 05-19-2024 ambulatory [facility] Facility:[facility] Start: 12-16-2023 End: 12-16-2023 ambulatory DODIE ESQUEDA Facility:[facility] Start: 12-16-2023 End: 12-16-2023 Patient encounter procedure Dodie Esqueda OD Work Phone: Optometry Comment on above: Hyperopia of both ey es (Primary Dx); Regular astigmatism of both eyes Start: 08-13-2023 End: 08-13-[address] Sumit Reid Work Phone: [facility] Work Phone: Start: 08-13-2023 End: 08-13-[address] Sumit Reid Work Phone: [facility] Work Phone: Start: 08-13-2023 End: 08-13-[address] Sumit Reid Work Phone: [facility]-Outpatient Breast Imaging Work Phone: Start: 07-15-2023 End: 07-15-[address] Sumit Reid Work Phone: [facility] Work Phone: Start: 07-02-2023 Non-patient / Non-visit Dr. Sumit Reid Work Phone: [facility] Start: 07-02-2023 End: 07-02-2023 Admission to same day surgery center Dr. Sumit Reid Work Phone: [facility]-Surgical Day Care Start: 07-02-2023 End: 07-02-[address] Sumit Reid Work Phone: [facility] Work Phone: Start: 07-01-2023 Non-patient / Non-visit Dr. Sumit Reid Work Phone: [facility] Start: 06-10-2023 End: 06-10-[address] [facility] Work Phone: Start: 06-03-2023 End: 06-03-[address] Sumit Reid Work Phone: [facility] Work Phone: Start: 05-08-2023 End: 05-08-[address] Sumit Reid Work Phone: [facility] Work Phone: Start: 05-08-2023 End: 05-08-[address] Sumit Reid Work Phone: [facility]-Outpatient Pavilion Ultrasound Work Phone: Start: 05-06-2023 End: 05-06-[address] Sumit Reid Work Phone: [facility] Work Phone: Start: 05-06-2023 End: 05-06-[address] Sumit Reid Work Phone: [facility]-Laboratory Work Phone: Start: 05-06-[address] Allen Reid Work Phone: [facility]-Employee Health Start: 04-29-2023 End: 04-29-[address] Sumit Reid Work Phone[facility] Work Phone: Start: 02-18-2023 End: 02-18-[address] Sumit Reid Work Phone[facility] Work Phone: Start: 02-13-2023 End: 02-13-[address] Sumit Reid Work Phone: [facility] Start: 02-04-2023 End: 02-04-[address] Sumit Reid Work Phone: [facility] Work Phone: Start: 02-04-2023 End: 02-04-[address] Sumit Reid Work Phone: [facility]-Laboratory Start: 02-04-2023 End: 02-04-[address] Sumit Reid Work Phone: [facility] Start: 01-17-2023 End: 01-17-[address] Sumit Reid Work Phone: [facility] Start: 01-07-2023 End: 01-07-[address] Sumit Reid Work Phone: [facility] Start: 12-27-2022 End: 12-27-[address] Sumit Reid Work Phone: [facility] Start: 12-18-2022 Non-patient / Non-visit Dr. Sumit Reid Work Phone: [facility] Start: 12-18-2022 End: 12-18-2022 Admission to same day surgery center Dr. Sumit Reid Work Phone: [facility]-Surgical Day Care Start: 11-20-2022 End: 11-20-[address] Sumit Reid Work Phone: [facility] Start: 11-19-2022 End: 11-19-[address] Sumit Reid Work Phone: [facility] Start: 11-01-2022 End: 11-01-[address] Sumit Reid Work Phone: [facility] Start: 07-16-2022 End: 07-16-[address] Sumit Reid Work Phone: [facility] Work Phone: Start: 07-16-2022 End: 07-16-[address] Sumit Reid Work Phone: [facility]-Outpatient Breast Imaging Start: 07-02-2022 End: 07-02-[address] Sumit Reid Work Phone: [facility] Start: 06-07-2022 End: 06-07-[address] Sumit Reid Work Phone: [facility]-Laboratory Start: 05-28-2022 End: 05-28-[address] Sumit Reid Work Phone: [facility] Work Phone: Start: 05-28-2022 End: 05-28-[address] Sumit Reid Work Phone: [facility]-Laboratory, Specimen Start: 05-28-[address] Allen Reid Work Phone: [facility] Start: 05-14-2022 End: 05-14-[address] Sumit Reid Work Phone: [facility] Start: 04-03-2022 End: 04-03-[address] Sumit Reid Work Phone: [facility] Start: 02-19-2022 End: 02-19-[address] Sumit Reid Work Phone: [facility] Start: 01-31-2022 End: 01-31-[address] Sumit Reid Work Phone: [facility] Start: 01-10-2022 End: 01-10-[address] Sumit Reid Work Phone: [facility] Start: 01-03-2022 End: 01-03-[address] Sumit Reid [facility] Phone[facility] Start: 01-01-2022 End: 01-01-[address] Sumit Reid Work Phone: [facility] Start: 12-20-2021 End: 12-20-[address] Sumit Reid Work Phone: [facility] Start: 11-02-2021 End: 11-02-[address] Sumit Reid Work Phone: [facility] Start: 10-19-2021 Non-patient / Non-visit Dr. Sumit Reid Work Phone: [facility] Start: 10-19-2021 End: 10-19-2021 Admission to same day surgery center Dr. Sumit Reid Work Phone: [facility]-Endoscopy Start: 09-19-2021 End: 09-19-[address] Sumit Reid Work Phone: [facility] Procedures Date Procedure Procedure Detail Performing Clinician Start: 03-17-[address] Graham Reid MD Work Phone: Start: 03-17-2025 Antibody to centrome re measurement Dr. Elsie Reid MD Work Phone: Comment on above: Previous reported re sult: TNP AIEdited by: ROLAN on 03/19/25:1508 AMENDED REPORT 03/19/25 1508 ANTI-CENT B previously reported as: Test not performed Start: 03-17-2025 Antibody to extracta ble nuclear antigen measurement Dr. Elsie Reid MD Work Phone: Comment on above: Previous reported re sult: TNP AIEdited by: INFCE on 03/19/25:1508 AMENDED REPORT 03/19/25 1508 JARAMILLO Ab previously reported as: Test not performed Start: 03-17-2025 Antibody to YAN-[address] Elsie Reid MD Work Phone: Comment on above: Previous reported re sult: TNP AIEdited by: INFCE on 03/19/25:1508 AMENDED REPORT 03/19/25 1505 ANTI-YAN previously reported as: Test not performed Start: 03-17-2025 Antibody to lupus La protein measurement Dr. Elsie Reid MD Work Phone: Start: 03-17-2025 Antibody to SS-A measurement Dr. Elsie Reid MD Work Phone: Start: 03-17-[address] Elsie Reid MD Work Phone: Comment on above: Previous reported re sult: TNP AIEdited by: INFCE on 03/19/25:1508 AMENDED REPORT 03/19/25 1500 ANTICHROMATIN previously reported as: Test not performed Start: 03-17-2025 Electrophoresis: [id number] Dr. Elsie Reid MD Work Phone: Start: 03-17-2025 Electrophoresis: [id number] Dr. Elsie Reid MD Work Phone: Start: 03-17-2025 Electrophoresis: madan ma globulin Dr. Elsie Reid MD Work Phone: Start: 03-17-2025 Fol[address]le stimulating hormone measurement Dr. Elsie Reid MD Work Phone: Comment on above: FEMALE:Follicular: 1 .4 - 18.1 mIU/mLMidcycle: 3.4 - 33.4 mIU/mLLuteal: 1.5 - 9.1 mIU/mLPost Menopause: 23.0 - 116.3 mIU/mLMALE: 1.4 - 18.1 mIU/mL Start: 03-17-2025 SEO PROFESSIONAL antibody measurement Dr. Elsie Reid MD Work Phone: Comment on above: Previous reported re sult: TNP AIEdited by: ROLAN on 03/19/25:1508 AMENDED REPORT 03/19/25 1508 [employer] Ab previously reported as: Test not performed Start: 03-17-2025 Vitamin D, 25-hydrox y measurement Dr. Elsie Reid MD Work Phone: Comment on above: Vitamin D StatusDefi ciency: <20 ng/mL (50nmol/L)Insufficiency: 20-30 ng/mL (50-75 nmol/L)Sufficiency: 30-100 ng/mL (75-250 nmol/L)Toxicity: >100 ng/mL (>250 nmol/L) Start: 08-13-2023 Screening mammography Nawaf Reid Work [...] Detail Author Start: 05-29-2026 Tetanus vaccination TETANUS [facility] Start: 05-29-2026 Urine microalbumin profile DTaP,Tdap,Td Vaccine (2 - Td or Tdap) [facility] Start: 05-17-2024 COVID-19 VACCINE () COVID-19 VACCINE () [facility] Start: 05-17-2024 Influenza vaccination INFLUENZA VACCINE (#1) [facility] Start: 12-25-2023 Screening for malignant neoplasm of colon COLORECTAL CANCER SCREENING DISCUSSION [facility] Start: 09-16-2023 Depression Assessment Depression Assessment [facility] Start: 07-02-2023 Anesthesia intraperitoneal lower abd w/laps nos ANESTH SURG LOWER ABDOMEN [facility] Start: 07-02-2023 Laps w/vag hysterect 250 gm/&rmvl tube&/ovaries LAPARO-VAG HYST INCL T/O [facility] Start: 07-02-2023 Introduction of urinary catheter [facility] Start: 07-02-2023 Ambulation therapy management [facility] Start: 07-02-2023 Continuous pulse oximetry [facility] Start: 07-02-2023 Elevation of head of bed [facility] Start: 07-02-2023 Incentive spirometry [facility] Start: 07-02-2023 Measuring intake and output [facility] Start: 07-02-2023 Notification of physician [facility] Start: 07-02-2023 End: 07-02-2023 Oxygen therapy [facility] Start: 07-02-2023 Patient education [facility] Start: 07-02-2023 Procedures relating to eating and drinking [facility] Start: 07-02-2023 Taking patient vital signs [facility] Start: 07-02-2023 [facility] Start: 07-02-2023 Patient discharge [facility] Start: 05-17-2023 Covid-19 Vaccine ( season) Covid-19 Vaccine () [facility] Start: 12-18-2022 Anesthesia anorectal procedure ANESTH ANORECTAL SURGERY [facility] Start: 12-18-2022 Hemorrhoidectomy int & xtrnl 2/> column/natividad REMOVE IN/EX HEM GROUPS 2+ [facility] Start: 12-18-2022 Patient discharge [facility] Start: 10-19-2021 Colonoscopy w/biopsy single/multiple COLONOSCOPY AND BIOPSY [facility] Work Phone: Start: 10-19-2021 Colsc flx w/rmvl of tumor polyp lesion snare tq COLONOSCOPY W/LESION REMOVAL [facility] Work Phone: Start: 10-19-2021 Egd transoral biopsy single/multiple EGD BIOPSY SINGLE/MULTIPLE [facility] Work Phone: Start: 2018 Lipid panel LIPID SCREENING [facility] Start: 2018 Screening for malignant neoplasm of breast [facility] Start: 01-29-2018 Screening for malignant neoplasm of cervix [facility] Start: 12-25-1999 Screening for malignant neoplasm of cervix CERVICAL CANCER SCREENING DISCUSSION [facility] Start: 1997 Hepatitis B vaccination HEP B VACCINE (1 of 3 - 19+ 3-dose series) [facility] Start: 1997 Hepatitis B Vaccine (1 of 3 - 19+ 3-dose series) Hepatitis B Vaccine (1 of 3 - 19+ 3-dose series) [facility] Start: 1996 Annual PCP Team Chronic Disease Visit Annual PCP Team Chronic Disease Visit [facility] Start: 1996 Hepatitis C screening Hepatitis C Screening [facility] Start: 1996 HIV screening HIV Screening [facility] Start: 1993 HIV screening HIV SCREENING DISCUSSION [facility] Start: 1978 Hepatitis C screening HEPATITIS C VIRUS SCREENING [facility] Start: 1978 Thyroid stimulating hormone measurement TSH [facility] MG Breast - bilatera l Screening [facility] Work Phone: MG Breast - bilatera l Screening [facility] Patient referral [facility] Work Phone: Thyroglobulin antibo dy measurement [facility] Immunizations Immunization Date Immunization Notes Care Provider Fa cili 07-23-2024 influenza, seasonal, injectable, preservative free Dr. Elsie Reid MD Work Phone: [facility] 08-14-2023 influenza, injectabl e, quadrivalent, preservative free Dr. Sumit Reid Work Phone: [facility] 08-14-2023 influenza virus vaccine, unspecified formulation Elan Larry MD Work Phone: [facility] 07-23-2022 influenza, injectabl e, quadrivalent, preservative free Dr. Sumit Reid Work Phone: [facility] 07-23-2022 influenza, seasonal, injectable Dr. Sumit Reid Work Phone: [facility] 07-19-2021 influenza, injectabl e, quadrivalent, preservative free Dr. Sumit Reid Work Phone: [facility] 07-19-2021 influenza, seasonal, injectable Dr. Sumit Reid Work Phone: [facility] 10-25-2020 Covid (Moderna) Dr. Felecia Reid Work Phone: [facility] 09-27-2020 Covid (Moderna) Dr. Felecia Reid Work Phone: [facility] 06-14-2020 influenza, injectabl e, quadrivalent, preservative free Dr. Sumit Reid Work Phone: [facility] 06-14-2020 influenza, seasonal, injectable Dr. Sumit Reid Work Phone: [facility] 07-20-2019 influenza, injectabl e, quadrivalent, preservative free Dr. Sumit Reid Work Phone: [facility] 07-20-2019 influenza, seasonal, injectable Dr. Sumit Reid Work Phone: [facility] 07-16-2018 influenza, injectabl e, quadrivalent, preservative free Dr. Sumit Reid Work Phone: [facility] 07-16-2018 influenza, seasonal, injectable Dr. Sumit Reid Work Phone: [facility] 07-10-2017 influenza, injectabl e, quadrivalent, preservative free Dr. Sumit Reid Work Phone: [facility] 07-10-2017 influenza, seasonal, injectable Dr. Sumit Reid Work Phone: [facility] 06-14-2016 influenza, injectabl e, quadrivalent, preservative free Dr. Sumit Reid Work Phone: [facility] 06-14-2016 influenza, seasonal, injectable Dr. Sumit Reid Work Phone: [facility] 06-16-2015 influenza, injectabl e, quadrivalent, preservative free Dr. Sumit Reid Work Phone: [facility] 06-16-2015 influenza, seasonal, injectable Dr. Sumit Reid Work Phone: [facility] 06-16-2014 influenza, injectabl e, quadrivalent, preservative free Dr. Sumit Reid Work Phone: [facility] 06-16-2014 influenza, seasonal, injectable Dr. Sumit Reid Work Phone: [facility] 08-10-[address] Sumit Reid Work Phone: [facility] 04-16-2009 tetanus and diphther ia toxoids, not adsorbed, for adult use Dodie Esqueda OD Work Phone: [facility] Payers Date Payer Category Payer Self-pay [id number] 2023 Private Health Insurance [employer] [id number] 2023-Present [address] [place] [address] [id number] 2023 Unknown [id number] 2015 Unknown [employer]SP VISION [id number] 2015-Present [address] [place] [address] Indemnity [id number] 2015 Unknown [id number] 2013 Unknown [id number] 1978 Unknown [id number] 594 Unknown [id number]. 462 Unknown [id number]. 462 Unknown [id number]. 462 Unknown [id number]. 462 Unknown [id number] [id number]. 462 Unknown [id number]. 462 Unknown [id number]. 462 Unknown [id number]. 462 Unknown [id number] [id number]. 462 Unknown [id number]. 462 Unknown [id number]. 462 Unknown [id number] [id number]. 462 Unknown [id number]. 462 Unknown [id number]. 462 Social History Date Type Detail Facility [facility] Work Phone: Start: 01-10-2022 End: 08-13-2023 Tobacco smoking status NHIS Unknown if ever smoked [facility] Start: 06-13-2020 Non-smoker [facility] Start: 1980 Sex Assigned At Female [facility] Start: 12-16-2023 End: 06-30-2024 Tobacco smoking status NHIS Never smoked tobacco [facility] Start: 12-16-2023 End: 06-30-2024 Tobacco use and exposure Smokeless tobacco non-user [facility] Start: 12-16-2023 End: 07-02-2024 Alcohol intake Current drinker of alcohol (finding) [facility] Start: 05-15-2021 End: 06-30-2024 History of Social function [facility] Start: 05-15-2021 End: 06-30-2024 Tobacco use panel [facility] National Score (1-100), lower number is lower risk 59 [facility] Start: 07-17-2016 Alcohol Comment Socially [facility] Start: 1980 Sex Assigned At Not on file [facility] Start: 06-30-2024 Alcohol Comment occ [facility] NEGATED: Highlighted row [facility] Goals Date Patient Goal Desired Activity /State Mental Status Date Assessment Result Facility 07-02-2023 Cognitive function Voice/Name [facility] Work Phone: 12-18-2022 Cognitive function Voice/Name [facility] Work Phone: 10-19-2021 Cognitive function Voice/Name [facility] Work Phone: Clinical Notes 05-26-2009 to 02-01-2025 Note Date & Type Note Facility 02-01-2025 Evaluation note Diagnosis Onset Date Resolution Segmental and somatic dysfunction of cervical region acute February 01, 2025 4 :18pm Segmental and somatic dysfunction of lumbar region acute February 01, 2025 4 :18pm Segmental and somatic dysfunction of thoracic region acute February 01, 2025 4 :18pm Segmental and somatic dysfunction of lumbar region acute March 22, 2025 4 :21pm Segmental and somatic dysfunction of pelvic region acute March 22, 2025 4 :21pm Segmental and somatic dysfunction of thoracic region acute March 22, 2025 4 :21pm Segmental and somatic dysfunction of cervical region acute May 03 3:51pm Segmental and somatic dysfunction of lumbar region acute May 03 3:51pm Segmental and somatic dysfunction of pelvic region acute May 03 3:51pm Segmental and somatic dysfunction of thoracic region acute May 03 3:51pm Thoracic neuritis acute May 03, 2025 3:51pm [facility] Work Phone: [phone] Evaluation note* Diagnosis Onset Date Resolution Status Admit Date Segmental and somatic dysfun ction of cervical region acute December 21 4:14pm Segmental and somatic dysfun ction of lumbar region acute December 21, 2024 4:14pm Segmental and somatic dysfun ction of pelvic region acute December 21, 2024 4:14pm Segmental and somatic dysfun ction of thoracic region acute December 21 4:14pm Segmental and somatic dysfun ction of cervical region acute February 01 4:18pm Segmental and somatic dysfun ction of lumbar region acute February 01, 2025 4:18pm Segmental and somatic dysfun ction of thoracic region acute February 01 4:18pm Abdominal bloating acute March 222024 4:21pm Segmental and somatic dysfun ction of cervical region acute March 22 4:21pm Segmental and somatic dysfun ction of lumbar region acute March 22, 2025 4:21pm Segmental and somatic dysfun ction of thoracic region acute March 22 4:21pm [facility] [employer] [facility] Work Phone: [phone] Evaluation note* Diagnosis Onset Date Resolution Status Admit Date Segmental and somatic dysfunction of cervical region acute F ebruary 2024 3:50pm Segmental and somatic dysfunction of lumbar region acute Fe ru2024 3:50pm Segmental and somatic dysfunction of pelvic region acute Oct ru2024 3:50pm Segmental and somatic dysfunction of thoracic region acute F ebru2024 3:50pm Segmental and somatic dysfunction of cervical region acute A pril 2024 4:14pm Segmental and somatic dysfunction of lumbar region acute Apr il 2024 4:14pm Segmental and somatic dysfunction of pelvic region acute Apr il 2024 4:14pm Segmental and somatic dysfunction of thoracic region acute A pril 2024 4:14pm Segmental and somatic dysfunction of cervical region acute M ay 2024 4:18pm Segmental and somatic dysfunction of lumbar region acute February 01, 2025 4:18pm Segmental and somatic dysfunction of thoracic region acute M ay 2024 4:18pm [facility] [employer] [employer] [facility] Work Phone: 1(563) 323-744110-17-2024 History of Present illness Narrative* Cheli Preston MA - 07/02/2024 1:00 PM EDT I contacted patient on 06/30/2024 2:10 PM. Answers were put into visit during pre-charting. Will the patient be in the [facility] at the time of the telehealth visit? Yes If no, notify your manager print & clinical manager print of potential issue Confirm mode for the visit is triptap Video visit: [employer] - confirm patients knows to login 15 [...] their most recent oxygen level in the [id number].Yes Informed patient that if they do not receive link for their video visit within 15 minutes of scheduled appointment time, to contact that office directly to see if clinic is running late? Yes Sleep Patients Only I completed the flowsheets for the Saint Robert Sleepines Scale and FOSQ. No -stated wanted to complete via [employer] bc she is at work. * Elan Larry MD - 07/02/2024 1:00 PM EDT Images from the original note were not included. I have had the pleasure of seeing Ms. Mahesh Pepper for evaluation at the [facility] clinic today. Impresssion: Mahesh [...] follow up appointment, you need to call [phone] tore-schedule the appointment. Let me know if you have any questions. Elan Larry M.D. Professor of Internal Medicine and Neuroscience Division of Pulmonary, Allergy, Critical Care, and Sleep Medicine [facility] FAX: [phone] Email: [email or web address] HPI: Subjective Chief complaint: hypersomnia and [...] Laboratory and others: Previous medical records from [facility] were reviewed. Serum Chemistry:No results found for: SODIUM, POTASSIUM, CHLORIDE, CO2, BUN, CREATSERUM, GLUCOSE HBA1c: No results found for: HGBA1C Thyroid function tests:No results found for: TSH, YUK95PTD, ABV37PPP, TSHBASELINE, TSHULTRASEN, TSHRFT4 Lipid profile: No results found for: CHOLESTEROL, TRIG, HDL, LDLCALC No results found for: FERRITIN ECHO: No results found for this or any previous visit. Diagnostic Review: ESS 8 FOSQ 14 ODILON 20 IRLS MVAP 0.125 Saint Robert Sleepiness Score (ESS) > 10 indicates daytime [...] Patient Location: Other Home documented in this [facility]10-17-2024 Instructions* Patient Instructions* Elan Larry MD - 07/02/2024 1:00 PM EDT [...] follow up appointment, you need to call [phone] tore-schedule the appointment. Let me know if you have any questions. Elan Larry M.D. Professor of Internal Medicine and Neuroscience Division of Pulmonary, Allergy, Critical Care, and Sleep Medicine [facility] FAX: [phone] Email: [email or web address] documented in this [facility] NoteHNO ID: [id number] Author: DODIE ESQUEDA OD Service: ? Author Type: HEALTHCARE INTERPRETER Type: Progress Notes Filed: 12/16/2023 15:58 Note Text: ASSESSMENT/PLAN: 1. Hyperopia of both eyes - ICD9: 367.0, ICD10: H52.03 (primary diagnosis) 2. Regular astigmatism of both eyes - ICD9: 367.21, ICD10: H52.223 Glasses are an option if she desires. Continue to monitor her ocular health Recommended yearly exams. Dodie Esqueda [facility] Instructions* Patient Instructions* Dodie Esqueda OD - 12/16/2023 3:57 PM EDT ASSESSMENT/PLAN: 1. Hyperopia of both eyes - ICD9: 367.0, ICD10: H52.03 (primary diagnosis) 2. Regular astigmatism of both eyes - ICD9: 367.21, ICD10: H52.223 Glasses are an option if she desires. Continue to monitor her ocular health Recommended yearly exams. [facility] History of Present illness Narrative* Dodie Esqueda OD - 12/16/2023 3:51 PM EDT ASSESSMENT/PLAN: 1. Hyperopia of both eyes - ICD9: 367.0, ICD10: H52.03 (primary diagnosis) 2. Regular astigmatism of both eyes - ICD9: 367.21, ICD10: H52.223 Glasses are an option if she desires. Continue to monitor her ocular health Recommended yearly exams. Dodie Esqueda OD documented in [facility]23 Discharge summary Author Tahira Russo [facility] July 02, 2023 12:54pm Note Date/Time July 02, 2023 9 :07am [facility] Medical Records Department [address] [place] [address] Instructions for Home/Discharge Instructions 07/02/23 0906 MR#: [id number] Acct: [id number] Name: MAHESH PEPPER Rep #:[id number] : 1980 42 From: Tahira león MD PCP: Dr. Sumit Reid MD Status: REG SDC Discharge Instructions Diet Discharge Diet: No restrictions [...] fluticasone propionate [Flonase Allergy Relief] 50 mcg/actuation [place],Suspension 1 spray INTRANASAL DAILY Rx Instructions: administer into each nostril potassium chloride 20 mEq tablet,ER particles/crystals 20 meq PO DAILY Qty: 90 3RF pantoprazole 40 mg tablet,delayed release (DR/EC) 40 mg PO DAILY Qty: 90 3RF Referrals / Follow Up: Sumit Reid MD [Primary Care Provider] - Disposition Disposition (needs filled in before D/C Order can be placed): Home, Self Care 07/02/23 1254<Electronically signed by Tahira Russo MD>Tahira Russo MD CC: Dr. Sumit Reid MD ~ Signed [facility] Work Phone: [phone] 802-208510-17-2023 Procedure [facility] 07-02-2023 History and physical note Author Tahira Russo [facility] July 02, 2023 9:06am Note Date/Time July 01, 2023 1 :48pm [facility] Medical Records Department [address] [place] [address] History & Physical Exam 07/01/23 1348 MR#: [id number] Acct: [id number] Name: MAHESH PEPPER MAXIMILIAN Rep #:[id number] : 1980 42 From: Tahira león MD PCP: Dr. 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 proceed with LAVHBS. Plan After discussing the [...] Tahira Russo MD~ Signed ADDENDUM by Dr. Tahira Russo MD on 07/02/23 at 0906 Addendum UPDATE- I have seen the patient and performed any clinically relevant updates to the history and physical exam. Tahira Russo MD 07/02/23 0906<Electronically signed by Tahira Russo MD> Cosigner Signature (if applicable): cc: Dr. Sumit Reid MD; Dr. Tahira Russo MD ~* Signed [facility] Work Phone: 1(199) 875-355309-10-2009 History of Past illness Narrative* Problem Noted Date Diagnosed Date Resolved Date Irregular menstrual cycle 05/26/2009 Excessive or frequent menstruation 05/26/2009 05/31/2010 documented as of this encounter (statuses as of 12/17/2023) [facility] Diagnosis Onset Date Resolution Status COVID-19 acute Abdominal bloating acute Constipation acute Personal history of colonic polyps acute Constipation acute Gastritis acute Back pain acute Segmental and somatic dysfunction of cervical region acute Segmental and somatic dysfunction of lumbar region acute Segmental and somatic dysfunction of pelvic region acute Segmental and somatic dysfunction of thoracic region acute [facility] Work Phone: Evaluation note* Diagnosis Onset Date [...] and somatic dysfunction of thoracic region acute [facility] Work Phone: Evaluation note* Diagnosis Onset Date [...] and somatic dysfunction of thoracic region acute [facility] Work Phone: Evaluation note* Diagnosis Onset Date [...] for routine gynecological examination noneactive Hemorrhoids acute [facility] Work Phone: Evaluation note* Diagnosis Onset Date [...] and somatic dysfunction of thoracic region acute [facility] Work Phone: Evaluation note* Diagnosis Onset Date [...] region acute Dysmenorrhea acute Pelvic pain acute [facility] Work Phone: Evaluation note* Diagnosis Onset Date [...] examination no neactive Postoperative examination no neactive [facility] Work Phone: Evaluation note* Diagnosis Hyperopia of both eyes- Primary Regular astigmatism of both eyes Regular astigmatism documented in this encounter [facility] Diagnosis Insomnia, unspecified type- Primary documented in this encounter [facility] Additional Instructions Implant Used?: [facility] Work Phone: Reason for referral (narrative)No reason for referral information availableIndiana University [facility] Work Phone: Chief Complaint and Reason [...] dysfunction of thoracic region 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 [...] pain HEMORRHOIDS EUA, 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 EUA, 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 12/18 Back pain S/P 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 UP Reason for Visit [...] examination Hemorrhoids Chief Complaint S/P 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 UP Back pain Back [...] tho racic region February 01, 2025 4:18pm Chief Complaint Admit Date BACK PAIN December 21, 2024 4:14 pm BACK PAIN February 01, 2025 4:18p m EORDERS March 17, 2025 12:55 pm BACK PAIN March 22, 2025 4:21p m Reason for Visit Admit Date Segmental [...] tho racic region February 01, 2025 4:18pm Abdominal bloating March 22, 2025 4:21p m Segmental and somatic dysfunction of cer vical region March 22, 2025 4:21pm Segmental and somatic dysfunction of lum bar region March 22, 2025 4:21pm Segmental and somatic dysfunction of tho racic region March 22, 2025 4:21pm Chief Complaint Admit Date BACK PAIN February 01, 2025 4:18p m EORDERS March 17, 2025 12:55 pm BACK PAIN March 22, 2025 4:21p m BACK PAIN May 03, 2025 3: 51pm Reason for Visit Admit Date Segmental and somatic dysfunction of cer vical region February 01, 2025 4:18pm Segmental and somatic dysfunction of lum bar region February 01, 2025 4:18pm Segmental and somatic dysfunction of tho racic region February 01, 2025 4:18pm Segmental and somatic dysfunction of lum bar region March 22, 2025 4:21pm Segmental and somatic dysfunction of pel [place] region March 22, 2025 4:21pm Segmental and somatic dysfunction of tho racic region March 22, 2025 4:21pm Segmental and somatic dysfunction of cer vical region May 03, 2025 3:51pm Segmental and somatic dysfunction of lum bar region May 03, 2025 3:51pm Segmental and somatic dysfunction of pel [place] region May 03, 2025 3:51pm Segmental and somatic dysfunction of tho racic region May 03, 2025 3:51pm Thoracic neuritis May 03, 2025 3: 51pm Family History No Family History Records Found Relationship Condition Age at Onset Recorded Date/T snow mother Hypertension Unknown Hyperlipidemia Unknown father Hypertension Unknown Disorder of thyroid Unknown Advance Directives No Advanced Directives Records Found Advance Directive Response Recorded Date/ Time Living Will No October 16 3:09pm Power of Global Logistics Manager No October 16, 2021 3:09pm Advance Directive Response Recorded Date/ Time Living Will No December 11, 2022 10:55am Power of Global Logistics Manager No December 11 10:55am Advance Directive Response Recorded Date/ Time Living Will No June 28 8:12am Power of Global Logistics Manager No June 28, 2023 8:12am Advance Directive Response Recorded Date/ Time Living Will No June 28 7:12am Power of Global Logistics Manager No June 28, 2023 7:12am Summary Purpose Additional Source Comments Care Teams (unrecognized sec tion and content) Team Status: Active Member Role Status Dates Dr. Sumit Reid MD Family Provider Active Dr. Sumit Reid MD Primary Care Provider Activ e Team Status: Inactive Member Role Status Dates Dr. Sumit Reid MD Primary Care Provider, Refe rring Provider Active Dr. Tahira Russo MD Attending [...] e Dr. [place] Goss MD Attending Provi draia, Referring Provider, Other Provider Active Team Status: [...] Pr ovider, Referring Provider, Other Provider Active E Learning Manager Relationship Specialty Start Date End Date Elsie Reid MD [address] [place] [id number] PCP - General 9/10/09 Team Status: Active Member Role Status Dates [...] February 01, 2025 End: February 01, 2025 Team Status: Active Member Role/Relationship Status Dates Dr. Elsie Reid MD Family Provider Active Dr. Elsie Reid MD Primary Care Provider Acti ve Team Status: Inactive Member Role/Relationship Status Dates Dr. Elsie Reid MD Primary Care Provider Acti ve Start: December 21, 2024 End: December 21, 2024 Dr. Elsie Reid MD Referring Provider Active Start: December 21, 2024 End: December 21, 2024 Dr. Richelle Moreno DC Attending Provider Active S tart: December 21, 2024 End: December 21, 2024 Team Status: Inactive Member Role/Relationship Status Dates Dr. Elsie Reid MD Primary Care Provider Acti ve Start: February 01, 2025 End: February 01, 2025 Dr. Elsie Reid MD Referring Provider Active Start: February 01, 2025 End: February 01, 2025 Dr. Richelle Moreno DC Attending Provider Active S tart: February 01, 2025 End: February 01, 2025 Team Status: Active Member Role/Relationship Status Dates Dr. Elsie Reid MD Primary Care Provider Acti ve Start: March 17, 2025 Dr. Elsie Reid MD Attending Provider Active Start: March 17, 2025 Dr. Elsie Reid MD Referring Provider Active Start: March 17, 2025 Team Status: Inactive Member Role/Relationship Status Dates Dr. Elsie Reid MD Primary Care Provider Acti ve Start: March 22, 2025 End: March 22, 2025 Dr. Elsie Reid MD Referring Provider Active Start: March 22, 2025 End: March 22, 2025 Dr. Richelle Moreno DC Attending Provider Active S tart: March 22, 2025 End: March 22, 2025 Team Status: Inactive Member Role/Relationship Status Dates Dr. Elsie Reid MD Primary Care Provider Acti ve Start: March 17, 2025 End: March 17, 2025 Dr. Elsie Reid MD Attending Provider Active Start: March 17, 2025 End: March 17, 2025 Dr. Elsie Reid MD Referring Provider Active Start: March 17, 2025 End: March 17, 2025 Team Status: Inactive Member Role/Relationship Status Dates Dr. Elsie Reid MD Primary Care Provider Acti ve Start: February 01, 2025 End: February 01, 2025 Dr. Elsie Reid MD Referring Provider Active Start: February 01, 2025 End: February 01, 2025 Dr. Richelle Moreno DC Attending Provider Active S tart: February 01, 2025 End: February 01, 2025 Team Status: Inactive Member Role/Relationship Status Dates Dr. Elsie Reid MD Primary Care Provider Acti ve Start: March 17, 2025 End: March 17, 2025 Dr. Elsie Reid MD Attending Provider Active Start: March 17, 2025 End: March 17, 2025 Dr. Elsie Reid MD Referring Provider Active Start: March 17, 2025 End: March 17, 2025 Team Status: Inactive Member Role/Relationship Status Dates Dr. Elsie Reid MD Primary Care Provider Acti ve Start: March 22, 2025 End: March 22, 2025 Dr. Elsie Reid MD Referring Provider Active Start: March 22, 2025 End: March 22, 2025 Dr. Richelle Moreno DC Attending Provider Active S tart: March 22, 2025 End: March 22, 2025 Team Status: Inactive Member Role/Relationship Status Dates Dr. Elsie Reid MD Primary Care Provider Acti ve Start: May 03, 2025 End: May 03, 2025 Dr. Elsie Reid MD Referring Provider Active Start: May 03, 2025 End: May 03, 2025 Dr. Richelle Moreno DC Attending Provider Active S tart: May 03, 2025 End: May 03, 2025 Source Comments (unrecognize d section and content) In the event this informatio n is protected by the Federal Confidentiality of Alcohol and Drug Abuse Patient Records regulations: The Federal rules restrict any use of the information to criminally investigate or prosecute any alcohol or drug abuse patient.[facility] Reason for Visit (unrecogniz ed section and content) Reason Comments Yearly Exam Reason Comments Sleep Problem Waking up multiple t imes during the night. Wakes up tired Outside Orders [facility] sleep referral for (first available) Unspecified sleep disorder Specialty Diagnoses / Procedures Referred By Contac t Referred To Contact Sleep Medicine Diagnoses Sleep disorder, unspecified Elsie Reid MD [address] [place] [address] [facility] [address] [place] [address] Referral ID Status Reason Start Date Expiration Date V isits Requested Visits Authorized [id number] New Request 06/22/2024 07/17/2025 1 1 Inactive [...] section and content) DATE CREATED AUTHOR 12/17/2023 [facility] DATE CREATED AUTHOR AUTHOR'S ORGANIZ ATION 07/05/2024 [facility] DATE CREATED AUTHOR AUTHOR'S ORGANIZ ATION 05/04/2025 [facility] FOR RECORDS PERTAINING TO PATIENTS WHO ARE [...] BE BASED ON THE PRIMARY CLINICAL RECORDS. [employer] provides no warranty or guarantee of the accuracy or completeness of information in this document.
[2025-06-01 07:48] LABS: Free T3 2.5 pg/mL (2.18-3.98)
== END | disposition home or self-care (01) ==
LOC: LAB 06:41
PROVIDERS: PCP Family Medicine; Referring Provider Family Medicine; Visit Provider Family Medicine
DX: E03.9 Hypothyroidism, unspecified (principal)
CPT/HCPCS: 36415; 84439; 84443; 84481; 86376; 86800

== ENCOUNTER → 2025-08-31 | Outpatient (CLI) | payer OTHER, SELFPAY ==
--- OUTSIDE RECORDS SUMMARY | 2025-08-31 07:11 | XMS RPT_ITS | CCD ---
Author Organization [facility] Care Team Providers Care Manipulative Therapy Specialist Name Role Phone Dr. Sumit Reid Primary Care Provider [phone] Dr. Sumit Reid Referring Provider JUAN Kemp Attending Provider Friend, Dr. Kirkpatrick Attending Provider [phone] Friend, Dr. Kirkpatrick Other Provider [phone] Tawny HOME RESTORATION SERVICE SUPERVISOR, HOME RESTORATION SERVICE SUPERVISOR-C Rissa Erwin Attending Provider [phone] Dr. Richelle Moreno Attending Provider [phone] Dr. Sumit Reid Primary Care Provider [phone] Dr. Sumit Reid Referring Provider Donovan MORSE, HOME RESTORATION SERVICE SUPERVISOR-C Izzy Attending Provider [phone] Dr. Richelle Moreno Attending Provider [phone] Dr. Sumit Reid Primary Care Provider [phone] Dr. Sumit Reid Referring Provider Dr. Richelle Moreno Attending Provider [phone] Dr. Sumit Reid Primary Care Provider [phone] Dr. Sumit Reid Referring Provider Dr. [place] [...] Provider Dr. Elsie Reid MD Referring Provider Dossi ROXIE, Dr. Peoples Attending Provider [phone] Franklin ROBERTS, Dr. Morley Primary Care Provider Franklin ROBERTS, Dr. Morley Referring Provider Dossi ROXIE, Dr. Peoples Attending Provider [phone] Franklin ROBERTS, Dr. Morley Attending Provider Franklin ROBERTS, Dr. Morley Primary Care Provider Franklin ROBERTS, Dr. Morley Referring Provider [phone] Dossi DC, Dr. Peoples Attending Provider Franklin ROBERTS, Dr. Morley Primary Care Physicia n Franklin ROBERTS, Dr. Morley Attending Physician Franklin ROBERTS, Dr. Morley Referring Provider [phone] Dossi ROXIE, Dr. Peoples Attending Physician [phone] Assessment, Health Risk Attending Physician Unav ailable Assessment, Health Risk Referring Provider Unava ilable [place]available Elsie Reid Referring Unavailable Dossi, Richelle Attending Unavailable [place], [place] [facility] Unavailable Elsie Reid Referring Unavailable Dossi, Richelle Attending Unavailable [place], [place] Primary [facility] Unavailable Jorge Reider Referring Unavailable Dossi, Richelle Attending Unavailable [place], [place] Primary [facility] Unavailable Assessment, Health Risk Referring Unavaila ble Assessment, Health Risk Attending Unavaila ble [place], [place] Primary Care Unavailable [place], Christopher Referring Unavailable Elsie Reid Attending Unavailable [place], [place] Primary Care Unavailable MarcanthonyTahira Referring Unavailable MarcanthonyTahira Attending Unavailable [place], [facility] Unavailable Ranney, Christopher Referring Unavailable Ranney, Christleeer Attending Unavailable [place], [facility] Unavailable DossiRichelle Attending Unavailable Ranney, Christopher Referring Unavailable [place], [facility] Unavailable Ranney, Christopher Referring Unavailable Dossi, Richelle Attending Unavailable Dossi, Richelle Attending Unavailable [place], [facility] Unavailable Ranney, Christopher Referring Unavailable [place], [facility] Unavailable Ranbrijesh, Christopher Referring Unavailable Dossi, Richelle Attending Unavailable [place], [facility] Unavailable Ranney, Jorgeer Referring Unavailable Dossi, Richelle Attending Unavailable [place], [facility] Unavailable Ranbrijesh, Jorgeer Referring Unavailable Dossi, Richelle Attending Unavailable [place], [place] [facility] Unavailable Ranbrijesh, Allenopher Referring Unavailable Dossi, Richelle Attending Unavailable Allergies Allergy Classification Reported Allergen(s) Allergy Type Date of Onset Reaction(s) Facility (17 sources) Sulfonamides (Antibiotic); Translations: [SULFA (SULFONAMIDE ANTIBIOTICS)] Allergy to substance 5 Unknown [facility] (16 sources) Zinc; Translations: [ZINC] Drug Allergy 6 rash [facility] (2 sources) Sulfonamides (Antibiotic) Propensity to adverse reactions to drug 4 [facility] (2 sources) Zinc Acetate Drug Allergy 4 [facility] (1 source) Zinc Drug Allergy 5 [facility] Repository Medications Current Medications Medication Drug Class(es) Dates Sig (Normalized) Sig (Original) 12 hr buPROPion hydrochloride 150 mg extended release oral tablet (20 sources) Aminoketone Start: 11-05-2019 take 1 tablet by mouth once daily Bupropion Hcl (Wellbutrin Sr) 150 mg tablet sustained-release 12 hr Active 150 mg PO DAILY November 05, 2019 1:00am Complies with drug therapy Start: 05-15-2019 buPROPion SR ( WELLBUTRIN SR) [...] propionate 0.05 mg/actuat metered dose nasal spray (11 sources) Corticosteroid Start: 12-11-2022 take 50 ug nasal route once daily Fluticasone Propionate (Flonase Allergy Relief) 50 mcg/actuation [place],Suspension Active 1 NMA INTRANASAL DAILY December 11, 2022 12:00am administer into each nostril Complies with drug therapy Start: 12-11-2022 take 1 spray(s) nasa l route once daily Fluticasone Propionate (Flonase Allergy Relief) 50 mcg/actuation [place],Suspension Active 1 SPRAY INTRANASAL DAILY December 10, 2022 11:00pm administer into each nostril Hydrocortisone 2.5%/Lidocain e 5% Suppository (Cmpd) [Hydrocortisone 2.5%/Lidocaine 5% Suppository (Compound)] (Hydrocortisone ) suppository (11 sources) Start: 11-01-2022 Hydrocortisone 2.5%/Lidocaine 5% Suppository [...] PO DAILY 0 April 11, 2020 10:28am Complies with drug therapy Start: 11-03-2018 End: 04-11-2020 Levothyroxine 13 mcg [...] breakfast. magnesium oxide 420 mg oral tablet (13 sources) Start: 02-04-2023 take 1 tablet by mouth once daily Magnesium Oxide 420 mg tablet Active 420 mg PO DAILY February 04, 2023 12:00am Complies with drug therapy take 1 tablet by mouth once scott y magnesium oxide 400 MG tablet Take 1 tablet by mouth daily. Active pantoprazole 40 mg delayed release oral tablet (20 sources) Proton Pump Inhibitor Start: 12-20-2021 End: 02-12-2023 take 1 tablet by mouth once daily Pantoprazole 40 mg tablet,delayed release (DR/EC) Active 40 mg PO DAILY 90 February 12, 2023 1:11pm Complies with drug therapy Start: 05-15-2019 End: 12-20-2021 take 1 tablet [...] Active saccharomyces boulardii 250 mg oral capsule (13 sources) Start: 01-31-2022 take 1 capsule by mouth once daily Saccharomyces Boulardii (Daily Probiotic (S. Boulardii)) 250 mg capsule Active 250 mg PO DAILY January 31, 2022 12:00am Complies with drug therapy Start: 01-31-2022 take 1 capsule by mo [facility] twice daily Saccharomyces Boulardii (Daily Probiotic (S. Boulardii)) 250 mg capsule Active 250 MG PO TWICE A DAY January 31, 2022 12:00am Completed/Discontinued Medications Medication Drug Class(es) Dates Sig (Normalized) Sig (Original) acetaminophen 325 mg / oxyCODONE hydrochloride 5 mg oral tablet (19 sources) Opioid Agonist Start: 07-02-2023 End: 07-15-2023 [...] mg / clavulanate 125 mg oral tablet (12 sources) Penicillin-class Antibacterial Start: 09-22-2024 End: 10-22-2024 Amoxicillin-Pot Clavulanate 875-125 mg tablet Discontinued 1 {tbl} PO TWICE A DAY 14 September 22, 2024 1:00am October 22, 2024 4:59pm Start: 09-06-2023 End: 09-16-2023 Amoxicillin-Pot Clavulanate 875-125 mg tablet Discontinued 1 {tbl} PO TWICE A DAY 20 10 0 September 06, 2023 1:00am September 15, 2023 1:00am September 16, 2023 1:04am azithromycin 250 mg oral tablet (6 sources) Macrolide Antimicrobial Start: 09-10-2024 End: 10-22-2024 Azithromycin 250 mg tablet Discontinued 0 PO .COMPLEX 6 0 September 10, 2024 1:00am October 22, 2024 4:59pm For 250 mg dose pack: take 500 mg today (day 1), then 250 mg for 4 days (days 2-5) PO bisacodyl 5 mg delayed release oral tablet (14 sources) Stimulant Laxative Start: 09-13-2021 End: 11-02-2021 take 1 tablet by mouth once Bisacodyl (Bisa-Lax (Bisacodyl)) 5 mg tablet,delayed release (DR/EC) Discontinued 5 mg PO ONCE 4 0 September 13, 2021 1:00am November 02, 2021 11:00am as directed for bowel prep cephalexin 500 mg oral tablet (14 sources) Cephalosporin Antibacterial Start: 07-26-2018 End: 08-02-2018 [...] by mouth. fluconazole 150 mg oral tablet (14 sources) Azole Antifungal Start: 11-20-2021 End: 01-31-2022 take 1 tablet by mouth once Fluconazole (Diflucan) 150 mg tablet Discontinued 150 mg PO ONCE 1 0 November 20, 2021 1:00am January 31, 2022 12:52pm as a single dose hydrocortisone 25 mg/ml topical cream (11 sources) Corticosteroid Start: 11-01-2022 End: 06-03-2023 Hydrocortisone (Proctosol Hc) 2.5 % cream with perineal applicator Discontinued 1 NMA RC 2 to 4 times per day as needed for hemorrhoids 30 0 November 01, 2022 1:00am June 03, 2023 2:01pm lactobacillus acidophilus [id number] unt oral capsule (1 source) Start: 04-11-2020 lactobacillus acidophilus 100 mg (1 billion cell) cap(s) Take by mouth. 0 04/11/2020 Active Comment on above: Take by mouth. methylPREDNISolone 4 mg oral tablet (15 sources) Corticosteroid Start: 07-31-2021 End: 09-19-2021 take 1 tablet by mouth once daily Methylprednisolone (Medrol (Syd)) 4 mg tablets,dose pack Discontinued 4 mg PO DAILY 21 July 31, 2021 1:00am September 19, 2021 7:38am Start: 05-02-2020 End: 05-02-2020 Depo-Medrol (methylprednisol one acetate) 40 mg/mL suspension for injection Discontinued 40 MG INTRAARTIC ONCE 1 May 02, 2020 12:54pm May 02, 2020 1:32pm naproxen 500 mg oral tablet (8 sources) Nonsteroidal Anti-inflammatory Drug Start: 07-02-2023 End: 08-13-2023 take 1 tablet by mouth twice daily as needed for pain Naproxen 500 mg tablet Discontinued 500 mg PO TWICE DAILY NEEDED as needed for Pain 30 1 July 02, 2023 12:00am August 13, 2023 12:08pm nitrofurantoin, macrocrystals 100 mg oral capsule (13 sources) Nitrofuran Antibacterial Start: 01-31-2022 End: 02-07-2022 [...] chew oxyCODONE hydrochloride 5 mg oral tablet (14 sources) Opioid Agonist Start: 06-21-2020 End: 01-10-2021 [...] as needed for pain polyethylene glycol 3350 18283 mg powder for oral solution (14 sources) Osmotic Laxative Start: 09-13-2021 End: 11-02-2021 [...] Date Documented Da te Episodic/Chronic Abdominal pain (14 sources) Pain in pelvis; Translations: [Pelvic and perineal pain] 05-02-2023 Episodic Comment on above: s/p US proceed with lavhbs. 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 Anxiety disorders (14 sources) Anxiety; Translations: [Anxiety disorder, unspecified] 01-10-2021 Chronic Blindness and vision defects (4 sources) Bilateral hyperopia of eyes; Translations: [Hypermetropia, bilateral] Onset: 6 12-16-2023 Episodic Complications of surgical procedures or medical care (14 sources) Transfusion reaction due to serum protein reaction; Translations: [Other serum reaction due to vaccination, initial encounter] 07-31-2021 Episodic Esophageal disorders (14 sources) Gastroesophageal reflux disease; Translations: [Gastro-esophageal reflux disease without esophagitis] 06-21-2020 Chronic Fluid and electrolyte disorders (12 sources) Hypokalemia; Translations: [Hypokalemia] 06-07-2022 Episodic Gastritis and duodenitis (15 sources) Gastritis; Translations: [Gastritis, unspecified, without bleeding] Episodic Gastrointestinal hemorrhage (14 sources) Lower gastrointestinal hemorrhage; Translations: [Gastrointestinal hemorrhage, unspecified] 08-14-2021 Episodic Hemorrhoids (20 sources) Hemorrhoids; Translations: [Unspecified hemorrhoids] 11-02-2022 Episodic Immunizations and screening for infectious disease (7 sources) Patient encounter status; Translations: [Encounter for screening for human papillomavirus (HPV)] Onset: 9 05-26-2009 Episodic Influenza (6 sources) Influenza due to Influenza A virus; Translations: [Influenza due to other identified influenza virus with other respiratory manifestations] 10-30-2023 Episodic Menstrual disorders (18 sources) Dysmenorrhea; Translations: [Dysmenorrhea, unspecified] 02-04-2023 Chronic Comment on above: post ablation, discu ssed NSAIDs, fibroids, discussed Myfembree with LAVH. proceed with LAVHBS. Other aftercare (2 sources) Encounter for follow-up examination after completed treatment for conditions other than malignant neoplasm; Translations: [Follow-up examination, following surgery, unspecified] 07-15-2023 Episodic Other and unspecified benign neoplasm (14 sources) History of polyp of colon; Translations: [...] Onset: 9 05-26-2009 Chronic Other gastrointestinal disorders (16 sources) Abdominal bloating; Translations: [Abdominal distension (gaseous)] 06-21-2020 Episodic Comment on above: RAST testing and dis cussed food avoidance Other gastrointestinal disorders (14 sources) Constipation; Translations: [Constipation, unspecified] 08-14-2021 Episodic Other gastrointestinal disorders (2 sources) Constipation, unspecified; Translations: [Constipation, unspecified] Episodic Other injuries and conditions due to external causes (14 sources) Unspecified injury of left shoulder and upper arm, initial encounter; Translations: [Unspecified injury of left shoulder and upper arm, initial encounter] 07-31-2021 Episodic Other non-traumatic joint disorders (4 sources) Shoulder pain; Translations: [Pain in left shoulder] 07-31-2021 Episodic Other non-traumatic joint disorders (10 sources) Pain in left shoulder; Translations: [Left shoulder pain] 07-31-2021 Episodic Other upper respiratory disease (14 sources) Nasal congestion; Translations: [Nasal congestion] 09-19-2021 Episodic Residual codes; unclassified (8 sources) History of vaginal hysterectomy; Translations: [Acquired absence of both cervix and uterus] 07-02-2023 Episodic Residual codes; unclassified (2 sources) Insomnia; Translations: [Insomnia, unspecified] 07-02-2024 Episodic Spondylosis; intervertebral disc disorders; other back problems (20 sources) Backache; Translations: [Dorsalgia, unspecified] Onset: 4 Episodic Thyroid disorders (3 sources) Non-toxic uninodular goiter; Translations: [Nontoxic single thyroid nodule] Onset: 7 10-31-2006 Chronic Thyroid disorders (14 sources) Disorder of thyroid gland; Translations: [Disorder of thyroid, unspecified] 11-03-2018 Episodic Comment on above: ON MED Unclassified (2 sources) Sleep Problem; Translations: [Sleep Problem] Onset: 4 Urinary tract infections (14 sources) Urinary tract infectious disease; Translations: [Urinary tract infection, site not specified] 12-26-2017 Episodic Viral infection (15 sources) Disease caused by 2019-nCoV; Translations: [COVID-19] Episodic Past or Other Problems Problem Classification Problem Date Documented Da te Episodic/Chronic Other gastrointestinal disorders (2 sources) Abdominal distension (gaseous); Translations: [Flatulence, eructation, and gas pain] Onset: 03-22-2025 Episodic Other non-traumatic joint disorders (1 source) Pain in unspecified joint; Translations: [Pain in unspecified joint] Onset: 03-23-2025 Episodic Other screening for suspected conditions (not mental disorders or infectious disease) (1 source) Encounter for screening mammogram for malignant neoplasm of breast; Translations: [Encounter for screening mammogram for malignant neoplasm of breast] Onset: 09-14-2024 Episodic Results Test Name Value Interpretation Reference Range Facility Chiropractic Reporton 2024 Chiropractic Report [facility] [address] [place] [id number] OFFICE VISIT Date of Service: 06/28/25 MR#: [id number] Acct: [id number] Name: MAHESH PEPPER Rep #: [id number] : 1980 Provider: ROXIE Padilla Age/Sex: 44/F Location: [facility] Status: Signed Intake Vital Signs 06/30/24 08:48 Height 5 ft 8 in Intake Visit Reasons: Back pain Chief Complaint: neck and low back pain Allergies Sulfa (Sulfonamide Antibiotics) Allergy (Verified 06/28/25 16:29) Unknown zinc Adverse Reaction (Intermediate, Verified 06/28/25 16:29) rash Medications ???Medication ???Instructions ???Recorded ???Confirmed ???Type bupropion HCl 150 mg tablet,12 hr 150 mg PO DAILY 11/05/19 06/28/25 History sustained-release (Wellbutrin SR) levothyroxine 13 mcg capsule 137 mcg PO DAILY 04/11/20 06/28/25 History Saccharomyces boulardii 250 mg 250 mg PO DAILY 01/31/22 06/28/25 History capsule (Daily Probiotic (S. boulardii)) Hydrocortisone 2.5%/lidocaine 5% #1 ea 11/01/22 06/28/25 Rx suppository (cmpd) (hydrocortisone 2.5%/lidocaine 5% suppository (compound)) fluticasone propionate 50 1 spray intranasal DAILY 12/11/22 06/28/25 History mcg/actuation nasal spray,suspension (Flonase Allergy Relief) magnesium oxide 420 mg tablet 420 mg PO DAILY 02/04/23 06/28/25 History pantoprazole 40 mg tablet,delayed 40 mg PO DAILY #90 tabs 02/12/23 06/28/25 Rx release potassium chloride 20 mEq 20 meq PO DAILY #90 tabs 10/20/24 06/28/25 Rx tablet,extended release(part/cryst) [facility] Medical History History of IBS Gastritis Alcohol [...] safe at home: Yes additional social history: Uqpttwd-Dkai-Ceptd 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 Pt. states her neck pain has improved. She states she got a new massage pillow and it seems to be quite helpful. She c/o mild neck tension that extends down into and across her shoulder blades.She denies recent VALLEJO's. She also states her low back is sore and achy and she can tell its time for an alignment. She states she helps her daughter with her twins often and holding them contributes to her discomfort. She treats pain at home with heat, stretching and Ibuprofen as needed. She denies new injury, numbness, tingling, or radiculopathy. Pt. reports chiropractic adjustments are helpful in relieving her pain and discomfort but it gradually returns. Location: Low back/neck Duration: frequent Aggravating or associated factors: bending, lifting,ROM Relieving factors: chiro,pillow Pain Quality: aching, dull and sharp Exam Musc General: Yes normal posture, normal gait, joint tenderness and decreased range of motion Cervical Spine: Yes loss of normal cervical lordosis, Yes cervical muscular tenderness bilateral diffuse , Yes cervical spasm left greater than right lower trapezius and Yes misalignment misalign ment: C4, C5 and C6 Thoracic/Lumber: Yes thoracic and lumbar spine normal to inspection, Yes paraspinal tenderness on the left greater than right (thoracic,lumbar), Yes thoraco-lumbar spasm on the left greater than right (trap, paraspinal (L2-L5)) and Yes misalignment T1, T2, T3, T4, L4, L5 and LIL Sacroiliac joints: on the left tender to palpation Other: +inhalation Office Procedures Procedures - Chiropractic Procedures Manipulation: Lumbar L4, Thoracic T1 and T4 and Pelvis LIL Manipulation: 3-4 regions Traction, Mechanical: Yes Patient Response: positive Assessment and Plan Ass (more content not included)... Normal [facility] Thyroid Antibodieson 025 TG AB < 1.0 Normal 0.0-0.9 [facility] Comment on above: Result Comment: Thyr oglobulin Antibody measured by [facility] Methodology It should be noted that the presence of thyroglobulin antibodies may not be pathogenic nor diagnostic, especially at very low levels. The assay central supply manager has found that four percent of individuals without evidence of thyroid disease or autoimmunity will have positive TgAb levels up to 4 IU/mL. Performed at: [address] [id number] Wind Up Worker: Rashid Malave PhD, Phone: [phone] Performed By: #### L 3100.3450, L500.4050, L501.6710, L505.7010, L101.9900, L501.9520, L503.6550, L503.6150, L501.1400, L100.0100 #### [facility] [address] [place], [place], [id number] THYR PEROX AB 11 IU/mL Normal 0-34 [facility] Comment on above: Performed By: #### L 3100.3450, L500.4050, L501.6710, L505.7010, L101.9900, L501.9520, L503.6550, L503.6150, L501.1400, L100.0100 #### [facility] [address] [place], [place], [id number] Absolute lymphocyte countOrd ered By: HEALTH ASSESSMENT on 06-01-2025 Lymphocytes Auto (Unsp spec) [#/Vol] 1.67 10*3/uL 0.83-4.51 [facility] Absolute neutrophil countOrd ered By: HEALTH ASSESSMENT on 06-01-2025 Neutrophils (Bld) [#/Vol] 3.0 10*3/uL 2.0-7.7 [facility] Absolute nucleated red blood cell countOrdered By: HEALTH ASSESSMENT on 06-01-2025 Nucleated RBC (Bld) [#/Vol] 0.00 10*3/uL 0-5 [facility] Anion gap in Serum or Plasma Ordered By: HEALTH ASSESSMENT on 06-01-2025 Anion gap [Moles/Vol] 9 mmol/L 5-15 [facility] BUN/creatinine ratioOrdered By: HEALTH ASSESSMENT on 06-01-2025 Urea nitrogen/Creatinine [Mass ratio] 14.3 mg/mg 10-20 [facility] Bilirubin directOrdered By: HEALTH ASSESSMENT on 06-01-2025 Bilirubin.direct [Mass/Vol] 0.20 mg/dL 0.00-0.30 [facility] Bilirubin, totalOrdered By: HEALTH ASSESSMENT on 06-01-2025 Bilirubin [Mass/Vol] 0.52 mg/dL 0.00-1.30 [facility] Blood band neutrophil count as percentage of total leukocytesOrdered By: HEALTH ASSESSMENT on 06-01-2025 Band form neutrophils/100 WBC (Bld) 57.6 % 47-70 [facility] CBC, Employeeon 06-01-2025 Absolute Lymph 1.67 X10 3/uL Normal 0.83-4.51 [facility] Comment on above: Performed By: #### L 3100.3450, L500.4050, L501.6710, L505.7010, L101.9900, L501.9520, L503.6550, L503.6150, L501.1400, L100.0100 #### [facility] [address] [place] [address], [address] Absolute Neut 3.0 X10 3/uL Normal 2.0-7.7 [facility] Comment on above: Performed By: #### L 3100.3450, L500.4050, L501.6710, L505.7010, L101.9900, L501.9520, L503.6550, L503.6150, L501.1400, L100.0100 #### [facility] [address] [place], [address] Basophils/100 WBC (Bld) 0.4 % Normal 0-[address] [facility] Comment on above: Performed By: #### L 3100.3450, L500.4050, L501.6710, L505.7010, L101.9900, L501.9520, L503.6550, L503.6150, L501.1400, L100.0100 #### [facility] [address] [place], [address] Eosinophils/100 WBC (Bld) 0.8 % Normal 0-5 [facility] Comment on above: Performed By: #### L 3100.3450, L500.4050, L501.6710, L505.7010, L101.9900, L501.9520, L503.6550, L503.6150, L501.1400, L100.0100 #### [facility] [address] [place], [place], [id number] (721) Erythrocyte distribution width (RBC) [Ratio] 12.9 % Normal 11.6-14.6 [facility] Comment on above: Performed By: #### L 3100.3450, L500.4050, L501.6710, L505.7010, L101.9900, L501.9520, L503.6550, L503.6150, L501.1400, L100.0100 #### [facility] [address] [place], [address] Hematocrit (Bld) [Volume fraction] 44.1 % Normal 37-47 [facility] Comment on above: Performed By: #### L 3100.3450, L500.4050, L501.6710, L505.7010, L101.9900, L501.9520, L503.6550, L503.6150, L501.1400, L100.0100 #### [facility] [address] [place], [address] Hemoglobin (Bld) [Mass/Vol] 15.4 g/dL High 12.0-15.0 [facility] Comment on above: Performed By: #### L 3100.3450, L500.4050, L501.6710, L505.7010, L101.9900, L501.9520, L503.6550, L503.6150, L501.1400, L100.0100 #### [facility] [address] [place], [place], [id number] Lymphocytes/100 WBC (Bld) 32.6 % Normal 19-41 [facility] Comment on above: Performed By: #### L 3100.3450, L500.4050, L501.6710, L505.7010, L101.9900, L501.9520, L503.6550, L503.6150, L501.1400, L100.0100 #### [facility] [address] [place], [address] MCH (RBC) [Entitic mass] 31.9 pg Normal 27.0-32.0 [facility] Comment on above: Performed By: #### L 3100.3450, L500.4050, L501.6710, L505.7010, L101.9900, L501.9520, L503.6550, L503.6150, L501.1400, L100.0100 #### [facility] [address] [place], [address] MCHC (RBC) [Mass/Vol] 34.9 g/dL Normal 32-36 [facility] Comment on above: Performed By: #### L 3100.3450, L500.4050, L501.6710, L505.7010, L101.9900, L501.9520, L503.6550, L503.6150, L501.1400, L100.0100 #### [facility] [address] [place], [address] MCV (RBC) [Entitic vol] 91.3 fL Normal 81-[address] [facility] Comment on above: Performed By: #### L 3100.3450, L500.4050, L501.6710, L505.7010, L101.9900, L501.9520, L503.6550, L503.6150, L501.1400, L100.0100 #### [facility] [address] [place], [address] Monocytes/100 WBC (Bld) 8.2 % Normal 0-10 [facility] Comment on above: Performed By: #### L 3100.3450, L500.4050, L501.6710, L505.7010, L101.9900, L501.9520, L503.6550, L503.6150, L501.1400, L100.0100 #### [facility] [address] [place], [address] Neutrophils/100 WBC (Bld) 57.6 % Normal 47-70 [facility] Comment on above: Performed By: #### L 3100.3450, L500.4050, L501.6710, L505.7010, L101.9900, L501.9520, L503.6550, L503.6150, L501.1400, L100.0100 #### [facility] [address] [place], [address] NRBC # 0.00 10 3/uL Normal 0-5 [facility] Comment on above: Performed By: #### L 3100.3450, L500.4050, L501.6710, L505.7010, L101.9900, L501.9520, L503.6550, L503.6150, L501.1400, L100.0100 #### [facility] [address] [place], [address] Nucleated RBC (Bld) [#/Vol] 0 10*3/uL Normal 0-5 [facility] Comment on above: Performed By: #### L 3100.3450, L500.4050, L501.6710, L505.7010, L101.9900, L501.9520, L503.6550, L503.6150, L501.1400, L100.0100 #### [facility] [address] [place], [address] Platelet mean volume (Bld) [Entitic vol] 9.8 fL Normal 6.2-12.0 [facility] Comment on above: Performed By: #### L 3100.3450, L500.4050, L501.6710, L505.7010, L101.9900, L501.9520, L503.6550, L503.6150, L501.1400, L100.0100 #### [facility] [address] [place], [address] Platelets (Bld) [#/Vol] 244 10*3/uL Normal 150-450 [facility] Comment on above: Performed By: #### L 3100.3450, L500.4050, L501.6710, L505.7010, L101.9900, L501.9520, L503.6550, L503.6150, L501.1400, L100.0100 #### [facility] [address] [place], [address] RBC (Bld) [#/Vol] 4.83 10*6/uL Normal 4.2-5.4 [facility] Comment on above: Performed By: #### L 3100.3450, L500.4050, L501.6710, L505.7010, L101.9900, L501.9520, L503.6550, L503.6150, L501.1400, L100.0100 #### [facility] [address] [place], [address] RDW SD 43.2 fl Normal 35.1-43.9 [facility] Comment on above: Performed By: #### L 3100.3450, L500.4050, L501.6710, L505.7010, L101.9900, L501.9520, L503.6550, L503.6150, L501.1400, L100.0100 #### [facility] [address] [place], [address] WBC (Bld) [#/Vol] 5.1 10*3/uL Normal 4.4-11.0 [facility] Comment on above: Performed By: #### L 3100.3450, L500.4050, L501.6710, L505.7010, L101.9900, L501.9520, L503.6550, L503.6150, L501.1400, L100.0100 #### [facility] [address] [place], [place], [id number] Calculated very low density lipoprotein (VLDL) cholesterol measurementOrdered By: HEALTH ASSESSMENT on 06-01-2025 Calculated very low density lipoprotein (VLDL) cholesterol measurement 15 mg/dL 5-40 [facility] Carbon dioxide, total [Moles /volume] in Central venous bloodOrdered By: HEALTH ASSESSMENT on 06-01-2025 CO2 [Moles/Vol] 25.4 mmol/L 21.0-32.0 [facility] Chloride assayOrdered By: HE ALTH ASSESSMENT on 06-01-2025 Chloride [Moles/Vol] 106 mmol/L 98-108 [facility] Employee Profileon 5 LDH 160 U/L Normal 84-246 [facility] Comment on above: Performed By: #### L 3100.3450, L500.4050, L501.6710, L505.7010, L101.9900, L501.9520, L503.6550, L503.6150, L501.1400, L100.0100 #### [facility] [address] [place], [address] Phosphate [Mass/Vol] 3.1 mg/dL Normal 2.7-4.5 [facility] Comment on above: Performed By: #### L 3100.3450, L500.4050, L501.6710, L505.7010, L101.9900, L501.9520, L503.6550, L503.6150, L501.1400, L100.0100 #### [facility] [address] [place], [address] URIC 4.3 mg/dL Normal 2.6-6.0 [facility] Comment on above: Result Comment: The drugs N-Acetylcysteine and Metamizole may falsely depress this assay. Performed By: #### L 3100.3450, L500.4050, L501.6710, L505.7010, L101.9900, L501.9520, L503.6550, L503.6150, L501.1400, L100.0100 #### [facility] [address] [place], [address] Erythrocyte distribution wid th ratioOrdered By: HEALTH ASSESSMENT on 06-01-2025 Erythrocyte distribution width (RBC) [Ratio] 12.9 % 11.6-14.6 [facility] Erythrocyte distribution wid th standard deviationOrdered By: HEALTH ASSESSMENT on 06-01-2025 Erythrocyte distribution width (RBC) [Ratio] 43.2 fl 35.1-43.9 [facility] Free T3on 06-01-2025 Free T3 [Mass/Vol] 2.5 pg/mL Normal 2.18-3.98 [facility] Comment on above: Order Comment: Order Date: 03/17/25 Order Info: [id number] - CMP Order Info: [id number] - URIC Order Info: [id number] - CRP Order Info: [id number] - T3F Order Info: [id number] - TSH Order Info: [id number] - FE Order Info: [id number] - JOVANA Order Info: [id number] - RA Order Info: [id number] - T4F Order Info: [id number] - FSHLH Performed By: #### L 3100.3450, L500.4050, L501.6710, L505.7010, L101.9900, L501.9520, L503.6550, L503.6150, L501.1400, L100.0100 #### [facility] [address] [place], [address] Free P6Vdtqwhx By: Jorge Reid on 06-01-2025 Free T3 [Mass/Vol] 2.5 pg/mL 2.18-3.98 [facility] Glomerular filtration rate ( GFR) estimation/1.73 sq m using serum, plasma, or whole bOrdered By: HEALTH ASSESSMENT on 06-01-2025 GFR/1.73 sq M.predicted among non-blacks MDRD (S/P/Bld) [Vol rate/Area] 73 mL/min/{1.73_m2} >60 [facility] Comment on above: mL/min/1.73m2 CKD-EP I Creatinine Equation (2020) Hematocrit Auto (Bld) [Volum e fraction]Ordered By: HEALTH ASSESSMENT on 06-01-2025 Hematocrit (Bld) [Volume fraction] 44.1 % 37-47 [facility] Hemoglobin measurementOrdere d By: HEALTH ASSESSMENT on 06-01-2025 Hemoglobin (Bld) [Mass/Vol] 15.4 g/dL High 12.0-15.0 [facility] LDL calc ser/plasOrdered By: HEALTH ASSESSMENT on 06-01-2025 Cholesterol in LDL [Mass/Vol] 135 mg/dL [facility] Comment on above: Qordqcvqbm=328-289 m g/dL & Higher Wemj=789 mg/dL or greaterFriedwald Equation for LDL-C Laboratory - Chemistry and C hemistry - challengeOrdered By: HEALTH ASSESSMENT on 06-01-2025 AST [Catalytic activity/Vol] 18 U/L <32 [facility] Lactate dehydrogenase (LDH) measurementOrdered By: HEALTH ASSESSMENT on 06-01-2025 LDH [Catalytic activity/Vol] 160 U/L 84-246 [facility] MCV (mean corpuscular volume ) determinationOrdered By: HEALTH ASSESSMENT on 06-01-2025 MCV (RBC) [Entitic vol] 91.3 fL 81-[address] [facility] Mean corpuscular hemoglobin (MCH) determinationOrdered By: HEALTH ASSESSMENT on 06-01-2025 MCH (RBC) [Entitic mass] 31.9 pg 27.0-32.0 [facility] Mean corpuscular hemoglobin concentration (MCHC) determinationOrdered By: HEALTH ASSESSMENT on 06-01-2025 MCHC (RBC) [Mass/Vol] 34.9 g/dL 32-36 [facility] Mean platelet volume determi nationOrdered By: HEALTH ASSESSMENT on 06-01-2025 Platelet mean volume (Bld) [Entitic vol] 9.8 fL 6.2-12.0 [facility] Nucleated red blood cell per centageOrdered By: HEALTH ASSESSMENT on 06-01-2025 Nucleated RBC/100 WBC (Bld) [Ratio] 0 % 0-5 [facility] Platelet countOrdered By: HE ALTH ASSESSMENT on 06-01-2025 Platelets (Bld) [#/Vol] 244 10*3/uL 150-450 [facility] Potassium measurement (mass/ volume)Ordered By: HEALTH ASSESSMENT on 06-01-2025 Potassium (Unsp spec) [Mass/Vol] 3.9 mmol/L 3.3-5.1 [facility] RBC Auto (Bld) [#/Vol]Ordere d By: HEALTH ASSESSMENT on 06-01-2025 RBC (Bld) [#/Vol] 4.83 10*6/uL 4.2-5.4 [facility] Screening total cholesterol/ high density lipoprotein (HDL) cholesterol ratioOrdered By: HEALTH ASSESSMENT on 06-01-2025 Cholesterol.total/Choleste rol in HDL [Mass ratio] 3.87 {ratio} [facility] Serum creatinine measurement (mass/volume)Ordered By: HEALTH ASSESSMENT on 06-01-2025 Creatinine [Mass/Vol] 0.97 mg/dL 0.70-1.20 [facility] Serum globulin measurementOr dered By: HEALTH ASSESSMENT on 06-01-2025 Globulin (S) [Mass/Vol] 2.3 g/dL 2.2-4.[address] [facility] Serum glucose measurement (m ass/volume)Ordered By: HEALTH ASSESSMENT on 06-01-2025 Glucose [Mass/Vol] 99 mg/dL 70-99 [facility] Serum or plasma alanine macias otransferase (ALT) measurementOrdered By: HEALTH ASSESSMENT on 06-01-2025 ALT [Catalytic activity/Vol] 15 U/L <35 [facility] Serum or plasma albumin ewa urement (mass/volume)Ordered By: HEALTH ASSESSMENT on 06-01-2025 Albumin [Mass/Vol] 4.2 g/dL 3.5-5.0 [facility] Serum or plasma albumin/glob ulin mass ratioOrdered By: HEALTH ASSESSMENT on 06-01-2025 Albumin/Globulin [Mass ratio] 1.8 {ratio} 0.9-2.4 [facility] Serum or plasma alkaline robinson sphatase measurementOrdered By: HEALTH ASSESSMENT on 06-01-2025 ALP [Catalytic activity/Vol] 54 U/L 35-104 [facility] Serum or plasma calcium ewa urement (mass/volume)Ordered By: HEALTH ASSESSMENT on 06-01-2025 Calcium [Mass/Vol] 9.3 mg/dL 7.6-11.0 [facility] Serum or plasma cholesterol in HDL measurement (mass/volume)Ordered By: HEALTH ASSESSMENT on 06-01-2025 Cholesterol in HDL [Mass/Vol] 52 mg/dL >40 [facility] Comment on above: National Cholesterol Education Program (NCEP) guidelines:<40 mg/dL: Low HDL-cholesterol (major risk factor for CHD)>= 60 mg/dL: High HDL-cholesterol (negative risk factor for CHD)HDL-cholesterol is affected by a number of factors, e.g. smoking, exercise, hormones, sex and age. Serum or plasma cholesterol measurement (mass/volume)Ordered By: HEALTH ASSESSMENT on 06-01-2025 Cholesterol [Mass/Vol] 203 mg/dL High <201 [facility] Comment on above: Cholesterol level, D esirable <200 mg/dLBorderline high cholesterol 200-239 mg/dLHigh cholesterol >=240 mg/dLRecommendations of the NCEP Adult Treatment Panel for the following risk-cutoff thresholds for the [place] population. Serum or plasma thyroperoxid ase antibody assay (units/volume)Ordered By: Elsie Reid on 06-01-2025 TPO Ab Qn 11 [IU]/mL 0-34 [facility] Serum or plasma urea nitroge n measurement (mass/volume)Ordered By: HEALTH ASSESSMENT on 06-01-2025 Urea nitrogen [Mass/Vol] 14 mg/dL 4-19 [facility] Serum or plasma uric acid me asurement (mass/volume)Ordered By: HEALTH ASSESSMENT on 06-01-2025 Urate [Mass/Vol] 4.3 mg/dL 2.6-6.0 [facility] Comment on above: The drugs N-Acetylcy steine and Metamizole may falsely depress this assay. Sodium levelOrdered By: HEAL TH ASSESSMENT on 06-01-2025 Sodium [Moles/Vol] 141 mmol/L 133-145 [facility] T4 Free Directon 06-01-2025 T4 FREE DIRECT 1.40 ng/dL Normal 0.76-1.46 [facility] Comment on above: Order Comment: Order Date: 03/17/25 Order Info: [id number] - CBCD Order Info: [id number] - SED Performed By: #### L 3100.3450, L500.4050, L501.6710, L505.7010, L101.9900, L501.9520, L503.6550, L503.6150, L501.1400, L100.0100 #### [facility] [address] [place], [place], [address] T4 freeOrdered By: Jorge Reid on 06-01-2025 Free T4 [Mass/Vol] 1.40 ng/dL 0.76-1.46 [facility] TSH DL <= 0.005 mIU/L QnOrde red By: Elsie Reid on 06-01-2025 TSH Qn 1.820 uIU/mL 0.300-4.200 [facility] Thyroid Stim Hormone (TSH)on 06-01-2025 TSH 1.820 uIU/mL Normal 0.300-4.200 [facility] Comment on above: Order Comment: Order Date: 03/17/25 Order Info: [id number]- - CBCD Order Info: [id number] - SED Performed By: #### L 3100.3450, L500.4050, L501.6710, L505.7010, L101.9900, L501.9520, L503.6550, L503.6150, L501.1400, L100.0100 #### [facility] [address] [place], [place], [address] Total proteinOrdered By: HEA LT ASSESSMENT on 06-01-2025 Protein [Mass/Vol] 6.5 g/dL 5.9-8.4 [facility] Triglycerides measurementOrd ered By: HEALTH ASSESSMENT on 06-01-2025 Triglyceride [Mass/Vol] 77 mg/dL <[address] [facility] Comment on above: The drugs N-Acetylcy steine and Metamizole may falsely depress this assay. Normal range: <150 mg/dLBorderline High: 150-199 mg/dLHigh: 200-499 mg/dLVery High: >500 mg/dL Urinalysis, Employeeon 06-01 BILIRUBIN URINE Normal Negative [facility] Comment on above: Order Comment: Order Date: 03/17/25 Order Info: [id number] - CBCD Order Info: [id number] - SED Result Comment: PT D OES NOT WANT Performed By: #### L 3100.3450, L500.4050, L501.6710, L505.7010, L101.9900, L501.9520, L503.6550, L503.6150, L501.1400, L100.0100 #### [facility] [address] [place], [place], [address] Clarity (U) Normal Clear [facility] Comment on above: Order Comment: Order Date: 03/17/25 Order Info: [id number] - CBCD Order Info: [id number] - SED Result Comment: PT D OES NOT WANT Performed By: #### L 3100.3450, L500.4050, L501.6710, L505.7010, L101.9900, L501.9520, L503.6550, L503.6150, L501.1400, L100.0100 #### [facility] [address] [place], [place], [phone] Color (U) Normal Yellow [facility] Comment on above: Order Comment: Order Date: 03/17/25 Order Info: 018- - CBCD Order Info: [id number] - SED Result Comment: PT D OES NOT WANT Performed By: #### L 3100.3450, L500.4050, L501.6710, L505.7010, L101.9900, L501.9520, L503.6550, L503.6150, L501.1400, L100.0100 #### [facility] [address] [place], [place], [phone] ([phone]) GLUCOSE, UR Normal Normal [facility] Comment on above: Order Comment: Order Date: 03/17/25 Order Info: 183- - CBCD Order Info: [id number] - SED Result Comment: PT D OES NOT WANT Performed By: #### L 3100.3450, L500.4050, L501.6710, L505.7010, L101.9900, L501.9520, L503.6550, L503.6150, L501.1400, L100.0100 #### [facility] [address] [place], [place], [id number] KETONE UR Normal Negative [facility] Comment on above: Order Comment: Order Date: 03/17/25 Order Info: 018- - CBCD Order Info: [id number] - SED Result Comment: PT D OES NOT WANT Performed By: #### L 3100.3450, L500.4050, L501.6710, L505.7010, L101.9900, L501.9520, L503.6550, L503.6150, L501.1400, L100.0100 #### [facility] [address] [place], [place], [phone] ([phone]) LEUK ESTERASE Normal Negative [facility] Comment on above: Order Comment: Order Date: 03/17/25 Order Info: [id number] - CBCD Order Info: - SED Result Comment: PT D OES NOT WANT Performed By: #### L 3100.3450, L500.4050, L501.6710, L505.7010, L101.9900, L501.9520, L503.6550, L503.6150, L501.1400, L100.0100 #### [facility] [address] [place], [address] Nitrite Ql (U) Normal Negative [facility] Comment on above: Order Comment: Order Date: 03/17/25 Order Info: [id number] - CBCD Order Info: - SED Result Comment: PT D OES NOT WANT Performed By: #### L 3100.3450, L500.4050, L501.6710, L505.7010, L101.9900, L501.9520, L503.6550, L503.6150, L501.1400, L100.0100 #### [facility] [address] [place], [place], [phone] OCCULT BLOOD-UR Normal Negative [facility] Comment on above: Order Comment: Order Date: 03/17/25 Order Info: [id number] - CBCD Order Info: [id number] - SED Result Comment: PT D OES NOT WANT Performed By: #### L 3100.3450, L500.4050, L501.6710, L505.7010, L101.9900, L501.9520, L503.6550, L503.6150, L501.1400, L100.0100 #### [facility] [address] [place], [place], [phone] ([phone]) pH UR Normal 5.0 - 8.0 [facility] Comment on above: Order Comment: Order Date: 03/17/25 Order Info: [id number] - CBCD Order Info: [id number] - SED Result Comment: PT D OES NOT WANT Performed By: #### L 3100.3450, L500.4050, L501.6710, L505.7010, L101.9900, L501.9520, L503.6550, L503.6150, L501.1400, L100.0100 #### [facility] [address] [place], [place], [address] PROT DIPSTX Normal Negative [facility] Comment on above: Order Comment: Order Date: 03/17/25 Order Info: 183-09 - CBCD Order Info: [id number] - SED Result Comment: PT D OES NOT WANT Performed By: #### L 3100.3450, L500.4050, L501.6710, L505.7010, L101.9900, L501.9520, L503.6550, L503.6150, L501.1400, L100.0100 #### [facility] [address] [place], [place], [id number] SP.GR. DIPSTX Normal 1.002-1.030 [facility] Comment on above: Order Comment: Order Date: 03/17/25 Order Info: [id number] - CBCD Order Info: [id number] - SED Result Comment: PT D OES NOT WANT Performed By: #### L 3100.3450, L500.4050, L501.6710, L505.7010, L101.9900, L501.9520, L503.6550, L503.6150, L501.1400, L100.0100 #### [facility] [address] [place], [place], [phone] Preservative Normal [facility] Comment on above: Order Comment: Order Date: 03/17/25 Order Info: [id number] - CBCD Order Info: [id number] - SED Result Comment: PT D OES NOT WANT Performed By: #### L 3100.3450, L500.4050, L501.6710, L505.7010, L101.9900, L501.9520, L503.6550, L503.6150, L501.1400, L100.0100 #### [facility] [address] [place], [place], [address] UROBILI Normal Normal [facility] Comment on above: Order Comment: Order Date: 03/17/25 Order Info: [id number] - CBCD Order Info: [id number] - SED Result Comment: PT D OES NOT WANT Performed By: #### L 3100.3450, L500.4050, L501.6710, L505.7010, L101.9900, L501.9520, L503.6550, L503.6150, L501.1400, L100.0100 #### [facility] [address] [place], [place], [address] White blood cell (WBC) count Ordered By: HEALTH ASSESSMENT on 06-01-2025 WBC (Bld) [#/Vol] 5.1 10*3/uL 4.4-11.0 [facility] Chiropractic Reporton 2024 Chiropractic Report [facility] [place], [place] [address] OFFICE VISIT Date of Service: 05/03/25 MR#: [id number] Acct: [id number] Name: MAHESH PEPPER MAXIMILIAN Rep #: [id number] : 1980 Provider: ROXIE Padilla Age/Sex: 44/F Location: [facility] Status: Signed Intake Vital Signs 06/30/24 08:48 [...] #90 tabs 10/20/24 05/03/25 Rx tablet,extended release(part/cryst) [facility] Medical History History of IBS Gastritis Alcohol [...] safe at home: Yes additional social history: Niifkbs-Qdmd-Fokmj 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 Normal [facility] Chiropractic Reporton 2024 Chiropractic Report [facility] [place] [address] OFFICE VISIT Date of Service: 03/22/25 MR#: [id number] Acct: [id number] Name: MAHESH PEPPER MAXIMILIAN Rep #: [id number] : 1980 Provider: ROXIE Padilla Age/Sex: 44/F Location: [facility] Status: Signed Intake Vital Signs 06/30/24 08:48 [...] #90 tabs 10/20/24 02/01/25 Rx tablet,extended release(part/cryst) [facility] Medical History History of IBS Gastritis Alcohol [...] safe at home: Yes additional social history: Drhjqyw-Pnuc-Hjoin 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 Normal [facility] MARILIA w/ Reflex Mult Confirmon 03-19-2025 MARILIA,DIRECT Positive Abnormal Negative [facility] Comment on above: Performed By: #### L 3100.3450, L500.4050, L501.6710, L505.7010, L101.9900, L501.9520, L503.6550, L503.6150, L501.1400, L100.0100 #### [facility] [address] [place], [address] ANTI-DNA (DS)AB 1 IU/mL Normal 0-9 [facility] Comment on above: Result Comment: Nega tive <5 Equivocal 5 - 9 Positive >9 Performed By: #### L 3100.3450, L500.4050, L501.6710, L505.7010, L101.9900, L501.9520, L503.6550, L503.6150, L501.1400, L100.0100 #### [facility] [address] [place], [place], [id number] ANTI-SS-A < 0.2 Normal 0.0-0.9 [facility] Comment on above: Performed By: #### L 3100.3450, L500.4050, L501.6710, L505.7010, L101.9900, L501.9520, L503.6550, L503.6150, L501.1400, L100.0100 #### [facility] [address] [place], [address] ANTI-SS-B < 0.2 Normal 0.0-0.9 [facility] Comment on above: Performed By: #### L 3100.3450, L500.4050, L501.6710, L505.7010, L101.9900, L501.9520, L503.6550, L503.6150, L501.1400, L100.0100 #### [facility] [address] [place], [address] Protein Electroph, Son 03-19 Albumin [Mass/Vol] 3.9 g/dL Normal 2.9-4.4 [facility] Comment on above: Order Comment: Order Date: 03/17/25 Order Info: [id number] - PROEL Performed By: #### L 3100.3450, L500.4050, L501.6710, L505.7010, L101.9900, L501.9520, L503.6550, L503.6150, L501.1400, L100.0100 #### [facility] [address] [place], [address] Albumin/Globulin [Mass ratio] 1.4 {ratio} Normal 0.7-1.7 [facility] Comment on above: Order Comment: Order Date: 03/17/25 Order Info: 0060-1 - PROEL Performed By: #### L 3100.3450, L500.4050, L501.6710, L505.7010, L101.9900, L501.9520, L503.6550, L503.6150, L501.1400, L100.0100 #### [facility] [address] [place], [address] ALPHA-1 GLOBUL 0.2 g/dL Normal 0.0-0.4 [facility] Comment on above: Order Comment: Order Date: 03/17/25 Order Info: 0060-1 - PROEL Performed By: #### L 3100.3450, L500.4050, L501.6710, L505.7010, L101.9900, L501.9520, L503.6550, L503.6150, L501.1400, L100.0100 #### [facility] [address] [place], [address] ALPHA-2 GLOBUL 0.6 g/dL Normal 0.4-1.0 [facility] Comment on above: Order Comment: Order Date: 03/17/25 Order Info: 0060-1 - PROEL Performed By: #### L 3100.3450, L500.4050, L501.6710, L505.7010, L101.9900, L501.9520, L503.6550, L503.6150, L501.1400, L100.0100 #### [facility] [address] [place], [address] BETA GLOBULIN 0.8 g/dL Normal 0.7-1.3 [facility] Comment on above: Order Comment: Order Date: 03/17/25 Order Info: 0060-1 - PROEL Performed By: #### L 3100.3450, L500.4050, L501.6710, L505.7010, L101.9900, L501.9520, L503.6550, L503.6150, L501.1400, L100.0100 #### [facility] [address] [place], [address] GAMMA GLOBULIN 1.0 g/dL Normal 0.4-1.8 [facility] Comment on above: Order Comment: Order Date: 03/17/25 Order Info: 0060-1 - PROEL Performed By: #### L 3100.3450, L500.4050, L501.6710, L505.7010, L101.9900, L501.9520, L503.6550, L503.6150, L501.1400, L100.0100 #### [facility] [address] [place], [address] Globulin (S) [Mass/Vol] 2.7 g/dL Normal 2.2-3.[address] [facility] Comment on above: Order Comment: Order Date: 03/17/25 Order Info: 0060-1 - PROEL Performed By: #### L 3100.3450, L500.4050, L501.6710, L505.7010, L101.9900, L501.9520, L503.6550, L503.6150, L501.1400, L100.0100 #### [facility] [address] [place], [address] INTERPRETATION Comment Normal . [facility] Comment on above: Order Comment: Order Date: 03/17/25 Order Info: 0060-1 - PROEL Result Comment: Prot ein electrophoresis scan will follow via computer, mail, or business trainer delivery. Performed By: #### L 3100.3450, L500.4050, L501.6710, L505.7010, L101.9900, L501.9520, L503.6550, L503.6150, L501.1400, L100.0100 #### [facility] [address] [place], [place], [phone] M-SPIKE Not Observed Normal Not Observed [facility] Comment on above: Order Comment: Order Date: 03/17/25 Order Info: 0060-1 - PROEL Performed By: #### L 3100.3450, L500.4050, L501.6710, L505.7010, L101.9900, L501.9520, L503.6550, L503.6150, L501.1400, L100.0100 #### [facility] [address] [place], [place], [phone] NOTE: Comment Normal . [facility] Comment on above: Order Comment: Order Date: 03/17/25 Order Info: 0060-1 - PROEL Result Comment: The SPE pattern appears unremarkable. Evidence of monoclonal protein is not apparent. Performed at: [address] [id number] Wind Up Worker: Rashid Malave PhD, Phone: [phone] Performed By: #### L 3100.3450, L500.4050, L501.6710, L505.7010, L101.9900, L501.9520, L503.6550, L503.6150, L501.1400, L100.0100 #### [facility] [address] [place], [place], [phone] Protein [Mass/Vol] 6.6 g/dL Normal 6.0-8.5 [facility] Comment on above: Order Comment: Order Date: 03/17/25 Order Info: 0060-1 - PROEL Performed By: #### L 3100.3450, L500.4050, L501.6710, L505.7010, L101.9900, L501.9520, L503.6550, L503.6150, L501.1400, L100.0100 #### [facility] [address] [place], [place], [phone] Absolute lymphocyte countOrd ered By: Elsie Reid on 03-17-2025 Lymphocytes Auto (Unsp spec) [#/Vol] 1.69 10*3/uL 0.83-4.51 [facility] Absolute neutrophil countOrd ered By: Elsie Reid on 03-17-2025 Neutrophils (Bld) [#/Vol] 3.8 10*3/uL 2.0-7.7 [facility] Albumin Elph [Mass/Vol]Order ed By: Elsie Reid on 03-17-2025 Albumin [Mass/Vol] 3.9 g/dL 2.9-4.4 [facility] Anion gap in Serum or Plasma Ordered By: Elsie Reid on 03-17-2025 Anion gap [Moles/Vol] 12 mmol/L 5-15 [facility] Automated lymphocyte count a s percentage of total leukocytesOrdered By: Elsie Reid on 03-17-2025 Lymphocytes/100 WBC Auto (Unsp spec) 28.6 % 19-41 [facility] BUN/creatinine ratioOrdered By: Elsie Reid on 03-17-2025 Urea nitrogen/Creatinine [Mass ratio] 15.4 mg/mg 10-20 [facility] Basophil percentageOrdered B y: Elsie Reid on 03-17-2025 Basophils/100 WBC (Bld) 0.3 % 0-[address] [facility] Bilirubin, totalOrdered By: Elsie Reid on 03-17-2025 Bilirubin [Mass/Vol] 0.49 mg/dL 0.00-1.30 [facility] CBC W/Diff, Automatedon 07-0 Absolute Lymph 1.69 X10 3/uL Normal 0.83-4.51 [facility] Comment on above: Order Comment: Order Date: 03/17/25 Order Info: 0184- - CBCD Order Info: 26825-9 - SED Performed By: #### L 3100.3450, L500.4050, L501.6710, L505.7010, L101.9900, L501.9520, L503.6550, L503.6150, L501.1400, L100.0100 #### [facility] [address] [place], [place], [phone] ([phone] Absolute Neut 3.8 X10 3/uL Normal 2.0-7.7 [facility] Comment on above: Order Comment: Order Date: 03/17/25 Order Info: 01812-15 - CBCD Order Info: 87288-6 - SED Performed By: #### L 3100.3450, L500.4050, L501.6710, L505.7010, L101.9900, L501.9520, L503.6550, L503.6150, L501.1400, L100.0100 #### [facility] [address] [place], [place], [phone] ([phone] Basophils/100 WBC (Bld) 0.3 % Normal 0-[address] [facility] Comment on above: Order Comment: Order Date: 03/17/25 Order Info: 0184- - CBCD Order Info: 96981-2 - SED Performed By: #### L 3100.3450, L500.4050, L501.6710, L505.7010, L101.9900, L501.9520, L503.6550, L503.6150, L501.1400, L100.0100 #### [facility] [address] [place], [address] Eosinophils/100 WBC (Bld) 0.5 % Normal 0-5 [facility] Comment on above: Order Comment: Order Date: 03/17/25 Order Info: 0184-1 - CBCD Order Info: 30985-5 - SED Performed By: #### L 3100.3450, L500.4050, L501.6710, L505.7010, L101.9900, L501.9520, L503.6550, L503.6150, L501.1400, L100.0100 #### [facility] [address] [place], [address] Erythrocyte distribution width (RBC) [Ratio] 12.9 % Normal 11.6-14.6 [facility] Comment on above: Order Comment: Order Date: 03/17/25 Order Info: 0184- - CBCD Order Info: 81453-1 - SED Performed By: #### L 3100.3450, L500.4050, L501.6710, L505.7010, L101.9900, L501.9520, L503.6550, L503.6150, L501.1400, L100.0100 #### [facility] [address] [place], [address] Hematocrit (Bld) [Volume fraction] 45.3 % Normal 37-47 [facility] Comment on above: Order Comment: Order Date: 03/17/25 Order Info: 0184- - CBCD Order Info: 95139-4 - SED Performed By: #### L 3100.3450, L500.4050, L501.6710, L505.7010, L101.9900, L501.9520, L503.6550, L503.6150, L501.1400, L100.0100 #### [facility] [address] [place], [address] Hemoglobin (Bld) [Mass/Vol] 15.5 g/dL High 12.0-15.0 [facility] Comment on above: Order Comment: Order Date: 03/17/25 Order Info: 01812-15 - CBCD Order Info: 64493-7 - SED Performed By: #### L 3100.3450, L500.4050, L501.6710, L505.7010, L101.9900, L501.9520, L503.6550, L503.6150, L501.1400, L100.0100 #### [facility] [address] [place], [address] IG% 0.200 Normal 0.0-0.9 [facility] Comment on above: Order Comment: Order Date: 03/17/25 Order Info: 183-09 - CBCD Order Info: 51108-2 - SED Result Comment: IG% - Immature Granulocytes (promyelocytes, myelocytes and metamyelocytes) > 1% indicates that a LEFT SHIFT is Present. Performed By: #### L 3100.3450, L500.4050, L501.6710, L505.7010, L101.9900, L501.9520, L503.6550, L503.6150, L501.1400, L100.0100 #### [facility] [address] [place], [address] Lymphocytes/100 WBC (Bld) 28.6 % Normal 19-41 [facility] Comment on above: Order Comment: Order Date: 03/17/25 Order Info: 018- - CBCD Order Info: 63229-0 - SED Performed By: #### L 3100.3450, L500.4050, L501.6710, L505.7010, L101.9900, L501.9520, L503.6550, L503.6150, L501.1400, L100.0100 #### [facility] [address] [place], [address] MCH (RBC) [Entitic mass] 31.1 pg Normal 27.0-32.0 [facility] Comment on above: Order Comment: Order Date: 03/17/25 Order Info: 018- - CBCD Order Info: - SED Performed By: #### L 3100.3450, L500.4050, L501.6710, L505.7010, L101.9900, L501.9520, L503.6550, L503.6150, L501.1400, L100.0100 #### [facility] [address] [place], [address] MCHC (RBC) [Mass/Vol] 34.2 g/dL Normal 32-36 [facility] Comment on above: Order Comment: Order Date: 03/17/25 Order Info: 183-09 - CBCD Order Info: - SED Performed By: #### L 3100.3450, L500.4050, L501.6710, L505.7010, L101.9900, L501.9520, L503.6550, L503.6150, L501.1400, L100.0100 #### [facility] [address] [place], [address] MCV (RBC) [Entitic vol] 91.0 fL Normal 81-[address] [facility] Comment on above: Order Comment: Order Date: 03/17/25 Order Info: 01812-15 - CBCD Order Info: - SED Performed By: #### L 3100.3450, L500.4050, L501.6710, L505.7010, L101.9900, L501.9520, L503.6550, L503.6150, L501.1400, L100.0100 #### [facility] [address] [place], [address] Monocytes/100 WBC (Bld) 6.6 % Normal 0-[address] [facility] Comment on above: Order Comment: Order Date: 03/17/25 Order Info: 01812-15 - CBCD Order Info: 80049-2 - SED Performed By: #### L 3100.3450, L500.4050, L501.6710, L505.7010, L101.9900, L501.9520, L503.6550, L503.6150, L501.1400, L100.0100 #### [facility] [address] [place], [address] Neutrophils/100 WBC (Bld) 63.8 % Normal 47-70 [facility] Comment on above: Order Comment: Order Date: 03/17/25 Order Info: 0184- - CBCD Order Info: 38406-1 - SED Performed By: #### L 3100.3450, L500.4050, L501.6710, L505.7010, L101.9900, L501.9520, L503.6550, L503.6150, L501.1400, L100.0100 #### [facility] [address] [place], [place], [phone] (381) Nucleated RBC (Bld) [#/Vol] 0 10*3/uL Normal 0-5 [facility] Comment on above: Order Comment: Order Date: 03/17/25 Order Info: 0184- - CBCD Order Info: 21392-7 - SED Performed By: #### L 3100.3450, L500.4050, L501.6710, L505.7010, L101.9900, L501.9520, L503.6550, L503.6150, L501.1400, L100.0100 #### [facility] [address] [place], [address] Platelet mean volume (Bld) [Entitic vol] 11.0 fL Normal 6.2-12.0 [facility] Comment on above: Order Comment: Order Date: 03/17/25 Order Info: 0184- - CBCD Order Info: 31599-8 - SED Performed By: #### L 3100.3450, L500.4050, L501.6710, L505.7010, L101.9900, L501.9520, L503.6550, L503.6150, L501.1400, L100.0100 #### [facility] [address] [place], [address] Platelets (Bld) [#/Vol] 266 10*3/uL Normal 150-450 [facility] Comment on above: Order Comment: Order Date: 03/17/25 Order Info: 0184-1 - CBCD Order Info: 18128-3 - SED Performed By: #### L 3100.3450, L500.4050, L501.6710, L505.7010, L101.9900, L501.9520, L503.6550, L503.6150, L501.1400, L100.0100 #### [facility] [address] [place], [address] RBC (Bld) [#/Vol] 4.98 10*6/uL Normal 4.2-5.4 [facility] Comment on above: Order Comment: Order Date: 03/17/25 Order Info: 018- - CBCD Order Info: 72079-1 - SED Performed By: #### L 3100.3450, L500.4050, L501.6710, L505.7010, L101.9900, L501.9520, L503.6550, L503.6150, L501.1400, L100.0100 #### [facility] [address] [place], [address] RDW SD 42.8 fl Normal 35.1-43.9 [facility] Comment on above: Order Comment: Order Date: 03/17/25 Order Info: 0184-1 - CBCD Order Info: 42667-9 - SED Performed By: #### L 3100.3450, L500.4050, L501.6710, L505.7010, L101.9900, L501.9520, L503.6550, L503.6150, L501.1400, L100.0100 #### [facility] [address] [place], [address] WBC (Bld) [#/Vol] 5.9 10*3/uL Normal 4.4-11.0 [facility] Comment on above: Order Comment: Order Date: 03/17/25 Order Info: 0184-1 - CBCD Order Info: 59862-0 - SED Performed By: #### L 3100.3450, L500.4050, L501.6710, L505.7010, L101.9900, L501.9520, L503.6550, L503.6150, L501.1400, L100.0100 #### [facility] [address] [place], [address] CRPon 03-17-2025 C-REACTIVE PROT < 3.00 Normal 0.0-3.0 [facility] Comment on above: Order Comment: Order Date: 03/17/25 Order Info: 0786-1 - CMP Order Info: 3084-1 - URIC Order Info: 44550-1 - CRP Order Info: 3051-0 - T3F Order Info: 3016-3 - TSH Order Info: 2498-4 - FE Order Info: 2276-4 - JOVANA Order Info: 97065-1 - RA Order Info: 3024-7 - T4F Order Info: 0553-1 - FSHLH Performed By: #### L 3100.3450, L500.4050, L501.6710, L505.7010, L101.9900, L501.9520, L503.6550, L503.6150, L501.1400, L100.0100 #### [facility] [address] [place], [address] Carbon dioxide, total [Moles /volume] in Central venous bloodOrdered By: Elsie Reid on 03-17-2025 CO2 [Moles/Vol] 22.0 mmol/L 21.0-32.0 [facility] Chloride assayOrdered By: Chrissy Reid on 03-17-2025 Chloride [Moles/Vol] 106 mmol/L 98-108 [facility] Comprehensive Metabolic Prof ilon 03-17-2025 Albumin [Mass/Vol] 4.3 g/dL Normal 3.5-5.0 [facility] Comment on above: Order Comment: Order Date: 03/17/25 Order Info: 07-1 - CMP Order Info: 3083-09 - URIC Order Info: 07366-2 - CRP Order Info: 3051-0 - T3F Order Info: 3 - TSH Order Info: 2497-12 - FE Order Info: 2275-12 - JOVANA Order Info: - RA Order Info: 3024-03 T4F Order Info: 0553-1 - FSHLH Performed By: #### L 3100.3450, L500.4050, L501.6710, L505.7010, L101.9900, L501.9520, L503.6550, L503.6150, L501.1400, L100.0100 #### [facility] [address] [place], [place], [phone] (893) Albumin/Globulin [Mass ratio] 1.6 {ratio} Normal 0.9-2.4 [facility] Comment on above: Order Comment: Order Date: 03/17/25 Order Info: 07- - CMP Order Info: 3083-09 - URIC Order Info: - CRP Order Info: 0 - T3F Order Info: 3 - TSH Order Info: 2497-12 - FE Order Info: 2275-12 - JOVANA Order Info: - RA Order Info: 3024-03 T4F Order Info: 0553-1 - FSHLH Performed By: #### L 3100.3450, L500.4050, L501.6710, L505.7010, L101.9900, L501.9520, L503.6550, L503.6150, L501.1400, L100.0100 #### [facility] [address] [place], [place], [phone] (350) ALK PHOS 61 U/L Normal 35-104 [facility] Comment on above: Order Comment: Order Date: 03/17/25 Order Info: 0786-1 - CMP Order Info: 3083-09 - URIC Order Info: 43820-8 - CRP Order Info: 3051-0 - T3F Order Info: 3 - TSH Order Info: 2497-12 - FE Order Info: 2275-12 - JOVANA Order Info: 94763-7 - RA Order Info: 3024-03 - T4F Order Info: 0553-1 - FSHLH Performed By: #### L 3100.3450, L500.4050, L501.6710, L505.7010, L101.9900, L501.9520, L503.6550, L503.6150, L501.1400, L100.0100 #### [facility] [address] [place], [place], [phone] ALT [Catalytic activity/Vol] 16 U/L Normal <=34 [facility] Comment on above: Order Comment: Order Date: 03/17/25 Order Info: 785-09 - CMP Order Info: 3083-09 - URIC Order Info: 12129-3 - CRP Order Info: 0 - T3F Order Info: 3015-11 - TSH Order Info: 2497-12 - FE Order Info: 2275-12 - JOVANA Order Info: - RA Order Info: 3024-03 T4F Order Info: 53-1 - FSHLH Performed By: #### L 3100.3450, L500.4050, L501.6710, L505.7010, L101.9900, L501.9520, L503.6550, L503.6150, L501.1400, L100.0100 #### [facility] [address] [place], [address] AST [Catalytic activity/Vol] 18 U/L Normal <=31 [facility] Comment on above: Order Comment: Order Date: 03/17/25 Order Info: 86-1 - CMP Order Info: 4-1 - URIC Order Info: 20006-0 - CRP Order Info: 3051-0 - T3F Order Info: 3 - TSH Order Info: 2497-12 - FE Order Info: 2275-12 - JOVANA Order Info: - RA Order Info: 7 - T4F Order Info: 0553-1 - FSHLH Performed By: #### L 3100.3450, L500.4050, L501.6710, L505.7010, L101.9900, L501.9520, L503.6550, L503.6150, L501.1400, L100.0100 #### [facility] [address] [place], [place], [phone] Bilirubin [Mass/Vol] 0.49 mg/dL Normal 0.00-1.30 [facility] Comment on above: Order Comment: Order Date: 03/17/25 Order Info: 0786-1 - CMP Order Info: 4-1 - URIC Order Info: 51752-3 - CRP Order Info: 3051-0 - T3F Order Info: 3 - TSH Order Info: 2497-12 - FE Order Info: 2275-12 - JOVANA Order Info: - RA Order Info: 3024-03 - T4F Order Info: 0553-1 - FSHLH Performed By: #### L 3100.3450, L500.4050, L501.6710, L505.7010, L101.9900, L501.9520, L503.6550, L503.6150, L501.1400, L100.0100 #### [facility] [address] [place], [place], [phone] BUN/CRE 15.4 RATIO Normal 10-20 [facility] Comment on above: Order Comment: Order Date: 03/17/25 Order Info: 0786-1 - CMP Order Info: 3084-1 - URIC Order Info: 33791-7 - CRP Order Info: 3051-0 - T3F Order Info: 3016-3 - TSH Order Info: 2494 - FE Order Info: 2275-12 - JOVANA Order Info: 45701-8 - RA Order Info: 3027 - T4F Order Info: 0553-1 - FSHLH Performed By: #### L 3100.3450, L500.4050, L501.6710, L505.7010, L101.9900, L501.9520, L503.6550, L503.6150, L501.1400, L100.0100 #### [facility] [address] [place], [address] Calcium [Mass/Vol] 9.3 mg/dL Normal 7.6-11.0 [facility] Comment on above: Order Comment: Order Date: 03/17/25 Order Info: 785- - CMP Order Info: 1 - URIC Order Info: 82763-1 - CRP Order Info: 0 - T3F Order Info: 3015-11 - TSH Order Info: 2497-12 - FE Order Info: 2275-12 - JOVANA Order Info: 28719-4 - RA Order Info: 3024-03 T4F Order Info: 0553-1 - FSHLH Performed By: #### L 3100.3450, L500.4050, L501.6710, L505.7010, L101.9900, L501.9520, L503.6550, L503.6150, L501.1400, L100.0100 #### [facility] [address] [place], [place], [phone] Chloride [Moles/Vol] 106 mmol/L Normal 98-108 [facility] Comment on above: Order Comment: Order Date: 03/17/25 Order Info: 1 - CMP Order Info: 1 - URIC Order Info: 61646-5 - CRP Order Info: 0 - T3F Order Info: 3 - TSH Order Info: 2497-12 - FE Order Info: 2275-12 - JOVANA Order Info: - RA Order Info: 3024-03 - T4F Order Info: 0553-1 - FSHLH Performed By: #### L 3100.3450, L500.4050, L501.6710, L505.7010, L101.9900, L501.9520, L503.6550, L503.6150, L501.1400, L100.0100 #### [facility] [address] [place], [place], [phone] (516) CO2 [Moles/Vol] 22.0 mmol/L Normal 21.0-32.0 [facility] Comment on above: Order Comment: Order Date: 03/17/25 Order Info: 0786-1 - CMP Order Info: 4-1 - URIC Order Info: 18517-3 - CRP Order Info: 305-0 - T3F Order Info: 3015-3 - TSH Order Info: 2497-12 - FE Order Info: 2275-12 - JOVANA Order Info: 82537-2 - RA Order Info: 3024-03 - T4F Order Info: 0553-1 - FSHLH Performed By: #### L 3100.3450, L500.4050, L501.6710, L505.7010, L101.9900, L501.9520, L503.6550, L503.6150, L501.1400, L100.0100 #### [facility] [address] [place], [address] Creatinine [Mass/Vol] 0.91 mg/dL Normal 0.70-1.20 [facility] Comment on above: Order Comment: Order Date: 03/17/25 Order Info: 785- - CMP Order Info: 3083-1 - URIC Order Info: 21895-6 - CRP Order Info: 3050-0 - T3F Order Info: 3 - TSH Order Info: 2497-12 - FE Order Info: 2275-12 - JOVANA Order Info: 36076-3 - RA Order Info: 7 - T4F Order Info: 0553-1 - FSHLH Performed By: #### L 3100.3450, L500.4050, L501.6710, L505.7010, L101.9900, L501.9520, L503.6550, L503.6150, L501.1400, L100.0100 #### [facility] [address] [place], [address] GAP 12 Normal 5-15 [facility] Comment on above: Order Comment: Order Date: 03/17/25 Order Info: 86-1 - CMP Order Info: 3083-09 - URIC Order Info: 40118-1 - CRP Order Info: 3051-0 - T3F Order Info: 3 - TSH Order Info: 2497-12 - FE Order Info: 2275-12 - JOVANA Order Info: - RA Order Info: 3024-03 T4F Order Info: 552-09 - FSHLH Performed By: #### L 3100.3450, L500.4050, L501.6710, L505.7010, L101.9900, L501.9520, L503.6550, L503.6150, L501.1400, L100.0100 #### [facility] [address] [place], [place], [phone] (057) GFR/1.73 sq M.predicted among non-blacks MDRD (S/P/Bld) [Vol rate/Area] 79 mL/min/{1.73_m2} Normal >60 [facility] Comment on above: Order Comment: Order Date: 03/17/25 Order Info: 785- - CMP Order Info: 1 - URIC Order Info: 81124-2 - CRP Order Info: 0 - T3F Order Info: 3015-11 - TSH Order Info: 2497-12 - FE Order Info: 2275-12 - JOVANA Order Info: - RA Order Info: 3024-03 T4F Order Info: 552-09 - FSHLH Result Comment: mL/m in/1.73m2 CKD-EPI Creatinine Equation (2020) Performed By: #### L 3100.3450, L500.4050, L501.6710, L505.7010, L101.9900, L501.9520, L503.6550, L503.6150, L501.1400, L100.0100 #### [facility] [address] [place], [place], [id number] ([phone]) Globulin (S) [Mass/Vol] 2.6 g/dL Normal 2.2-4.[address] [facility] Comment on above: Order Comment: Order Date: 03/17/25 Order Info: 0786-1 - CMP Order Info: 3084-1 - URIC Order Info: 01098-6 - CRP Order Info: 3051-0 - T3F Order Info: 6-3 - TSH Order Info: 4 - FE Order Info: 4 - JOVANA Order Info: - RA Order Info: 3024-03 - T4F Order Info: 53-1 - FSHLH Performed By: #### L 3100.3450, L500.4050, L501.6710, L505.7010, L101.9900, L501.9520, L503.6550, L503.6150, L501.1400, L100.0100 #### [facility] [address] [place], [place], [id number] Glucose [Mass/Vol] 90 mg/dL Normal 70-99 [facility] Comment on above: Order Comment: Order Date: 03/17/25 Order Info: 785-1 - CMP Order Info: 4-1 - URIC Order Info: 73994-9 - CRP Order Info: 0 - T3F Order Info: 3 - TSH Order Info: 2497-12 - FE Order Info: 2275-12 - JOVANA Order Info: - RA Order Info: 3024-03 - T4F Order Info: 53-1 - FSHLH Performed By: #### L 3100.3450, L500.4050, L501.6710, L505.7010, L101.9900, L501.9520, L503.6550, L503.6150, L501.1400, L100.0100 #### [facility] [address] [place], [place], [id number] Potassium [Moles/Vol] 3.8 mmol/L Normal 3.3-5.1 [facility] Comment on above: Order Comment: Order Date: 03/17/25 Order Info: 0786-1 - CMP Order Info: 4-1 - URIC Order Info: [id number] - CRP Order Info: 3051-0 - T3F Order Info: 3 - TSH Order Info: 2497-12 - FE Order Info: 2275-12 - JOVANA Order Info: 02503-4 - RA Order Info: 3027 - T4F Order Info: 0553-1 - FSHLH Performed By: #### L 3100.3450, L500.4050, L501.6710, L505.7010, L101.9900, L501.9520, L503.6550, L503.6150, L501.1400, L100.0100 #### [facility] [address] [place], [place], [phone] (200) Sodium [Moles/Vol] 139 mmol/L Normal 133-145 [facility] Comment on above: Order Comment: Order Date: 03/17/25 Order Info: 785-1 - CMP Order Info: 3083-09 - URIC Order Info: 13414-4 - CRP Order Info: 0 - T3F Order Info: 3 - TSH Order Info: 2497-12 - FE Order Info: 2275-12 - JOVANA Order Info: - RA Order Info: 3024-03 - T4F Order Info: 05531 - FSHLH Performed By: #### L 3100.3450, L500.4050, L501.6710, L505.7010, L101.9900, L501.9520, L503.6550, L503.6150, L501.1400, L100.0100 #### [facility] [address] [place], [place], [id number] T PROT 7.0 g/dL Normal 5.9-8.4 [facility] Comment on above: Order Comment: Order Date: 03/17/25 Order Info: 86-1 - CMP Order Info: 4-1 - URIC Order Info: 27341-6 - CRP Order Info: 3051-0 - T3F Order Info: 3 - TSH Order Info: 2497-12 - FE Order Info: 4 - JOVANA Order Info: 24127-7 - RA Order Info: 30212-21 - T4F Order Info: 0553-1 - FSHLH Performed By: #### L 3100.3450, L500.4050, L501.6710, L505.7010, L101.9900, L501.9520, L503.6550, L503.6150, L501.1400, L100.0100 #### [facility] [address] [place], [place], [id number] Urea nitrogen [Mass/Vol] 14 mg/dL Normal 4-19 [facility] Comment on above: Order Comment: Order Date: 03/17/25 Order Info: 0786-1 - CMP Order Info: 3084-1 - URIC Order Info: 97628-0 - CRP Order Info: 3051-0 - T3F Order Info: 301-3 - TSH Order Info: 24904-19 - FE Order Info: 2275-12 - JOVANA Order Info: 48208-6 - RA Order Info: 3024-03 - T4F Order Info: 0553-1 - FSHLH Performed By: #### L 3100.3450, L500.4050, L501.6710, L505.7010, L101.9900, L501.9520, L503.6550, L503.6150, L501.1400, L100.0100 #### [facility] [address] [place], [place], [phone] Eosinophil percentageOrdered By: Elsie Reid on 03-17-2025 Eosinophils/100 WBC (Bld) 0.5 % 0-5 [facility] Erythrocyte Sed Rateon 03-17 SED RATE 3 mm/hr Normal 0-30 [facility] Comment on above: Order Comment: Order Date: 03/17/25 Order Info: 0184-1 - CBCD Order Info: 62369-4 - SED Performed By: #### L 3100.3450, L500.4050, L501.6710, L505.7010, L101.9900, L501.9520, L503.6550, L503.6150, L501.1400, L100.0100 #### [facility] [address] [place], [address] Erythrocyte distribution wid th ratioOrdered By: Elsie Reid on 03-17-2025 Erythrocyte distribution width (RBC) [Ratio] 12.9 % 11.6-14.6 [facility] Erythrocyte distribution wid th standard deviationOrdered By: Elsie Reid on 03-17-2025 Erythrocyte distribution width (RBC) [Ratio] 42.8 fl 35.1-43.9 [facility] Erythrocyte sedimentation ra teOrdered By: Elsie Reid on 03-17-2025 ESR (Bld) [Velocity] 3 mm/h 0-30 [facility] FSH and LHon 03-17-2025 FSH 2.9 mIU/mL Normal [facility] Comment on above: Order Comment: Order Date: 03/17/25 Order Info: 0184-1 - CBCD Order Info: 88037-1 - SED Result Comment: FEMA LE: Follicular: 1.4 - 18.1 mIU/mL Midcycle: 3.4 - 33.4 mIU/mL Luteal: 1.5 - 9.1 mIU/mL Post Menopause: 23.0 - 116.3 mIU/mL MALE: 1.4 - 18.1 mIU/mL Performed By: #### L 3100.3450, L500.4050, L501.6710, L505.7010, L101.9900, L501.9520, L503.6550, L503.6150, L501.1400, L100.0100 #### [facility] [address] [place], [address] LH 0.9 mIU/mL Normal [facility] Comment on above: Order Comment: Order Date: 03/17/25 Order Info: 0184-1 - CBCD Order Info: 48649-2 - SED Result Comment: FEMA LE: Follicular: 1.9-12.5 mIU/mL Midcycle: 8.7-76.3 mIU/mL Luteal: 0.5-16.9 mIU/mL Post Menopause: 15.9-54.0 mIU/mL MALE: 20-70 Years: 1.5-9.3 mIU/mL >70 Years: 3.1-34.6 mIU/mL Performed By: #### L 3100.3450, L500.4050, L501.6710, L505.7010, L101.9900, L501.9520, L503.6550, L503.6150, L501.1400, L100.0100 #### [facility] [address] [place], [place], [phone] Ferritinon 03-17-2025 Ferritin [Mass/Vol] 88 ng/mL Normal 22-378 [facility] Comment on above: Order Comment: Order Date: 03/17/25 Order Info: 0786-1 - CMP Order Info: 3084-1 - URIC Order Info: 90793-2 - CRP Order Info: 3051-0 - T3F Order Info: 3016-3 - TSH Order Info: 2498-4 - FE Order Info: 2276-4 - JOVANA Order Info: 07060-4 - RA Order Info: 3024-7 - T4F Order Info: 0553-1 - FSHLH Performed By: #### L 3100.3450, L500.4050, L501.6710, L505.7010, L101.9900, L501.9520, L503.6550, L503.6150, L501.1400, L100.0100 #### [facility] [address] [place], [place], [id number] Free T3on 03-17-2025 Free T3 [Mass/Vol] 2.8 pg/mL Normal 2.18-3.98 [facility] Comment on above: Order Comment: Order Date: 03/17/25 Order Info: 0184-1 - CBCD Order Info: 50321-8 - SED Performed By: #### L 3100.3450, L500.4050, L501.6710, L505.7010, L101.9900, L501.9520, L503.6550, L503.6150, L501.1400, L100.0100 #### [facility] [place], [address] Free F4Qqipxhn By: Jorge Reid on 03-17-2025 Free T3 [Mass/Vol] 2.8 pg/mL 2.18-3.98 [facility] Glomerular filtration rate ( GFR) estimation/1.73 sq m using serum, plasma, or whole bOrdered By: Elsie Reid on 03-17-2025 GFR/1.73 sq M.predicted among non-blacks MDRD (S/P/Bld) [Vol rate/Area] 79 mL/min/{1.73_m2} >60 [facility] Comment on above: mL/min/1.73m2 CKD-EP I Creatinine Equation (2020) Hematocrit Auto (Bld) [Volum e fraction]Ordered By: Elsie Reid on 03-17-2025 Hematocrit (Bld) [Volume fraction] 45.3 % 37-47 [facility] Hemoglobin measurementOrdere d By: Elsie Reid on 03-17-2025 Hemoglobin (Bld) [Mass/Vol] 15.5 g/dL High 12.0-15.0 [facility] Immature granulocytes/100 WB C Auto (Bld)Ordered By: Elsie Reid on 03-17-2025 Immature granulocytes/100 WBC (Bld) 0.200 % 0.0-0.9 [facility] Comment on above: IG% - Immature Granu locytes (promyelocytes, myelocytes and metamyelocytes) > 1% indicates that a LEFT SHIFT is Present. Ironon 03-17-2025 Iron [Mass/Vol] 127 ug/dL Normal 50-170 [facility] Comment on above: Order Comment: Order Date: 03/17/25 Order Info: 0786-1 - CMP Order Info: 3084-1 - URIC Order Info: 20818-1 - CRP Order Info: 3051-0 - T3F Order Info: 3016-3 - TSH Order Info: 2498-4 - FE Order Info: 2276-4 - JOVANA Order Info: 60176-2 - RA Order Info: 3024-7 - T4F Order Info: 0553-1 - FSHLH Performed By: #### L 3100.3450, L500.4050, L501.6710, L505.7010, L101.9900, L501.9520, L503.6550, L503.6150, L501.1400, L100.0100 #### [facility] [address] [place], [address] Iron measurement (mass/mass) Ordered By: Elsie Reid on 03-17-2025 Iron (Unsp spec) [Mass/Mass] 127 ug/dL 50-170 [facility] LH ser/plasOrdered By: Jim Reid on 03-17-2025 Lutropin Qn 0.9 m[IU]/mL [facility] Comment on above: FEMALE:Follicular: 1 .9-12.5 mIU/mLMidcycle: 8.7-76.3 mIU/mLLuteal: 0.5-16.9 mIU/mLPost Menopause: 15.9-54.0 mIU/mLMALE:20-70 Years: 1.5-9.3 mIU/mL>70 Years: 3.1-34.6 mIU/mL Laboratory - Chemistry and C hemistry - challengeOrdered By: Elsie Reid on 03-17-2025 AST [Catalytic activity/Vol] 18 U/L <32 [facility] MCV (mean corpuscular volume ) determinationOrdered By: Elsie Reid on 03-17-2025 MCV (RBC) [Entitic vol] 91.0 fL 81-99 [facility] Mean corpuscular hemoglobin (MCH) determinationOrdered By: Elsie Reid on 03-17-2025 MCH (RBC) [Entitic mass] 31.1 pg 27.0-32.0 [facility] Mean corpuscular hemoglobin concentration (MCHC) determinationOrdered By: Elsie Reid on 03-17-2025 MCHC (RBC) [Mass/Vol] 34.2 g/dL 32-36 [facility] Mean platelet volume determi nationOrdered By: Elsie Reid on 03-17-2025 Platelet mean volume (Bld) [Entitic vol] 11.0 fL 6.2-12.0 [facility] Microalb:Creat Ratio,Random URon 03-17-2025 Creatinine [Mass/Vol] 29.80 mg/dL Normal 28.00-217.00 [facility] Comment on above: Performed By: #### L 3100.3450, L500.4050, L501.6710, L505.7010, L101.9900, L501.9520, L503.6550, L503.6150, L501.1400, L100.0100 #### [facility] [address] [place], [address] MALB:CREAT UNABLE TO CALCULATE Normal [facility] Comment on above: Performed By: #### L 3100.3450, L500.4050, L501.6710, L505.7010, L101.9900, L501.9520, L503.6550, L503.6150, L501.1400, L100.0100 #### [facility] [address] [place], [address] MICROALBUMIN,UR < 12.0 Normal NO RANGE EST. [facility] Comment on above: Performed By: #### L 3100.3450, L500.4050, L501.6710, L505.7010, L101.9900, L501.9520, L503.6550, L503.6150, L501.1400, L100.0100 #### [facility] [address] [place], [place], [id number] Microalbumin/creat ratio urO rdered By: Elsie Reid on 03-17-2025 Urine microalbumin/creatinine ratio measurement UNABLE TO CALCULATE mg/g CRE [facility] Monocyte percentageOrdered B y: Elsie eRid on 03-17-2025 Monocytes/100 WBC (Bld) 6.6 % 0-[address] [facility] Neutrophil percentageOrdered By: Elsie Reid on 03-17-2025 Neutrophils/100 WBC (Bld) 63.8 % 47-70 [facility] No Panel InformationOrdered By: Elsie Reid on 03-17-2025 Addendum Document Comment . [facility] Comment on above: The SPE pattern appe ars unremarkable. Evidence ofmonoclonal protein is not apparent.Performed at: - [facility] [id number] Director: Rashid Malave PhD, Phone: [phone] Nucleated red blood cell per centageOrdered By: Elsie Reid on 03-17-2025 Nucleated RBC/100 WBC (Bld) [Ratio] 0 % 0-5 [facility] Platelet countOrdered By: Chrissy Reid on 03-17-2025 Platelets (Bld) [#/Vol] 266 10*3/uL 150-450 [facility] Potassium measurement (mass/ volume)Ordered By: Elsie Reid on 03-17-2025 Potassium (Unsp spec) [Mass/Vol] 3.8 mmol/L 3.3-5.1 [facility] Protein Fractions Elph [Inte rp]Ordered By: Elsie Reid on 03-17-2025 Protein Fractions [Interp] Comment . [facility] Comment on above: Protein electrophore sis scan will follow via computer,mail, or business trainer delivery. RBC Auto (Bld) [#/Vol]Ordere d By: Elsie Reid on 03-17-2025 RBC (Bld) [#/Vol] 4.98 10*6/uL 4.2-5.4 [facility] Random urine creatinine ewa urement (mass/volume)Ordered By: Elsie Reid on 03-17-2025 Creatinine Unsp time (U) [Mass/Vol] 29.80 mg/dL 28.00-217.00 [facility] Rheumatoid Factoron 03-17-20 RHEUMATOID FAC < 10.0 Normal <15 [facility] Comment on above: Order Comment: Order Date: 03/17/25 Order Info: 0786-1 - CMP Order Info: 3084-1 - URIC Order Info: 28557-5 - CRP Order Info: 3051-0 - T3F Order Info: 3016-3 - TSH Order Info: 2498-4 - FE Order Info: 2276-4 - JOVANA Order Info: 79034-6 - RA Order Info: 3024-7 - T4F Order Info: 0553-1 - FSHLH Performed By: #### L 3100.3450, L500.4050, L501.6710, L505.7010, L101.9900, L501.9520, L503.6550, L503.6150, L501.1400, L100.0100 #### [facility] [place], [address] Serum DNA double strand anti body assay (units/volume)Ordered By: Elsie Reid on 03-17-2025 DNA double strand Ab Qn (S) 1 [IU]/mL 0-9 [facility] Comment on above: Negative <5 Equivoca l 5 - 9 Positive >9 Serum Scl-70 antibody assay (units/volume)Ordered By: Elsie Reid on 03-17-2025 SCL-70 extractable nuclear Ab Qn (S) 4.0 AI High 0.0-0.9 [facility] Comment on above: Previous reported re sult: TNP AIEdited by: ROLAN on 03/19/25:1508 AMENDED REPORT 03/19/25 1508 ANTISCLER previously reported as: Test not performed Serum albumin to globulin ra fletcher by protein electrophoresisOrdered By: Elsie Reid on 03-17-2025 Albumin/Globulin Elph [Mass ratio] 1.4 0.7-1.7 [facility] Serum creatinine measurement (mass/volume)Ordered By: Elsie Reid on 03-17-2025 Creatinine [Mass/Vol] 0.91 mg/dL 0.70-1.20 [facility] Serum globulin measurementOr dered By: Elsie Reid on 03-17-2025 Globulin (S) [Mass/Vol] 2.6 g/dL 2.2-4.[address] [facility] Serum globulin measurement ( mass/volume)Ordered By: Elsie Reid on 03-17-2025 Globulin (S) [Mass/Vol] 2.7 g/dL 2.2-3.9 [facility] Serum glucose measurement (m ass/volume)Ordered By: Elsie Reid on 03-17-2025 Glucose [Mass/Vol] 90 mg/dL 70-99 [facility] Serum or plasma C reactive p rotein measurement (mass/volume)Ordered By: Elsie Reid on 03-17-2025 CRP [Mass/Vol] mg/L 0.0-3.0 [facility] Serum or plasma alanine macias otransferase (ALT) measurementOrdered By: Elsie Reid on 03-17-2025 ALT [Catalytic activity/Vol] 16 U/L <35 [facility] Serum or plasma albumin ewa urement (mass/volume)Ordered By: Eslie Reid on 03-17-2025 Albumin [Mass/Vol] 4.3 g/dL 3.5-5.0 [facility] Serum or plasma albumin/glob ulin mass ratioOrdered By: Elsie Reid on 03-17-2025 Albumin/Globulin [Mass ratio] 1.6 {ratio} 0.9-2.4 [facility] Serum or plasma alkaline robinson sphatase measurementOrdered By: Elsie Reid on 03-17-2025 ALP [Catalytic activity/Vol] 61 U/L 35-104 [facility] Serum or plasma beta globuli n measurement by electrophoresis (mass/volume)Ordered By: Elsie Reid on 03-17-2025 Beta globulin Elph [Mass/Vol] 0.8 g/dL 0.7-1.3 [facility] Serum or plasma calcium ewa urement (mass/volume)Ordered By: Elsie Reid on 03-17-2025 Calcium [Mass/Vol] 9.3 mg/dL 7.6-11.0 [facility] Serum or plasma ferritin arti surement (mass/volume)Ordered By: Elsie Reid on 03-17-2025 Ferritin [Mass/Vol] 88 ng/mL 22-378 [facility] Serum or plasma protein ewa urement (mass/volume)Ordered By: Elsie Reid on 03-17-2025 Protein [Mass/Vol] 6.6 g/dL 6.0-8.5 [facility] Serum or plasma protein mono clonal measurement by electrophoresis (mass/volume)Ordered By: Elsie Reid on 03-17-2025 Protein.monoclonal Elph [Mass/Vol] Not Observed g/dL Not Observed [facility] Serum or plasma urea nitroge n measurement (mass/volume)Ordered By: Elsie Reid on 03-17-2025 Urea nitrogen [Mass/Vol] 14 mg/dL 4-19 [facility] Serum or plasma uric acid me asurement (mass/volume)Ordered By: Elsie Reid on 03-17-2025 Urate [Mass/Vol] 4.7 mg/dL 2.6-6.0 [facility] Comment on above: The drugs N-Acetylcy steine and Metamizole may falsely depress this assay. Serum rheumatoid factor dete ctionOrdered By: Elsie Reid on 03-17-2025 Rheumatoid factor Ql (S) < 10.0 IU/mL <15 [facility] Sodium levelOrdered By: Lucie Reid on 03-17-2025 Sodium [Moles/Vol] 139 mmol/L 133-145 [facility] T4 Free Directon 03-17-2025 T4 FREE DIRECT 1.50 ng/dL High 0.76-1.46 [facility] Comment on above: Order Comment: Order Date: 03/17/25 Order Info: 0184-1 - CBCD Order Info: 32973-6 - SED Performed By: #### L 3100.3450, L500.4050, L501.6710, L505.7010, L101.9900, L501.9520, L503.6550, L503.6150, L501.1400, L100.0100 #### [facility] [address] [place], [address] T4 freeOrdered By: Jorge Reid on 03-17-2025 Free T4 [Mass/Vol] 1.50 ng/dL High 0.76-1.46 [facility] TSH DL <= 0.005 mIU/L QnOrde red By: Elsie Reid on 03-17-2025 TSH Qn 0.272 uIU/mL Low 0.300-4.200 [facility] Thyroid Stim Hormone (TSH)on 03-17-2025 TSH 0.272 uIU/mL Low 0.300-4.200 [facility] Comment on above: Order Comment: Order Date: 03/17/25 Order Info: 785- - CMP Order Info: 1 - URIC Order Info: [id number] - CRP Order Info: 0 - T3F Order Info: 3 - TSH Order Info: 2497-12 FE Order Info: 2275-12 - JOVANA Order Info: - RA Order Info: 3024-03 - T4F Order Info: 552-09 - FSHLH Performed By: #### L 3100.3450, L500.4050, L501.6710, L505.7010, L101.9900, L501.9520, L503.6550, L503.6150, L501.1400, L100.0100 #### [facility] [address] [place], [place], [id number] Total proteinOrdered By: Graham Reid on 03-17-2025 Protein [Mass/Vol] 7.0 g/dL 5.9-8.4 [facility] Uric Acidon 03-17-2025 URIC 4.7 mg/dL Normal 2.6-6.0 [facility] Comment on above: Order Comment: Order Date: 03/17/25 Order Info: 785-09 - CMP Order Info: 3083-09 - URIC Order Info: - CRP Order Info: 0 - T3F Order Info: 3015-11 - TSH Order Info: 2497-12 FE Order Info: 2275-12 - JOVANA Order Info: - RA Order Info: 3024-03 - T4F Order Info: 53 - FSHLH Result Comment: The drugs N-Acetylcysteine and Metamizole may falsely depress this assay. Performed By: #### L 3100.3450, L500.4050, L501.6710, L505.7010, L101.9900, L501.9520, L503.6550, L503.6150, L501.1400, L100.0100 #### [facility] [address] [place], [place], [address] Urine albumin measurement [facility] detection limit of 20 mg/L or less (mass/volume)Ordered By: Elsie Reid on 03-17-2025 Albumin DL <= 20 mg/L (U) [Mass/Vol] < 12.0 mg/L NO RANGE EST. [facility] Vitamin B12on 03-17-2025 Cobalamin (Vitamin B12) [Mass/Vol] 576 pg/mL Normal 180-914 [facility] Comment on above: Order Comment: Order Date: 03/17/25 Order Info: 785- - CMP Order Info: 3081 - URIC Order Info: 14402-0 - CRP Order Info: 3051-0 - T3F Order Info: 6-3 - TSH Order Info: 4 - FE Order Info: 4 - JOVANA Order Info: 23035-2 - RA Order Info: 3027 - T4F Order Info: 0553-1 - FSHLH Performed By: #### L 3100.3450, L500.4050, L501.6710, L505.7010, L101.9900, L501.9520, L503.6550, L503.6150, L501.1400, L100.0100 #### [facility] [address] [place], [address] Vitamin B12 ser/plasOrdered By: Elsie Reid on 03-17-2025 Cobalamin (Vitamin B12) [Mass/Vol] 576 pg/mL 180-914 [facility] Vitamin D,25 Hydroxyon 03-17 Vitamin D 25-OH 22.7 ng/mL Low 30-100 [facility] Comment on above: Order Comment: Order Date: 03/17/25 Order Info: 785-1 - CMP Order Info: 4-1 - URIC Order Info: 07525-5 - CRP Order Info: 3051-0 - T3F Order Info: 3016-3 - TSH Order Info: 249-4 - FE Order Info: 4 - JOVANA Order Info: 14895-8 - RA Order Info: 3024-7 - T4F Order Info: 0553-1 - FSHLH Result Comment: Celine min D Status Deficiency: <20 ng/mL (50nmol/L) Insufficiency: 20-30 ng/mL (50-75 nmol/L) Sufficiency: 30-100 ng/mL (75-250 nmol/L) Toxicity: >100 ng/mL (>250 nmol/L) Performed By: #### L 3100.3450, L500.4050, L501.6710, L505.7010, L101.9900, L501.9520, L503.6550, L503.6150, L501.1400, L100.0100 #### [facility] [address] [place], [address] White blood cell (WBC) count Ordered By: Elsie Reid on 03-17-2025 WBC (Bld) [#/Vol] 5.9 10*3/uL 4.4-11.0 [facility] Chiropractic Reporton 2024 Chiropractic Report [facility] [place], [place] [address] OFFICE VISIT Date of Service: 02/01/25 MR#: [id number] Acct: [id number] Name: MAHESH PEPPER MAXIMILIAN Rep #: [id number] : 1980 Provider: ROXIE Padilla Age/Sex: 44/F Location: [facility] Status: Signed Intake Vital Signs 06/30/24 08:48 [...] #90 tabs 10/20/24 02/01/25 Rx tablet,extended release(part/cryst) [facility] Medical History History of IBS Gastritis Alcohol [...] safe at home: Yes additional social history: Fqxeoum-Axsb-Eekmn 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 Normal [facility] Chiropractic Reporton 2024 Chiropractic Report [facility] [address] [place] [address] OFFICE VISIT Date of Service: 12/21/24 MR#: [id number] Acct: [id number] Name: MAHESH PEPPER MAXIMILIAN Rep #: [id number] : 1980 Provider: DC Dr. 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 Normal [facility] Chiropractic Reporton 2024 Chiropractic Report 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 Normal [facility] Chiropractic Reporton 2023 Chiropractic Report 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 Normal [facility] SCRN MAMM (CAD)W/DENISE BILATo n 08-14-2024 SCRN MAMM (CAD)W/DENISE BILAT [facility] [address] [place], [place] [id number] SCRN MAMM (CAD)W/DENISE BILAT MR#: [id number] Acct: [id number] Name: MAHESH PEPPER Rep #: [id number] : 1980 F 43 From: Arsh nielsen MD PCP: Dr. Elsie Reid MD Status: REG CLI Study: SCRN MAMM (CAD)W/DENISE BILAT Date of Exam: 07/18 06/09 Exam# [id number] Ordering Dr: Tahira Russo [id number] MAMMOGRAPHY - BILATERAL SCREENING REASON FOR EXAM: [...] delay biopsy of a clinically suspicious abnormality. [id number] Electronically Signed: Arsh Lancaster MD at 9:25 EST , CC: Dr. Elsie Reid MD; Dr. 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 Normal [facility] Basophil percentageOrdered B y: Tahira Russo on 07-02-2023 WBC (Bld) [#/Vol] 15.9 10*3/uL 4.4-11.0 [facility] Blood erythrocytes count (nu mber/volume)Ordered By: Tahira Russo on 07-02-2023 RBC (Bld) [#/Vol] 4.79 10*6/uL 4.2-5.4 [facility] Blood hemoglobin measurement (mass/volume)Ordered By: Tahira Russo on 07-02-2023 Hemoglobin (Bld) [Mass/Vol] 15.2 g/dL 12.0-15.0 [facility] Blood platelet mean volumeOr dered By: Tahira Russo on 07-02-2023 Platelet mean volume (Bld) [Entitic vol] 10.0 fL 6.2-12.0 [facility] Determination of erythrocyte mean corpuscular volume (MCV)Ordered By: Tahira Russo on 07-02-2023 MCV (RBC) [Entitic vol] 91.4 fL 81-[address] [facility] Glucose Glucometer (BldC) [M ass/Vol]Ordered By: Tahira Russo on 07-02-2023 Glucose [Mass/Vol] 95 mg/dL 74-106 [facility] Comment on above: MANAGEMENT OF PATIEN T CARE PER NURSING PROTOCOL Hematocrit Auto (Bld) [Volum e fraction]Ordered By: Tahira Russo on 07-02-2023 Hematocrit (Bld) [Volume fraction] 43.8 % 37-47 [facility] Laboratory - Hematology and Cell countsOrdered By: Tahira Russo on 07-02-2023 Erythrocyte distribution width (RBC) [Entitic vol] 41.9 fL 35.1-43.9 [facility] Erythrocyte distribution width (RBC) [Ratio] 12.5 % 11.6-14.6 [facility] MCH (RBC) [Entitic mass] 31.7 pg 27.0-32.0 [facility] MCHC Auto (RBC) [Mass/Vol]Or dered By: Tahira Russo on 07-02-2023 MCHC (RBC) [Mass/Vol] 34.7 g/dL 32-36 [facility] Platelets bldOrdered By: Singh Russo on 07-02-2023 Platelets (Bld) [#/Vol] 262 10*3/uL 150-450 [facility] Laboratory - Chemistry and C hemistry - challengeOrdered By: Angel Hogan on 06-28-2023 Magnesium [Mass/Vol] 2.2 mg/dL 1.6-2.6 [facility] Absolute lymphocyte countOrd ered By: HEALTH ASSESSMENT on 05-06-2023 Lymphocytes Auto (Unsp spec) [#/Vol] 2.02 10*3/uL 0.83-4.51 [facility] Absolute reticulocyte countO rdered By: HEALTH ASSESSMENT on 05-06-2023 Reticulocytes (Bld) [#/Vol] 0.00 10*3/uL 0-5 [facility] Basophil percentageOrdered B y: HEALTH ASSESSMENT on 05-06-2023 Basophil percentage 3.3 mg/dL 2.5-4.9 [facility] Bilirubin [Mass/Vol] 0.70 mg/dL 0.20-1.00 [facility] Comment on above: For patients on eltr ombopag therapy, use of Dimension [place] TBIL is not recommended. Chloride [Moles/Vol] 107 mmol/L 98-107 [facility] Cholesterol [Mass/Vol] 180 mg/dL <200 [facility] Comment on above: <200 mg/dL Desirable 200-240 mg/dL Borderline >240 mg/dL High Risk Glucose [Mass/Vol] 90 mg/dL 74-106 [facility] LDH [Catalytic activity/Vol] 141 U/L 84-246 [facility] Neutrophils (Bld) [#/Vol] 3.4 10*3/uL 2.0-7.7 [facility] Potassium [Moles/Vol] 3.9 mmol/L 3.5-5.1 [facility] Protein [Mass/Vol] 7.0 g/dL 6.4-8.2 [facility] Sodium [Moles/Vol] 137 mmol/L 136-145 [facility] Triglyceride [Mass/Vol] 54 mg/dL <199 [facility] Comment on above: The drugs N-Acetylcy steine and Metamizole may falsely depress this assay.Serum Triglycerides Reference Interval Normal <150 mg/dL Borderline high 150 - 199 mg/dL High 200 - 499 mg/dL Very High > or = 500 mg/dL WBC (Bld) [#/Vol] 5.9 10*3/uL 4.4-11.0 [facility] Bilirubin Test strip Ql (U)O rdered By: HEALTH ASSESSMENT on 05-06-2023 Bilirubin Ql (U) Negative Negative [facility] Blood erythrocytes count (nu mber/volume)Ordered By: HEALTH ASSESSMENT on 05-06-2023 RBC (Bld) [#/Vol] 4.82 10*6/uL 4.2-5.4 [facility] Blood hemoglobin measurement (mass/volume)Ordered By: HEALTH ASSESSMENT on 05-06-2023 Hemoglobin (Bld) [Mass/Vol] 15.3 g/dL 12.0-15.0 [facility] Blood platelet mean volumeOr dered By: HEALTH ASSESSMENT on 05-06-2023 Platelet mean volume (Bld) [Entitic vol] 10.2 fL 6.2-12.0 [facility] Determination of erythrocyte mean corpuscular volume (MCV)Ordered By: HEALTH ASSESSMENT on 05-06-2023 MCV (RBC) [Entitic vol] 93.2 fL 81-[address] [facility] Direct bilirubinOrdered By: HEALTH ASSESSMENT on 05-06-2023 Bilirubin.direct [Mass/Vol] 0.15 mg/dL 0.00-0.30 [facility] Hematocrit Auto (Bld) [Volum e fraction]Ordered By: HEALTH ASSESSMENT on 05-06-2023 Hematocrit (Bld) [Volume fraction] 44.9 % 37-47 [facility] Ketones Test strip Ql (U)Ord ered By: HEALTH ASSESSMENT on 05-06-2023 Ketones Ql (U) Negative Negative [facility] Laboratory - Chemistry and C hemistry - challengeOrdered By: HEALTH ASSESSMENT on 05-06-2023 ALP [Catalytic activity/Vol] 55 U/L 45-117 [facility] ALT [Catalytic activity/Vol] 18 U/L 13-56 [facility] Cholesterol.total/Choleste rol in HDL [Mass ratio] 3.00 {ratio} [facility] CO2 [Moles/Vol] 28.0 mmol/L 21.0-32.0 [facility] Globulin (S) [Mass/Vol] 3.2 g/dL 2.2-4.[address] [facility] Urea nitrogen/Creatinine [Mass ratio] 18.5 mg/mg 10-20 [facility] Laboratory - Hematology and Cell countsOrdered By: HEALTH ASSESSMENT on 05-06-2023 Erythrocyte distribution width (RBC) [Entitic vol] 43.2 fL 35.1-43.9 [facility] Erythrocyte distribution width (RBC) [Ratio] 12.6 % 11.6-14.6 [facility] MCH (RBC) [Entitic mass] 31.7 pg 27.0-32.0 [facility] Nucleated RBC/100 WBC (Bld) [Ratio] 0 % 0-5 [facility] MCHC Auto (RBC) [Mass/Vol]Or dered By: HEALTH ASSESSMENT on 05-06-2023 MCHC (RBC) [Mass/Vol] 34.1 g/dL 32-36 [facility] Nitrite Test strip Ql (U)Ord ered By: HEALTH ASSESSMENT on 05-06-2023 Nitrite Ql (U) Negative Negative [facility] No Panel InformationOrdered By: HEALTH ASSESSMENT on 05-06-2023 Estimated GFR (MDRD) Amer 85 mL/min >60 [facility] Comment on above: GFR Calc Estimated GFR (MDRD) Non-Af Amer 70 mL/min >60 [facility] Comment on above: Non- GFR Calc No Panel InformationOrdered By: Tahira Russo on 05-06-2023 Thyroid Stimulating Hormone (TSH) 1.56 uIU/mL 0.358-3.74 [facility] Platelets bldOrdered By: KE [facility] ASSESSMENT on 05-06-2023 Platelets (Bld) [#/Vol] 245 10*3/uL 150-450 [facility] Protein Test strip Ql (U)Ord ered By: HEALTH ASSESSMENT on 05-06-2023 Protein Ql (U) Negative Negative [facility] Segmented neutrophils/100 WB C Auto (Bld)Ordered By: HEALTH ASSESSMENT on 05-06-2023 Segmented neutrophils/100 WBC (Bld) 56.8 % 47-70 [facility] Serum or plasma albumin ewa urement (mass/volume)Ordered By: HEALTH ASSESSMENT on 05-06-2023 Albumin [Mass/Vol] 3.8 g/dL 3.2-5.0 [facility] Serum or plasma albumin/glob ulin mass ratioOrdered By: HEALTH ASSESSMENT on 05-06-2023 Albumin/Globulin [Mass ratio] 1.2 {ratio} 0.9-2.4 [facility] Serum or plasma calcium ewa urement (mass/volume)Ordered By: HEALTH ASSESSMENT on 05-06-2023 Calcium [Mass/Vol] 8.8 mg/dL 8.5-10.1 [facility] Serum or plasma cholesterol in HDL measurement (mass/volume)Ordered By: HEALTH ASSESSMENT on 05-06-2023 Cholesterol in HDL [Mass/Vol] 61 mg/dL >40 [facility] Comment on above: The drugs N-Acetylcy steine and Metamizole may falsely depress this assay. Reference Range HDL <40 mg/dL Low HDL Cholesterol HDL >or= 60 mg/dL High HDL Cholesterol Serum or plasma cholesterol in VLDL measurement (mass/volume)Ordered By: HEALTH ASSESSMENT on 05-06-2023 Cholesterol in VLDL [Mass/Vol] 11 mg/dL 5-40 [facility] Serum or plasma creatinine m easurement (mass/volume)Ordered By: HEALTH ASSESSMENT on 05-06-2023 Creatinine [Mass/Vol] 0.92 mg/dL 0.55-1.02 [facility] Comment on above: The validity of the calculated GFR & GFRAA in patients over 70 years has not been determined. Clinical correlation is essential. Serum or plasma low density lipoprotein (LDL) cholesterol measurement (mass/volume)Ordered By: HEALTH ASSESSMENT on 05-06-2023 Cholesterol in LDL [Mass/Vol] 108 mg/dL 0-130 [facility] Serum or plasma urea nitroge n measurement (mass/volume)Ordered By: HEALTH ASSESSMENT on 05-06-2023 Urea nitrogen [Mass/Vol] 17 mg/dL 7-18 [facility] Serum or plasma uric acid me asurement (mass/volume)Ordered By: HEALTH ASSESSMENT on 05-06-2023 Urate [Mass/Vol] 4.1 mg/dL 2.6-6.0 [facility] Comment on above: The drugs N-Acetylcy steine and Metamizole may falsely depress this assay. Thin prep Papanicolaou smear with manual screeningOrdered By: HEALTH ASSESSMENT on 05-06-2023 Thin prep Papanicolaou smear with manual screening 12 U/L 15-37 [facility] Thin prep Papanicolaou smear with manual screening 2 5-15 [facility] Urine blood detectionOrdered By: HEALTH ASSESSMENT on 05-06-2023 RBC Ql (U) Negative Negative [facility] Urine clarityOrdered By: [facility] ASSESSMENT on 05-06-2023 Clarity (U) Sl. Cloudy Clear [facility] Urine color determinationOrd ered By: HEALTH ASSESSMENT on 05-06-2023 Color (U) Yellow Yellow [facility] Urine glucose detectionOrder ed By: HEALTH ASSESSMENT on 05-06-2023 Glucose Ql (U) Normal mg/dl Normal [facility] Urine leukocyte esterase det ection by dipstickOrdered By: HEALTH ASSESSMENT on 05-06-2023 Leukocyte esterase Test strip Ql (U) 25 /ul Negative [facility] Urine pHOrdered By: HEALTH A SSESSMENT on 05-06-2023 pH (U) 6.5 [pH] 5.0 - 8.0 [facility] Urine specific gravity measu rementOrdered By: HEALTH ASSESSMENT on 05-06-2023 Specific gravity (U) [Rel density] 1.005 1.002-1.030 [facility] Urobilinogen Auto test strip Ql (U)Ordered By: HEALTH ASSESSMENT on 05-06-2023 Urobilinogen Ql (U) Normal mg/dl Normal [facility] No Panel InformationOrdered By: Dr. Russo on 02-04-2023 Follicle Stimulating Hormone 4.5 mIU/mL [facility] Comment on above: NORMAL REFERENCE RAN GES FEMALE FOLLICULAR 2.3 - 12.6 mIU/mL MID-CYCLE PEAK 5.2 - 17.5 mIU/mL LUTEAL 1.7 - 12.9 mIU/mL POST-MENOPAUSAL ON MHT 5.9 - 72.8 mIU/mL NOT ON MHT 12.7 - 132.2 mlU/mL MALE 0.7 - 10.8 mIU/mL Thyroid Stimulating Hormone (TSH) 1.87 uIU/mL 0.358-3.74 [facility] Serum or plasma estradiol (E 2) measurement (mass/volume)Ordered By: Dr. Russo on 02-04-2023 E2 [Mass/Vol] 246.2 pg/mL [facility] Comment on above: NORMAL REFERENCE [...] percentageon 2021 Potassium [Moles/Vol] 4.0 mmol/L 3.5-5.1 [facility] Work Phone: Laboratory - Chemistry and C hemistry - challengeon 06-07-2022 Magnesium [Mass/Vol] 2.0 mg/dL 1.6-2.6 [facility] Work Phone: Absolute lymphocyte counton 05-28-2022 Lymphocytes Auto (Unsp spec) [#/Vol] 1.75 10*3/uL 0.83-4.51 [facility] Work Phone: Absolute reticulocyte counto n 05-28-2022 Reticulocytes (Bld) [#/Vol] 0.00 10*3/uL 0-5 [facility] Work Phone: Basophil percentageon 2021 Basophil percentage 3.4 mg/dL 2.5-4.9 [facility] Work Phone: Bilirubin [Mass/Vol] 0.60 mg/dL 0.20-1.00 [facility] Work Phone: Comment on above: For patients on eltr ombopag therapy, use of Dimension [place] TBIL is not recommended. Chloride [Moles/Vol] 106 mmol/L 98-107 [facility] Work Phone: Cholesterol [Mass/Vol] 200 mg/dL <200 [facility] Work Phone: Comment on above: <200 mg/dL Desirable 200-240 mg/dL Borderline >240 mg/dL High Risk Glucose [Mass/Vol] 89 mg/dL 74-106 [facility] Work Phone: Neutrophils (Bld) [#/Vol] 3.4 10*3/uL 2.0-7.7 [facility] Work Phone: Potassium [Moles/Vol] 3.3 mmol/L 3.5-5.1 [facility] Work Phone: Protein [Mass/Vol] 7.2 g/dL 6.4-8.2 [facility] Work Phone: Sodium [Moles/Vol] 141 mmol/L 136-145 [facility] Work Phone: Triglyceride [Mass/Vol] 82 mg/dL <[address] [facility] Work Phone: [phone] Comment on above: The drugs N-Acetylcy steine and Metamizole may falsely depress this assay.Serum Triglycerides Reference Interval Normal <150 mg/dL Borderline high 150 - 199 mg/dL High 200 - 499 mg/dL Very High > or = 500 mg/dL WBC (Bld) [#/Vol] 5.6 10*3/uL 4.4-11.0 [facility] Work Phone: [phone] Bilirubin Test strip Ql (U)o n 05-28-2022 Bilirubin Ql (U) Negative Negative [facility] Work Phone: [phone] Blood erythrocytes count (nu mber/volume)on 05-28-2022 RBC (Bld) [#/Vol] 4.63 10*6/uL 4.2-5.4 [facility] Work Phone: [phone] Blood hemoglobin measurement (mass/volume)on 05-28-2022 Hemoglobin (Bld) [Mass/Vol] 15.0 g/dL 12.0-15.0 [facility] Work Phone: [phone] Blood platelet mean volumeon 05-28-2022 Platelet mean volume (Bld) [Entitic vol] 10.6 fL 6.2-12.0 [facility] Work Phone: [phone] Determination of erythrocyte mean corpuscular volume (MCV)on 05-28-2022 MCV (RBC) [Entitic vol] 93.7 fL 81-[address] [facility] Work Phone: [phone] Direct bilirubinon Bilirubin.direct [Mass/Vol] 0.14 mg/dL 0.00-0.30 [facility] Work Phone: [phone] Hematocrit Auto (Bld) [Volum e fraction]on 05-28-2022 Hematocrit (Bld) [Volume fraction] 43.4 % 37-47 [facility] Work Phone: [phone] Ketones Test strip Ql (U)on 05-28-2022 Ketones Ql (U) Negative Negative [facility] Work Phone: [phone] Laboratory - Chemistry and C hemistry - challengeon 05-28-2022 Free T4 [Mass/Vol] 1.18 ng/dL 0.76-1.46 [facility] Work Phone: [phone] ALP [Catalytic activity/Vol] 59 U/L 45-117 [facility] Work Phone: [phone] ALT [Catalytic activity/Vol] 21 U/L 13-56 [facility] Work Phone: [phone] Cholesterol.total/Choleste rol in HDL [Mass ratio] 3.40 {ratio} [facility] Work Phone: [phone] CO2 [Moles/Vol] 29.0 mmol/L 21.0-32.0 [facility] Work Phone: [phone] Globulin (S) [Mass/Vol] 3.4 g/dL 2.2-4.[address] [facility] Work Phone: [phone] Urea nitrogen/Creatinine [Mass ratio] 16.7 mg/mg 10-20 [facility] Work Phone: [phone] Laboratory - Hematology and Cell countson 05-28-2022 Erythrocyte distribution width (RBC) [Entitic vol] 43.8 fL 35.1-43.9 [facility] Work Phone: [phone] Erythrocyte distribution width (RBC) [Ratio] 12.7 % 11.6-14.6 [facility] Work Phone: [phone] MCH (RBC) [Entitic mass] 32.4 pg 27.0-32.0 [facility] Work Phone: [phone] Nucleated RBC/100 WBC (Bld) [Ratio] 0 % 0-5 [facility] Work Phone: [phone] MCHC Auto (RBC) [Mass/Vol]on 05-28-2022 MCHC (RBC) [Mass/Vol] 34.6 g/dL 32-36 [facility] Work Phone: [phone] Nitrite Test strip Ql (U)on 05-28-2022 Nitrite Ql (U) Negative Negative [facility] Work Phone: [phone] No Panel Informationon 05-28 Thyroid Stimulating Hormone (TSH) 1.10 uIU/mL 0.358-3.74 [facility] Work Phone: Estimated GFR (MDRD) Amer 82 mL/min >60 [facility] Work Phone: Comment on above: GFR Calc Estimated GFR (MDRD) Non-Af Amer 67 mL/min >60 [facility] Work Phone: Comment on above: Non- GFR Calc Platelets bldon 05-28-2022 Platelets (Bld) [#/Vol] 256 10*3/uL 150-450 [facility] Work Phone: Protein Test strip Ql (U)on 05-28-2022 Protein Ql (U) Negative Negative [facility] Work Phone: [phone] Segmented neutrophils/100 WB C Auto (Bld)on 05-28-2022 Segmented neutrophils/100 WBC (Bld) 59.5 % 47-70 [facility] Work Phone: Serum or plasma albumin ewa urement (mass/volume)on 05-28-2022 Albumin [Mass/Vol] 3.8 g/dL 3.2-5.0 [facility] Work Phone: Serum or plasma albumin/glob ulin mass ratioon 05-28-2022 Albumin/Globulin [Mass ratio] 1.1 {ratio} 0.9-2.4 [facility] Work Phone: Serum or plasma calcium ewa urement (mass/volume)on 05-28-2022 Calcium [Mass/Vol] 8.9 mg/dL 8.5-10.1 [facility] Work Phone: [phone] Serum or plasma cholesterol in HDL measurement (mass/volume)on 05-28-2022 Cholesterol in HDL [Mass/Vol] 58 mg/dL >40 [facility] Work Phone: Comment on above: The drugs N-Acetylcy steine and Metamizole may falsely depress this assay. Reference Range HDL <40 mg/dL Low HDL Cholesterol HDL >or= 60 mg/dL High HDL Cholesterol Serum or plasma cholesterol in VLDL measurement (mass/volume)on 05-28-2022 Cholesterol in VLDL [Mass/Vol] 16 mg/dL 5-40 [facility] Work Phone: Serum or plasma creatinine m easurement (mass/volume)on 05-28-2022 Creatinine [Mass/Vol] 0.96 mg/dL 0.55-1.02 [facility] Work Phone: Comment on above: The validity of the calculated GFR & GFRAA in patients over 70 years has not been determined. Clinical correlation is essential. Serum or plasma low density lipoprotein (LDL) cholesterol measurement (mass/volume)on 05-28-2022 Cholesterol in LDL [Mass/Vol] 126 mg/dL 0-130 [facility] Work Phone: Serum or plasma urea nitroge n measurement (mass/volume)on 05-28-2022 Urea nitrogen [Mass/Vol] 16 mg/dL 7-18 [facility] Work Phone: Serum or plasma uric acid me asurement (mass/volume)on 05-28-2022 Urate [Mass/Vol] 4.2 mg/dL 2.6-6.0 [facility] Work Phone: Comment on above: The drugs N-Acetylcy steine and Metamizole may falsely depress this assay. Thin prep Papanicolaou smear with manual screeningon 05-28-2022 Thin prep Papanicolaou smear with manual screening 12 U/L 15-37 [facility] Work Phone: Thin prep Papanicolaou smear with manual screening 6 5-15 [facility] Work Phone: Thin prep Papanicolaou smear with manual screening 128 U/L 84-246 [facility] Work Phone: Urine blood detectionon 05-17 RBC Ql (U) 10 /ul Negative [facility] Work Phone: [phone] Urine clarityon 05-28-2022 Clarity (U) Clear Clear [facility] Work Phone: Urine color determinationon 05-28-2022 Color (U) Straw Yellow [facility] Work Phone: [phone] Urine glucose detectionon Glucose Ql (U) Normal mg/dl Normal [facility] Work Phone: Urine leukocyte esterase det ection by dipstickon 05-28-2022 Leukocyte esterase Test strip Ql (U) Negative Negative [facility] Work Phone: Urine pHon 05-28-2022 pH (U) 6.5 [pH] 5.0 - 8.0 [facility] Work Phone: Urine specific gravity measu rementon 05-28-2022 Specific gravity (U) [Rel density] 1.010 1.002-1.030 [facility] Work Phone: Urobilinogen Auto test strip Ql (U)on 05-28-2022 Urobilinogen Ql (U) Normal mg/dl Normal [facility] Work Phone: Beta hCG serum qualon 2021 Beta HCG ( test) Ql Negative [facility] Work Phone: Laboratory - Microbiology an d Antimicrobial susceptibilityon 09-19-2021 SARS-CoV-2 (COVID-19) RNA SUHAIL+probe Ql (Unsp spec) Detected [facility] Work Phone: Vital Signs Date Time Vital Sign Value Performing Clinician Maryi robina 06-30-2024 13:58-0400 Body height 172.7 cm Elan Vizcarra MD Work Phone: [facility] 06-30-2024 13:58-0400 Body mass index (BMI) [Ratio] 29.19 kg/m2 Elan Vizcarra MD Work Phone: [facility] 06-30-2024 13:58-0400 Body weight 87.09 kg Elan Vizcarra MD Work Phone: [facility] 08-13-2023 11:08-0500 Body height 172.[address] Sumit Reid Work Phone: [facility] 08-13-2023 11:07-0500 Body mass index (BMI) [Ratio] 28.7 kg/m2 Dr. Sumit Reid Work Phone: [facility] 08-13-2023 11:07-0500 Body weight 85.[address] Sumit Reid Work Phone: [facility] 08-13-2023 11:07-0500 Diastolic blood pressure 76 mm[Hg] Dr. Sumit Reid Work Phone: [facility] 08-13-2023 11:07-0500 Systolic blood pressure 130 mm[Hg] Dr. Sumit Reid Work Phone: [phone] [place] [address] 07-15-2023 11:06-0400 Body mass index (BMI) [Ratio] 28.6 kg/m2 Dr. Sumit Reid Work Phone: [phone] [place] [address] 07-15-2023 11:06-0400 Body weight 85.[address] Sumit Reid Work Phone: [facility] 07-15-2023 11:06-0400 Diastolic blood pressure 80 mm[Hg] Dr. Sumit Reid Work Phone: [phone] [place] [address] 07-15-2023 11:06-0400 Systolic blood pressure 120 mm[Hg] Dr. Sumit Reid Work Phone: [phone] [place] [address] 07-02-2023 17:51-0400 Body temperature 97.9 [degF] Dr. Sumit Reid Work Phone: [facility] 07-02-2023 17:51-0400 Diastolic blood pressure 74 mm[Hg] Dr. Sumit Reid Work Phone: [phone] [place] [address] 07-02-2023 17:51-0400 Heart rate 72 /min Dr. Sumit Reid Work Phone: [facility] 07-02-2023 17:51-0400 Respiratory rate 16 /min Dr. Sumit Reid Work Phone: [facility] 07-02-2023 17:51-0400 SaO2% (BldA) [Mass fraction] 97 % Dr. Sumit Reid Work Phone: [facility] 07-02-2023 17:51-0400 Systolic blood pressure 121 mm[Hg] Dr. Sumit Reid Work Phone: 1(815)[phone] [place] [address] 07-02-2023 13:45-0400 Inhaled oxygen flow rate 4 L/min Dr. Sumit Reid Work Phone: 3(298)[phone] [place] [address] 07-02-2023 08:58-0400 Body height 172.[address] Sumit Reid Work Phone: 1(358)[phone] [place] [address] 07-02-2023 08:58-0400 Body mass index (BMI) [Ratio] 28.6 kg/m2 Dr. Sumit Reid Work Phone: 2(492)952-203289 [address] 07-02-2023 08:58-0400 Body weight 85.[address] Sumit Reid Work Phone: 7(819)709-952289 [address] 06-03-2023 14:00-0400 Body mass index (BMI) [Ratio] 28.6 kg/m2 Dr. Sumit Reid Work Phone: 5(071)920-910689 [address] 06-03-2023 14:00-0400 Body weight 85.[address] Sumit Reid Work Phone: 9(929)830-684089 [address] 06-03-2023 14:00-0400 Diastolic blood pressure 79 mm[Hg] Dr. Sumit Reid Work Phone: 3(880)509-578265 [place] [address] 06-03-2023 14:00-0400 Systolic blood pressure 122 mm[Hg] Dr. Sumit Reid Work Phone: 3(929)[phone] [address] 02-04-2023 08:48-0400 Body height 172.[address] Sumit Reid Work Phone: 7(142)[phone] [address] 02-04-2023 08:48-0400 Body mass index (BMI) [Ratio] 27.8 kg/m2 Dr. Sumit Reid Work Phone: [facility] 02-04-2023 08:48-0400 Body weight [address] Sumit Reid Work Phone: [facility] 02-04-2023 08:48-0400 Diastolic blood pressure 77 mm[Hg] Dr. Sumit Reid Work Phone: [facility] 02-04-2023 08:48-0400 Systolic blood pressure 127 mm[Hg] Dr. Sumit Reid Work Phone: [facility] 12-18-2022 12:45-0400 Body temperature 97.4 [degF] Dr. Sumit Reid Work Phone: [facility] 12-18-2022 12:45-0400 Diastolic blood pressure 83 mm[Hg] Dr. Sumit Reid Work Phone: [facility] 12-18-2022 12:45-0400 Heart rate 53 /min Dr. Sumit Reid Work Phone: [facility] 12-18-2022 12:45-0400 Respiratory rate 16 /min Dr. Sumit Reid Work Phone: [facility] 12-18-2022 12:45-0400 SaO2% (BldA) [Mass fraction] 100 % Dr. Sumit Reid Work Phone: [facility] 12-18-2022 12:45-0400 Systolic blood pressure 119 mm[Hg] Dr. Sumit Reid Work Phone: [facility] 12-18-2022 09:45-0400 Body mass index (BMI) [Ratio] 26.8 kg/m2 Dr. Sumit Reid Work Phone: [facility] 12-18-2022 09:45-0400 Body weight 80.[address] Sumit Reid Work Phone: [facility] 11-01-2022 10:59-0500 Body mass index (BMI) [Ratio] 27 kg/m2 Dr. Sumit Reid Work Phone: [facility] 11-01-2022 10:59-0500 Body weight 80.[address] Sumit Reid Work Phone: [facility] 11-01-2022 10:59-0500 Diastolic blood pressure 98 mm[Hg] Dr. Sumit Reid Work Phone: [facility] 11-01-2022 10:59-0500 Systolic blood pressure 158 mm[Hg] Dr. Sumit Reid Work Phone: [facility] 01-31-2022 12:54-0400 Body height 172.[address] Sumit Reid Work Phone: [facility] Work Phone: 01-31-2022 12:54-0400 Body mass index (BMI) [Ratio] 28.5 kg/m2 Dr. Sumit Reid Work Phone: [facility] Work Phone: 01-31-2022 12:54-0400 Body weight 85.[address] Sumit Reid Work Phone: [facility] Work Phone: 01-31-2022 12:54-0400 Diastolic blood pressure 76 mm[Hg] Dr. Sumit Reid Work Phone: [facility] Work Phone: 01-31-2022 12:54-0400 Systolic blood pressure 118 mm[Hg] Dr. Sumit Reid Work Phone: [facility] Work Phone: 12-20-2021 11:16-0400 Body height 172.[address] Sumit Reid Work Phone: [facility] Work Phone: 12-20-2021 11:16-0400 Body mass index (BMI) [Ratio] 28.1 kg/m2 Dr. Sumit Reid Work Phone: [facility] Work Phone: 12-20-2021 11:16-0400 Body weight 84.[address] Sumit Reid Work Phone: [facility] Work Phone: 12-20-2021 11:16-0400 Diastolic blood pressure 82 mm[Hg] Dr. Sumit Reid Work Phone: [facility] Work Phone: 12-20-2021 11:16-0400 Heart rate 100 /min Dr. Sumit Reid Work Phone: [facility] Work Phone: 12-20-2021 11:16-0400 Respiratory rate 18 /min Dr. Sumit Reid Work Phone: [facility] Work Phone: 12-20-2021 11:16-0400 SaO2% (BldA) [Mass fraction] 98 % Dr. Sumit Reid Work Phone: [facility] Work Phone: 12-20-2021 11:16-0400 Systolic blood pressure 121 mm[Hg] Dr. Sumit Reid Work Phone: [facility] Work Phone: 10-19-2021 08:30-0500 Body temperature 97.6 [degF] Dr. Sumit Reid Work Phone: [facility] Work Phone: 10-19-2021 08:30-0500 Diastolic blood pressure 76 mm[Hg] Dr. Sumit Reid Work Phone: [facility] Work Phone: 10-19-2021 08:30-0500 Heart rate 50 /min Dr. Sumit Reid Work Phone: [facility] Work Phone: 10-19-2021 08:30-0500 Respiratory rate 16 /min Dr. Sumit Reid Work Phone: [facility] Work Phone: 10-19-2021 08:30-0500 SaO2% (BldA) [Mass fraction] 100 % Dr. Sumit Reid Work Phone: [facility] Work Phone: 10-19-2021 08:30-0500 Systolic blood pressure 119 mm[Hg] Dr. Sumit Reid Work Phone: [facility] Work Phone: 10-19-2021 06:41-0500 Body mass index (BMI) [Ratio] 27.9 kg/m2 Dr. Sumit Reid Work Phone: [facility] Work Phone: 10-19-2021 06:41-0500 Body weight 83.[address] Sumit Reid Work Phone: [facility] Work Phone: 09-19-2021 05:37-0500 Body temperature 98.3 [degF] Dr. Sumit Reid Work Phone: [facility] Work Phone: 09-19-2021 05:37-0500 Diastolic blood pressure 86 mm[Hg] Dr. Sumit Reid Work Phone: [facility] Work Phone: 09-19-2021 05:37-0500 Heart rate 84 /min Dr. Sumit Reid Work Phone: [facility] Work Phone: 09-19-2021 05:37-0500 Respiratory rate 16 /min Dr. Sumit Reid Work Phone: [facility] Work Phone: 09-19-2021 05:37-0500 SaO2% (BldA) [Mass fraction] 98 % Dr. Sumit Reid Work Phone: [facility] Work Phone: 09-19-2021 05:37-0500 Systolic blood pressure 126 mm[Hg] Dr. Sumit Reid Work Phone: [facility] Work Phone: Encounters Encounter Date Encounter Type Care Provider Facility Start: 06-28-2025 End: 06-28-[address] Richelle Moreno DC -[facility] Work Phone: Start: 06-28-2025 End: 06-28-2025 ambulatory Richelle Moreno Facility:[facility] Start: 06-01-2025 End: 06-01-[address] Elsie Reid MD -Laboratory Work Phone: Start: 06-01-2025 Registered [facility] [facility] -Employee Health Start: 06-01-2025 End: 06-01-[address] Elsie Reid MD Work Phone: -Laboratory Start: 06-01-2025 End: 06-01-2025 ambulatory Elsie Reid Facility:[facility] Start: 05-03-2025 End: 05-03-[address] Richelle Moreno DC -[facility] Work Phone: Start: 05-03-2025 End: 05-03-[address] Elsie Reid MD Work Phone: -[facility] Start: 03-22-2025 End: 03-22-[address] Richelle Moreno DC -[facility] Work Phone: Start: 03-22-2025 End: 03-22-[address] Elsie Reid MD Work Phone: -[facility] Start: 03-17-2025 End: 03-17-[address] Elsie Reid MD Work Phone: -[facility] Start: 03-17-2025 End: 03-17-[address] Elsie Reid MD -[facility] Work Phone: Start: 03-17-2025 End: 03-17-2025 ambulatory Elsie Reid Facility:[facility] Start: 02-01-2025 End: 02-01-[address] Richelle Moreno DC -[facility] Work Phone: Start: 02-01-2025 End: 02-01-[address] Elsie Reid MD Work Phone: [facility] Work Phone: Start: 12-21-2024 End: 12-21-[address] Richelle Moreno DC -[facility] Work Phone: Start: 12-21-2024 End: 12-21-2024 ambulatory Elsie Reid Facility:[facility] Start: 10-22-2024 End: 10-22-[address] Richelle Moreno DC -[facility] Work Phone: Start: 10-22-2024 End: 10-22-2024 ambulatory Elsie Reid Facility:[facility] Start: 09-14-2024 End: 09-14-2024 [facility] Start: 08-14-2024 End: 08-14-2024 ambulatory [facility] Facility:[facility] Start: 07-20-2024 End: 07-20-2024 ambulatory [facility] Facility:[facility] Start: 07-06-2024 ambulatory [place] Fac[place]ity:[facility] Start: 07-02-2024 End: 07-02-2024 Office consultation new/estab patient 60 min Elan Vizcarra MD Work Phone: Sleep Medicine [facility] Comment on above: Insomnia, unspecifie d type (Primary Dx) Start: 07-02-2024 ambulatory ELAN Sommer lity:[facility] Start: 06-30-2024 End: 06-30-2024 ambulatory Elsie Reid Facility:[facility] Start: 12-16-2023 End: 12-16-2023 ambulatory DODIE Jakob MISHA Facility:[facility] Start: 12-16-2023 End: 12-16-2023 Patient encounter procedure Dodie Esqueda OD Work Phone: Optometry Comment on above: Hyperopia of both ey es (Primary Dx); Regular astigmatism of both eyes Start: 08-13-2023 End: 08-13-[address] Sumit Reid Work Phone: [facility] Work Phone: Start: 08-13-2023 End: 08-13-[address] Sumit Reid Work Phone: [facility] Work Phone: Start: 08-13-2023 End: 08-13-[address] Sumit Reid Work Phone: [facility]-Outpatient Breast Imaging Work Phone: Start: 07-15-2023 End: 07-15-[address] Sumit Reid Work Phone: [facility] Work Phone: Start: 07-02-2023 Non-patient / Non-visit Dr. Sumit Reid Work Phone: [facility] Start: 07-02-2023 End: 07-02-2023 Admission to same day surgery center Dr. Sumit Reid Work Phone: [facility]-Surgical Day Care Start: 07-02-2023 End: 07-02-[address] Sumit Reid Work Phone: [facility] Work Phone: Start: 07-01-2023 Non-patient / Non-visit Dr. Sumit Reid Work Phone: [facility] Start: 06-10-2023 End: 06-10-[address] [facility] Work Phone: Start: 06-03-2023 End: 06-03-[address] Sumit Reid Work Phone: [facility] Work Phone: Start: 05-08-2023 End: 05-08-[address] Sumit Reid Work Phone: [facility] Work Phone: Start: 05-08-2023 End: 05-08-[address] Sumit Reid Work Phone: [facility]-Outpatient Pavilion Ultrasound Work Phone: Start: 05-06-2023 End: 05-06-[address] Sumit Reid Work Phone: [facility] Work Phone: Start: 05-06-2023 End: 05-06-[address] Sumit Reid Work Phone: [facility]-Laboratory Work Phone: Start: 05-06-[address] Allen Reid Work Phone: [facility]-Employee Health Start: 04-29-2023 End: 04-29-[address] [facility] Work Phone: Start: 02-18-2023 End: 02-18-[address] Sum[facility] Work Phone: Start: 02-13-2023 End: 02-13-[address] Sumit Reid Work Phone: [facility] Start: 02-04-2023 End: 02-04-[address] Sumit Reid Work Phone: [facility] Work Phone: Start: 02-04-2023 End: 02-04-[address] Sumit Reid Work Phone: [facility]-Laboratory Start: 02-04-2023 End: 02-04-[address] Sumit Reid Work Phone: [facility] Start: 01-17-2023 End: 01-17-[address] Sumit Reid Work Phone: [facility] Start: 01-07-2023 End: 01-07-[address] Sumit Reid Work Phone: [facility] Start: 12-27-2022 End: 12-27-[address] Sumit Reid Work Phone: [facility] Start: 12-18-2022 Non-patient / Non-visit Dr. Sumit Reid Work Phone: [facility] Start: 12-18-2022 End: 12-18-2022 Admission to same day surgery center [facility] Sumit Reid [facility] Start: 11-20-2022 End: 11-20-[address] Sumit Reid Work Phone: [facility] Start: 11-19-2022 End: 11-19-[address] Sumit Reid Work Phone: [facility] Start: 11-01-2022 End: 11-01-[address] Sumit Reid Work Phone: [facility] Start: 07-16-2022 End: 07-16-[address] Sumit Reid Work Phone: [facility] Work Phone: Start: 07-16-2022 End: 07-16-[address] Sumit Reid Work Phone: [facility]-Outpatient Breast Imaging Start: 07-02-2022 End: 07-02-[address] Sumit Reid Work Phone: [facility] Start: 06-07-2022 End: 06-07-[address] Sumit Reid Work Phone: [facility]-Laboratory Start: 05-28-2022 End: 05-28-[address] Sumit Reid Work Phone: [facility] Work Phone: Start: 05-28-2022 End: 05-28-[address] Sumit Reid Work Phone: [facility]-Laboratory, Specimen Start: 05-28-[address] Allen Reid Work Phone: [facility]-Employee Health Start: 05-14-2022 End: 05-14-[address] Sumit Reid Work Phone: [facility] Start: 04-03-2022 End: 04-03-[address] Sumit Reid Work Phone: [facility] Start: 02-19-2022 End: 02-19-[address] Sumit Reid Work Phone: [facility] Start: 01-31-2022 End: 01-31-[address] Sumit Reid Work Phone: [facility] Start: 01-10-2022 End: 01-10-[address] Sumit Reid Work Phone: [facility] Start: 01-03-2022 End: 01-03-[address] Sumit Reid Work Phone: [facility] Start: 01-01-2022 End: 01-01-[address] Sumit Reid Work Phone: [facility] Start: 12-20-2021 End: 12-20-[address] Sumit Reid Work Phone: [facility] Start: 11-02-2021 End: 11-02-[address] Sumit Reid Work Phone: [facility] Start: 10-19-2021 Non-patient / Non-visit Dr. Sumit Reid Work Phone: [facility] Start: 10-19-2021 End: 10-19-2021 Admission to same day surgery center Dr. Sumit Reid Work Phone: [facility]-Endoscopy Start: 09-19-2021 End: 09-19-[address] Sumit Reid Work Phone: [facility] Procedures Date Procedure Procedure Detail Performing Clinician Start: 06-01-[address] Elsie Reid MD Work Phone: Start: 06-01-[address] Elsie Reid MD Work Phone: Comment on above: Thyroglobulin Antibody measured by Beckm an CoulterMethodologyIt should be noted that the presence of thyroglobulinantibodies may not be pathogenic nor diagnostic, especiallyat very low levels. The assay central supply manager has found thatfour percent of individuals without evidence of thyroiddisease or autoimmunity will have positive TgAb levels upto 4 IU/mL.Performed at: [address] [id number] Director: Rashid Malave PhD, Phone: [phone] Start: 03-17-[address] Elsie Reid MD Work Phone: Start: 03-17-2025 Antibody to centromere measurement Dr. Elsie Reid MD Work Phone: Comment on above: Previous reported result: TNP AIEdited b y: INFCE on 03/19/25:1508 AMENDED REPORT 03/19/25 1508 ANTI-CENT B previously reported as: Test not performed Start: 03-17-2025 Antibody to extractable nuclear antigen measurement Dr. Elsie Reid MD Work Phone: Comment on above: Previous reported result: TNP AIEdited b y: INFCE on 03/19/25:1508 AMENDED REPORT 03/19/25 1508 JARAMILLO Ab previously reported as: Test not performed Start: 03-17-2025 Antibody to YAN-[address] Augustin Reid MD Work Phone: Comment on above: Previous reported result: TNP AIEdited b y: INFCE on 03/19/25:1508 AMENDED REPORT 03/19/25 1508 ANTI-YAN previously reported as: Test not performed Start: 03-17-2025 Antibody to lupus La protein measurement Dr. Elsie Reid MD Work Phone: Start: 03-17-2025 Antibody to SS-A measurement Dr. Augustin Reid MD Work Phone: Start: 03-17-[address] Elsie Reid MD Work Phone: Comment on above: Previous reported result: TNP AIEdited b y: INFCE on 03/19/25:1508 AMENDED REPORT 03/19/25 150 ANTICHROMATIN previously reported as: Test not performed Start: 03-17-2025 Electrophoresis: [id number] Dr. Elsie Reid MD Work Phone: Start: 03-17-2025 Electrophoresis: [id number] Dr. Elsie Reid MD Work Phone: Start: 03-17-2025 Electrophoresis: gamma globulin Dr. Lucie Reid MD Work Phone: Start: 03-17-2025 Follicle stimulating hormone measurement Dr. Elsie Reid MD Work Phone: Comment on above: FEMALE:Follicular: 1.4 - 18.1 mIU/mLMidc ycle: 3.4 - 33.4 mIU/mLLuteal: 1.5 - 9.1 mIU/mLPost Menopause: 23.0 - 116.3 mIU/mLMALE: 1.4 - 18.1 mIU/mL Start: 03-17-[address] Elsie Reid MD Work Phone: Comment on above: Previous reported result: TNP AIEdited b y: INFCE on 03/19/25:1508 AMENDED REPORT 03/19/25 1508 BAIT MAN Ab previously reported as: Test not performed Start: 03-17-2025 Vitamin D, 25-hydroxy measurement Dr. Elsie Reid MD Work Phone: Comment on above: Vitamin D StatusDeficiency: <20 ng/mL (5 0nmol/L)Insufficiency: 20-30 ng/mL (50-75 nmol/L)Sufficiency: 30-100 ng/mL (75-250 nmol/L)Toxicity: >100 ng/mL (>250 nmol/L) Start: 08-13-[address] Sumit Reid Work Phone: Start: 07-02-[address] Sumit Reid Work Phone: Start: 05-08-[address] Sumit Reid Work Phone: Start: 07-16-[address] Sumit Reid Work Phone: Start: 01-03-2022 Diagnostic radiography of abdomen Dr. Sumit Reid Work Phone: Start: 01-01-2022 Diagnostic radiography of abdomen Dr. Sumit Reid Work Phone: Plan of Treatment Date Care Activity Detail Author Start: 05-29-2026 Tetanus vaccination TETANUS [facility] Start: 05-29-2026 Urine microalbumin profile DTaP,Tdap,Td Vaccine (2 - Td or Tdap) [facility] Start: 05-17-2024 COVID-19 VACCINE () COVID-19 VACCINE () [facility] Start: 05-17-2024 Influenza vaccination INFLUENZA VACCINE (#1) [facility] Start: 12-25-2023 Screening for malignant neoplasm of colon COLORECTAL CANCER SCREENING DISCUSSION [facility] Start: 09-16-2023 Depression Assessment Depression Assessment [facility] Start: 07-02-2023 Anesthesia intraperitoneal lower abd w/laps nos ANESTH SURG LOWER ABDOMEN [facility] Start: 07-02-2023 Laps w/vag hysterect 250 gm/&rmvl tube&/ovaries LAPARO-VAG HYST INCL T/O [facility] Start: 07-02-2023 Introduction of urinary catheter [facility] Start: 07-02-2023 Ambulation therapy management [facility] Start: 07-02-2023 Continuous pulse oximetry [facility] Start: 07-02-2023 Elevation of head of bed [facility] Start: 07-02-2023 Incentive spirometry [facility] Start: 07-02-2023 Measuring intake and output [facility] Start: 07-02-2023 Notification of physician [facility] Start: 07-02-2023 End: 07-02-2023 Oxygen therapy [facility] Start: 07-02-2023 Patient education [facility] Start: 07-02-2023 Procedures relating to eating and drinking [facility] Start: 07-02-2023 Taking patient vital signs [facility] Start: 07-02-2023 [facility] Start: 07-02-2023 Patient discharge [facility] Start: 05-17-2023 Covid-19 Vaccine () Covid-19 Vaccine () [facility] Start: 12-18-2022 Anesthesia anorectal procedure ANESTH ANORECTAL SURGERY [facility] Start: 12-18-2022 Hemorrhoidectomy int & xtrnl 2/> column/natividad REMOVE IN/EX HEM GROUPS 2+ [facility] Start: 12-18-2022 Patient discharge [facility] Start: 10-19-2021 Colonoscopy w/biopsy single/multiple COLONOSCOPY AND BIOPSY [facility] Work Phone: Start: 10-19-2021 Colsc flx w/rmvl of tumor polyp lesion snare tq COLONOSCOPY W/LESION REMOVAL [facility] Work Phone: Start: 10-19-2021 Egd transoral biopsy single/multiple EGD BIOPSY SINGLE/MULTIPLE [facility] Work Phone: Start: 2018 Lipid panel LIPID SCREENING [facility] Start: 2018 Screening for malignant neoplasm of breast [facility] Start: 01-29-2018 Screening for malignant neoplasm of cervix [facility] Start: 12-25-1999 Screening for malignant neoplasm of cervix CERVICAL CANCER SCREENING DISCUSSION [facility] Start: 1997 Hepatitis B vaccination HEP B VACCINE (1 of 3 - 19+ 3-dose series) [facility] Start: 1997 Hepatitis B Vaccine (1 of 3 - 19+ 3-dose series) Hepatitis B Vaccine (1 of 3 - 19+ 3-dose series) [facility] Start: 1996 Annual PCP Team Chronic Disease Visit Annual PCP Team Chronic Disease Visit [facility] Start: 1996 Hepatitis C screening Hepatitis C Screening [facility] Start: 1996 HIV screening HIV Screening [facility] Start: 1993 HIV screening HIV SCREENING DISCUSSION [facility] Start: 1978 Hepatitis C screening HEPATITIS C VIRUS SCREENING [facility] Start: 1978 Thyroid stimulating hormone measurement TSH [facility] MG Breast - bilatera l Screening [facility] Work Phone: MG Breast - bilatera l Screening [facility] Patient referral [facility] Work Phone: Thyroglobulin antibo dy measurement [facility] Immunizations Immunization Date Immunization Notes Care Provider [facility] 07-23-2024 influenza, seasonal, injectable, preservative free Dr. Elsie Reid MD Work Phone: [facility] 08-14-2023 influenza, injectabl e, quadrivalent, preservative free Dr. Sumit Reid Work Phone: [facility] 08-14-2023 influenza virus vaccine, unspecified formulation Elan Vizcarra MD Work Phone: [facility] 07-23-2022 influenza, injectabl e, quadrivalent, preservative free Dr. Sumit Reid Work Phone: [facility] 07-23-2022 influenza, seasonal, injectable Dr. Sumit Reid Work Phone: [facility] 07-19-2021 influenza, injectabl e, quadrivalent, preservative free Dr. Sumit Reid Work Phone: [facility] 07-19-2021 influenza, seasonal, injectable Dr. Sumit Reid Work Phone: [facility] 10-25-2020 Marlenid (Moderna) Dr. Felecia Reid Work Phone: [facility] 09-27-2020 Marlenid (Moderna) Dr. Felecia Reid Work Phone: [facility] 06-14-2020 influenza, injectabl e, quadrivalent, preservative free Dr. Sumit Reid Work Phone: [facility] 06-14-2020 influenza, seasonal, injectable Dr. Sumit Reid Work Phone: [facility] 07-20-2019 influenza, injectabl e, quadrivalent, preservative free Dr. Sumit Reid Work Phone: [facility] 07-20-2019 influenza, seasonal, injectable Dr. Sumit Reid Work Phone: [facility] 07-16-2018 influenza, injectabl e, quadrivalent, preservative free Dr. Sumit Reid Work Phone: [facility] 07-16-2018 influenza, seasonal, injectable Dr. Sumit Reid Work Phone: [facility] 07-10-2017 influenza, injectabl e, quadrivalent, preservative free Dr. Sumit Reid Work Phone: [facility] 07-10-2017 influenza, seasonal, injectable Dr. Sumit Reid Work Phone: [facility] 06-14-2016 influenza, injectabl e, quadrivalent, preservative free Dr. Sumit Reid Work Phone: [facility] 06-14-2016 influenza, seasonal, injectable Dr. Sumit Reid Work Phone: [facility] 06-16-2015 influenza, injectabl e, quadrivalent, preservative free Dr. Sumit Reid Work Phone: [facility] 06-16-2015 influenza, seasonal, injectable Dr. Sumit Reid Work Phone: [facility] 06-16-2014 influenza, injectabl e, quadrivalent, preservative free Dr. Sumit Reid Work Phone: [facility] 06-16-2014 influenza, seasonal, injectable Dr. Sumit Reid Work Phone: [facility] 08-10-[address] Sumit Reid Work Phone: [facility] 04-16-2009 tetanus and diphther ia toxoids, not adsorbed, for adult use Dodie Esqueda OD Work Phone: [facility] Payers Date Payer Category Payer Self-pay [id number] 2023 Private Health Insurance [employer] AET[employer]INA SAL [id number] 2023-Present [address] [place] [address] [id number] 2023 Unknown [id number] 2015 Unknown [employer] P ALLY VSP VISION [id number] 2015-Present [address] [place] [address] Indemnity [id number] 2015 Unknown [id number] 2013 Unknown [id number] 1978 Unknown [id number] [id number]. 594 Unknown [id number] 2.16.840.1.176561.3.579.2. 462 Unknown [id number] 2.16.840.1.942858.3.579.2. 462 Unknown [id number] 2.16.840.1.184955.3.579.2. 462 Unknown [id number] 2.16.840.1.589327.3.579.2. 462 Unknown [id number] 2.16.840.1.317159.3.579.2. 462 Unknown [id number] 2.16.840.1.380456.3.579.2. 462 Unknown [id number] 2.16.840.1.607112.3.579.2. 462 Unknown [id number] 2.16.840.1.629049.3.579.2. 462 Unknown [id number] 2.16.840.1.863883.3.579.2. 462 Unknown [id number] 2.16.840.1.095080.3.579.2. 462 Unknown [id number] 2.16.840.1.878133.3.579.2. 462 Unknown [id number] 2.16.840.1.548205.3.579.2. 462 Unknown [id number] 2.16.840.1.127298.3.579.2. 462 Unknown [id number] 2.16.840.1.457146.3.579.2. 462 Social History Date Type Detail Facility [facility] Work Phone: Start: 01-10-2022 End: 08-13-2023 Tobacco smoking status WIIS Unknown if ever smoked [facility] Start: 06-13-2020 Non-smoker [facility] Start: 1980 Sex Assigned At Female [facility] Start: 12-16-2023 End: 06-30-2024 Tobacco smoking status NHIS Never smoked tobacco [facility] Start: 12-16-2023 End: 06-30-2024 Tobacco use and exposure Smokeless tobacco non-user [facility] Start: 12-16-2023 End: 07-02-2024 Alcohol intake Current drinker of alcohol (finding) [facility] Start: 05-15-2021 End: 06-30-2024 History of Social function [facility] Start: 05-15-2021 End: 06-30-2024 Tobacco use panel [facility] National Score (1-100), lower number is lower risk 59 [facility] Start: 07-17-2016 Alcohol Comment Socially [facility] Start: 1980 Sex Assigned At Not on file [facility] Start: 06-30-2024 Alcohol Comment occ [facility] NEGATED: Highlighted row [facility] Goals Date Patient Goal Desired Activity /State Mental Status Date Assessment Result Facility 07-02-2023 Cognitive function Voice/Name [facility] Work Phone: 12-18-2022 Cognitive function Voice/Name [facility] Work Phone: 10-19-2021 Cognitive function Voice/Name [facility] Work Phone: Clinical Notes 05-26-2009 to 06-28-2025 Note Date & Type Note Facility 06-28-2025 Progress note [facility] 06-28-2025 Progress note Note Date/Time June 28, 2025 4:40pm [facility] [address] [place] [id number] OFFICE VISIT Date of Service: 06/28/25 MR#: [id number] Acct: [id number] Name: MAHESH PEPPER MAXIMILIAN Rep #: [id number] : 1980 Provider: ROXIE Moreno Age/Sex: 44/F Location: [facility] Status: Signed Intake Vital Signs 06/30/24 08:48 Height 5 ft 8 in Intake Visit Reasons: Back pain Chief Complaint: neck and low back pain Allergies Sulfa (Sulfonamide Antibiotics) Allergy (Verified 06/28/25 16:29) Unknown zinc Adverse Reaction (Intermediate, Verified 06/28/25 16:29) rash Medications ?Medication ?Instructions ?Recorded ?Confirmed ?Type bupropion HCl 150 mg tablet,12 hr 150 mg PO DAILY 10/1806/28/25 History sustained-release (Wellbutrin SR) levothyroxine 13 mcg capsule 137 mcg PO DAILY 04/11/20 06/28/25 History Saccharomyces boulardii 250 mg 250 mg PO DAILY 2 06/28/25 History capsule (Daily Probiotic (S. boulardii)) Hydrocortisone 2.5%/lidocaine 5% #1 ea 11/01/22 Rx suppository (cmpd) (hydrocortisone 2.5%/lidocaine 5% suppository (compound)) fluticasone propionate 50 1 spray intranasal DAILY 06/28/25 History mcg/actuation nasal spray,suspension (Flonase Allergy Relief) magnesium oxide 420 mg tablet 420 mg PO DAILY 02/04/23 06/28/25 History pantoprazole 40 mg tablet,delayed 40 mg PO DAILY #90 t abs 02/12/23 06/28/25 Rx release potassium chloride 20 mEq 20 meq PO DAILY #90 tabs 01/0806/28/25 Rx tablet,extended release(part/cryst) PFSH Medical History History [...] safe at home: Yes additional social history: [employer] 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 Pt. states her neck pain has improved. She states she got a new massage pillow and it seems to be quite helpful. She c/o mild neck tension that extends down into and across her shoulder blades.She denies recent VALLEJO's. She also states her low back is sore and achy and she can tell its time for an alignment. She states she helps her daughter with her twins often and holding them contributes to her discomfort. She treats pain at home with heat, stretching and Ibuprofen as needed. She denies new injury, numbness, tingling, or radiculopathy. Pt. reports chiropractic adjustments are helpful in relieving her pain and discomfort but it gradually returns. Location: Low back/neck Duration: frequent Aggravating or associated factors: bending, lifting,ROM Relieving factors: chiro,pillow Pain Quality: aching, dull and sharp Exam [...] T2, T3, T4, L4, L5 and LIL Sacroiliac joints: on the left tender to palpation Other: +inhalation Office Procedures Procedures - Chiropractic Procedures Manipulation: Lumbar L4, Thoracic T1 and T4 and Pelvis LIL Manipulation: 3-4 regions Traction, Mechanical: Yes Patient Response: positive Assessment and Plan Assessment and Plan (1) Segmental and somatic dysfunction of lumbar region: Status: Acute (2) Segmental and somatic dysfunction of thoracic region: Status: Acute (3) Segmental and somatic dysfunction of pelvic region: Status: Acute Orders: Orders Chiropractic Treatments 06/28/25 M54.14 - Radiculopathy, thoracic region, M99.01 - Segmental and somatic dysfunction of cervical region, M99.02 - Segmental and somatic dysfunction of thoracic region, M99.03 - Segmental and somatic dysfunction of lumbar region, M99.05 - Segmental and somatic dysfunctionof pelvic region Plan Patient was treated without incident. Continue care as needed. Plan Details Goals & Barriers: Goals Decrease spasm Decrease inflammation Decrease pain Follow Up: PRN Coding Level of Care Code No Charge Diagnoses Segmental and somatic dysfunction of lumbar region M99.03 Segmental and somatic dysfunction of thoracic region M99.02 Segmental and somatic dysfunction of pelvic region M99.05 CPT Codes Procedures - Manipulation: 3-4 regions (02773) Procedures - Traction, Mechanical: Yes (01198) 06/29/25 0831 <Electronically signed by Richelle Roman> Date _ Richelle Cyr Signature: Date (if applicable) CC: ~ [facility] Work Phone: 1(911) 363-631107-07-2025 Evaluation note* Diagnosis Onset Date Resolution Status Admit Date Segmental and somatic dysfunction of lumbar region acute Mar 4:21pm Segmental and somatic dysfunction of pelvic region acute Mar 4:21pm Segmental and somatic dysfunction of thoracic region acute J klever 2024 4:21pm Segmental and somatic dysfunction of cervical region acute A ugust 2024 3:51pm Segmental and somatic dysfunction of lumbar region acute Aug ust 2024 3:51pm Segmental and somatic dysfunction of pelvic region acute Aug ust 2024 3:51pm Segmental and somatic dysfunction of thoracic region acute A ugust 2024 3:51pm [facility] Work Phone: 1(538) 419-957707-07-2025 Evaluation note* Diagnosis Onset Date Resolution Status Admit Date Segmental and somatic dysfunction of lumbar region acute Mar 4:21pm Segmental and somatic dysfunction of pelvic region acute Mar 4:21pm Segmental and somatic dysfunction of thoracic region acute J klever 2024 4:21pm Segmental and somatic dysfunction of cervical region acute A ugust 2024 3:51pm Segmental and somatic dysfunction of lumbar region acute Aug ust 2024 3:51pm Segmental and somatic dysfunction of pelvic region acute Aug ust 2024 3:51pm Segmental and somatic dysfunction of thoracic region acute A ugust 2024 3:51pm Segmental and somatic dysfunction of lumbar region acute Oct veto 2024 4:18pm Segmental and somatic dysfunction of pelvic region acute Oct veto 2024 4:18pm Segmental and somatic dysfunction of thoracic region acute O ctober 2024 4:18pm [facility] Work Phone: 1(229) 852-676105-19-2025 Evaluation note* Diagnosis Onset Date Resolution Status Admit Date Segmental and somatic dysfunction of cervical region acute M 2024 4:18pm Segmental and somatic dysfunction of lumbar region acute February 01, 2025 4:18pm Segmental and somatic dysfunction of thoracic region acute 2024 4:18pm Segmental and somatic dysfunction of lumbar region acute Mar 4:21pm Segmental and somatic dysfunction of pelvic region acute Mar 4:21pm Segmental and somatic dysfunction of thoracic region acute J klever2024 4:21pm Segmental and somatic dysfunction of cervical region acute A ugust 2024 3:51pm Segmental and somatic dysfunction of lumbar region acute Aug ust 2024 3:51pm Segmental and somatic dysfunction of pelvic region acute Apr ust 2024 3:51pm Segmental and somatic dysfunction of thoracic region acute A ugust 2024 3:51pm Thoracic neuritis acute May 03, 2025 3:51pm [facility] Work Phone: 1([phone]) 731-895104-07-2025 Evaluation note* Diagnosis Onset Date Resolution Status [...] ction of thoracic region acute March 22 4:21[facility] Work Phone: [phone]) [phone] Evaluation note* Diagnosis Onset Date Resolution Status Admit Date Segmental and somatic dysfunction of cervical region acute F ebruary 2024 3:50pm Segmental and somatic dysfunction of lumbar region acute Feb ruary 2024 3:50pm Segmental and somatic dysfunction of pelvic region acute Feb ruary 2024 3:50pm Segmental and somatic dysfunction of thoracic region acute F ebruary 2024 3:50pm Segmental and somatic dysfunction of cervical [...] thoracic region acute M ay 2024 4:18pm [facility] Work Phone: [phone]) [phone] History of Present illness Narrative* Cheli Preston MA - 07/02/2024 1:00 PM EDT I contacted patient on 06/30/2024 2:10 PM. Answers were put into visit during pre-charting. Will the patient be in the [facility] at the time of the telehealth visit? Yes If no, notify your compliance project manager & clinical compliance project manager of potential issue Confirm mode for the visit is [employer] Video visit: Timeliner - confirm patients knows to login 15 [...] their most recent oxygen level in the XoJ2lbrdy.Yes Informed patient that if they do not receive link for their video visit within 15 minutes of scheduled appointment time, to contact that office directly to see if clinic is running late? Yes Sleep Patients Only I completed the flowsheets for the Morrill Sleepines Scale and FOSQ. No -stated wanted to complete via [address] bc she is at work. * Elan Vizcarra MD - 07/02/2024 1:00 PM EDT Images from the original note were not included. I have had the pleasure of seeing Ms. Mahesh Pepper for evaluation at the [facility] clinic today. Impresssion: Mahesh [...] follow up appointment, you need to call [phone] tore-schedule the appointment. Let me know if you have any questions. Elan Vizcarra M.D. Professor of Internal Medicine and Neuroscience Division of Pulmonary, Allergy, Critical Care, and Sleep Medicine [facility] FAX: [phone] Email: [email or web address] HPI: Subjective Chief complaint: hypersomnia and insomnia. [...] Laboratory and others: Previous medical records from [facility] were reviewed. Serum Chemistry:No results found for: SODIUM, POTASSIUM, CHLORIDE, CO2, BUN, CREATSERUM, GLUCOSE HBA1c: No results found for: HGBA1C Thyroid function tests:No results found for: TSH, HMO58ONI, XXH81DSR, TSHBASELINE, TSHULTRASEN, TSHRFT4 Lipid profile: No results found for: CHOLESTEROL, TRIG, HDL, LDLCALC No results found for: FERRITIN ECHO: No results found for this or any previous visit. Diagnostic Review: ESS 8 FOSQ 14 ODILON 20 IRLS MVAP 0.125 Morrill Sleepiness Score (ESS) > 10 indicates daytime [...] Patient Location: [facility] Instructions* Patient Instructions* Elan Vizcarra MD - 07/02/2024 1:00 PM EDT Images [...] follow up appointment, you need to call [phone] tore-schedule the appointment. Let me know if you have any questions. Elan Vizcarra M.D. Professor of Internal Medicine and Neuroscience Division of Pulmonary, Allergy, Critical Care, and Sleep Medicine [facility] FAX: [phone] Email: [email or web address] NoteHNO ID: [id number] Author: DODIE ESQUEDA OD Service: ? 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 Hyperopia of both eyes - ICD9: 367.0, ICD10: H52.03 (primary diagnosis) 2. Regular astigmatism of both eyes - ICD9: 367.21, ICD10: H52.223 Glasses are an option if she desires. Continue to monitor her ocular health Recommended yearly exams. [facility] Instructions* Patient Instructions* Dodie Esqueda OD - 12/16/2023 3:57 PM EDT ASSESSMENT/PLAN: 1. Hyperopia of both eyes - ICD9: 367.0, ICD10: H52.03 (primary diagnosis) 2. Regular astigmatism of both eyes - ICD9: 367.21, ICD10: H52.223 Glasses are an option if she desires. Continue to monitor her ocular health Recommended yearly exams. [facility] History of Present illness Narrative* Dodie Esqueda OD - 12/16/2023 3:51 PM EDT ASSESSMENT/PLAN: 1. Hyperopia of both eyes - ICD9: 367.0, ICD10: H52.03 (primary diagnosis) 2. Regular astigmatism of both eyes - ICD9: 367.21, ICD10: H52.223 Glasses are an option if she desires. Continue to monitor her ocular health Recommended yearly exams. Dodie Esqueda, BRENDEN [facility] Discharge summary Author Tahira Russo [facility] July 02, 2023 12:54pm Note Date/Time July 02, 2023 9 :07am [facility] Medical Records Department [address] [place] [address] Instructions for Home/Discharge Instructions 07/02/23 0906 MR#: [id number] Acct: [id number] Name: MAHESH PEPPER Rep #:[id number] : 1980 42 From: Tahira león MD PCP: Dr. Sumit Reid MD Status: REG [facility] Discharge Instructions Diet Discharge Diet: No restrictions [...] fluticasone propionate [Flonase Allergy Relief] 50 mcg/actuation [place],Suspension 1 spray INTRANASAL DAILY Rx Instructions: administer [...] CC: Dr. Sumit Reid MD ~ Signed [facility] Work Phone: 1(401) 605-803010-17-2023 Procedure [facility] 07-02-2023 History and physical note Author Tahira Russo [facility] July 02, 2023 9:06am Note Date/Time July 01, 2023 1 :48pm [facility] Medical Records Department [address] [place] [address] History & Physical Exam 07/01/23 1348 MR#: [id number] Acct: [id number] Name: MAHESH PEPPER MAXIMILIAN Rep #:[id number] : 1980 42 From: Tahira león MD PCP: Dr. Sumit Reid MD Status: 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 Tahira Russo MD ~* Signed [facility] Work Phone: 1(417) 683-424809-10-2009 History of Past illness Narrative* Problem Noted Date Diagnosed Date Resolved Date Irregular menstrual cycle 05/26/2009 Excessive or frequent menstruation 05/26/2009 05/31/2010 documented as of this encounter (statuses as of 12/17/2023) [facility] Diagnosis Onset Date Resolution Status COVID-19 acute Abdominal bloating acute Constipation acute Personal history of colonic polyps acute Constipation acute Gastritis acute Back pain acute Segmental and somatic dysfunction of cervical region acute Segmental and somatic dysfunction of lumbar region acute Segmental and somatic dysfunction of pelvic region acute Segmental and somatic dysfunction of thoracic region acute [facility] Work Phone: Evaluation note* Diagnosis [...] and somatic dysfunction of thoracic region acute [facility] Work Phone: Evaluation note* Diagnosis [...] and somatic dysfunction of thoracic region acute [facility] Work Phone: Evaluation note* Diagnosis [...] for routine gynecological examination noneactive Hemorrhoids acute [facility] Work Phone: Evaluation note* Diagnosis [...] and somatic dysfunction of thoracic region acute [facility] Work Phone: Evaluation note* Diagnosis [...] region acute Dysmenorrhea acute Pelvic pain acute [facility] Work Phone: Evaluation note* Diagnosis [...] examination no neactive Postoperative examination no neactive [facility] Work Phone: Evaluation note* Diagnosis Hyperopia of both eyes- Primary Regular astigmatism of both eyes Regular astigmatism [facility] Diagnosis Insomnia, unspecified type- Primary [facility] Additional Instructions Implant Used?: [facility] Work Phone: Reason for referral (narrative)No reason for referral information [facility] Work Phone: Chief Complaint and Reason for [...] dysfunction of thoracic region Chief Complaint 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 [...] 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 4/4 Back pain S/P 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) EORDER 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 UP Reason for Visit [...] examination Hemorrhoids Chief Complaint S/P 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) EORDER 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 UP Back pain Back [...] Thoracic neuritis May 03, 2025 3: 51pm Chief Complaint Admit Date EORDERS March 17, 2025 12:55 pm BACK PAIN March 22, 2025 4:21p m BACK PAIN May 03, 2025 3: 51pm [employer] June 01, 2025 6:39am E ORDERS June 01, 2025 6:40am Reason for Visit Admit Date Segmental and somatic dysfunction of lum bar [...] tho racic region May 03, 2025 3:51pm Chief Complaint Admit Date EORDERS March 17, 2025 12:55 pm BACK PAIN March 22, 2025 4:21p m BACK PAIN May 03, 2025 3: 51pm [employer] June 01, 2025 6:39am E ORDERS June 01, 2025 6:40am BACK PAIN June 28, 2025 4 :18pm Reason for Visit Admit Date Segmental and somatic dysfunction of lum bar [...] tho racic region May 03, 2025 3:51pm Segmental and somatic dysfunction of lum bar region June 28, 2025 4:18pm Segmental and somatic dysfunction of [place] region June 28, 2025 4:18pm Segmental and somatic dysfunction of tho racic region June 28, 2025 4:18pm Family History Relationship Condition Age at Onset Recorded Date/T snow mother Hypertension Unknown Hyperlipidemia Unknown father Hypertension Unknown Disorder of thyroid Unknown Advance Directives Advance Directive Response Recorded Date/ Time Living Will No October 16 3:09pm Power of Shoes Salesperson No October 16, 2021 3:09pm Advance Directive Response Recorded Date/ Time Living Will No December 11, 2022 10:55am Power of Shoes Salesperson No December 11 10:55am Advance Directive Response Recorded Date/ Time Living Will No June 28 8:12am Power of Shoes Salesperson No June 28, 2023 8:12am Advance Directive Response Recorded Date/ Time Living Will No June 28 7:12am Power of Shoes Salesperson No June 28, 2023 7:12am Summary Purpose [...] Pr ovider, Referring Provider, Other Provider Active Manipulative Therapy Specialist Relationship Specialty Start Date End Date Elsie Reid MD [address] [place] [address] [place] [address] PCP - General 05/26/09 Team Status: Active [...] May 03, 2025 End: May 03, 2025 Team Status: Active Member Role/Relationship Status Dates Dr. Elsie Reid MD Primary care physician Act neetu Team Status: Inactive Member Role/Relationship Status Dates Dr. Elsie Reid MD Primary care physician Act neetu Start: March 17, 2025 End: March 17, 2025 Dr. Elsie Reid MD Attending physician Active Start: March 17, 2025 End: March 17, 2025 Dr. Elsie Reid MD Referring Provider Active Start: March 17, 2025 End: March 17, 2025 Team Status: Inactive Member Role/Relationship Status Dates Dr. Elsie Reid MD Primary care physician Act neetu Start: March 22, 2025 End: March 22, 2025 Dr. Elsie Reid MD Referring Provider Active Start: March 22, 2025 End: March 22, 2025 Dr. Richelle Moreno DC Attending physician Active Start: March 22, 2025 End: March 22, 2025 Team Status: Inactive Member Role/Relationship Status Dates Dr. Elsie Reid MD Primary care physician Act neetu Start: May 03, 2025 End: May 03, 2025 Dr. Elsie Reid MD Referring Provider Active Start: May 03, 2025 End: May 03, 2025 Dr. Richelle Moreno DC Attending physician Active Start: May 03, 2025 End: May 03, 2025 Team Status: Active Member Role/Relationship Status Dates Dr. Elsie Reid MD Primary care physician Act neetu Start: June 01, 2025 Health Risk Assessment Attending physician Active Start: June 01, 2025 Health Risk Assessment Referring Provider Active Start: June 01, 2025 Team Status: Inactive Member Role/Relationship Status Dates Dr. Elsie Reid MD Primary care physician Act neetu Start: June 01, 2025 End: June 01, 2025 Dr. Elsie Reid MD Attending physician Active Start: June 01, 2025 End: June 01, 2025 Dr. Elsie Reid MD Referring Provider Active Start: June 01, 2025 End: June 01, 2025 Team Status: Inactive Member Role/Relationship Status Dates Dr. Elsie Reid MD Primary care physician Act neetu Start: June 28, 2025 End: June 28, 2025 Dr. Elsie Reid MD Referring Provider Active Start: June 28, 2025 End: June 28, 2025 Dr. Richelle Moreno DC Attending physician Active Start: June 28, 2025 End: June 28, 2025 Source Comments (unrecognize d section and content) In the event this informatio n is protected by the Federal Confidentiality of Alcohol and Drug Abuse Patient Records regulations: The Federal rules restrict any use of the information to criminally investigate or prosecute any alcohol or drug abuse patient.[facility] Reason for Visit (unrecogniz ed section and content) Reason Comments Yearly Exam Reason Comments Sleep Problem Waking up multiple t imes during the night. Wakes up tired Outside Orders [facility] referral for (first available) Unspecified sleep disorder Specialty Diagnoses / Procedures Referred By Arnaldo t Referred To Contact Sleep Medicine Diagnoses Sleep disorder, unspecified Elsie Reid MD [address] [place] [address] [facility] [address] [place] [address] Referral ID Status Reason Start Date Expiration Date V isits Requested Visits Authorized [id number] New Request 06/22/2024 07/17/2025 1 1 Inactive [...] section and content) DATE CREATED AUTHOR 12/17/2023 [facility] DATE CREATED AUTHOR AUTHOR'S ORGANIZ ATION 07/05/[address] [facility] DATE CREATED AUTHOR AUTHOR'S ORGANIZ ATION 06/29/2025 [facility] FOR RECORDS PERTAINING TO PATIENTS WHO ARE [...] BE BASED ON THE PRIMARY CLINICAL RECORDS. [employer] provides no warranty or guarantee of the accuracy or completeness of information in this document.
--- NOTE | 2025-08-31 07:15 | BI_ITS ---
EXAM: SCRN MAMM (CAD)W/DENISE BILAT DATE: 08/31/2025 CLINICAL HISTORY: F, Age 44 y/o , SCREENING FOR BREAST CANCER No family history. Bilateral breast implants. TECHNIQUE: Procedure Code: [id number] Modality: MG Procedure: SCRN MAMM (CAD)W/DENISE BILAT COMPARISON: Prior exam(s) dated August 14, 2024.. FINDINGS: TISSUE DENSITY: There are scattered areas of fibroglandular density. Bilateral Breast Mammographic Findings: No significant masses, calcifications or other abnormalities are identified. Stable appearance of the bilateral breast implants. No suspicious masses, areas of developing architectural distortion, or suspicious calcifications. There has been no significant interval change. BI/SCRN MAMM (CAD)W/DENISE BILAT IMPRESSION: Stable bilateral screening mammogram. OVERALL FINAL ASSESSMENT BI-RADS 2: BENIGN RECOMMENDATION: Routine annual follow-up in 1 Year Additional Recommendation none A letter with findings and recommendations will be mailed to the patient. Reading Location: [facility]
== END | disposition home or self-care (01) ==
LOC: OPBI 07:08
PROVIDERS: PCP Family Medicine
DX: Z12.31 Encounter for screening mammogram for malignant neoplasm of breast (principal)
CPT/HCPCS: 77063; 77067